=== PATIENT | female | born 1985 | race Caucasian/White ===

== ENCOUNTER 2020-06-13 08:34 | Outpatient (RCR) | payer OTHER, SELFPAY ==
--- NOTE | 2020-06-13 10:16 | OTOPEVAL ---
Thank you for referring Alycia Ho to [facility].? The patient is scheduled to be seen for therapy? ____x/week for ___ weeks. Please review, sign, date and return this plan of care TED. I agree with and certify that the following plan of care is medically necessary. Referring Physician Date Admitting Provider: Attending Provider: PHYSICIAN NOT ON STAFF Referring Provider: *OT Outpatient Evaluation Start: 06/13/20 08:52 Freq: Status: Active Protocol: Document 06/13/20 08:52 [facility] [place] (Rec: 06/13/20 10:15 [facility] [place] [facility] [id number]) Therapy Assessment Status Assessment Status Assessment Status Evaluation Outpatient Past Medical History Neurological History Hx Seizures Yes: febrile seizure as a child Gastrointestinal History Hx Hernia Yes: with mesh repair Hx Irritable Bowel Yes Musculoskeletal History Hx Degenerative Disk Disease Yes Reproductive History Hx Hysterectomy Yes Psychosocial History Hx Anxiety Yes Hx Depression Yes Other History Hx Cancer Yes: cervix Evaluation Information Problem Diagnosis R hand pain and weakness Onset 05/20/20 Cause R status post carpal tunnel release Subjective Information Patient had surgery on Text:As Reported By Patient/ to the R hand for carpal Family tunnel release. She reports that she has not been using her right hand much at all. Patient reports that she is not wearing a splint or anything at this time and had the stitches removed ~1 week ago. Patient does not work and reports that she is disabled. Quick DASH: 77.3% Prior Level of Function Activity Level (Last 3 Months) Hand Dominance Right Activity of Daily Living Ability Independent Indoor/Home Mobility Independent Community Mobility Independent Stairs Ability Independent Functional Cognition (Planning, Shopping Independent , Taking Medications) Cooking Yes Cleaning Yes Laundry Yes Shopping Yes Driving Yes Home Setting Home Type House Living Situation With Minor Child,With Spouse Mobility Assistive Devices (Used Last 3 None Months) Pain Assessmen
--- NOTE | 2020-07-01 11:23 | PTOPEVAL ---
Thank you for referring Alycia Ho to [facility].? The patient is scheduled to be seen for therapy? ___3_x/week for 12 visits. Please review, sign, date and return this plan of care TED. I agree with and certify that the following plan of care is medically necessary. Referring Physician Date Admitting Provider: Attending Provider: PHYSICIAN NOT ON STAFF Referring Provider: *PT Outpatient Evaluation Start: 07/01/20 10:00 Freq: Status: Active Protocol: Document 07/01/20 10:00 [facility] (Rec: 07/01/20 11:12 [facility] [id number]) Therapy Assessment Status Assessment Status Assessment Status Evaluation Outpatient Past Medical History Neurological History Hx Seizures Yes: febrile seizure as a child Gastrointestinal History Hx Hernia Yes: with mesh repair Hx Irritable Bowel Yes Musculoskeletal History Hx Degenerative Disk Disease Yes Reproductive History Hx Hysterectomy Yes Psychosocial History Hx Anxiety Yes Hx Depression Yes Other History Hx Cancer Yes: cervix Evaluation Information Problem Diagnosis low back pain Onset 06/14/20 Subjective Information Pt. reports that she bent to Query Text:As Reported By Patient/ get water out of her fridge Family and felt and disconnect in her back. She report she noted initial inability to use her legs and was taken to the ER by ambulance. Pt. reports that she was given pain medication and sent home. She reports that her condition has improved, but still has pain radiating along the low back and into both described greater trocahnter areas. She reports past laminectomy at L4-L5. She reports she cannot bend forward without pain. She states that she can stand for about 20 minutes prior to intense pain. Pt. reports that she does not work and is on disability. She reports that she was mostly inactive prior to her recent injury, but she can not participate in light housework at this time
--- NOTE | 2020-09-23 14:05 | PCOTNOTE ---
Patient is discharged from skilled OT services, see last treatment note for patient's skills. Patient cancelled last OT session and failed to schedule additional visits. MS
--- NOTE | 2020-09-30 06:57 | PCPTNOTE ---
Pt. attended a total of 4 PT sessions from 07/01/20 to 07/16/20. She contacted the clinic recently stating that she is doing well and would like to be discharged. Refer to last daily note for pt. discharge status. Judah Multani, MPT
== END 2020-07-16 23:59 | disposition home or self-care (01) ==
LOC: CHSOT 08:34
DX: M54.5 Low back pain (principal); G56.03 Carpal tunnel syndrome, bilateral upper limbs; Z98.890 Other specified postprocedural states
CPT/HCPCS: 97014; 97035; 97110; 97140; 97161; 97165; G0283

== ENCOUNTER 2020-07-21 15:22 | Outpatient (CLI) | payer OTHER, SELFPAY ==
--- NOTE | ~2020-07-21 | XR_ITS ---
EXAMINATION: XR chest 2V 07/21/2020 15:47 INDICATION: Left pleuritic chest pain PROCEDURE: 2 view chest COMPARISON: 04/10/2018 FINDINGS: The lungs are clear. The cardiomediastinal silhouette is within normal limits. There are no pleural effusions. There is no pneumothorax suspected. IMPRESSION: 1: NO ACUTE CARDIOPULMONARY DISEASE. Reviewed, dictated and finalized at location A. STANT HALL DIRECTOR
[2020-07-21 15:50] LABS: Basophils Absolute Auto 0.06 K/mm3 (0.00-0.10); Basophils Percent Auto 0.6 % (0.0-1.0); Eosinophils Absolute Auto 0.12 K/mm3 (0.02-0.50); Eosinophils Percent Auto 1.1 % (1.0-6.0); Hematocrit 46.9 % (35.0-49.0); Hemoglobin 13.9 g/dL (12.0-15.0); Immature Granulocyte Absolute 0.06 K/mm3 (0.00-0.00); Immature Granulocyte Percent A 0.6 % (0.0-0.0); Lymphocytes Absolute Auto 3.42 K/mm3 (1.10-4.50); Lymphocytes Percent Auto 32.1 % (18.0-42.0); Mean Corpuscular HGB Conc 29.6 g/dL (32.0-36.0); Mean Corpuscular Hemoglobin 29.4 pg (27.0-31.0); Mean Corpuscular Volume 99.2 fL (78.0-102.0); Mean Platelet Volume 10.2 fl (9.2-11.8); Monocytes Absolute Auto 0.81 K/mm3 (0.10-0.90); Monocytes Percent Auto 7.6 % (2.0-11.0); Neutrophils Absolute Auto 6.2 K/mm3 (1.7-7.2); Platelet Count Result 326 K/mm3 (150-420); Red Blood Count 4.73 M/mm3 (4.20-5.40); Red Cell Distribution Width 12.4 % (11.6-14.4); White Blood Count 10.6 K/mm3 (4.8-10.8)
[2020-07-21 17:20] LABS: D Dimer 0.54 mg/L (0.19-0.50)
== END 2020-07-21 15:23 | disposition home or self-care (01) ==
PROVIDERS: PCP Physician Assistant; Visit Provider Physician Assistant
DX: R07.81 Pleurodynia (principal)
CPT/HCPCS: 36415; 71046; 85025; 85380

== ENCOUNTER 2020-07-22 10:48 | Outpatient (CLI) | payer OTHER, SELFPAY ==
--- NOTE | ~2020-07-22 | CT_ITS ---
EXAMINATION: CTA chest PE protocol DATE: 07/22/2020 13:33 INDICATION: Soreness of breath. Left-sided chest pain. Positive d-dimer.. TECHNIQUE: Computed tomography (CT) pulmonary angiogram of the chest was performed with 100 mL Omnipa que-350 intravenous contrast. Additional 3D reconstructions utilizing coronal maximum intensity proje ction (MIP) were performed. Automated exposure control and iterative reconstruction technique were em ployed. The dose-length product was 393.41 mGy-cm. COMPARISON: None FINDINGS: Excellent contrast opacification of the pulmonary arteries. There is mild streak artifact from dense contrast in the superior vena cava and right atrium which does not significantly limit evaluation. No pulmonary embolism. Ground glass opacities in the dependent lungs likely mild atelectasis related to suboptimal inspiratory effort. Small region of bandlike discoid atelectasis at the anterobasilar lef t lower lobe with associated volume loss with focal mild posterior retraction of the medial adjacent left major fissure. No septal line thickening to suggest pulmonary edema. No other airspace opacities , pleural effusion or pneumothorax. Heart size is normal. No pericardial effusion. Thoracic aorta is normal in caliber with no dissection. No pathologically enlarged thoracic lymphadenopathy. Visualized upper abdomen is unremarkable. Bifid anterior right fifth rib. IMPRESSION: 1. No pulmonary embolism. 2. Mild dependent atelectasis/scarring at the anterobasilar left lower lobe. Reviewed, dictated and finalized at location B. ALS COLLECTION TECHNICIAN
[2020-07-22 11:26] LABS: D Dimer 0.65 mg/L (0.19-0.50)
== END 2020-07-22 10:49 | disposition home or self-care (01) ==
PROVIDERS: PCP Family Medicine; Visit Provider Physician Assistant
DX: R79.89 Other specified abnormal findings of blood chemistry (principal)
CPT/HCPCS: 36415; 71275; 85380; Q9965; Q9967

== ENCOUNTER 2020-08-24 10:48 | Outpatient (CLI) | payer OTHER, SELFPAY ==
[2020-08-26 18:38] LABS: SARS-CoV-2 RNA PCR Negative
== END 2020-08-24 10:49 | disposition home or self-care (01) ==
PROVIDERS: PCP Family Medicine; Visit Provider Family Medicine
DX: B34.9 Viral infection, unspecified (principal); Z20.822 Contact with and (suspected) exposure to COVID-19
CPT/HCPCS: C9803; U0003; U0005

== ENCOUNTER 2020-09-10 08:24 | Outpatient (CLI) | payer OTHER, SELFPAY ==
--- NOTE | ~2020-09-10 | US_ITS ---
EXAMINATION: US right upper quadrant DATE: 09/10/2020 09:02 INDICATION: Nausea with vomiting. TECHNIQUE: Multiple grayscale and Doppler ultrasound images of the abdomen were obtained. COMPARISON: Chest CT 07/22/2020 FINDINGS: The visualized portions of the head, body, and tail of the pancreas are normal. The liver i s normal without focal lesion. There is normal flow in main portal vein. The gallbladder is normal in size and contains sludge. No gallstones or gallbladder wall thickening. There was no sonographic Mur phy sign. The common duct is normal and measures 4 mm. IMPRESSION: 1. No etiology for the patient's symptoms. Reviewed, dictated and finalized at location A. OR PATROL POLICE
[2020-09-10 08:42] LABS: Basophils Absolute Auto 0.06 K/mm3 (0.00-0.10); Basophils Percent Auto 0.7 % (0.0-1.0); Eosinophils Absolute Auto 0.13 K/mm3 (0.02-0.50); Eosinophils Percent Auto 1.4 % (1.0-6.0); Hemoglobin 13.5 g/dL (12.0-15.0); Immature Granulocyte Absolute 0.03 K/mm3 (0.00-0.00); Immature Granulocyte Percent A 0.3 % (0.0-0.0); Lymphocytes Absolute Auto 2.37 K/mm3 (1.10-4.50); Mean Corpuscular HGB Conc 32.9 g/dL (32.0-36.0); Mean Corpuscular Hemoglobin 29.7 pg (27.0-31.0); Mean Corpuscular Volume 90.1 fL (78.0-102.0); Mean Platelet Volume 10.2 fl (9.2-11.8); Monocytes Absolute Auto 0.74 K/mm3 (0.10-0.90); Monocytes Percent Auto 8.1 % (2.0-11.0); Neutrophils Absolute Auto 5.8 K/mm3 (1.7-7.2); Neutrophils Percent Auto 63.5 % (50.0-70.0); Platelet Count Result 307 K/mm3 (150-420); Red Blood Count 4.55 M/mm3 (4.20-5.40); Red Cell Distribution Width 12.5 % (11.6-14.4); White Blood Count 9.1 K/mm3 (4.8-10.8)
[2020-09-10 09:15] LABS: Hemoglobin A1C 5.1 % (<5.7)
[2020-09-10 09:52] LABS: Alanine Aminotransferase 16 U/L (14-59); Albumin Level 4.2 g/dL (3.4-5.0); Alkaline Phosphatase 81 U/L (46-116); Anion Gap 11 mmol/L (8-16); Bilirubin,Total 0.5 mg/dL (0.00-1.00); Blood Urea Nitrogen 12 mg/dL (7-18); Calcium 9.3 mg/dL (8.5-10.1); Carbon Dioxide 27 mmol/L (21-32); Chloride 103 mmol/L (98-108); Cholesterol 176 mg/dL (0-200); Estimated Glomerular Filt Rate > 60; Glucose 102 mg/dL (70-99); HDL Direct 42 mg/dL (40-60); Iron 68 ug/dL (50-170); LDL Cholesterol Calculated 120 mg/dL (<130); Osmolality Calculated 291 mOsm/kg (285-295); Percent Iron Saturation 23 % (12-57); Potassium 4.3 mmol/L (3.5-5.1); Sodium 141 mmol/L (136-145); Thyroid Stimulating Hormone 1.16 uIU/mL (0.36-3.74); Total Protein 7.6 g/dL (6.4-8.2); Triglycerides 72 mg/dL (0-150); Vitamin B12 986 pg/mL (193-986)
[2020-09-10 10:01] LABS: Aspartate Amino Transferase 10 U/L (15-37)
== END 2020-09-10 08:25 | disposition home or self-care (01) ==
LOC: CHSLAB 08:25
PROVIDERS: PCP Physician Assistant; Visit Provider Physician Assistant
DX: E78.00 Pure hypercholesterolemia, unspecified (principal); E53.8 Deficiency of other specified B group vitamins; R73.01 Impaired fasting glucose; R53.83 Other fatigue; R11.2 Nausea with vomiting, unspecified
CPT/HCPCS: 36415; 76705; 80053; 80061; 82607; 83036; 83540; 83550; 84443; 85025

== ENCOUNTER 2021-03-13 13:47 | Emergency (ER) | payer OTHER, SELFPAY ==
--- NOTE | ~2021-03-13 | CT_ITS ---
EXAMINATION: CT cervical spine wo con DATE: 03/13/2021 16:27 INDICATION: Headache, radiating down the neck. Dizziness. TECHNIQUE: Computed tomography (CT) of the cervical spine was performed without intravenous contrast. Automated exposure control and iterative reconstruction technique were employed. Exam dose: 681.00 mGy-cm total exam DLP. COMPARISON: 05/01/2018 cervical spine FINDINGS: There is straightening of the cervical spine. C1 and C2 are normally aligned and the odonto id process is intact. No fracture or dislocation or locked facet. No prevertebral soft tissue swelling. The cervical inters paces are well preserved. No cervical mass lesion or lymphadenopathy. The parotid and submandibular glands and thyroid gland ar e unremarkable. No superior mediastinal mass lesion or adenopathy. The lung apices are clear.. IMPRESSION: Straightening; otherwise negative Reviewed, dictated and finalized at Location A. Reviewed, dictated and finalized at location B.
--- NOTE | ~2021-03-13 | CT_ITS ---
EXAMINATION: CT brain wo con DATE: 03/13/2021 16:27 INDICATION: Temporal headache. Dizziness, nausea. Pain radiating down neck. TECHNIQUE: Computed tomography (CT) of the head was performed without intravenous contrast. The mA wa s adjusted according to patient size. Iterative reconstruction technique was employed. Exam dose: 68 1.00 mGy-cm total exam DLP. COMPARISON: 06/27/2019 CT brain FINDINGS: No intracranial mass lesion or hemorrhage or cerebrovascular accident. No midline shift or mass effect. Normal mckeon-white matter differentiation. Normal ventricular size. No subdural or epidur al hematoma. No fracture or bone destruction of the cranial vault. The mastoid air cells and included paranasal sinuses are unremarkable. IMPRESSION: No significant abnormality Reviewed, dictated and finalized at Location A. Reviewed, dictated and finalized at location B. IMPRESSION: No significant abnormality
[2021-03-13 13:55] VITALS: BP 118/71; PULSE 98; RESP 16; TEMP 36.4; O2SAT 98
[2021-03-13] MEDS: ONDANSETRON HCL ODT 4 MG TABLET PO (15:50)
[2021-03-13] MEDS: KETOROLAC (*BKC) 60 MG/2 ML VIAL IM (15:50)
[2021-03-13 16:12] LABS: Basophils Absolute Auto 0.07 K/mm3 (0.00-0.10); Basophils Percent Auto 0.6 % (0.0-1.0); Eosinophils Absolute Auto 0.17 K/mm3 (0.02-0.50); Eosinophils Percent Auto 1.6 % (1.0-6.0); Hematocrit 44.2 % (35.0-49.0); Hemoglobin 14.3 g/dL (12.0-15.0); Immature Granulocyte Absolute 0.07 K/mm3 (0.00-0.00); Immature Granulocyte Percent A 0.6 % (0.0-0.0); Lymphocytes Absolute Auto 3.85 K/mm3 (1.10-4.50); Lymphocytes Percent Auto 35.6 % (18.0-42.0); Mean Corpuscular HGB Conc 32.4 g/dL (32.0-36.0); Mean Corpuscular Hemoglobin 29.6 pg (27.0-31.0); Mean Corpuscular Volume 91.5 fL (78.0-102.0); Mean Platelet Volume 9.9 fl (9.2-11.8); Monocytes Absolute Auto 0.94 K/mm3 (0.10-0.90); Monocytes Percent Auto 8.7 % (2.0-11.0); Neutrophils Absolute Auto 5.7 K/mm3 (1.7-7.2); Neutrophils Percent Auto 52.9 % (50.0-70.0); Platelet Count Result 341 K/mm3 (150-420); Red Blood Count 4.83 M/mm3 (4.20-5.40); Red Cell Distribution Width 12.7 % (11.6-14.4); White Blood Count 10.8 K/mm3 (4.8-10.8)
[2021-03-13 16:26] LABS: Alanine Aminotransferase 16 U/L (14-59); Alkaline Phosphatase 78 U/L (46-116); Anion Gap 10 mmol/L (8-16); Aspartate Amino Transferase < 10 U/L (15-37); Bilirubin,Total 0.2 mg/dL (0.00-1.00); Blood Urea Nitrogen 13 mg/dL (7-18); Carbon Dioxide 27 mmol/L (21-32); Chloride 105 mmol/L (98-108); Estimated CRCL calculation 82 ml/min; Estimated Glomerular Filt Rate > 60; Glucose 76 mg/dL (70-99); Osmolality Calculated 293 mOsm/kg (285-295); Potassium 4.2 mmol/L (3.5-5.1); Sodium 142 mmol/L (136-145); Total Protein 7.6 g/dL (6.4-8.2)
--- NOTE | 2021-03-13 16:44 | PC.NURSE ---
REPORT PROVIDED TO ONCOMING RN, DONNA Dixon
[2021-03-13 16:54] VITALS: BP 118/70; PULSE 70; RESP 18; O2SAT 98
--- NOTE | 2021-03-13 17:27 | ED.HA ---
HPI - Headache General Chief Complaint: Headache Stated Complaint: headaches/Dizzy/ Light headed Time Seen by Provider: 03/13/21 16:56 Source: patient and RN notes reviewed Mode of arrival: ambulatory Limitations: no limitations History of Present Illness MD elicited complaint: headache and migraine Pertinent past history: migraines Onset (ago): month(s) (2) Onset description: gradually and while at rest Location: occipital Severity: moderate Pain scale (0-10): 8 Quality & Timing: aching, throbbing, dull and similar to previous headaches Exacerbating factors: exertion and movement of head/neck Relieving factors: NSAIDs Context: occurred with exertion/activity Associated symptoms: nausea, vomiting and neck stiffness Related Data Home Medications Medication Instructions Recorded Confirmed alprazolam 0.5 mg PO BID PRN 03/13/21 03/13/21 paroxetine HCl 20 mg PO DAILY 03/13/21 03/13/21 trazodone 200 mg PO HS 03/13/21 03/13/21 venlafaxine 75 mg PO DAILY 03/13/21 03/13/21 Allergies Allergy/AdvReac Type Severity Reaction Status Date / Time amoxicillin Allergy Rash Verified 06/27/19 14:57 Cephalosporins Allergy Rash Verified 06/27/19 14:57 Review of Systems Review of Systems: All systems reviewed & are unremarkable except as noted in HPI and below Constitutional: Constitutional: Reports as per HPI and Reports no additional constitutional complaints Eyes: Eyes: Reports as per HPI and Reports no additional eye complaints ENT: Reports system reviewed and no additional complaints, except as documented and Reports as per HPI Cardiovascular: Cardiovascular: Reports as per HPI and Reports no additional cardiovascular complaints Respiratory: Respiratory: Reports as per HPI and Reports no additional respiratory complaints Gastrointestinal: Gastrointestinal: Reports as per HPI and Reports no additional gastrointestinal complaints Genitourinary: Genitourinary: Reports no additional female genitourinary complaints and Reports as per HPI Musculoskeletal: Musculoskeletal: Reports no additional musculoskeletal complaints and Reports as per HPI Integumentary/Breasts: Skin/Breast: Reports system reviewed and no additional complaints, except as docu and Reports as per HPI Neurologic: Reports system reviewed and no additional complaints, except as documented, Reports as per HPI and Reports headache(s) Psychiatric: Psychiatric: Reports no additional psychiatric complaints and Reports as per HPI Endocrine: Endocrine: Reports no additional endocrine complaints and Reports as per HPI Hematologic/Lymphatic: Hematologic/Lymphatic: Reports no additional hematologic/lymphatic complaints and Reports as per HPI Allergic/Immunologic: Allergic/Immunologic: Reports no additional allergic/immunologic complaints PMFSH Past Medical History Medical History (Updated 03/13/21 @ 17:40 by Emir Christensen MD) Headache disorder Social History Social History Gender identity (if verbalized by the patient): Female Exam Const: General: no acute distress and alert Nutritional Appearance: well nourished Orientation/consciousness: patient oriented x3 HENMT: Head: normal to inspection Ears: external ears normal and TM's normal bilaterally General nose exam: Normal external nose present and Normal nares present Mouth: Yes lip normal and Yes moist mucous membranes abnormal Teeth and gingiva: dentition normal Throat: posterior oropharynx normal Eyes: Conjunctivae: conjunctivae normal Pupils: Equal, round and reactive pupils present EOM: EOMs intact bilaterally Neck: Neck: normal visual inspection and no lymphadenopathy Chest: Chest palpation & inspection: normal inspection of the chest Resp: Effort & Inspection: normal respiratory effort Auscultation: clear to auscultation bilaterally Cardio: Rate: regular rate Rhythm: regular rhythm GI: GI Palp: Yes Soft to palpation Percus
[2021-03-13 17:42] VITALS: BP 120/88; PULSE 88; RESP 18; TEMP 36.6; O2SAT 98
== END 2021-03-13 17:43 | disposition home or self-care (01) ==
PROVIDERS: Emergency Provider Emergency Medicine; PCP Family Medicine
DX: G43.909 Migraine, unspecified, not intractable, without status migrainosus (principal)
CPT/HCPCS: 36415; 70450; 72125; 80053; 85025; 96372; 99283; 99284; A9270; J1885

== ENCOUNTER 2021-03-30 14:17 | Outpatient (CLI) | payer OTHER, SELFPAY ==
--- NOTE | ~2021-03-30 | XR_ITS ---
XR_CERV2-3V_CR DATE: 03/30/2021 14:34 INDICATION: Neck pain, bilateral upper extremity weakness TECHNIQUE: AP, open-mouth, lateral views COMPARISON: 05/01/2018 cervical spine FINDINGS: There is straightening of the cervical spine. C1 and C2 are normally aligned and the odonto id process is intact. No fracture or dislocation or locked facet or prevertebral soft tissue swelling . Cervical interspaces are well preserved. IMPRESSION: Straightening of the cervical spine Reviewed, dictated and finalized at Location A. Reviewed, dictated and finalized at location A.
== END 2021-03-30 14:18 | disposition home or self-care (01) ==
LOC: CHSIMG 14:19
PROVIDERS: PCP Physician Assistant; Visit Provider Physician Assistant
DX: M54.2 Cervicalgia (principal)
CPT/HCPCS: 72040

== ENCOUNTER 2021-04-11 07:34 | Outpatient (CLI) | payer OTHER, SELFPAY ==
--- NOTE | ~2021-04-11 | MR_ITS ---
EXAMINATION: MR cervical spine wo con DATE: 04/11/2021 08:24 INDICATION: Right-sided cervical radiculopathy. Numbness of the arms. TECHNIQUE: Magnetic resonance imaging (MRI) of the cervical spine was performed without intravenous c ontrast. Sequences included sagittal T2-weighted FSE, sagittal T2-weighted FS FSE, sagittal T1-weight ed FSE, axial MERGE, and axial T2-weighted FSE. COMPARISON: CT abdomen and pelvis 03/13/2021 FINDINGS: Bone alignment is normal. Vertebral body heights and intervertebral disc heights are normal . The spinal cord signal intensity is normal. The following disc levels are specifically discussed: C2-C3: The disc does not extend beyond the endplate margin. There is no uncovertebral joint osteoarth ritis. There is mild left facet joint osteoarthritis. There is no neural foraminal stenosis. There is no central canal stenosis. C3-C4: The disc does not extend beyond the endplate margin. There is no uncovertebral joint osteoarth ritis. There is mild bilateral facet joint osteoarthritis. There is no neural foraminal stenosis. The re is no central canal stenosis. C4-C5: The disc does not extend beyond the endplate margin. There is mild bilateral uncovertebral nena nt osteoarthritis. There is mild right facet joint osteoarthritis. There is no neural foraminal steno sis. There is no central canal stenosis. C5-C6: The disc does not extend beyond the endplate margin. There is mild bilateral uncovertebral nena nt osteoarthritis. There is no facet joint osteoarthritis. There is mild bilateral neural foraminal s tenosis. There is no central canal stenosis. C6-C7: The disc does not extend beyond the endplate margin. There is no uncovertebral joint osteoarth ritis. There is no facet joint osteoarthritis. There is no neural foraminal stenosis. There is no tristan tral canal stenosis. C7-T1: The disc does not extend beyond the endplate margin. There is no uncovertebral joint osteoarth ritis. There is mild bilateral facet joint osteoarthritis. There is no neural foraminal stenosis. The re is no central canal stenosis. IMPRESSION: 1. Mild cervical spondylosis. Reviewed, dictated and finalized at location A.
== END 2021-04-11 07:35 | disposition home or self-care (01) ==
LOC: CHSIMG 07:35
PROVIDERS: PCP Physician Assistant; Visit Provider Physician Assistant
DX: M54.12 Radiculopathy, cervical region (principal)
CPT/HCPCS: 72141

== ENCOUNTER 2021-04-18 20:01 | Emergency (ER) | payer OTHER, SELFPAY ==
[2021-04-18 20:15] VITALS: BP 128/73; PULSE 107; RESP 18; TEMP 37.2; O2SAT 97
--- NOTE | 2021-04-18 20:24 | ED.URI ---
HPI - URI/Sore Throat General Chief Complaint: Upper Respiratory Infection Stated Complaint: bronchitis Source: patient Mode of arrival: ambulatory Limitations: no limitations History of Present Illness HPI Narrative: this is a 35-year-old female that was seen by her family physician and I gave her medication for cough and was treating her for bronchitis about the patient could not track down the pharmacy that her antibiotics and steroids were sent to. The patient has cough with no shortness of breath low-grade temperature with no audible wheezing does have nasal congestion with no chest pain no nausea vomiting no abdominal pain. MD elicited complaint: fever, cough and nasal congestion Onset (ago): day(s) Consistency: constant Severity: mild Related Data Home Medications Medication Instructions Recorded Confirmed paroxetine HCl 40 mg PO DAILY 03/13/21 04/18/21 trazodone 200 mg PO HS 03/13/21 04/18/21 venlafaxine 75 mg PO DAILY 03/13/21 04/18/21 Allergies Allergy/AdvReac Type Severity Reaction Status Date / Time amoxicillin Allergy Rash Verified 04/18/21 20:20 Cephalosporins Allergy Rash Verified 06/27/19 14:57 Review of Systems Review of Systems: All systems reviewed & are unremarkable except as noted in HPI and below PMFSH Past Medical History Medical History Headache disorder Social History Social History Gender identity (if verbalized by the patient): Female Exam Const: General: no acute distress and alert Orientation/consciousness: patient oriented x3 HENMT: Head: normal to inspection Eyes: Conjunctivae: conjunctivae normal Pupils: Equal, round and reactive pupils present Neck: Neck: normal visual inspection and no lymphadenopathy Chest: Chest palpation & inspection: normal inspection of the chest Resp: Effort & Inspection: normal respiratory effort Cardio: Rate: regular rate Rhythm: regular rhythm GI: GI Palp: Yes Soft to palpation Urinary Catheter: Urinary Catheter: patent and draining Back/Spine/Pelvis: Back: no CVA tenderness Skin: General skin exam: normal color Neuro: General: patient oriented x3 Extrem: General: normal to inspection and no pedal edema Psych: Mental Status: mental status grossly normal Course Course Emergency Course: Patient received p.o. Levaquin and IM injection of Depo-Medrol Critical Care Time Critical Care Time Critical Care Time: No Discharge Plan Discharge Clinical Impression: Upper respiratory infection Qualifiers: URI type: unspecified URI Qualified Code(s): J06.9 - Acute upper respiratory infection, unspecified Patient Disposition: Home, Self-Care Condition: Stable Instructions: Antibiotic Form, Acute Bronchitis (ED) Additional Instructions: take medicine as prescribed and follow-up primary care physician if symptoms persist or worsen. Prescriptions: New levofloxacin 500 mg tablet 500 mg PO DAILY Qty: 7 RF: 0 prednisone 20 mg tablet 20 mg PO DAILY 5 Days Qty: 5 RF: 0 levofloxacin 500 mg tablet 500 mg PO DAILY 7 Days Qty: 7 RF: 0 No Action venlafaxine 75 mg capsule,extended release 24hr 75 mg PO DAILY RF: 0 trazodone 100 mg tablet 200 mg PO HS RF: 0 paroxetine HCl 20 mg tablet 40 mg PO DAILY RF: 0 Follow-up/Referrals: Judah,LAKHWINDER Madrigal [Primary Care Provider] - Time of Disposition: 20:32
[2021-04-18] MEDS: levoFLOXacin 500 MG TABLET PO (20:35)
[2021-04-18] MEDS: methylPREDNISolone ACETATE 40 MG/ML VIAL 80 MG IM (20:35)
== END 2021-04-18 20:37 | disposition home or self-care (01) ==
PROVIDERS: Emergency Provider Emergency Medicine; PCP Physician Assistant
DX: J06.9 Acute upper respiratory infection, unspecified (principal)
CPT/HCPCS: 96372; 99283; A9270; J1030

== ENCOUNTER 2021-08-22 08:57 | Outpatient (CLI) | payer OTHER, SELFPAY ==
[2021-08-22 10:04] LABS: SARS-CoV-2 Ag Negative (Negative)
[2021-08-24 10:49] LABS: SARS-CoV-2 RNA PCR Negative (Negative)
== END 2021-08-22 08:58 | disposition home or self-care (01) ==
LOC: CHSLAB 08:58
PROVIDERS: PCP Family Medicine; Visit Provider Family Medicine
DX: Z20.822 Contact with and (suspected) exposure to COVID-19 (principal)
CPT/HCPCS: 87426; C9803; U0003; U0005

== ENCOUNTER 2021-10-03 17:22 | Emergency (ER) | payer OTHER, SELFPAY ==
[2021-10-03 18:05] VITALS: BP 119/69; PULSE 94; RESP 18; TEMP 36.6; O2SAT 97
--- NOTE | 2021-10-03 18:22 | ED.URI ---
HPI - URI/Sore Throat General Chief Complaint: Upper Respiratory Infection Stated Complaint: sinus inf Time Seen by Provider: 10/03/21 17:25 Source: patient and RN notes reviewed Mode of arrival: ambulatory Limitations: no limitations History of Present Illness MD elicited complaint: sore throat, nasal congestion and sinus pain Pertinent past history: sinusitis Onset (ago): day(s) (2) Consistency: constant Severity: mild Pain scale (0-10): 5 Able to tolerate fluids by mouth: Yes Exacerbating factors: nothing Relieving factors: OTC cold medicine Associated symptoms: nasal congestion Treatments prior to arrival: acetaminophen and ibuprofen Related Data Home Medications Medication Instructions Recorded Confirmed trazodone 200 mg PO HS 03/13/21 10/03/21 venlafaxine 75 mg PO DAILY 03/13/21 10/03/21 alprazolam 0.5 mg PO DAILY 10/03/21 10/03/21 paroxetine HCl 30 mg PO DAILY 10/03/21 10/03/21 Allergies Allergy/AdvReac Type Severity Reaction Status Date / Time amoxicillin Allergy Rash Verified 10/03/21 18:18 Cephalosporins Allergy Rash Verified 06/27/19 14:57 Review of Systems Review of Systems: All systems reviewed & are unremarkable except as noted in HPI and below PMFSH Past Medical History Medical History (Updated 10/19/21 @ 04:44 by Emir Christensen MD) Headache disorder Sinusitis Upper respiratory infection Social History Social History Gender identity (if verbalized by the patient): Female Exam Const: General: no acute distress and alert Nutritional Appearance: well nourished Orientation/consciousness: patient oriented x3 Limitations: no limitations HENMT: Head: normal to inspection Ears: external ears normal, TM's normal bilaterally and EAC's normal General nose exam: Normal external nose present and Normal nares present Face and sinus: normal facial exam and sinus tenderness Mouth: Yes lip normal and Yes moist mucous membranes Throat: posterior oropharynx normal Eyes: Conjunctivae: conjunctivae normal Pupils: Equal, round and reactive pupils present EOM: EOMs intact bilaterally Neck: Neck: normal visual inspection and no lymphadenopathy Chest: Chest palpation & inspection: normal inspection of the chest Resp: Effort & Inspection: normal respiratory effort Auscultation: clear to auscultation bilaterally Cardio: Rate: regular rate Rhythm: regular rhythm GI: GI Palp: Yes Soft to palpation, No Tenderness to palpation present (GI) and Yes Rebound tenderness present Auscultation: normal bowel sounds : General: Yes no CVA tenderness Back/Spine/Pelvis: Back: no CVA tenderness Skin: General skin exam: normal color Rashes: no rashes Neuro: General: patient oriented x3, moves all extremities, no meningeal signs, no focal motor deficits and CN's II-XI intact bilaterally Extrem: General: normal to inspection and no pedal edema Psych: Appearance: grossly normal and well kempt Mental Status: mental status grossly normal Affect: normal affect Attitude: cooperative Thought content: Yes Normal thought content present Course Course Emergency Course: Stable pt with less pain. Reevaluation(s) Reevaluation #1: VSS Date: 10/03/21 Time: 17:56 Vital Signs Vital signs: Vital Signs Temperature 36.6 C 10/03/21 18:05 Pulse Rate 94 10/03/21 18:05 Respiratory Rate 18 10/03/21 18:05 Blood Pressure 119/69 10/03/21 18:05 Pulse Oximetry 97 10/03/21 18:05 Temperature 36.6 C 10/03/21 18:05 Pulse Rate 94 10/03/21 18:05 Respiratory Rate 18 10/03/21 18:05 Blood Pressure 119/69 10/03/21 18:05 Pulse Oximetry 97 10/03/21 18:05 MDM - URI/Sore Throat Differential Diagnosis Differential diagnosis: Likely upper respiratory infection, sinusitis, viral infection and pharyngitis Medical Records Attestation: I reviewed the patient's medical records. Critical Care Time Critical Care Time Critical Care Time:
[2021-10-03] MEDS: AZITHROMYCIN 250 MG TABLET 500 MG PO (18:27)
[2021-10-03] MEDS: ACETAMINOPHEN 325 MG TABLET 650 MG PO (18:27)
[2021-10-03] MEDS: guaiFENesin 12 HR 600 MG TABCR PO (18:29)
--- NOTE | 2021-10-03 18:45 | PC.NURSE ---
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 Pt stated she would wait until Tuesday to get prescription. 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
== END 2021-10-03 18:46 | disposition home or self-care (01) ==
PROVIDERS: Emergency Provider Emergency Medicine; PCP Physician Assistant
DX: J01.90 Acute sinusitis, unspecified (principal); J06.9 Acute upper respiratory infection, unspecified
CPT/HCPCS: 99283; A9270

== ENCOUNTER 2022-03-16 12:33 | Emergency (ER) | payer OTHER, SELFPAY ==
[2022-03-16 12:40] VITALS: BP 111/67; PULSE 86; RESP 16; TEMP 36.3; O2SAT 98
--- NOTE | 2022-03-16 13:25 | ED.URI ---
HPI - URI/Sore Throat General Chief Complaint: Upper Respiratory Infection Stated Complaint: HEADACHE, FEVER Time Seen by Provider: 03/16/22 12:35 Source: patient and RN notes reviewed Mode of arrival: ambulatory Limitations: no limitations History of Present Illness MD elicited complaint: fever and cough Onset (ago): hour(s) (6) Consistency: constant Severity: moderate Description of mucous: clear Able to tolerate fluids by mouth: Yes Exacerbating factors: nothing Relieving factors: nothing Context: sick contacts ( daughter was exposed to COVID) Associated symptoms: fever, myalgias and other ( dizziness) Treatments prior to arrival: none Related Data Home Medications Medication Instructions Recorded Confirmed trazodone 100 mg tablet 200 mg PO HS 03/13/21 03/16/22 venlafaxine 75 mg capsule,extended 75 mg PO DAILY 03/13/21 03/16/22 release 24 hr alprazolam 0.5 mg tablet 0.5 mg PO DAILY 10/03/21 03/16/22 paroxetine HCl 30 mg tablet 30 mg PO DAILY 10/03/21 03/16/22 Allergies Allergy/AdvReac Type Severity Reaction Status Date / Time amoxicillin Allergy Rash Verified 03/16/22 13:09 Cephalosporins Allergy Rash Verified 03/16/22 13:09 Review of Systems Review of Systems: All systems reviewed & are unremarkable except as noted in HPI and below PMFSH Past Medical History Medical History (Updated 03/16/22 @ 13:53 by Simón Corona MD) Asthma Headache disorder Sinusitis Upper respiratory infection Social History Social History Gender identity (if verbalized by the patient): Female Exam Const: General: healthy appearing, no acute distress and alert Nutritional Appearance: well nourished Orientation/consciousness: patient oriented x3 Limitations: no limitations HENMT: Head: normal to inspection Ears: external ears normal and TM's normal bilaterally General nose exam: Normal external nose present Eyes: Conjunctivae: conjunctivae normal Pupils: Equal, round and reactive pupils present EOM: EOMs intact bilaterally Neck: Neck: normal visual inspection Resp: Effort & Inspection: normal respiratory effort Auscultation: clear to auscultation bilaterally Cardio: Rate: regular rate Rhythm: regular rhythm GI: GI Palp: Yes Soft to palpation and No Tenderness to palpation present (GI) Auscultation: normal bowel sounds Back/Spine/Pelvis: Cervical Spine: cervical ROM normal Thoracic/Lumbar Spine: thoraco-lumbar ROM normal Skin: General skin exam: normal color Rashes: no rashes Neuro: General: patient oriented x3, moves all extremities and no focal motor deficits Speech: normal speech Gait exam (Neuro): Normal gait present Extrem: General: normal to inspection and no clubbing, cyanosis or edema Psych: Mental Status: mental status grossly normal Affect: normal affect Attitude: cooperative Course Vital Signs Vital signs: Vital Signs Temperature 36.3 C L 03/16/22 12:40 Pulse Rate 86 03/16/22 12:40 Respiratory Rate 16 03/16/22 12:40 Blood Pressure 111/67 03/16/22 12:40 Pulse Oximetry 98 03/16/22 12:40 Oxygen Delivery Room Air 03/16/22 12:40 Temperature 36.3 C L 03/16/22 12:40 Pulse Rate 72 03/16/22 13:50 Respiratory Rate 16 03/16/22 13:50 Blood Pressure 110/70 03/16/22 13:50 Pulse Oximetry 98 03/16/22 13:50 Oxygen Delivery Room Air 03/16/22 13:50 MDM - URI/Sore Throat Lab Data Labs: Lab Results 03/16/22 Range/Units 12:52 Influenza A (RT-PCR) Negative (Negative) Influenza B (RT-PCR) Negative (Negative) SARS-CoV-2 RNA (RT-PCR) Negative (Negative) Discharge Plan Discharge Clinical Impression: COVID-19 Patient Disposition: Home, Self-Care Condition: Stable Instructions: COVID-19 (Coronavirus Disease 2019) (ED) Additional Instructions: Drink plenty of fluids and get plenty of rest. Quarantine for 5 days and then wear a mask whenever you leave the [facility]
--- NOTE | 2022-03-16 13:25 | PC.NURSE ---
PT REPORTS DAUGHTER HAD A POSITIVE COVID EXPOSURE LAST WEEK PRIOR TO ONSET OF SX.
[2022-03-16 13:35] LABS: Influenza A QL RT-PCR Negative (Negative); Influenza B QL RT-PCR Negative (Negative); SARS-CoV-2 RNA PCR Negative (Negative)
[2022-03-16 13:50] VITALS: BP 110/70; PULSE 72; RESP 16; O2SAT 98
== END 2022-03-16 13:50 | disposition home or self-care (01) ==
PROVIDERS: Emergency Provider Emergency Medicine; PCP Physician Assistant
DX: U07.1 COVID-19 (principal)
CPT/HCPCS: 87502; 99283; C9803; U0003; U0005

== ENCOUNTER 2022-03-27 11:50 | Emergency (ER) | payer OTHER, SELFPAY ==
--- NOTE | ~2022-03-27 | XR_ITS ---
EXAMINATION: XR chest 1V portable DATE: 03/27/2022 12:34 INDICATION: Shortness of breath. TECHNIQUE: A single frontal view of the chest was obtained. COMPARISON: Chest 2 views 07/21/2020 FINDINGS: There is no pneumonia, pleural effusion, or pneumothorax. The heart size is normal. IMPRESSION: 1. No acute cardiopulmonary disease. Reviewed, dictated and finalized at location A.
--- NOTE | 2022-03-27 12:15 | ECG_ITS ---
Measurements Intervals [place] Rate: 75 P: 23 HI: 152 QRS: 48 QRSD: 88 T: 66 QT: 405 QTc: 453 Interpretive Statements SINUS RHYTHM COMPARED TO ECG 06/27/2019 14:39:21 THE PATIENT IS NO LONGER TACHYCARDIC Electronically Signed On 03-27-2022 13:45:53 CDT by Tejal Warren M.D.
[2022-03-27 12:25] VITALS: BP 110/76; PULSE 74; RESP 20; TEMP 37.1; O2SAT 99
[2022-03-27 12:34] LABS: Basophils Absolute Auto 0.02 K/mm3 (0.00-0.10); Basophils Percent Auto 0.3 % (0.0-1.0); Eosinophils Absolute Auto 0.08 K/mm3 (0.02-0.50); Eosinophils Percent Auto 1.1 % (1.0-6.0); Hematocrit 41.9 % (35.0-49.0); Hemoglobin 13.8 g/dL (12.0-15.0); Immature Granulocyte Absolute 0.07 K/mm3 (0.00-0.00); Immature Granulocyte Percent A 0.9 % (0.0-0.0); Lymphocytes Absolute Auto 2.81 K/mm3 (1.10-4.50); Lymphocytes Percent Auto 37.1 % (18.0-42.0); Mean Corpuscular HGB Conc 32.9 g/dL (32.0-36.0); Mean Corpuscular Hemoglobin 29.6 pg (27.0-31.0); Mean Corpuscular Volume 89.9 fL (78.0-102.0); Mean Platelet Volume 10.3 fl (9.2-11.8); Monocytes Absolute Auto 0.75 K/mm3 (0.10-0.90); Monocytes Percent Auto 9.9 % (2.0-11.0); Neutrophils Absolute Auto 3.9 K/mm3 (1.7-7.2); Neutrophils Percent Auto 50.7 % (50.0-70.0); Platelet Count Result 312 K/mm3 (150-420); Red Blood Count 4.66 M/mm3 (4.20-5.40); White Blood Count 7.6 K/mm3 (4.8-10.8)
[2022-03-27 12:44] VITALS: PULSE 78; RESP 19; O2SAT 98
[2022-03-27] MEDS: SODIUM CHLORIDE 0.9% IV 1,000 ML 999 ML IV CONT (12:44)
--- NOTE | 2022-03-27 12:45 | ED.URI ---
HPI - URI/Sore Throat General Chief Complaint: Upper Respiratory Infection Stated Complaint: cheast heavy labored breathing light headed Time Seen by Provider: 03/27/22 12:15 Source: patient Mode of arrival: ambulatory Limitations: no limitations History of Present Illness HPI Narrative: this is a 36-year-old female with history of depression, recently diagnosed with COVID and was receiving anti viral medication. This is her last day of the antiviral medication and the patient presents with some congestion body aches chest tightness with no fever chills no shortness of breath no abdominal pain no nausea vomiting. MD elicited complaint: cough and nasal congestion Onset (ago): day(s) Consistency: intermittent Severity: mild Description of mucous: clear Related Data Home Medications Medication Instructions Recorded Confirmed trazodone 100 mg tablet 200 mg PO HS 03/13/21 03/27/22 venlafaxine 75 mg capsule,extended 75 mg PO DAILY 03/13/21 03/27/22 release 24 hr paroxetine HCl 30 mg tablet 30 mg PO DAILY 10/03/21 03/27/22 Allergies Allergy/AdvReac Type Severity Reaction Status Date / Time amoxicillin Allergy Rash Verified 03/16/22 13:09 Cephalosporins Allergy Rash Verified 03/16/22 13:09 Review of Systems Review of Systems: All systems reviewed & are unremarkable except as noted in HPI and below PMFSH Past Medical History Medical History Asthma Headache disorder Sinusitis Upper respiratory infection Social History Social History Gender identity (if verbalized by the patient): Female Exam Const: General: healthy appearing and no acute distress HENMT: Head: normal to inspection Face and sinus: normal facial exam Eyes: Conjunctivae: conjunctivae normal Direct Ophthalmoscopy: no photophobia Neck: Neck: normal visual inspection, no lymphadenopathy and no meningeal signs Chest: Chest palpation & inspection: normal inspection of the chest Resp: Effort & Inspection: normal respiratory effort Auscultation: clear to auscultation bilaterally Cardio: Rate: regular rate Rhythm: regular rhythm GI: GI Palp: Yes Soft to palpation Auscultation: normal bowel sounds : General: Yes bladder normal to palpation Urinary Catheter: Urinary Catheter: patent and draining Back/Spine/Pelvis: Back: no CVA tenderness Skin: General skin exam: normal color Neuro: General: patient oriented x3 and moves all extremities Cranial nerves: Yes Nystagmus not present Extrem: General: normal to inspection and no clubbing, cyanosis or edema Psych: Mental Status: mental status grossly normal Course Course Emergency Course: Patient receiving IV fluids and received a nebulizer treatment chest x-ray labs and EKG reviewed. MDM - URI/Sore Throat Lab Data Result diagrams: 03/27/22 12:28 03/27/22 12: Labs: Lab Results 03/27/22 03/27/22 Range/Units 12:28 12:28 WBC 7.6 (4.8-10.8) K/mm3 RBC 4.66 (4.20-5.40) M/mm3 Hgb 13.8 (12.0-15.0) g/dL Hct 41.9 (35.0-49.0) % MCV 89.9 (78.0-102.0) fL MCH 29.6 (27.0-31.0) pg MCHC 32.9 (32.0-36.0) g/dL RDW 13.0 (11.6-14.4) % Plt Count 312 (150-420) K/mm3 MPV 10.3 (9.2-11.8) fl Immature Gran % (Auto) 0.9 H (0.0-0.0) % Neut % (Auto) 50.7 (50.0-70.0) % Lymph % (Auto) 37.1 (18.0-42.0) % [place] % (Auto) 9.9 (2.0-11.0) % Eos % (Auto) 1.1 (1.0-6.0) % Baso % (Auto) 0.3 (0.0-1.0) % Lymph # (Auto) 2.81 (1.10-4.50) K/mm3 [place] # (Auto) 0.75 (0.10-0.90) K/mm3 Eos # (Auto) 0.08 (0.02-0.50) K/mm3 Baso # (Auto) 0.02 (0.00-0.10) K/mm3 Abs Immat Gran (auto) 0.07 H (0.00-0.00) K/mm3 Absolute Neuts (auto) 3.9 (1.7-7.2) K/mm3 Absolute Nucleated RBC 0.00 (0.00-0.00) K/mm3 Nucleated RBC % 0.0 (0-0.0) % Sodium Pending Potassium Pending Chloride Pending
[2022-03-27] MEDS: IPRATROPIUM 0.5 MG/ALBUTEROL SULFATE 2.5 MG AMPUL.NEB 3 ML INHALATION (12:49)
[2022-03-27 12:51] LABS: Alanine Aminotransferase 32 U/L (14-59); Albumin Level 3.9 g/dL (3.4-5.0); Alkaline Phosphatase 75 U/L (46-116); Anion Gap 7 mmol/L (8-16); Aspartate Amino Transferase 12 U/L (15-37); Bilirubin,Total 0.5 mg/dL (0.00-1.00); Blood Urea Nitrogen 8 mg/dL (7-18); Carbon Dioxide 25 mmol/L (21-32); Chloride 104 mmol/L (98-108); Estimated CRCL calculation 80 ml/min; Estimated Glomerular Filt Rate > 60; Glucose 103 mg/dL (70-99); Osmolality Calculated 280 mOsm/kg (285-295); Potassium 3.8 mmol/L (3.5-5.1); Sodium 136 mmol/L (136-145); Total Protein 7.5 g/dL (6.4-8.2)
[2022-03-27 12:52] VITALS: BP 97/76; PULSE 74; PULSE 79; RESP 18; RESP 20; TEMP 37.1; O2SAT 100; O2SAT 97
== END 2022-03-27 13:19 | disposition home or self-care (01) ==
PROVIDERS: Emergency Provider Emergency Medicine; PCP Physician Assistant
DX: U07.1 COVID-19 (principal)
CPT/HCPCS: 36415; 71045; 80053; 85025; 93005; 94640; 96360; 99283; J7030

== ENCOUNTER 2022-07-12 02:52 | Emergency (ER) | payer OTHER, SELFPAY ==
--- NOTE | ~2022-07-12 | CT_ITS ---
EXAMINATION: CT lumbar spine wo con DATE: 07/12/2022 03:52 INDICATION: Chronic low back pain TECHNIQUE: Computed tomography (CT) of the lumbar spine was performed without intravenous contrast. T he dose-length product was 639.54 mGy-cm. Automated exposure control and iterative reconstruction ministerio hnique were employed. COMPARISON: None FINDINGS: There is an L5 limbus vertebra. Vertebral body heights are maintained. No acute fracture or traumatic malalignment. There is mild facet degenerative change at L4-5 and L5-S1. There is mild dis c narrowing at L5-S1. No significant paraspinal soft tissue abnormality. At L5-S1 there is right paracentral disc protrusion with diffuse disc bulging causing central canal a nd bilateral neuroforaminal narrowing, right greater than left. There is mild disc bulging at L4-5 as well. No significant paraspinal soft tissue abnormality. IMPRESSION: 1. Moderate lumbar spondylosis with associated central canal and bilateral neural foraminal narrowing at L5-S1. 2: No acute abnormality of the lumbar spine. Reviewed, dictated and finalized at location A. MILL SUPERVISOR IMPRESSION: 1. Moderate lumbar spondylosis with associated central canal and bilateral neur al foraminal narrowing at L5-S1. 2: No acute abnormality of the lumbar spine.
[2022-07-12 03:01] VITALS: BP 125/65; PULSE 86; RESP 20; TEMP 36.8; O2SAT 98
[2022-07-12] MEDS: KETOROLAC (*BKC) 60 MG/2 ML VIAL (03:22)
--- NOTE | 2022-07-12 04:28 | ED.BACK ---
HPI - Back Pain/Injury General Chief Complaint: Back Pain/Injury Stated Complaint: Hurt Back Time Seen by Provider: 07/12/22 02:55 Source: patient and RN notes reviewed Mode of arrival: ambulatory Limitations: no limitations History of Present Illness MD elicited complaint: back pain and other (sneezed and back pain got worse. no other acute injury. ) Pertinent past history: prior back pain and back surgery Onset (ago): day(s) (1) Timing: progressively worsening Severity: moderate Pain scale (0-10): 7 Similar Symptoms Previously: Yes Quality: dull and aching Location: lumbar spine Radiation: none Exacerbating factors: movement Relieving factors: immobilization Associated symptoms: difficulty walking Treatments prior to arrival: NSAIDS and other medications Related Data Home Medications Medication Instructions Recorded Confirmed trazodone 100 mg tablet 200 mg PO HS 03/13/21 07/12/22 venlafaxine 75 mg capsule,extended 75 mg PO DAILY 03/13/21 07/12/22 release 24 hr naproxen 500 mg tablet 500 mg PO PRN PRN Pain 07/12/22 07/12/22 paroxetine HCl 40 mg tablet 40 mg PO DAILY 07/12/22 07/12/22 tramadol 50 mg tablet 50 mg PO Q4H PRN Pain 07/12/22 07/12/22 Allergies Allergy/AdvReac Type Severity Reaction Status Date / Time amoxicillin Allergy Rash Verified 03/16/22 13:09 Cephalosporins Allergy Rash Verified 03/16/22 13:09 Review of Systems Review of Systems: All systems reviewed & are unremarkable except as noted in HPI and below Constitutional: Constitutional: Reports no additional constitutional complaints Eyes: Eyes: Reports no additional eye complaints ENT: Reports system reviewed and no additional complaints, except as documented Cardiovascular: Cardiovascular: Reports no additional cardiovascular complaints Respiratory: Respiratory: Reports no additional respiratory complaints Gastrointestinal: Gastrointestinal: Reports no additional gastrointestinal complaints Genitourinary: Genitourinary: Reports no additional female genitourinary complaints Musculoskeletal: Musculoskeletal: Reports no additional musculoskeletal complaints and Reports back pain Integumentary/Breasts: Skin/Breast: Reports system reviewed and no additional complaints, except as docu Neurologic: Reports system reviewed and no additional complaints, except as documented Psychiatric: Psychiatric: Reports no additional psychiatric complaints Endocrine: Endocrine: Reports no additional endocrine complaints Hematologic/Lymphatic: Hematologic/Lymphatic: Reports no additional hematologic/lymphatic complaints Allergic/Immunologic: Allergic/Immunologic: Reports no additional allergic/immunologic complaints PMFSH Past Medical History Medical History Asthma Chronic low back pain Headache disorder Sinusitis Upper respiratory infection Social History Social History Gender identity (if verbalized by the patient): Female Exam Const: General: no acute distress and well nourished Nutritional Appearance: well nourished Orientation/consciousness: patient oriented x3 Limitations: no limitations HENMT: Head: normal to inspection Ears: external ears normal, TM's normal bilaterally and EAC's normal Face/Nose/Sinus: Normal external nose present, Normal nares present, normal facial exam and sinuses nontender Face and sinus: normal facial exam and sinuses nontender Mouth: Yes Normal oral and palatal mucosa present and Yes moist mucous membranes Teeth and gingiva: dentition normal Throat: posterior oropharynx normal Eyes: Conjunctivae: conjunctivae normal Pupils: Equal, round and reactive pupils present EOM: EOMs intact bilaterally Neck: Neck: normal visual inspection, no lymphadenopathy and no meningeal signs Chest: Chest palpation & inspection: normal inspection of the chest Resp: Effort & Inspection: normal respiratory ef
--- NOTE | 2022-07-12 04:29 | PC.NURSE ---
Pt resting position of comfort, awaiting CT report, call becerra at side. No further c/o, explained to pt about wait times for CT reports.
[2022-07-12] MEDS: traMADol HCL (*CRX) 50 MG TABLET PO (04:52)
[2022-07-12 05:53] VITALS: BP 120/74; PULSE 88; RESP 20; TEMP 36.6; O2SAT 98
== END 2022-07-12 05:55 | disposition home or self-care (01) ==
PROVIDERS: Emergency Provider Emergency Medicine; PCP Physician Assistant
DX: S39.012A Strain of muscle, fascia and tendon of lower back, initial encounter (principal)
CPT/HCPCS: 72131; 96372; 99284; A9270; J1885

== ENCOUNTER 2022-07-15 08:12 | Outpatient (CLI) | payer OTHER, SELFPAY ==
--- NOTE | ~2022-07-15 | MR_ITS ---
EXAMINATION: MR lumbar spine wo con DATE: 07/15/2022 08:59 INDICATION: Lumbar radiculopathy. TECHNIQUE: Magnetic resonance imaging (MRI) of the lumbar spine was performed without intravenous con trast. Sequences included sagittal T2-weighted FSE, sagittal T2-weighted FS FSE, sagittal T1-weighted FSE, and axial T2-weighted FSE. COMPARISON: Lumbar spine CT 07/12/2022 FINDINGS: Bone alignment is normal. L5 is a limbus vertebra. There is mildly decreased disc height at L4-L5 and L5-S1. The distal spinal cord signal intensity is normal. The conus medullaris is at L1. T he following disc levels are specifically discussed: L1-L2: The disc does not extend beyond the endplate margin. There is no facet joint osteoarthritis. T here is no neural foraminal stenosis. There is no central canal stenosis. L2-L3: There is a left foraminal protrusion. There is no facet joint osteoarthritis. There is mild le ft neural foraminal stenosis. There is no central canal stenosis. L3-L4: The disc does not extend beyond the endplate margin. There is mild bilateral facet joint osteo arthritis. There is no neural foraminal stenosis. There is no central canal stenosis. L4-L5: The disc is bulging and has an annular fissure. There is mild bilateral facet joint osteoarthr itis. There is mild bilateral neural foraminal stenosis. There is mild central canal stenosis with po sterior decompression. L5-S1: The disc is bulging with superimposed central extrusion that abuts right S1 nerve root in righ t lateral recess. There is mild bilateral facet joint osteoarthritis. There is mild left neural roxanne inal stenosis. There is mild central canal stenosis. There is moderate stenosis of right lateral rece ss. IMPRESSION: 1. Mild lumbar spondylosis. Reviewed, dictated and finalized at location E. ECTIONS ATTORNEY IMPRESSION: 1. Mild lumbar spondylosis.
== END 2022-07-15 08:13 | disposition home or self-care (01) ==
LOC: CHSIMG 08:14
PROVIDERS: PCP Physician Assistant; Visit Provider Physician Assistant
DX: M54.16 Radiculopathy, lumbar region (principal)
CPT/HCPCS: 72148

== ENCOUNTER 2022-08-24 11:05 | Outpatient (CLI) | payer OTHER, SELFPAY ==
[2022-08-24 11:54] LABS: Influenza A QL RT-PCR Negative (Negative); Influenza B QL RT-PCR Negative (Negative); SARS-CoV-2 RNA PCR Negative (Negative)
== END 2022-08-24 11:06 | disposition home or self-care (01) ==
LOC: CHSLAB 11:09
PROVIDERS: PCP Family Medicine; Visit Provider Registered Nurse
DX: R05.9 Cough, unspecified (principal); Z20.822 Contact with and (suspected) exposure to COVID-19
CPT/HCPCS: 87636

== ENCOUNTER 2022-09-17 07:25 | Outpatient (CLI) | payer OTHER, SELFPAY ==
[2022-09-17 07:39] LABS: Basophils Absolute Auto 0.06 K/mm3 (0.00-0.10); Basophils Percent Auto 0.7 % (0.0-1.0); Eosinophils Absolute Auto 0.17 K/mm3 (0.02-0.50); Eosinophils Percent Auto 1.9 % (1.0-6.0); Hemoglobin 13.4 g/dL (12.0-15.0); Immature Granulocyte Absolute 0.05 K/mm3 (0.00-0.00); Immature Granulocyte Percent A 0.6 % (0.0-0.0); Lymphocytes Absolute Auto 3.42 K/mm3 (1.10-4.50); Lymphocytes Percent Auto 38.8 % (18.0-42.0); Mean Corpuscular HGB Conc 32.7 g/dL (32.0-36.0); Mean Corpuscular Hemoglobin 29.5 pg (27.0-31.0); Mean Corpuscular Volume 90.3 fL (78.0-102.0); Mean Platelet Volume 10.1 fl (9.2-11.8); Monocytes Absolute Auto 0.89 K/mm3 (0.10-0.90); Monocytes Percent Auto 10.1 % (2.0-11.0); Neutrophils Absolute Auto 4.2 K/mm3 (1.7-7.2); Neutrophils Percent Auto 47.9 % (50.0-70.0); Platelet Count Result 378 K/mm3 (150-420); Red Blood Count 4.54 M/mm3 (4.20-5.40); Red Cell Distribution Width 13.3 % (11.6-14.4); White Blood Count 8.8 K/mm3 (4.8-10.8)
[2022-09-17 08:06] LABS: Alanine Aminotransferase 39 U/L (14-59); Albumin Level 3.9 g/dL (3.4-5.0); Alkaline Phosphatase 81 U/L (46-116); Aspartate Amino Transferase 18 U/L (15-37); Bilirubin Direct 0.1 mg/dL (0-0.2); Bilirubin,Total 0.3 mg/dL (0.00-1.00); Cholesterol 202 mg/dL (0-200); HDL Direct 38 mg/dL (40-60); LDL Cholesterol Calculated 122 mg/dL (<130); Total Protein 7.2 g/dL (6.4-8.2); Triglycerides 208 mg/dL (0-150)
== END 2022-09-17 07:26 | disposition home or self-care (01) ==
LOC: CHSLAB 07:28
PROVIDERS: PCP Physician Assistant
DX: L70.0 Acne vulgaris (principal)
CPT/HCPCS: 36415; 80061; 80076; 85025

== ENCOUNTER 2022-10-19 07:22 | Outpatient (CLI) | payer OTHER, SELFPAY ==
[2022-10-19 07:36] LABS: Basophils Absolute Auto 0.09 K/mm3 (0.00-0.10); Basophils Percent Auto 0.8 % (0.0-1.0); Eosinophils Absolute Auto 0.25 K/mm3 (0.02-0.50); Eosinophils Percent Auto 2.3 % (1.0-6.0); Hematocrit 41.3 % (35.0-49.0); Hemoglobin 13.7 g/dL (12.0-15.0); Immature Granulocyte Absolute 0.06 K/mm3 (0.00-0.00); Immature Granulocyte Percent A 0.5 % (0.0-0.0); Lymphocytes Absolute Auto 5.43 K/mm3 (1.10-4.50); Lymphocytes Percent Auto 49.8 % (18.0-42.0); Mean Corpuscular HGB Conc 33.2 g/dL (32.0-36.0); Mean Corpuscular Hemoglobin 30.3 pg (27.0-31.0); Mean Corpuscular Volume 91.4 fL (78.0-102.0); Monocytes Absolute Auto 0.99 K/mm3 (0.10-0.90); Monocytes Percent Auto 9.1 % (2.0-11.0); Neutrophils Absolute Auto 4.1 K/mm3 (1.7-7.2); Neutrophils Percent Auto 37.5 % (50.0-70.0); Platelet Count Result 365 K/mm3 (150-420); Red Blood Count 4.52 M/mm3 (4.20-5.40); Red Cell Distribution Width 13.1 % (11.6-14.4); White Blood Count 10.9 K/mm3 (4.8-10.8)
[2022-10-19 08:46] LABS: Alanine Aminotransferase 36 U/L (14-59); Albumin Level 3.7 g/dL (3.4-5.0); Alkaline Phosphatase 86 U/L (46-116); Aspartate Amino Transferase 18 U/L (15-37); Bilirubin Direct 0.1 mg/dL (0-0.2); Bilirubin,Total 0.2 mg/dL (0.00-1.00); Cholesterol 189 mg/dL (0-200); HDL Direct 35 mg/dL (40-60); LDL Cholesterol Calculated 120 mg/dL (<130); Triglycerides 172 mg/dL (0-150)
[2022-10-19 12:59] LABS: LDL Cholesterol Direct 145 mg/dL (0-130)
== END 2022-10-19 07:23 | disposition home or self-care (01) ==
LOC: CHSLAB 07:25
PROVIDERS: PCP Registered Nurse
DX: L70.0 Acne vulgaris (principal)
CPT/HCPCS: 36415; 80061; 80076; 83721; 85025

== ENCOUNTER 2022-11-25 09:06 | Outpatient (CLI) | payer OTHER, SELFPAY ==
--- NOTE | ~2022-11-25 | MM_ITS ---
EXAMINATION: MM screening tin BI w maurizio HISTORY: Baseline screening mammogram TECHNIQUE: Craniocaudal and mediolateral oblique 3-D tomosynthesis images were obtained and synthetic 2-D images were generated. CAD analysis was submitted and interpreted. COMPARISON: None, baseline BREAST PARENCHYMAL COMPOSITION: There are scattered areas of fibroglandular density. FINDINGS: Masses in the upper outer quadrants of the breasts have the appearance of intramammary lymp h nodes. No suspicious mass, calcification, or architectural distortion are identified in either [place] to suggest malignancy. IMPRESSION: 1. No mammographic evidence of malignancy. 2. Recommend routine screening mammography beginning at age 40. BI-RADS Category 2: Benign finding(s). Reviewed, dictated and finalized at location A.
== END 2022-11-25 09:07 | disposition home or self-care (01) ==
LOC: CHSIMG 09:09
PROVIDERS: PCP Family Medicine; Visit Provider Registered Nurse
DX: Z12.31 Encounter for screening mammogram for malignant neoplasm of breast (principal)
CPT/HCPCS: 77063; 77067

== ENCOUNTER 2022-11-29 10:39 | Outpatient (CLI) | payer OTHER, SELFPAY ==
--- NOTE | ~2022-11-29 | US_ITS ---
US breast LT limited DATE: 11/29/2022 11:12 INDICATION: Left breast lump at 6:00 position TECHNIQUE: Real-time imaging was performed, targeting the 6:00 area. COMPARISON: November 25, 2022 bilateral screening mammogram FINDINGS: No suspicious breast mass or shadowing, cyst or other significant sonographic finding is no phi within the breast tissue at the area of complaint at 6:00. There is a parallel circumscribed hypoechoic 1.7 x 11.5 x 5 x 1 mm solid lesion within the skin at 6: 00 12 cm from the nipple, without shadowing or internal vascularity, benign in appearance. IMPRESSION: BI-RADS Category 2: Benign Reviewed, dictated and finalized at Location A. Reviewed, dictated and finalized at location A. IMPRESSION: BI-RADS Category 2: Benign
== END 2022-11-29 10:40 | disposition home or self-care (01) ==
LOC: CHSIMG 10:41
PROVIDERS: PCP Family Medicine; Visit Provider Registered Nurse
DX: N63.25 Unspecified lump in the left breast, overlapping quadrants (principal)
CPT/HCPCS: 76642

== ENCOUNTER 2024-02-02 11:46 | Emergency (ER) | payer OTHER, SELFPAY ==
--- NOTE | ~2024-02-02 | XR_ITS ---
EXAMINATION: XR soft tissue neck DATE: 02/02/2024 12:24 INDICATION: Neck swelling. TECHNIQUE: 2 views of the neck soft tissues were obtained. COMPARISON: None. FINDINGS: The adenoids, palatine tonsils, prevertebral soft tissues, epiglottis, and glottis are norm al. No radiopaque foreign body. IMPRESSION: 1. Normal neck soft tissues. Reviewed, dictated and finalized at location A.
[2024-02-02 11:48] VITALS: BP 105/80; PULSE 97; RESP 16; TEMP 36.6; O2SAT 97
--- NOTE | 2024-02-02 12:09 | PC.NURSE ---
Patient taken down to Xray
[2024-02-02] MEDS: KETOROLAC (*BKC) 60 MG/2 ML VIAL IM (12:20)
[2024-02-02] MEDS: methylPREDNISolone ACETATE 40 MG/ML VIAL 80 MG IM (12:21)
--- NOTE | 2024-02-02 12:27 | ED.GENADULT ---
HPI - General Adult General Chief complaint: Unspecified Stated complaint: trouble swallowing Time Seen by Provider: 02/02/24 12:02 Source: patient Mode of arrival: ambulatory Limitations: no limitations History of Present Illness HPI narrative: this is a 38-year-old female who presents with some throat pain was seen by her primary yesterday had a negative strep is currently taking Bactrim, and has a thyroid ultrasound scheduled today. Otherwise there is no audible wheezing no shortness of breath no chest pain no fever chills no nausea vomiting. Onset (ago): day(s) Radiation: non-radiation Severity: moderate Quality: aching Pain Consistency: intermittent Related Data Home Medications Medication Instructions Recorded Confirmed trazodone 100 mg tablet 200 mg PO HS 03/13/21 02/02/24 venlafaxine 75 mg capsule,extended 75 mg PO DAILY 03/13/21 02/02/24 release 24 hr naproxen 500 mg tablet 500 mg PO PRN PRN Pain 07/12/22 02/02/24 paroxetine HCl 40 mg tablet 40 mg PO DAILY 07/12/22 02/02/24 tramadol 50 mg tablet 50 mg PO Q4H PRN Pain 07/12/22 02/02/24 Allergies Allergy/AdvReac Type Severity Reaction Status Date / Time amoxicillin Allergy Rash Verified 02/02/24 11:57 Cephalosporins Allergy Rash Verified 02/02/24 11:57 Review of Systems Review of Systems: All systems reviewed & are unremarkable except as noted in HPI and below PMFSH Past Medical History Medical History Asthma Chronic low back pain Headache disorder Sinusitis Upper respiratory infection Social History Social History Gender identity (if verbalized by the patient): Female Exam Const: General: cooperative, healthy appearing, comfortable, no acute distress and well developed HENMT: Head: normal to inspection Face and sinus: normal facial exam, sinuses nontender and face symmetric Mouth: Yes Normal oral and palatal mucosa present and Yes moist mucous membranes abnormal Throat: posterior oropharynx normal and tonsils normal Neck: Neck: normal visual inspection, full ROM, no lymphadenopathy and no meningeal signs Chest: Chest palpation & inspection: normal inspection of the chest and normal palpation of entire chest wall Resp: Effort & Inspection: normal respiratory effort and able to speak in complete sentences Auscultation: clear to auscultation bilaterally Cardio: Palpation: normal PMI Rate: regular rate Rhythm: regular rhythm Heart sounds: S1 normal heart sound present and S2 normal heart sound present GI: Inspection: normal to inspection Course Course Emergency Course: Patient received IM dose of Toradol 60mg, and a dose of Depo-Medrol 80mg IM, had soft tissue x-ray performed of the neck. Vital Signs Vital signs: Vital Signs Temperature 36.6 C 02/02/24 11:48 Pulse Rate 97 02/02/24 11:48 Respiratory Rate 16 02/02/24 11:48 Blood Pressure 105/80 02/02/24 11:48 Pulse Oximetry 97 02/02/24 11:48 Oxygen Delivery Room Air 02/02/24 11:48 Temperature 36.6 C 02/02/24 11:48 Pulse Rate 97 02/02/24 11:48 Respiratory Rate 16 02/02/24 11:48 Blood Pressure 105/80 02/02/24 11:48 Pulse Oximetry 97 02/02/24 11:48 Oxygen Delivery Room Air 02/02/24 11:48 Medical Decision Making Vital Signs Vital Signs: Vital Signs Temperature 36.6 C 02/02/24 11:48 Pulse Rate 97 02/02/24 11:48 Respiratory Rate 16 02/02/24 11:48 Blood Pressure 105/80 02/02/24 11:48 Pulse Oximetry 97 02/02/24 11:48 Oxygen Delivery Room Air 02/02/24 11:48 Temperature 36.6 C 02/02/24 11:48 Pulse Rate 97 02/02/24 11:48 Respiratory Rate 16 02/02/24 11:48 Blood Pressure 105/80 02/02/24 11:48 Pulse Oximetry 97 02/02/24 11:48 Oxygen Delivery Room Air 02/02/24 11:48 Critical Care Time Critical Care Time Critical Care Time: No Discharge Plan Discharge Clinical Im
[2024-02-02 12:30] VITALS: BP 116/64; PULSE 98; O2SAT 16
[2024-02-02 12:50] VITALS: BP 100/61; PULSE 87; RESP 16; TEMP 36.6; O2SAT 95
== END 2024-02-02 12:50 | disposition home or self-care (01) ==
PROVIDERS: Emergency Provider Emergency Medicine; PCP Family Medicine
DX: J02.9 Acute pharyngitis, unspecified (principal); Z79.1 Long term (current) use of non-steroidal anti-inflammatories (NSAID); Z79.891 Long term (current) use of opiate analgesic; Z79.899 Other long term (current) drug therapy
CPT/HCPCS: 70360; 96372; 99284; J1010; J1885

== ENCOUNTER 2024-02-02 13:53 | Outpatient (CLI) | payer OTHER, SELFPAY ==
--- NOTE | ~2024-02-02 | US_ITS ---
EXAMINATION: US thyroid DATE: 02/02/2024 14:17 INDICATION: Neck fullness with globus sensation at the throat TECHNIQUE: Multiple ultrasound images of the thyroid were obtained. COMPARISON: None. FINDINGS: The right thyroid lobe measures 4.7 x 2.2 x 2.0 cm. The left thyroid lobe measures 5.7 x 1.8 x 1.5 c m. 1.4 cm wider than tall solid isoechoic hypoechoic nodule with lobular margins and without echogen ic foci in the left thyroid lobe (TI-RADS 4, moderately suspicious , FNA if >=1.5 cm, annual followup is >=1 cm). There is normal echotexture, echogenicity and vascular flow throughout the remainder of the thyroid gland. IMPRESSION: 1. 1.4 cm TI RADS 4 left thyroid nodule for which annual ultrasound follow-up would be recommended. Reviewed, dictated and finalized at location B. IMPRESSION: 1. 1.4 cm TI RADS 4 left thyroid nodule for which annual ultrasound follow-up w ould be recommended.
== END 2024-02-02 13:54 | disposition home or self-care (01) ==
LOC: CHSIMG 13:55
PROVIDERS: PCP Registered Nurse; Visit Provider Registered Nurse
DX: R22.1 Localized swelling, mass and lump, neck (principal); E04.1 Nontoxic single thyroid nodule
CPT/HCPCS: 76536

== ENCOUNTER 2024-04-09 17:30 | Emergency (ER) | payer OTHER, SELFPAY ==
--- NOTE | ~2024-04-09 | XR_ITS ---
EXAMINATION: XR chest 1V portable DATE: 04/09/2024 19:09 INDICATION: Fever, cough, fatigue and generalized weakness TECHNIQUE: frontal view of the chest was obtained. COMPARISON: Chest radiograph dated 03/27/2022 FINDINGS: The lungs remain clear with no focal airspace opacities, pulmonary edema, pleural effusion or pneumot horax. The cardiomediastinal silhouette is normal. Visualized bones and soft tissues are unremarkable . IMPRESSION: 1. No acute cardiopulmonary disease. Reviewed, dictated and finalized at location A.
[2024-04-09 18:11] VITALS: BP 107/68; PULSE 86; RESP 18; TEMP 36.1; O2SAT 97
--- NOTE | 2024-04-09 18:19 | ED.URI ---
HPI - URI/Sore Throat General Chief Complaint: Upper Respiratory Infection Stated Complaint: sore throat; cough Time Seen by Provider: 04/09/24 18:15 Source: patient Mode of arrival: ambulatory Limitations: no limitations History of Present Illness HPI Narrative: 38-year-old female, smoker with a history of chronic low back pain, chronic headaches, asthma, sinusitis presents to the ED with a 3 day history of -- severe headache which is predominantly over bilateral temples. -- Sore throat with odynophagia -- nasal congestion -- cough with mucopurulent sputum no shortness of breath. No chest pain no nausea/ vomiting /abdominal pain /diarrhea MD elicited complaint: fever, cough, sore throat and nasal congestion Onset (ago): day(s) ( 3 days) Consistency: constant Severity: moderate Description of mucous: green Able to tolerate fluids by mouth: Yes Exacerbating factors: nothing Relieving factors: nothing Associated symptoms: denies other symptoms, headache, nasal congestion, sore throat and cough Treatments prior to arrival: none Related Data Home Medications Medication Instructions Recorded Confirmed trazodone 100 mg tablet 200 mg PO HS 03/13/21 02/02/24 venlafaxine 75 mg capsule,extended 75 mg PO DAILY 03/13/21 02/02/24 release 24 hr naproxen 500 mg tablet 500 mg PO PRN PRN Pain 07/12/22 02/02/24 paroxetine HCl 40 mg tablet 40 mg PO DAILY 07/12/22 02/02/24 tramadol 50 mg tablet 50 mg PO Q4H PRN Pain 07/12/22 02/02/24 Allergies Allergy/AdvReac Type Severity Reaction Status Date / Time amoxicillin Allergy Rash Verified 02/02/24 11:57 Cephalosporins Allergy Rash Verified 02/02/24 11:57 Review of Systems Review of Systems: All systems reviewed & are unremarkable except as noted in HPI and below Constitutional: Constitutional: Reports as per HPI, Reports no additional constitutional complaints, Reports fever(s) and Reports weakness Eyes: Eyes: Reports as per HPI and Reports no additional eye complaints ENT: Reports system reviewed and no additional complaints, except as documented and Reports as per HPI Cardiovascular: Cardiovascular: Reports as per HPI and Reports no additional cardiovascular complaints Respiratory: Respiratory: Reports as per HPI, Reports no additional respiratory complaints, Reports cough and Reports dyspnea Comments: cough with mucopurulent sputum Gastrointestinal: Gastrointestinal: Reports as per HPI and Reports no additional gastrointestinal complaints Genitourinary: Genitourinary: Reports no additional female genitourinary complaints and Reports as per HPI Musculoskeletal: Musculoskeletal: Reports no additional musculoskeletal complaints and Reports as per HPI Integumentary/Breasts: Skin/Breast: Reports system reviewed and no additional complaints, except as docu and Reports as per HPI Neurologic: Reports system reviewed and no additional complaints, except as documented and Reports as per HPI Psychiatric: Psychiatric: Reports no additional psychiatric complaints and Reports as per HPI Endocrine: Endocrine: Reports no additional endocrine complaints and Reports as per HPI Hematologic/Lymphatic: Hematologic/Lymphatic: Reports no additional hematologic/lymphatic complaints and Reports as per HPI Allergic/Immunologic: Allergic/Immunologic: Reports no additional allergic/immunologic complaints and Reports as per HPI [facility] Past Medical History Medical History Asthma Chronic low back pain Headache disorder Sinusitis Upper respiratory infection Social History Social History Gender identity (if verbalized by the patient): Female Exam Narrative: vitals are stable Const: General: ill appearing Orientation/consciousness: patient oriented x3 Limitations: no limitations HENMT: Head: normal to inspection Ears: external ears normal Face/Nose/Sinus: Anusha
[2024-04-09 18:41] LABS: Strep Group A RT-PCR NOT DETECTED (Negative)
[2024-04-09 18:42] LABS: SARS-CoV-2 RNA PCR Negative (Negative)
[2024-04-09 18:44] LABS: Influenza A QL RT-PCR Negative (Negative); Influenza B QL RT-PCR Negative (Negative); RSV RNA, RT-PCR Negative (Negative)
[2024-04-09] MEDS: KETOROLAC 30 MG/ML VIAL (*BKC) IM (18:49)
--- NOTE | 2024-04-09 19:10 | PC.NURSE ---
REPORT TO DAVIS MOREAU
[2024-04-09] MEDS: IPRATROPIUM 0.5 MG/ALBUTEROL SULFATE 2.5 MG AMPUL.NEB 3 ML INHALATION (19:16)
[2024-04-09 19:17] VITALS: BP 118/73; PULSE 78; RESP 18; O2SAT 95
[2024-04-09 19:26] VITALS: PULSE 85; RESP 18; O2SAT 97
[2024-04-09] MEDS: AZITHROMYCIN 250 MG TABLET 500 MG PO (19:33)
[2024-04-09 19:41] VITALS: BP 122/74; PULSE 74; RESP 18; TEMP 36.6; O2SAT 97
== END 2024-04-09 19:41 | disposition home or self-care (01) ==
PROVIDERS: Emergency Provider Internal Medicine Critical Care Medicine; PCP Family Medicine
DX: J06.9 Acute upper respiratory infection, unspecified (principal); J40 Bronchitis, not specified as acute or chronic; Z20.822 Contact with and (suspected) exposure to COVID-19
CPT/HCPCS: 71045; 87637; 87651; 94640; 96372; 99283; A9270; J1885

== ENCOUNTER 2024-04-16 14:01 | Outpatient (CLI) | payer OTHER, SELFPAY ==
--- NOTE | ~2024-04-16 | XR_ITS ---
EXAMINATION: XR chest 2V DATE: 04/16/2024 14:17 INDICATION: Cough. TECHNIQUE: Frontal and lateral views of the chest were obtained. COMPARISON: Chest single view 04/09/2024 FINDINGS: There is no pneumonia, pleural effusion, or pneumothorax. The heart size is normal. IMPRESSION: 1. No acute cardiopulmonary disease. Reviewed, dictated and finalized at location A.
== END 2024-04-16 14:02 | disposition home or self-care (01) ==
LOC: CHSIMG 14:03
PROVIDERS: PCP Registered Nurse; Visit Provider Registered Nurse
DX: R05.9 Cough, unspecified (principal)
CPT/HCPCS: 71046

== ENCOUNTER 2024-08-28 10:11 | Outpatient (CLI) | payer OTHER, SELFPAY ==
[2024-08-28 10:27] LABS: Basophils Absolute Auto 0.08 K/mm3 (0.00-0.10); Basophils Percent Auto 0.7 % (0.0-1.0); Eosinophils Absolute Auto 0.17 K/mm3 (0.02-0.50); Eosinophils Percent Auto 1.6 % (1.0-6.0); Hemoglobin 15.2 g/dL (12.0-15.0); Immature Granulocyte Absolute 0.09 K/mm3 (0.00-0.00); Immature Granulocyte Percent A 0.8 % (0.0-0.0); Lymphocytes Absolute Auto 3.67 K/mm3 (1.10-4.50); Mean Corpuscular HGB Conc 31.7 g/dL (32-36); Mean Corpuscular Hemoglobin 28.8 pg (27.0-31.0); Mean Corpuscular Volume 91.1 fL (78.0-102.0); Mean Platelet Volume 9.8 fl (9.2-11.8); Monocytes Absolute Auto 1.14 K/mm3 (0.10-0.90); Monocytes Percent Auto 10.6 % (2.0-11.0); Neutrophils Absolute Auto 5.64 K/mm3 (1.70-7.20); Neutrophils Percent Auto 52.3 % (50.0-70.0); Platelet Count Result 369 K/mm3 (150-420); Red Blood Count 5.27 M/mm3 (4.20-5.40); Red Cell Distribution Width 13.2 % (11.6-14.4); White Blood Count 10.8 K/mm3 (4.8-10.8)
[2024-08-28 11:03] LABS: SARS-CoV-2 RNA PCR Negative (Negative)
[2024-08-28 11:05] LABS: Influenza A QL RT-PCR Negative (Negative); Influenza B QL RT-PCR Negative (Negative); RSV RNA, RT-PCR Negative (Negative)
[2024-08-28 11:22] LABS: Alanine Aminotransferase 24 U/L (14-59); Albumin Level 4.3 g/dL (3.4-5.0); Alkaline Phosphatase 93 U/L (46-116); Anion Gap 9 mmol/L (4-12); Aspartate Amino Transferase 11 U/L (15-37); Bilirubin,Total 0.2 mg/dL (0.00-1.00); Blood Urea Nitrogen 12 mg/dL (7-18); Calcium 9.8 mg/dL (8.5-10.1); Carbon Dioxide 28 mmol/L (21-32); Chloride 103 mmol/L (98-108); Estimated Glomerular Filt Rate > 60; Glucose 104 mg/dL (70-99); Osmolality Calculated 289 mOsm/kg (285-295); Potassium 4.8 mmol/L (3.5-5.1); Sodium 140 mmol/L (136-145); Thyroid Stimulating Hormone 0.93 uIU/mL (0.36-3.74); Total Protein 7.6 g/dL (6.4-8.2)
--- OUTSIDE RECORDS SUMMARY | 2024-08-30 17:14 | XMS_ITS ---
Author Organization Unknown Address [address] [place] [address] [phone] Phone Care Team Providers Care Salesforce Business Analyst Name Role Phone VICKYRAMYA CHESTER MAGDALENO Attending Unavailable JOON Balderrama Primary Unavailable Immunization Immunization Date Status Additional Notes Code Code System Influenza, split virus, quadrivalent, preservative 08/04/2022 Completed 158 C VX Results QUANTIFERON GOLD SINGLE TUBE - Collect Date/Time: 03/14/2024 12:54 [facility] ID: [id number] [place] [address], [phone] LOINC: 96700-4 Test Value Unit Reference Range Code Code System Flag SOURCE: BLOOD SEND TO [facility]? NO QuantiFERON Incubation Incubation performed. QuantiFERON-TB Gold Plus Negative Negative 16530-8 LOINC QuantiFERON Criteria COMMENT 8251-1 LOINC QuantiFERON TB1 Ag Value 0.00 19774-7 LOINC QuantiFERON TB2 Ag Value 0.00 94580-5 LOINC QuantiFERON Nil Value 0.00 96999-1 LOINC QuantiFERON Mitogen Value >10.00 28309-7 LOINC LIVER PROFILE - Collect Date /Time: 03/14/2024 12:54 [facility] ID: [id number] [place] [address], [phone] LOINC: 48489-3 Test Value Unit Reference Range Code Code System Flag ALT 28 U/L L=9 H=72 1742-6 LOINC AST 29 U/L L=15 H=46 1920-8 LOINC ALKALINE PHOS 92 U/L L=38 H=126 6768-6 LOINC TOTAL PROTEIN 7.9 g/L L=6.3 H=8.2 2885-2 LOINC TOTAL BILI 0.5 mg/dL L=0.2 H=1.3 1974-2 LOINC DIRECT BILI 0.0 mg/dL L=0.0 H=0.3 1967-7 LOINC INDIRECT BILI 0.20 mg/dL L=0.00 H=1.10 1970-1 LOINC ALBUMIN 4.6 G/dL L=3.5 H=5.0 1751-7 LOINC BASIC METABOLIC PANEL - Uziel ect Date/Time: 03/14/2024 12:54 [facility] ID: [id number] [place] [address], [phone] LOINC: 70577-4 Test Value Unit Reference Range Code Code System Flag FASTING NO BUN 11 mg/dL L=7 H=20 3094-0 LOINC CREATININE 0.90 mg/dL L=0.52 H=1.04 2160-0 LOINC GLUCOSE 157 mg/dL L=74 H=106 2345-7 LOINC H CALCIUM 9.6 mg/dL L=8.3 H=10.5 05950-6 LOINC SODIUM 139 mmol/L L=132 H=144 2951-2 LOINC POTASSIUM 3.8 mmol/L L=3.5 H=5.1 2823-3 LOINC CHLORIDE 104 mmol/L L=98 H=107 2075-0 LOINC CO2 23.0 mmol/L L=22.0 H=30.0 8-9 LOINC ANION GAP 16 L=10 H=20 87334-7 LOINC BUN/CREAT 12.2 3097-3 LOINC AGE 38 41628-8 LOINC eGFR NON-AFR 74 ml/min eGFR AFR AMER 90 ml/min CBC W/ DIFF - Collect Date/T amos: 03/14/2024 12:54 [facility] ID: [id number] [place] [address], [phone] LOINC: 25998-9 Test Value Unit Reference Range Code Code System Flag WBC 11.3 10^3uL L=4.8 H=10.8 H RBC 4.58 10^6uL L=4.20 H=5.40 HEMOGLOBIN 13.6 g/dL L=12.0 H=16.0 718-7 LOINC HEMATOCRIT 41.6 VOL% L=37.0 H=47.0 4544-3 LOINC MCV 90.8 fL L=81.0 H=99.0 MCH 29.7 pg L=27.0 H=32.0 MCHC 32.7 g/dL L=32.0 H=36.0 PLATELETS 329 10^3uL L=100 H=400 78506-4 LOINC RDW 13.6 % L=11.7 H=15.5 %GRAN 64.1 % L=40.0 H=70.0 49028-5 LOINC %LYMPH 27.4 % L=20.0 H=45.0 736-9 LOINC %MONO 6.1 % L=2.0 H=10.0 56494-4 LOINC %EOS 1.0 % L=0.0 H=6.0 713-8 LOINC %BASO 0.5 % L=0.0 H=3.0 706-2 LOINC #NEUT 7.3 10^3uL L=1.9 H=7.6 61472-8 LOINC #LYMPH 3.1 10^3uL L=0.9 H=4.9 44397-2 LOINC #MONO 0.7 10^3uL L=0.1 H=0.9 95565-5 LOINC #EOS 0.1 10^3uL L=0.0 H=0.6 712-0 LOINC #BASO 0.06 10^3uL L=0.00 H=0.10 95217-2 LOINC #IM GRANS 0.1 10^3uL L=0.0 H=7.0 69314-5 LOINC %IM GRANS 0.9 % L=0.0 H=5.0 16689-1 LOINC %NRB 0.0 L=0.0 H=0.2 02489-5 LOINC #NRB 0.000 L=0.000 H=0.012 86471-1 LOINC MANUAL DIFF NOT INDICATED RBC MORPH NOT INDICATED Social History Type Status Start Date End Date Code Code Syst em Smoking History Current every day smoker 442513404 SNOMED CT Sex Female Medications Medication Start Date End Date Route Frequency Dose Code Code System Medication Instructions Home Meds DULoxetine HCl AvPak 30MG Oral Capsule, Delayed Release 01/05/2024 Unknown ORAL ONCE A DAY 30 MILLIGRAMS 279446 RxNorm TAKE 30 MILLIGRAMS ORAL ONCE A DAY DULoxetine HCl AvPak 60MG Oral Capsule, Delayed Release 01/05/2024 Unknown ORAL ONCE A DAY 60 MILLIGRAMS 261552 RxNorm TAKE 60 MILLIGRAMS ORAL ONCE A DAY Meloxicam 15MG Oral Tablet 01/05/2024 08/09/19 25 ORAL ONCE A DAY 15 MILLIGRAMS 549734 RxNorm TAKE 15 MILLIGRAMS ORAL ONCE A DAY MiraLAX 17GM/1Dose Oral Powder for Solution 01/05/2024 Unknown ORAL NEEDED DAILY 1 unit(s) 111519 RxNorm TAKE 1 EACH ORAL NEEDED DAILY Omeprazole 20 MG Oral Tablet, Delayed Release 01/05/2024 Unknown ORAL NEEDED 20 MG RxNorm TAKE 20 MG ORAL NEEDED PARoxetine HCl 20MG Oral Tablet 01/05/2024 Unknown ORAL ONCE A DAY 20 MILLIGRAMS 0492909 RxNorm TAKE 20 MILLIGRAMS ORAL ONCE A DAY risperiDONE 0.5MG Oral Tablet 01/05/2024 Unknown ORAL ONCE A DAY 0.5 MILLIGRAMS 656353 RxNorm TAKE 0.5 MILLIGRAMS ORAL ONCE A DAY traZODone hydrochloride 100MG Oral Tablet 01/05/2024 Unknown ORAL ONCE A DAY 100 MILLIGRAMS 493950 RxNorm TAKE 100 MILLIGRAMS ORAL ONCE A DAY Meloxicam 7.5MG Oral Tablet 08/09/2024 Unknown BY MOUTH ONCE A DAY 1 TABLET 913287 RxNorm TAKE 1 TABLET BY MOUTH ONCE A DAY Xanax 0.5MG Oral Tablet 08/10/2024 Unknown ORAL NEEDED DAILY 0.5 MILLIGRAMS 731948 RxNorm TAKE 0.5 MILLIGRAMS ORAL NEEDED DAILY metFORMIN HCl 500MG Oral Tablet 08/10/2024 Unknown ORAL AT BEDTIME 500 MILLIGRAMS 724432 RxNorm TAKE 500 MILLIGRAMS ORAL AT BEDTIME Assessment You had the following problems:HIDRADENITIS SUPPURATIVAPAIN IN RIGHT SHOULDERCARPAL TUNNEL SYNDROME, RIGHT UPPER LIMBFATTY (CHANGE OF) LIVER, NOT ELSEWHERE CLASSIFIEDDORSALGIA, UNSPECIFIEDHEADACHE, UNSPECIFIEDPAIN IN UNSPECIFIED JOINTRADICULOPATHY, CERVICAL REGIONSPINAL STENOSIS, SITE UNSPECIFIEDOTHER CHRONIC PAINRADICULOPATHY, LUMBAR REGIONCERVICALGIAPAIN IN LEFT KNEE Hospital Discharge Instructions Should you have any questions prior to discharge, please contact a member of your healthcare team. If you have left the hospital and have any questions, please contact your primary care physician. Reason For Referral No Data Found Problems Problem Start Date Resolved Date Status Code Code System HIDRADENITIS SUPPURATIVA active 54688699 SNOMED-CT PAIN IN RIGHT SHOULDER active 0117695 4748985551 SNOMED-CT CARPAL TUNNEL SYNDROME, RIGHT UPPER LIMB active 220658462205942 SNOMED-C T FATTY (CHANGE OF) LIVER, NOT ELSEWHERE CLASSIFIED active 541517563 SNOMED-CT DORSALGIA, UNSPECIFIED active 2947887 05 SNOMED-CT HEADACHE, UNSPECIFIED active 39520220 SNOMED-CT PAIN IN UNSPECIFIED JOINT active 05376361 SNOMED-CT RADICULOPATHY, CERVICAL REGION active 16345634 SNOMED-CT SPINAL STENOSIS, SITE UNSPECIFIED active 62868578 SNOMED-CT OTHER CHRONIC PAIN active 07127571 S NOMED-CT RADICULOPATHY, LUMBAR REGION active 167992900 SNOMED-CT CERVICALGIA active 92468365 SNOMED-C T PAIN IN LEFT KNEE active 557279321169 107 SNOMED-CT Allergies and Adverse Reactions Allergy Substance Reaction Severity Start Date Concern Status Code Code System SULFA (sulfonamide) Rash (SNOMED-CT: 743548335) Active 78715461 SNOMED-CT CEPHALOSPORIN Rash (SNOMED-CT: 486109955) Active 965650942 SNOMED-CT CEPHALEXIN Active 2231 RxNorm AMOXICILLIN Rash (SNOMED-CT: 396673384) Active 723 RxNorm KEFLEX Active 692281 RxNorm ACETAMINOPHEN/CODEI NE #3 Confusion (SNOMED-CT: 724585979) Active 350822 RxNorm Plan of Treatment Follow Up 09/20/2024 Encounters Encounter Diagnosis Start Date Code Code Sys tem Hidradenitis suppurativa 03/14/2024 [facility] MED-CT Personal Care Team Section Performer Name Performer Role Active Date Inactive Da DOREEN Aldridge PCP - Primary care physician 2024-03-14
--- OUTSIDE RECORDS SUMMARY | 2024-08-30 17:14 | XMS_ITS ---
Author Organization Unknown Address [address] [place] [address] [phone] Phone Care Team Providers Care Truck Terminal Manager Name Role Phone CODY Ramirez Attending Unavailable KIKO BEAN LOAN TELLER Unavailable JOON Balderrama Primary Unavailable Immunization Immunization Date Status Additional Notes Code Code System Influenza, split virus, quadrivalent, preservative 08/04/2022 Completed 158 C VX Social History Type Status Start Date End Date Code Code Syst em Smoking History Current every day smoker 172874512 SNOMED CT Sex Female Vital Signs Vital Sign Value Unit Model Value Model Unit Date/Time Recent/Initial? Code Code System Body Mass Index 29.50 kg/m2 12/20/2023 10:32 Initial 36811 -5 [facility] Systolic Blood Pressure 115 mm[Hg] 01/05/2024 08:57 Initial 8480- 6 LOINC Diastolic Blood Pressure 61 mm[Hg] 01/05/2024 08:57 Initial 8462- 4 INC Body Surface Area 1.94 m2 12/20/2023 10:32 Initial 3140- 1 LOINC Height 166.370 0 cm 65.50 in 12/20/2023 10:32 Initial 8302- 2 LOINC O2 Saturation 97 % 2023 08:57 Initial 39933 -5 LOINC Pulse 92.0 /min 01/05/2024 08:57 Initial 8867- 4 LOINC Respiration 16 /min 01/05/20 08:57 Initial 9279- 1 LOINC Temperature 36.2 May 97.1 F 01/05/20 08:57 Initial 8310- 5 LOINC Weight 81.65 kg 180.00 lbs 12/20/2023 10:32 Initial 95484 -7 [facility] Medications Medication Start Date End Date Route Frequency Dose Code Code System Medication Instructions Home Meds Dicyclomine HCl 10MG Oral Capsule 12/15/2018 01/05/2024 ORAL NEEDED EVERY 12 HOURS 10 MILLIGRAMS 487046 RxNorm TAKE 10 MILLIGRAMS ORAL NEEDED EVERY 12 HOURS DULoxetine HCl AvPak 30MG Oral Capsule, Delayed Release 01/05/2024 Unknown ORAL ONCE A DAY 30 MILLIGRAMS 543763 RxNorm TAKE 30 MILLIGRAMS ORAL ONCE A DAY DULoxetine HCl AvPak 60MG Oral Capsule, Delayed Release 01/05/2024 Unknown ORAL ONCE A DAY 60 MILLIGRAMS 923554 RxNorm TAKE 60 MILLIGRAMS ORAL ONCE A DAY Meloxicam 15MG Oral Tablet 01/05/2024 08/09/2024 ORAL ONCE A DAY 15 MILLIGRAMS 337858 RxNorm TAKE 15 MILLIGRAMS ORAL ONCE A DAY MiraLAX 17GM/1Dose Oral Powder for Solution 01/05/2024 Unknown ORAL NEEDED DAILY 1 unit(s) 571634 RxNorm TAKE 1 EACH ORAL NEEDED DAILY Omeprazole 20 MG Oral Tablet, Delayed Release 01/05/2024 Unknown ORAL NEEDED 20 MG RxNorm TAKE 20 MG ORAL NEEDED PARoxetine HCl 20MG Oral Tablet 01/05/2024 Unknown ORAL ONCE A DAY 20 MILLIGRAMS 2162810 RxNorm TAKE 20 MILLIGRAMS ORAL ONCE A DAY risperiDONE 0.5MG Oral Tablet 01/05/2024 Unknown ORAL ONCE A DAY 0.5 MILLIGRAMS 730430 RxNorm TAKE 0.5 MILLIGRAMS ORAL ONCE A DAY traZODone hydrochloride 100MG Oral Tablet 01/05/2024 Unknown ORAL ONCE A DAY 100 MILLIGRAMS 014760 RxNorm TAKE 100 MILLIGRAMS ORAL ONCE A DAY Meloxicam 7.5MG Oral Tablet 08/09/2024 Unknown BY MOUTH ONCE A DAY 1 TABLET 861198 RxNorm TAKE 1 TABLET BY MOUTH ONCE A DAY Xanax 0.5MG Oral Tablet 08/10/2024 Unknown ORAL NEEDED DAILY 0.5 MILLIGRAMS 172522 RxNorm TAKE 0.5 MILLIGRAMS ORAL NEEDED DAILY metFORMIN HCl 500MG Oral Tablet 08/10/2024 Unknown ORAL AT BEDTIME 500 MILLIGRAMS 581958 RxNorm TAKE 500 MILLIGRAMS ORAL AT BEDTIME [...] physician. Reason For Referral No Data Found Procedures Procedure Name Date Status Code Code Syste m Colonoscopy, flexible; with biopsy, single or multiple 01/05/2024 completed 41924 CPT Anesthesia for combined uppe r and lower gastrointestinal endoscopic proced 01/05/2024 completed 88818 CPT Esophagogastroduodenoscopy, flexible, transoral; diagnostic, including col 01/05/2024 completed 91504 CPT Problems Problem Start Date Resolved Date Status Code Code System HIDRADENITIS SUPPURATIVA active 76162003 SNOMED-CT PAIN IN RIGHT SHOULDER active 9541169 0199964522 SNOMED-CT CARPAL TUNNEL SYNDROME, RIGHT UPPER LIMB active 277244788460814 SNOMED-C T FATTY (CHANGE OF) LIVER, NOT ELSEWHERE CLASSIFIED active 093590788 SNOMED-CT DORSALGIA, UNSPECIFIED active 6259398 05 SNOMED-CT HEADACHE, UNSPECIFIED active 33496675 SNOMED-CT PAIN IN UNSPECIFIED JOINT active 56891754 SNOMED-CT RADICULOPATHY, CERVICAL REGION active 75057686 SNOMED-CT SPINAL STENOSIS, SITE UNSPECIFIED active 50728396 SNOMED-CT OTHER CHRONIC PAIN active 41928275 S NOMED-CT RADICULOPATHY, LUMBAR REGION active 475233464 SNOMED-CT CERVICALGIA active 14493483 SNOMED-C T PAIN IN LEFT KNEE active 591914782712 107 SNOMED-CT Allergies and Adverse Reactions Allergy Substance Reaction Severity Start Date Concern Status Code Code System SULFA (sulfonamide) Rash (SNOMED-CT: 394468443) Active 27781597 SNOMED-CT CEPHALOSPORIN Rash (SNOMED-CT: 801021989) Active 396933213 SNOMED-CT CEPHALEXIN Active 2231 RxNorm AMOXICILLIN Rash (SNOMED-CT: 613382707) Active 723 RxNorm KEFLEX Active 384239 RxNorm ACETAMINOPHEN/CODEI NE #3 Confusion (SNOMED-CT: 611581717) Active 775813 RxNorm Plan of Treatment Follow Up 09/20/2024 Encounters Encounter Diagnosis Start Date Code Code Sys tem Gastro-esophageal reflux disease without esophagitis 0 01/05/2024 SNOMED-CT Personal Care Team Section Performer Name Performer Role Active Date Inactive DOREEN Villagomez PCP - Primary care physician 2024-03-14
--- OUTSIDE RECORDS SUMMARY | 2024-08-30 17:14 | XMS_ITS ---
Author Organization Unknown Address [address] [place] [address] [phone] Phone Care Team Providers Care Meat Service Team Member Name Role Phone NIHARIKA MAGDALENO Attending Unavailable JOON Balderrama Primary Unavailable Immunization Immunization Date Status Additional Notes Code Code System Influenza, split virus, quadrivalent, preservative 08/04/2022 Completed 158 C VX Social History Type Status Start Date End Date Code Code Syst em Smoking History Current every day smoker 252401913 SNOMED CT Sex Female Medications Medication Start Date End Date Route Frequency Dose Code Code System Medication Instructions Home Meds DULoxetine HCl AvPak 30MG Oral Capsule, Delayed Release 01/05/2024 Unknown ORAL ONCE A DAY 30 MILLIGRAMS 601372 RxNorm TAKE 30 MILLIGRAMS ORAL ONCE A DAY DULoxetine HCl AvPak 60MG Oral Capsule, Delayed Release 01/05/2024 Unknown ORAL ONCE A DAY 60 MILLIGRAMS 239233 RxNorm TAKE 60 MILLIGRAMS ORAL ONCE A DAY Meloxicam 15MG Oral Tablet 01/05/2024 08/09/19 25 ORAL ONCE A DAY 15 MILLIGRAMS 205795 RxNorm TAKE 15 MILLIGRAMS ORAL ONCE A DAY MiraLAX 17GM/1Dose Oral Powder for Solution 01/05/2024 Unknown ORAL NEEDED DAILY 1 unit(s) 370947 RxNorm TAKE 1 EACH ORAL NEEDED DAILY Omeprazole 20 MG Oral Tablet, Delayed Release 01/05/2024 Unknown ORAL NEEDED 20 MG RxNorm TAKE 20 MG ORAL NEEDED PARoxetine HCl 20MG Oral Tablet 01/05/2024 Unknown ORAL ONCE A DAY 20 MILLIGRAMS 2402255 RxNorm TAKE 20 MILLIGRAMS ORAL ONCE A DAY risperiDONE 0.5MG Oral Tablet 01/05/2024 Unknown ORAL ONCE A DAY 0.5 MILLIGRAMS 119700 RxNorm TAKE 0.5 MILLIGRAMS ORAL ONCE A DAY traZODone hydrochloride 100MG Oral Tablet 01/05/2024 Unknown ORAL ONCE A DAY 100 MILLIGRAMS 056460 RxNorm TAKE 100 MILLIGRAMS ORAL ONCE A DAY Meloxicam 7.5MG Oral Tablet 08/09/2024 Unknown BY MOUTH ONCE A DAY 1 TABLET 553258 RxNorm TAKE 1 TABLET BY MOUTH ONCE A DAY Xanax 0.5MG Oral Tablet 08/10/2024 Unknown ORAL NEEDED DAILY 0.5 MILLIGRAMS 854791 RxNorm TAKE 0.5 MILLIGRAMS ORAL NEEDED DAILY metFORMIN HCl 500MG Oral Tablet 08/10/2024 Unknown ORAL AT BEDTIME 500 MILLIGRAMS 648585 RxNorm TAKE 500 MILLIGRAMS ORAL AT BEDTIME [...] Status Code Code System HIDRADENITIS SUPPURATIVA active 68558123 SNOMED-CT PAIN IN RIGHT SHOULDER active 9404105 9141445190 SNOMED-CT CARPAL TUNNEL SYNDROME, RIGHT UPPER LIMB active 827878448424070 SNOMED-C T FATTY (CHANGE OF) LIVER, NOT ELSEWHERE CLASSIFIED active 763953735 SNOMED-CT DORSALGIA, UNSPECIFIED active 2492540 05 SNOMED-CT HEADACHE, UNSPECIFIED active 73060348 SNOMED-CT PAIN IN UNSPECIFIED JOINT active 53412055 SNOMED-CT RADICULOPATHY, CERVICAL REGION active 38299477 SNOMED-CT SPINAL STENOSIS, SITE UNSPECIFIED active 22358170 SNOMED-CT OTHER CHRONIC PAIN active 74612865 S NOMED-CT RADICULOPATHY, LUMBAR REGION active 212875149 SNOMED-CT CERVICALGIA active 82268354 SNOMED-C T PAIN IN LEFT KNEE active 518866998073 107 SNOMED-CT Allergies and Adverse Reactions Allergy Substance Reaction Severity Start Date Concern Status Code Code System SULFA (sulfonamide) Rash (SNOMED-CT: 045620728) Active 26669207 SNOMED-CT CEPHALOSPORIN Rash (SNOMED-CT: 148626590) Active 230065223 SNOMED-CT CEPHALEXIN Active 2231 RxNorm AMOXICILLIN Rash (SNOMED-CT: 335605262) Active 723 RxNorm KEFLEX Active 771901 RxNorm ACETAMINOPHEN/CODEI NE #3 Confusion (SNOMED-CT: 717296882) Active 397598 RxNorm Plan of Treatment Follow Up 09/20/2024 Encounters Encounter Diagnosis Start Date Code Code Sys tem Snoring 01/25/2024 05059404 [facility] Personal Care Team Section Performer Name Performer Role Active Date Inactive DOREEN Villagomez PCP - Primary care physician 2024-03-14 Procedures Notes [facility] 01/29/2024 09:52 STUDY TYPE: HOME SLEEP TEST (UNATTENDED SLEEP STUDY) ADMITTING PROVIDER: CHESTER BUNDY DICTATING PROVIDER: [facility] PROCEDURE DATE: 01/25/2024 READING DATE 01/29/2024 INDICATION FOR THE STUDY: Snoring. PATIENT DEMOGRAPHIC: 38-year-old female, weight 179 Lbs, height 65 in and BMI of 29.8 lb/in2. METHODS: Unattended Sleep Study was performed using a type III, 7 channel portable monitoring device ([employer]) with simultaneous recording of nasal flow, respiratory effort, snoring, body position, plethysmography, ECG/heart rate and oxygen saturation. FINDINGS: Sleep Summary: Total recording time 464 min. Total time in bed 464 min. Monitoring time 428 min. Cardiac Summary: Average heart rate was 78 BPM; highest heart rate was 94 BPM and lowest HR was 65 BPM. Oximetry saturation: average oxygen saturation was 91%, total number of desaturation was 35, desaturation index was 5 events/hr, lowest oxygen saturation was 84% and highest oxygen saturation was 97%. Respiratory summary: Patient had 19 obstructive apneas, 17 obstructive hypopneas, 1 central apnea and the total number of events was 37 events. AHI was 5, becoming 12 in supine sleep. IMPRESSION: AHI of 5 consistent with mild sleep disordered breathing. RECOMMENDATIONS: It is recommended to discuss treatment options of mild obstructive sleep apnea with the patient. Patient may benefit from autopap with pressure of 6-12CW. General recommendation: Upper airway assessment for any anatomic narrowing or abnormal nasal passages or enlarged tonsils. Assessment of Thyroid function. Education about sleep apnea. Exercise regularly and work to lose weight if you are overweight. Avoid alcohol and other sedatives, particularly prior to sleep. Patient to avoid driving or operating heavy machinery until symptoms of excessive daytime sleepiness are controlled. If you smoke, quit smoking. Cigarette smoking can increase swelling in your airway making snoring and JARED worse. Have a sleep routine. Close follow up with your physician. Vaughn Blanco MD [facility], [facility]
--- OUTSIDE RECORDS SUMMARY | 2024-08-30 17:15 | XMS_ITS ---
Author Organization Unknown Address [address] [place] [address] [phone] Phone Care Team Providers Care Typewriter Tester Name Role Phone JEFFRY WEBER Attending Unavailable JOON Balderrama Primary Unavailable Immunization Immunization Date Status Additional Notes Code Code System Influenza, split virus, quadrivalent, preservative 08/04/2022 Completed 158 C VX Results HIPS LISSETTE 3-4 VIEWS - Complet ed: 08/24/2024 10:17 LOINC: \TM00\12PI\DRAo\BM09\ \MRLo\ [address] [address] ---------NAME--------- NUMBER SEX AGE ADMIT DISC. XRAY# F/C TYPE EMETERIO GUZMÁN [id number] F 38 08/24/24 08/24/24 06682 XB7 O/P DATE OF : 1985 M/R# [id number] PH#: [phone] RM \MRHx\ LOCATION: TRANSCRIBED: 08/24/24 11:06 HIPS LISSETTE 3-4 VIEWS [id number] COMPLETED:08/24/24 10:17 J [id number] {REASON-HIPS: SI JOINT INFLAMATION PHYSICIAN: JEFFRY LOG R A D I O L O G Y R E P O R T EXAM: HIPS LISSETTE 3-4 VIEWS CLINICAL INDICATION: SI JOINT INFLAMATION TECHNIQUE: HIPS LISSETTE 3-4 VIEWS Comparison: None FINDINGS/IMPRESSION: There is no evidence of acute fracture or dislocation. Moderate bilateral hip osteoarthtirits. The alignment is anatomical. There is no radiopaque foreign body. HROOM ATTENDANT \ITLo\ \UNDo\ \UNDx\ \ITLx\ Reviewed and Electronically Signed by: Rigo Beatty MD Signed Date: 08/24/24 11:06 08/24/[email or web address] JOON GOODEN via fax Social History Type Status Start Date End Date Code Code Syst em Smoking History Current every day smoker 128502487 SNOMED CT Sex Female Medications Medication Start Date End Date Route Frequency Dose Code Code System Medication Instructions Home Meds DULoxetine HCl AvPak 30MG Oral Capsule, Delayed Release 01/05/2024 Unknown ORAL ONCE A DAY 30 MILLIGRAMS 595786 RxNorm TAKE 30 MILLIGRAMS ORAL ONCE A DAY DULoxetine HCl AvPak 60MG Oral Capsule, Delayed Release 01/05/2024 Unknown ORAL ONCE A DAY 60 MILLIGRAMS 839674 RxNorm TAKE 60 MILLIGRAMS ORAL ONCE A DAY MiraLAX 17GM/1Dose Oral Powder for Solution 01/05/2024 Unknown ORAL NEEDED DAILY 1 unit(s) 417223 RxNorm TAKE 1 EACH ORAL NEEDED DAILY Omeprazole 20 MG Oral Tablet, Delayed Release 01/05/2024 Unknown ORAL NEEDED 20 MG RxNorm TAKE 20 MG ORAL NEEDED PARoxetine HCl 20MG Oral Tablet 01/05/2024 Unknown ORAL ONCE A DAY 20 MILLIGRAMS 8793697 RxNorm TAKE 20 MILLIGRAMS ORAL ONCE A DAY risperiDONE 0.5MG Oral Tablet 01/05/2024 Unknown ORAL ONCE A DAY 0.5 MILLIGRAMS 596154 RxNorm TAKE 0.5 MILLIGRAMS ORAL ONCE A DAY traZODone hydrochloride 100MG Oral Tablet 01/05/2024 Unknown ORAL ONCE A DAY 100 MILLIGRAMS 319962 RxNorm TAKE 100 MILLIGRAMS ORAL ONCE A DAY Meloxicam 7.5MG Oral Tablet 08/09/2024 Unknown BY MOUTH ONCE A DAY 1 TABLET 891804 RxNorm TAKE 1 TABLET BY MOUTH ONCE A DAY Xanax 0.5MG Oral Tablet 08/10/2024 Unknown ORAL NEEDED DAILY 0.5 MILLIGRAMS 069145 RxNorm TAKE 0.5 MILLIGRAMS ORAL NEEDED DAILY metFORMIN HCl 500MG Oral Tablet 08/10/2024 Unknown ORAL AT BEDTIME 500 MILLIGRAMS 484978 RxNorm TAKE 500 MILLIGRAMS ORAL AT BEDTIME [...] Status Code Code System HIDRADENITIS SUPPURATIVA active 41166647 SNOMED-CT PAIN IN RIGHT SHOULDER active 4134579 8196378314 SNOMED-CT CARPAL TUNNEL SYNDROME, RIGHT UPPER LIMB active 715032695851328 SNOMED-C T FATTY (CHANGE OF) LIVER, NOT ELSEWHERE CLASSIFIED active 788829202 SNOMED-CT DORSALGIA, UNSPECIFIED active 9381294 05 SNOMED-CT HEADACHE, UNSPECIFIED active 32882142 SNOMED-CT PAIN IN UNSPECIFIED JOINT active 38175598 SNOMED-CT RADICULOPATHY, CERVICAL REGION active 19867908 SNOMED-CT SPINAL STENOSIS, SITE UNSPECIFIED active 07674303 SNOMED-CT OTHER CHRONIC PAIN active 02169084 S NOMED-CT RADICULOPATHY, LUMBAR REGION active 772464882 SNOMED-CT CERVICALGIA active 07768253 SNOMED-C T PAIN IN LEFT KNEE active 610723118867 107 SNOMED-CT Allergies and Adverse Reactions Allergy Substance Reaction Severity Start Date Concern Status Code Code System SULFA (sulfonamide) Rash (SNOMED-CT: 741014997) Active 32430082 SNOMED-CT CEPHALOSPORIN Rash (SNOMED-CT: 682360313) Active 535663377 SNOMED-CT CEPHALEXIN Active 2231 RxNorm AMOXICILLIN Rash (SNOMED-CT: 732484089) Active 723 RxNorm KEFLEX Active 824479 RxNorm ACETAMINOPHEN/CODEI NE #3 Confusion (SNOMED-CT: 243627477) Active 930679 RxNorm Plan of Treatment Follow Up 09/20/2024 Encounters Encounter Diagnosis Start Date Code Code Sys tem Bilateral primary osteoarthritis of hip 08/24/2024 SNOMED-CT Personal Care Team Section Performer Name Performer Role Active Date Inactive DOREEN Villagomez PCP - Primary care physician 2024-03-14 Imaging Narrative Notes [facility] 08/24/2024 11:[address] [address] ---------NAME--------- NUMBER SEX AGE ADMIT DISC. XRAY# F/C TYPE EMETERIO GUZMÁN [id number] F 38 08/24/24 08/24/24 43275 XB7 O/P DATE OF : 1985 M/R# [id number] #: [id number] LOCATION: TRANSCRIBED: 08/24/24 11:06 HIPS LISSETTE 3-4 VIEWS 74136 COMPLETED:08/24/24 10:17 JDF [id number] {REASON-HIPS: SI JOINT INFLAMATION PHYSICIAN: JEFFRY LOG RADIOLOGY REPORT EXAM: HIPS LISSETTE 3-4 VIEWS CLINICAL INDICATION: SI JOINT INFLAMATION TECHNIQUE: HIPS LISSETTE 3-4 VIEWS Comparison: None FINDINGS/IMPRESSION: There is no evidence of acute fracture or dislocation. Moderate bilateral hip osteoarthtirits. The alignment is anatomical. There is no radiopaque foreign body. HROOM ATTENDANT Reviewed and Electronically Signed by: Rigo Beatty MD Signed Date: 08/24/24 11:06 08/24/[email or web address] [facility] via fax
--- OUTSIDE RECORDS SUMMARY | 2024-08-30 17:15 | XMS_ITS ---
Author Organization Unknown Address [address] [place] [address] [phone] Phone Care Team Providers Care Aitchbone Breaker Name Role Phone JEFFRY WEBER Attending Unavailable JOON Balderrama Primary Unavailable Immunization Immunization Date Status Additional Notes Code Code System Influenza, split virus, quadrivalent, preservative 08/04/2022 Completed 158 C VX Social History Type Status Start Date End Date Code Code Syst em Smoking History Current every day smoker 735047476 SNOMED CT Sex Female Vital Signs Vital Sign Value Unit [place] Unit Date/Time Recent/Initial? Code Code System Body Mass Index 30.12 kg/m2 08/09/2024 10:05 Initial 59188 -5 [facility] Systolic Blood Pressure 97 mm[Hg] 08/09/2024 10:05 Initial 8480- 6 [facility] Diastolic Blood Pressure 68 mm[Hg] 08/09/2024 10:05 Initial 8462- 4 [facility] Body Surface Area 1.94 m2 08/09/2024 10:05 Initial 3140- 1 LOINC Height 165.100 0 cm 65.00 in 08/09/2024 10:05 Initial 8302- 2 INC O2 Saturation 98 % 2024 10:05 Initial 28078 -5 [facility] Pulse 105.0 /min 08/09/2024 10:05 Initial 8867- 4 [facility] Temperature 36.3 May 97.3 F 08/09/19 10:05 Initial 8310- 5 [facility] Weight 82.10 kg 181.00 lbs 08/09/2024 10:05 Initial 44266 -7 [facility] Medications Medication Start Date End Date Route Frequency Dose Code Code System Medication Instructions Home Meds DULoxetine HCl AvPak 30MG Oral Capsule, Delayed Release 01/05/2024 Unknown ORAL ONCE A DAY 30 MILLIGRAMS 772015 RxNorm TAKE 30 MILLIGRAMS ORAL ONCE A DAY DULoxetine HCl AvPak 60MG Oral Capsule, Delayed Release 01/05/2024 Unknown ORAL ONCE A DAY 60 MILLIGRAMS 087380 RxNorm TAKE 60 MILLIGRAMS ORAL ONCE A DAY Meloxicam 15MG Oral Tablet 01/05/2024 08/09/19 25 ORAL ONCE A DAY 15 MILLIGRAMS 499272 RxNorm TAKE 15 MILLIGRAMS ORAL ONCE A DAY MiraLAX 17GM/1Dose Oral Powder for Solution 01/05/2024 Unknown ORAL NEEDED DAILY 1 unit(s) 963127 RxNorm TAKE 1 EACH ORAL NEEDED DAILY Omeprazole 20 MG Oral Tablet, Delayed Release 01/05/2024 Unknown ORAL NEEDED 20 MG RxNorm TAKE 20 MG ORAL NEEDED PARoxetine HCl 20MG Oral Tablet 01/05/2024 Unknown ORAL ONCE A DAY 20 MILLIGRAMS 5486286 RxNorm TAKE 20 MILLIGRAMS ORAL ONCE A DAY risperiDONE 0.5MG Oral Tablet 01/05/2024 Unknown ORAL ONCE A DAY 0.5 MILLIGRAMS 388976 RxNorm TAKE 0.5 MILLIGRAMS ORAL ONCE A DAY traZODone hydrochloride 100MG Oral Tablet 01/05/2024 Unknown ORAL ONCE A DAY 100 MILLIGRAMS 546687 RxNorm TAKE 100 MILLIGRAMS ORAL ONCE A DAY Meloxicam 7.5MG Oral Tablet 08/09/2024 Unknown BY MOUTH ONCE A DAY 1 TABLET 133948 RxNorm TAKE 1 TABLET BY MOUTH ONCE A DAY Xanax 0.5MG Oral Tablet 08/10/2024 Unknown ORAL NEEDED DAILY 0.5 MILLIGRAMS 766348 RxNorm TAKE 0.5 MILLIGRAMS ORAL NEEDED DAILY metFORMIN HCl 500MG Oral Tablet 08/10/2024 Unknown ORAL AT BEDTIME 500 MILLIGRAMS 797859 RxNorm TAKE 500 MILLIGRAMS ORAL AT BEDTIME [...] Status Code Code System HIDRADENITIS SUPPURATIVA active 44364224 SNOMED-CT PAIN IN RIGHT SHOULDER active 9868935 6034766483 SNOMED-CT CARPAL TUNNEL SYNDROME, RIGHT UPPER LIMB active 637406766790753 SNOMED-C T FATTY (CHANGE OF) LIVER, NOT ELSEWHERE CLASSIFIED active 543932701 SNOMED-CT DORSALGIA, UNSPECIFIED active 0773713 05 SNOMED-CT HEADACHE, UNSPECIFIED active 80423481 SNOMED-CT PAIN IN UNSPECIFIED JOINT active 61520570 SNOMED-CT RADICULOPATHY, CERVICAL REGION active 42683806 SNOMED-CT SPINAL STENOSIS, SITE UNSPECIFIED active 66400732 SNOMED-CT OTHER CHRONIC PAIN active 76731699 S NOMED-CT RADICULOPATHY, LUMBAR REGION active 469022081 SNOMED-CT CERVICALGIA active 83955736 SNOMED-C T PAIN IN LEFT KNEE active 594994763348 107 SNOMED-CT Allergies and Adverse Reactions Allergy Substance Reaction Severity Start Date Concern Status Code Code System SULFA (sulfonamide) Rash (SNOMED-CT: 988905636) Active 60305521 SNOMED-CT CEPHALOSPORIN Rash (SNOMED-CT: 187702669) Active 090674298 SNOMED-CT CEPHALEXIN Active 2231 RxNorm AMOXICILLIN Rash (SNOMED-CT: 649713984) Active 723 RxNorm KEFLEX Active 403747 RxNorm ACETAMINOPHEN/CODEI NE #3 Confusion (SNOMED-CT: 336318978) Active 932546 RxNorm Plan of Treatment Follow Up 09/20/2024 Plan Meloxicam 7.5mg Q Day for 30 days PT 6 weeks 2 X a week SI Joint X Rays Obtain interventional records and imaging F/U in 6 weeks - review records and consider injections Encounters Encounter Diagnosis Start Date Code Code Sys tem Low back pain, unspecified 08/09/2024 S NOMED-CT Personal Care Team Section Performer Name Performer Role Active Date Inactive DOREEN Villagomez PCP - Primary care physician 2024-03-14 Progress Notes [facility] 08/09/2024 10:45 All Demographics Patient Name Age Sex Visit Number Admission Date/Time Attending Physician Date of Service Room and Bed Emergency Contact RA STORM 1985 38 years Female [id number] 08/09/2024 09:57 Davidson Varela 08/09/2024 01-OP LAYOKAREN CALLES - [id number] PAIN MANAGEMENT HISTORY & PHYSICAL Vital Signs: Most Recent Today Date/Time BP (mm/Hg) BP Position/Site Heart Rate Resp Temp (F) SPO2% O2 Device Pain Score Height (in) Weight (lbs/ozs) BMI Systolic Diastolic Pulse Site O2 L/min 08/09/2024 10:05 97/68 Sitting/Left Arm 105 97.3 Tympanic 98 % Room Air 21% 6 65 in 181.0 30.12 97 68 Pulse Ox Chief Complaint: Low back pain, unspecified History of Present Illness: Patient here today, for pain management evaluation/follow up for Location: The pain is located in the lower back and joints. The pain does not radiate from back. Quality: Patient rates the pain today, as a 6 /10 at this time, and at times the pain may be as severe as a 10/10. The pain may be described as achy and sharp. Duration: 10+ years Timing: Patient reports this pain has been present for 10+ years. Alleviating Factors: Pain is relieved by heating pad. Associated Symptoms: Pain is worsened by moving and trying to do everyday duties. Pain History: Patient reports that they have had no recent falls. PHQ-9 Depression Screening Patient condition has declined since last screening Patient condition has improved since last screening No previous Screening X Patient Declined Screening Score has not changed significantly since last visit PHQ-9 Score Assessment: N/A: PHQ-9 not performed/Patient declined 0-4: Not an indicator of depression x 5-9: Indicates mild depression 10-14: Indicates moderate depression 15-19: Indicates moderately severe depression 20-27: Indicates severe depression AMY-7 Score Assessment: N/A: AMY-7 not performed/Patient declined x 0-4: Minimal Anxiety 5-9: Mild Anxiety 10-14: Moderate Anxiety 15-21: Severe Anxiety Review of Systems Constitutional: denies changes in speech, night sweats or chills HEENT: denies facial swelling or nasal deformity Cardiovascular: denies chest pain or chest pressure Respiratory: denies cough, sputum or chest congestion Gastrointestinal: denies excessive belching or abdominal mass Endocrine: denies excessive thirst or fruity breath Musculoskeletal: denies muscle atrophy or muscle spasms, pain of lumbar spine with flexion and extension, and provocative manuevers of SI joint Neurologic: denies altered mental status or speech Integumentary: denies blistering or hives Hematologic/Lymphatic: denies abnormal bleeding or lymph node tenderness Psychiatric: denies agitation or delusions Physical Exam Appearance: well groomed, healthy appearance, well nourished, NAD HEENT: PERRLA, neurological systems grossly intact Neck: supple, nontender Chest/Lungs: clear to auscultation, no dyspnea, breath sounds normal, no rales/crackles/rhonchi or wheezing Cardiovascular: regular rate and rhythm S1-S2 present, no carotid bruit, femoral/pedal pulses normal throughout Abdomen: round, soft, nontender, active bowel sounds, no tenderness with palpation Rectal: normal per patient Pelvic: normal per patient Extremities: no signs of significant edema, good pulses Problem Focused Physical Exam: Patient has had two previous lumbar spine surgeries. 2013 and 2017. Both procedures patient reported as a L4-5 Lumbar discectomy. Patient has had multiple imaging studies as well as injections at an outside facility. Patient has also done several rounds of PT. The last round of PT ended in summer. Patient reports every day pain of low back with occasionally throwing her back out . This is a separate type of pain when this happens. Sacroiliac Joint Assessment Patient is positive for SI joint pain. Patient has pain with femoral sheer test and also gapping tests. FABERS is positive. Positive Sarah Finger test. Patient has pain with prolonged standing and sitting. Pain is worse in the AM when they wake. Pain is significant enough that is causing difficulty with activities of daily living. Patient has not had X rays of SI joints in the past. We will order these today as well as another round of PT. Lumbar Facet Assessment Patient has pain with extension of the spine and rotation. Patient has referred pain to the anterior and lateral aspects of the thighs as well. The patient has pain in their low back while riding in a car and washing dishes. The patient feels they must bend forward and stretch their back to relieve pain. We will work to obtain previous records of injections as well as imaging studies. We will start on a low dose anti inflammatory as well as start another round of physical therapy. Axial Low Back Pain Assessment Patient ambulates into office with difficulty. Patient has decreased range of motion. Patient's physical exam exhibits axial low back pain with anterior column pain with forward flexion. Pain with prolonged standing as well. Patient states this pain is only occasionally when she throws her back out. She states last time she threw her back out by sneezing. We will work to obtain previous imaging studies as well as interventional records. 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 Radiology: Imaging reviewed with patient Pain Treatment History: Conservative Measures Tried and Failed: Heat, Cold, PT Medications Trialed: NSAIDS, opioids, gabapentin Previous Interventional Pain Procedures: multiple - not helpful Plan Meloxicam 7.5mg Q Day for 30 days PT 6 weeks 2 X a week SI Joint X Rays Obtain interventional records and imaging F/U in 6 weeks - review records and consider injections Problem List Hidradenitis suppurativa Pain in right shoulder Carpal tunnel syndrome, right upper limb Fatty (change of) liver, not elsewhere classified Dorsalgia, unspecified Headache, unspecified Pain in unspecified joint Radiculopathy, cervical region Spinal stenosis, site unspecified Other chronic pain Radiculopathy, lumbar region Cervicalgia Pain in left knee Surgery List Colonoscopy, LOW BACK DISK SURGERY, PARTIAL HYSTERECTOMY, Tubal ligation, Cervical cancer, CYSTOSCOPY, Laparoscopy, Repair of umbilical hernia with mesh, EGD TRANSORAL BIOPSY SINGLE/MULTIPLE, 12/15/2018 COLSC FLX W/RMVL OF TUMOR POLYP LESION SNARE TQ, 12/15/2018 Smoking Status: Current every day smoker, Cessation Education: Allergy List CEPHALOSPORIN, Medication AMOXICILLIN, Medication Home Meds: Dose and Freq Medication Dosage Frequency DULoxetine HCl AvPak 30MG Oral Capsule, Delayed Release 30 MILLIGRAMS ONCE A DAY DULoxetine HCl AvPak 60MG Oral Capsule, Delayed Release 60 MILLIGRAMS ONCE A DAY MiraLAX 17GM/1Dose Oral Powder for Solution 1 EACH NEEDED DAILY Omeprazole 20 MG Oral Tablet, Delayed Release 20 MG NEEDED PARoxetine HCl 20MG Oral Tablet 20 MILLIGRAMS ONCE A DAY risperiDONE 0.5MG Oral Tablet 0.5 MILLIGRAMS ONCE A DAY traZODone hydrochloride 100MG Oral Tablet 100 MILLIGRAMS ONCE A DAY Xanax 0.5MG Oral Tablet 0.5 MILLIGRAMS NEEDED DAILY metFORMIN HCl 500MG Oral Tablet 500 MILLIGRAMS AT BEDTIME
--- OUTSIDE RECORDS SUMMARY | 2024-08-30 17:15 | XMS_ITS ---
Author Organization Unknown Address [address] [place] [phone] Phone Care Team Providers Care Steel Wool Machine Operator Name Role Phone JEFFRY WEBER Attending Unavailable JOON Balderrama Primary Unavailable Immunization Immunization Date Status Additional Notes Code Code System Influenza, split virus, quadrivalent, preservative 08/04/2022 Completed 158 C VX Social History Type Status Start Date End Date Code Code Syst em Smoking History Current every day smoker 697209598 SNOMED CT Sex Female Medications Medication Start Date End Date Route Frequency Dose Code Code System Medication Instructions Home Meds DULoxetine HCl AvPak 30MG Oral Capsule, Delayed Release 01/05/2024 Unknown ORAL ONCE A DAY 30 MILLIGRAMS 168130 RxNorm TAKE 30 MILLIGRAMS ORAL ONCE A DAY DULoxetine HCl AvPak 60MG Oral Capsule, Delayed Release 01/05/2024 Unknown ORAL ONCE A DAY 60 MILLIGRAMS 712406 RxNorm TAKE 60 MILLIGRAMS ORAL ONCE A DAY MiraLAX 17GM/1Dose Oral Powder for Solution 01/05/2024 Unknown ORAL NEEDED DAILY 1 unit(s) 522597 RxNorm TAKE 1 EACH ORAL NEEDED DAILY Omeprazole 20 MG Oral Tablet, Delayed Release 01/05/2024 Unknown ORAL NEEDED 20 MG RxNorm TAKE 20 MG ORAL NEEDED PARoxetine HCl 20MG Oral Tablet 01/05/2024 Unknown ORAL ONCE A DAY 20 MILLIGRAMS 6177250 RxNorm TAKE 20 MILLIGRAMS ORAL ONCE A DAY risperiDONE 0.5MG Oral Tablet 01/05/2024 Unknown ORAL ONCE A DAY 0.5 MILLIGRAMS 995861 RxNorm TAKE 0.5 MILLIGRAMS ORAL ONCE A DAY traZODone hydrochloride 100MG Oral Tablet 01/05/2024 Unknown ORAL ONCE A DAY 100 MILLIGRAMS 720570 RxNorm TAKE 100 MILLIGRAMS ORAL ONCE A DAY Meloxicam 7.5MG Oral Tablet 08/09/2024 Unknown BY MOUTH ONCE A DAY 1 TABLET 974622 RxNorm TAKE 1 TABLET BY MOUTH ONCE A DAY Xanax 0.5MG Oral Tablet 08/10/2024 Unknown ORAL NEEDED DAILY 0.5 MILLIGRAMS 177594 RxNorm TAKE 0.5 MILLIGRAMS ORAL NEEDED DAILY metFORMIN HCl 500MG Oral Tablet 08/10/2024 Unknown ORAL AT BEDTIME 500 MILLIGRAMS 026822 RxNorm TAKE 500 MILLIGRAMS ORAL AT BEDTIME [...] Status Code Code System HIDRADENITIS SUPPURATIVA active 19732177 SNOMED-CT PAIN IN RIGHT SHOULDER active 0401661 4093528560 SNOMED-CT CARPAL TUNNEL SYNDROME, RIGHT UPPER LIMB active 476994549836446 SNOMED-C T FATTY (CHANGE OF) LIVER, NOT ELSEWHERE CLASSIFIED active 158300598 SNOMED-CT DORSALGIA, UNSPECIFIED active 7961830 05 SNOMED-CT HEADACHE, UNSPECIFIED active 79657327 SNOMED-CT PAIN IN UNSPECIFIED JOINT active 96244882 SNOMED-CT RADICULOPATHY, CERVICAL REGION active 27184460 SNOMED-CT SPINAL STENOSIS, SITE UNSPECIFIED active 79802917 SNOMED-CT OTHER CHRONIC PAIN active 80645171 S NOMED-CT RADICULOPATHY, LUMBAR REGION active 829071360 SNOMED-CT CERVICALGIA active 53411843 SNOMED-C T PAIN IN LEFT KNEE active 615287397605 107 SNOMED-CT Allergies and Adverse Reactions Allergy Substance Reaction Severity Start Date Concern Status Code Code System SULFA (sulfonamide) Rash (SNOMED-CT: 133591654) Active 23517752 SNOMED-CT CEPHALOSPORIN Rash (SNOMED-CT: 697429574) Active 863204876 SNOMED-CT CEPHALEXIN Active 2231 RxNorm AMOXICILLIN Rash (SNOMED-CT: 984459482) Active 723 RxNorm KEFLEX Active 968432 RxNorm ACETAMINOPHEN/CODEI NE #3 Confusion (SNOMED-CT: 700263580) Active 113112 RxNorm Plan of Treatment Follow Up 09/20/2024 Encounters Encounter Diagnosis Start Date Code Code Sys tem Radiculopathy, cervical region 08/24/2024 SNOMED-CT Personal Care Team Section Performer Name Performer Role Active Date Inactive DOREEN Villagomez PCP - Primary care physician 2024-03-14
== END 2024-08-28 10:12 | disposition home or self-care (01) ==
PROVIDERS: PCP Registered Nurse; Visit Provider Registered Nurse
DX: R68.83 Chills (without fever) (principal); R42 Dizziness and giddiness
CPT/HCPCS: 36415; 80053; 84443; 85025; 87637

== ENCOUNTER 2024-09-06 21:45 | Emergency (ER) | payer OTHER, SELFPAY ==
[2024-09-06 21:45] VITALS: BP 147/89; PULSE 102; RESP 20; TEMP 36.4; O2SAT 99
--- OUTSIDE RECORDS SUMMARY | 2024-09-06 21:48 | XMS_ITS | Referral Summary ---
Author Organization [facility] Address [address] [place] [address] Care Team Providers Care Peripatologist Name Role Phone Maxi Valentin MD Primary Care Provider [phone] [facility],non-owned Affiliates and Associated Physician Practices is amultiple site organization consisting of ambulatory clinics and hospital sitesin [place], [place], [place] and [place]. This disclosure is being madepursuant to the Care Everywhere program and may not contain all information available regarding this patient. Last updated 18.[facility] Social History Tobacco Use Types Packs/Day Years Used Date Smoking Tobacco: Never Assessed Sex and Gender Information Value Date Recorded Sex Assigned at Not on file Gender Identity Not on file Sexual Orientation Not on file Plan of Treatment Not on file Care Teams Peripatologist Relationship Specialty Start Date End Date Maxi Valentin MD [address] [place] [phone] PCP - General 07/06/18
--- OUTSIDE RECORDS SUMMARY | 2024-09-06 21:48 | XMS_ITS | Encounter Summary ---
Author Organization [facility] Address [address] [place] [address]. [place], [place] [phone] [place] [phone] Care Team Providers Care Rental Clerk Name Role Phone None, Provider Primary Care Provider Rohan Hart Primary Care Provider [phone] Oleg Lemus MD Primary Care Provider Encounter Details Date Type Department Care Team (Late st Contact Info) Description 01/13/2019 Abstract [facility] CONVERSION [address] [place] [address] , Generic Conversion, Social History Tobacco Use Types Packs/Day Years Used Date Smoking Tobacco: Never Assessed Comments Unknown Sex and Gender Information Value Date Recorded Sex Assigned at Not on file Legal Sex Female 11:02 PM LABOR TRAINER Gender Identity Not on file Sexual Orientation Not on file documented as of this encounter Plan of Treatment Not on file documented as of this encounter Visit Diagnoses Not on filedocumented in this encounter Additional Health Concerns Infection Onset Date Last Indicated Resolved Time COVID-19 Rule Out 05/18/2020 05/18/2020 05/20/2020 3:11 AM CDT COVID-19 Rule Out 07/30/2023 07/30/2023 07/30/2023 6:22 PM LABOR TRAINER Influenza - Seasonal 07/30/2023 07/30/2023 024 12:32 AM LABOR TRAINER documented as of this encounter Care Teams Rental Clerk Relationship Specialty Start Date End Date None, Provider, PCP - General 03/26/20 05/17/20 Rohan So PA [address] [place] [phone] PCP - General PHYSICIAN BASKET FILLER 05/18/20 07/29/23 Oleg Lemus MD [address] [place] [phone] PCP - General FAMILY PRACTICE 07/30/23 documented as of this encounter
--- OUTSIDE RECORDS SUMMARY | 2024-09-06 21:48 | XMS_ITS | Clinical Summary ---
Author Organization [facility] Address [address] [place] [address]. [place], [place] [address] [place] [address] Care Team Providers Care Welder Tack Name Role Phone Oleg Lemus MD Primary Care Provider [phone] Allergies Active Allergy Reactions Criticality Noted Date Comments Amoxicillin Rash Low 03/28/2023 Cephalosporins Rash Low 03/28/2023 Medications DULoxetine (CYMBALTA) 60 MG capsule 03/05/2023 Active PARoxetine (PAXIL) 20 MG tablet 03/05/2023 Active traZODone (DESYREL) 100 MG tablet 03/14/2023 Active risperiDONE (RISPERDAL) 0.5 MG tablet 03/14/2023 Active ALPRAZolam (XANAX) 0.5 MG tablet 07/04/2023 Active dicyclomine (BENTYL) 10 MG capsule Take 1 capsule (10 mg total) by mouth 4 (four) times daily before meals and nightly. 60 capsule 12/01/2023 Active pantoprazole EC (PROTONIX) 40 MG tablet Take 1 tablet (40 mg total) by mouth daily. 14 tablet 12/01/2023 Active Family History Medical History Relation Comments Breast Cancer Maternal Grandmother Relation Status Comments Maternal Grandmother Social History Tobacco Use Types Packs/Day Years Used Date Smoking Tobacco: Every Day Cigarettes Smokeless Tobacco: Never Tobacco Cessation:Ready to Q uit: Not Asked; Counseling Given: Not Answered Alcohol Use Standard Drinks/Week Comments Not Currently 0 (1 standard drink = 0.6 oz pur e alcohol) Comments No Sex and Gender Information Value Date Recorded Sex Assigned at Not on file Legal Sex Female 11:02 PM WEIGH BOSS Gender Identity Not on file Sexual Orientation Not on file Last Filed Vital Signs Vital Sign Reading Time Taken Comments Blood Pressure 128/79 12/01/2023 4:50 PM CDT Pulse 103 12/01/2023 1:06 PM CDT Temperature 36.6 ??C (97.8 ??F) 12/01/2023 1:06 PM CD T Respiratory Rate 15 12/01/2023 1:06 PM CDT Oxygen Saturation 99% 12/01/2023 4:50 PM CDT Inhaled Oxygen Concentration - - Weight 82.3 kg (181 lb 6 oz) 12/01/2023 1:06 PM CDT Height 166.4 cm (5' 5.5 ) 12/01/2023 1:06 PM CDT Body Mass Index 29.72 12/01/2023 1:06 PM CDT Plan of Treatment Health Maintenance Due Date Last Done Comments Annual Physical 10/25/1987 Pneumococcal Vaccine: Pediat rics (0 to 5 Years) and At-Risk Patients (6 to 64 Years) (1 of 2 - PCV) 1990 Hepatitis C 2002 DTaP, Tdap and Td Vaccines ( 1 - Tdap) 10/25/2003 Hepatitis B Vaccines (1 of 3 - 19+ 3-dose series) 10/25/2003 COVID-19 Vaccine ( - 2023-2 5 season) 2024 Influenza Adult (#1) 2024 08/04/2022 HPV Vaccines Aged Out No longer eligi ble based on patient's age to complete this topic Meningococcal B Vaccine Aged Out No l onger eligible based on patient's age to complete this topic Meningococcal Vaccine Aged Out No radha nadia eligible based on patient's age to complete this topic RSV Immunizations Under 20 Months Aged Out No longer eligible based on patient's age to complete this topic Insurance [facility] C/O PROVID[employer] [place] [id number] Care Teams Welder Tack Relationship Specialty Start Date End Date Oleg Lemus MD [address] [place] [phone] PCP - General FAMILY PRACTICE 07/30/23
--- OUTSIDE RECORDS SUMMARY | 2024-09-06 21:48 | XMS_ITS ---
Author Organization Unknown Address [address] [place] [phone] Phone Care Team Providers Care Manager Transmission Name Role Phone JEFFRY WEBER Attending Unavailable JOON Balderrama Primary Unavailable Immunization Immunization Date Status Additional Notes Code Code System Influenza, split virus, quadrivalent, preservative 08/04/2022 Completed 158 C VX Results HIPS LISSETTE 3-4 VIEWS - Complet ed: 08/24/2024 10:17 LOINC: \TM00\12PI\DRAo\BM09\ \MRLo\ [address] [address] ---------NAME--------- NUMBER SEX AGE ADMIT DISC. XRAY# F/C TYPE EMETERIO GUZMÁN [id number] F 38 08/24/24 08/24/24 [address] XB7 O/P DATE OF : 1985 M/R# [id number] PH#: [phone] RM \MRHx\ LOCATION: TRANSCRIBED: 08/24/24 11:06 HIPS LISSETTE 3-4 VIEWS [id number] COMPLETED:08/24/24 10:17 J [id number] {REASON-HIPS: SI JOINT INFLAMATION PHYSICIAN: JEFFRY LOG R A D I O L O G Y R E P O R T EXAM: HIPS LISSETTE 3-4 VIEWS CLINICAL INDICATION: SI JOINT INFLAMATION TECHNIQUE: HIPS LISSETTE 3-4 VIEWS Comparison: None FINDINGS/IMPRESSION: There is no evidence of acute fracture or dislocation. Moderate bilateral hip osteoarthtirits. The alignment is anatomical. There is no radiopaque foreign body. 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 SYSTEMS ENGINEER \ITLo\ \UNDo\ \UNDx\ \ITLx\ Reviewed and Electronically Signed by: Rigo Beatty MD Signed Date: 08/24/24 11:06 08/24/24.1109.JDF.to JOON GOODEN via fax Social History Type Status Start Date End Date Code Code Syst em Smoking History Current every day smoker 196028376 SNOMED CT Sex Female Medications Medication Start Date End Date Route Frequency Dose Code Code System Medication Instructions Home Meds DULoxetine HCl AvPak 30MG Oral Capsule, Delayed Release 01/05/2024 Unknown ORAL ONCE A DAY 30 MILLIGRAMS 657692 RxNorm TAKE 30 MILLIGRAMS ORAL ONCE A DAY DULoxetine HCl AvPak 60MG Oral Capsule, Delayed Release 01/05/2024 Unknown ORAL ONCE A DAY 60 MILLIGRAMS 449282 RxNorm TAKE 60 MILLIGRAMS ORAL ONCE A DAY MiraLAX 17GM/1Dose Oral Powder for Solution 01/05/2024 Unknown ORAL NEEDED DAILY 1 unit(s) 697577 RxNorm TAKE 1 EACH ORAL NEEDED DAILY Omeprazole 20 MG Oral Tablet, Delayed Release 01/05/2024 Unknown ORAL NEEDED 20 MG RxNorm TAKE 20 MG ORAL NEEDED PARoxetine HCl 20MG Oral Tablet 01/05/2024 Unknown ORAL ONCE A DAY 20 MILLIGRAMS 2267594 RxNorm TAKE 20 MILLIGRAMS ORAL ONCE A DAY risperiDONE 0.5MG Oral Tablet 01/05/2024 Unknown ORAL ONCE A DAY 0.5 MILLIGRAMS 264708 RxNorm TAKE 0.5 MILLIGRAMS ORAL ONCE A DAY traZODone hydrochloride 100MG Oral Tablet 01/05/2024 Unknown ORAL ONCE A DAY 100 MILLIGRAMS 371036 RxNorm TAKE 100 MILLIGRAMS ORAL ONCE A DAY Meloxicam 7.5MG Oral Tablet 08/09/2024 Unknown BY MOUTH ONCE A DAY 1 TABLET 601953 RxNorm TAKE 1 TABLET BY MOUTH ONCE A DAY Xanax 0.5MG Oral Tablet 08/10/2024 Unknown ORAL NEEDED DAILY 0.5 MILLIGRAMS 017765 RxNorm TAKE 0.5 MILLIGRAMS ORAL NEEDED DAILY metFORMIN HCl 500MG Oral Tablet 08/10/2024 Unknown ORAL AT BEDTIME 500 MILLIGRAMS 857027 RxNorm TAKE 500 MILLIGRAMS ORAL AT BEDTIME [...] Status Code Code System HIDRADENITIS SUPPURATIVA active 75303989 SNOMED-CT PAIN IN RIGHT SHOULDER active 9301607 6208027603 SNOMED-CT CARPAL TUNNEL SYNDROME, RIGHT UPPER LIMB active 167903040364356 SNOMED-C T FATTY (CHANGE OF) LIVER, NOT ELSEWHERE CLASSIFIED active 357664756 SNOMED-CT DORSALGIA, UNSPECIFIED active 0719788 05 SNOMED-CT HEADACHE, UNSPECIFIED active 86356861 SNOMED-CT PAIN IN UNSPECIFIED JOINT active 31094087 SNOMED-CT RADICULOPATHY, CERVICAL REGION active 10478100 SNOMED-CT SPINAL STENOSIS, SITE UNSPECIFIED active 63060535 SNOMED-CT OTHER CHRONIC PAIN active 72263565 S NOMED-CT RADICULOPATHY, LUMBAR REGION active 253703872 SNOMED-CT CERVICALGIA active 71461752 SNOMED-C T PAIN IN LEFT KNEE active 587397492646 107 SNOMED-CT Allergies and Adverse Reactions Allergy Substance Reaction Severity Start Date Concern Status Code Code System SULFA (sulfonamide) Rash (SNOMED-CT: 298378741) Active 83927505 SNOMED-CT CEPHALOSPORIN Rash (SNOMED-CT: 758364769) Active 385308956 SNOMED-CT CEPHALEXIN Active 2231 RxNorm AMOXICILLIN Rash (SNOMED-CT: 807743615) Active 723 RxNorm KEFLEX Active 968878 RxNorm ACETAMINOPHEN/CODEI NE #3 Confusion (SNOMED-CT: 983330194) Active 292043 RxNorm Plan of Treatment Follow Up 09/20/2024 Encounters Encounter Diagnosis Start Date Code Code Sys tem Bilateral primary osteoarthritis of hip 08/24/2024 SNOMED-CT Personal Care Team Section Performer Name Performer Role Active Date Inactive DOREEN Villagomez PCP - Primary care physician 2024-03-14 Imaging Narrative Notes [facility] 08/24/2024 11:[address] [address] ---------NAME--------- NUMBER SEX AGE ADMIT DISC. XRAY# F/C TYPE EMETERIO GUZMÁN [id number] F 38 08/24/24 08/24/24 02337 XB7 O/P DATE OF : 1985 M/R# [id number] #: [phone] LOCATION: TRANSCRIBED: 08/24/24 11:06 HIPS LISSETTE 3-4 VIEWS 72792 COMPLETED:08/24/24 10:17 JDF [id number] {REASON-HIPS: SI JOINT INFLAMATION PHYSICIAN: JEFFRY LOG RADIOLOGY REPORT EXAM: HIPS LISSETTE 3-4 VIEWS CLINICAL INDICATION: SI JOINT INFLAMATION TECHNIQUE: HIPS LISSETTE 3-4 VIEWS Comparison: None FINDINGS/IMPRESSION: There is no evidence of acute fracture or dislocation. Moderate bilateral hip osteoarthtirits. The alignment is anatomical. There is no radiopaque foreign body. 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 via fax
--- OUTSIDE RECORDS SUMMARY | 2024-09-06 21:48 | XMS_ITS | Patient Health Summary ---
Author Organization [facility] Address [address] [place] [address] Care Team Providers Care Supervisor Real Estate Office Name Role Phone Maxi Valentin MD Primary Care Provider [phone] [facility],non-owned Affiliates and Associated Physician Practices is amultiple site organization consisting of ambulatory clinics and hospital sitesin [place], [place] and [place]. This disclosure is being madepursuant to the Care Everywhere program and may not contain all information available regarding this patient. Last updated 18.[facility] Social History Tobacco Use Types Packs/Day Years Used Date Smoking Tobacco: Never Assessed Sex and Gender Information Value Date Recorded Sex Assigned at Not on file Gender Identity Not on file Sexual Orientation Not on file Care Teams Supervisor Real Estate Office Relationship Specialty Start Date End Date Maxi Valentin MD [address] [place] [address] PCP - General 07/06/18
--- OUTSIDE RECORDS SUMMARY | 2024-09-06 21:48 | XMS_ITS | Clinical Summary ---
Author Organization [facility] Address [address] [place] [address] Care Team Providers Care Ink Blender Name Role Phone Maxi Valentin MD Primary Care Provider [phone] Source Comments [facility],non-owned Affiliates and Associated Physician Practices is amultiple site organization consisting of ambulatory clinics and hospital sitesin [place], [place], [place] and [place]. This disclosure is being madepursuant to the Care Everywhere program and may not contain all information available regarding this patient. Last updated 18.[facility] Social History Tobacco Use Types Packs/Day Years Used Date Smoking Tobacco: Never Assessed Sex and Gender Information Value Date Recorded Sex Assigned at Not on file Gender Identity Not on file Sexual Orientation Not on file Plan of Treatment Health Maintenance Due Date Last Done Comments PAP SMEAR 1985 HIV SCREENING 10/25/1999 HEPATITIS C SCREENING 10/20/2002 DTAP/TDAP/TD VACCINES (1 - Tdap) 10/25/2003 HEPATITIS B VACCINE (1 of 3 - 19+ 3-dose series) 10/25/2003 COVID-19 VACCINE ( - 2023-2 5 season) 2024 INFLUENZA VACCINE (#1) 2024 DEPRESSION SCREENING 08/08/2024 ZOSTER VACCINE (1 of 2) 2034 HIB VACCINE Aged Out No longer eligi ble based on patient's age to complete this topic HPV VACCINE Aged Out No longer eligi ble based on patient's age to complete this topic MENINGOCOCCAL (Group B) VACCINE Aged Out No longer eligible based on patient's age to complete this topic MENINGOCOCCAL VACCINE Aged Out No radha nadia eligible based on patient's age to complete this topic PNEUMOCOCCAL VACCINE Aged Out No long er eligible based on patient's age to complete this topic Care Teams Ink Blender Relationship Specialty Start Date End Date Maxi Valentin MD [address] [place] [phone] PCP - General 07/06/18
--- OUTSIDE RECORDS SUMMARY | 2024-09-06 21:49 | XMS_ITS ---
Author Organization Unknown Address [address] [place] [phone] Phone Care Team Providers Care Asl Interpreter Name Role Phone VICKYRAMYA CHESTER MAGDALENO Attending Unavailable JOON Balderrama Primary Unavailable Immunization Immunization Date Status Additional Notes Code Code System Influenza, split virus, quadrivalent, preservative 08/04/2022 Completed 158 C VX Results QUANTIFERON GOLD SINGLE TUBE - Collect Date/Time: 03/14/2024 12:54 [facility] ID: [id number] [address] [place] [address], [id number] LOINC: 72472-6 Test Value Unit Reference Range Code Code System Flag SOURCE: BLOOD SEND TO [facility]? NO QuantiFERON Incubation Incubation performed. QuantiFERON-TB Gold Plus Negative Negative 62284-5 LOINC QuantiFERON Criteria COMMENT 8251-1 LOINC QuantiFERON TB1 Ag Value 0.00 57916-0 LOINC QuantiFERON TB2 Ag Value 0.00 07144-2 LOINC QuantiFERON Nil Value 0.00 57370-4 LOINC QuantiFERON Mitogen Value >10.00 97218-5 LOINC LIVER PROFILE - Collect Date /Time: 03/14/2024 12:54 [facility] ID: [id number] [address] [place] [address], [id number] LOINC: 16430-3 Test Value Unit Reference Range Code Code [...] 1970-1 LOINC ALBUMIN 4.6 G/dL L=3.5 H=5.0 175-7 LOINC BASIC METABOLIC PANEL - Uziel ect Date/Time: 03/14/2024 12:54 [facility] ID: [id number] [address] [place], [place], [phone] LOINC: 11048-5 Test Value Unit Reference Range Code Code System Flag FASTING NO BUN 11 mg/dL L=7 H=20 3094-0 LOINC CREATININE 0.90 mg/dL L=0.52 H=1.04 2160-0 LOINC GLUCOSE 157 mg/dL L=74 H=106 2345-7 LOINC H CALCIUM 9.6 mg/dL L=8.3 H=10.5 97398-6 LOINC SODIUM 139 mmol/L L=132 H=144 2951-2 LOINC POTASSIUM 3.8 mmol/L L=3.5 H=5.1 2823-3 LOINC CHLORIDE 104 mmol/L L=98 H=107 2075-0 LOINC CO2 23.0 mmol/L L=22.0 H=30.0 8-9 LOINC ANION GAP 16 L=10 H=20 68098-4 LOINC BUN/CREAT 12.2 3097-3 LOINC AGE 38 89578-2 LOINC eGFR NON-AFR 74 ml/min eGFR AFR AMER 90 ml/min CBC W/ DIFF - Collect Date/T amos: 03/14/2024 12:54 [facility] ID: [id number] [address] [place], [place], [phone] LOINC: 85895-3 Test Value Unit Reference Range Code Code System Flag WBC 11.3 10^3uL L=4.8 H=10.8 H RBC 4.58 10^6uL L=4.20 H=5.40 HEMOGLOBIN 13.6 g/dL L=12.0 H=16.0 718-7 LOINC HEMATOCRIT 41.6 VOL% L=37.0 H=47.0 4544-3 LOINC MCV 90.8 fL L=81.0 H=99.0 MCH 29.7 pg L=27.0 H=32.0 MCHC 32.7 g/dL L=32.0 H=36.0 PLATELETS 329 10^3uL L=100 H=400 20087-5 LOINC RDW 13.6 % L=11.7 H=15.5 %GRAN 64.1 % L=40.0 H=70.0 67770-6 LOINC %LYMPH 27.4 % L=20.0 H=45.0 736-9 LOINC %MONO 6.1 % L=2.0 H=10.0 94240-0 LOINC %EOS 1.0 % L=0.0 H=6.0 713-8 LOINC %BASO 0.5 % L=0.0 H=3.0 706-2 LOINC #NEUT 7.3 10^3uL L=1.9 H=7.6 32411-6 LOINC #LYMPH 3.1 10^3uL L=0.9 H=4.9 57857-1 LOINC #MONO 0.7 10^3uL L=0.1 H=0.9 12834-0 LOINC #EOS 0.1 10^3uL L=0.0 H=0.6 712-0 LOINC #BASO 0.06 10^3uL L=0.00 H=0.10 34981-5 LOINC #IM GRANS 0.1 10^3uL L=0.0 H=7.0 64707-8 LOINC %IM GRANS 0.9 % L=0.0 H=5.0 30229-2 LOINC %NRB 0.0 L=0.0 H=0.2 40636-3 LOINC #NRB 0.000 L=0.000 H=0.012 40165-9 LOINC MANUAL DIFF NOT INDICATED RBC MORPH NOT INDICATED Social History Type Status Start Date End Date Code Code Syst em Smoking History Current every day smoker 024979934 SNOMED CT Sex Female Medications Medication Start Date End Date Route Frequency Dose Code Code System Medication Instructions Home Meds DULoxetine HCl AvPak 30MG Oral Capsule, Delayed Release 01/05/2024 Unknown ORAL ONCE A DAY 30 MILLIGRAMS 913847 RxNorm TAKE 30 MILLIGRAMS ORAL ONCE A DAY DULoxetine HCl AvPak 60MG Oral Capsule, Delayed Release 01/05/2024 Unknown ORAL ONCE A DAY 60 MILLIGRAMS 361266 RxNorm TAKE 60 MILLIGRAMS ORAL ONCE A DAY Meloxicam 15MG Oral Tablet 01/05/2024 08/09/19 25 ORAL ONCE A DAY 15 MILLIGRAMS 141251 RxNorm TAKE 15 MILLIGRAMS ORAL ONCE A DAY MiraLAX 17GM/1Dose Oral Powder for Solution 01/05/2024 Unknown ORAL NEEDED DAILY 1 unit(s) 481711 RxNorm TAKE 1 EACH ORAL NEEDED DAILY Omeprazole 20 MG Oral Tablet, Delayed Release 01/05/2024 Unknown ORAL NEEDED 20 MG RxNorm TAKE 20 MG ORAL NEEDED PARoxetine HCl 20MG Oral Tablet 01/05/2024 Unknown ORAL ONCE A DAY 20 MILLIGRAMS 0450799 RxNorm TAKE 20 MILLIGRAMS ORAL ONCE A DAY risperiDONE 0.5MG Oral Tablet 01/05/2024 Unknown ORAL ONCE A DAY 0.5 MILLIGRAMS 338466 RxNorm TAKE 0.5 MILLIGRAMS ORAL ONCE A DAY traZODone hydrochloride 100MG Oral Tablet 01/05/2024 Unknown ORAL ONCE A DAY 100 MILLIGRAMS 815716 RxNorm TAKE 100 MILLIGRAMS ORAL ONCE A DAY Meloxicam 7.5MG Oral Tablet 08/09/2024 Unknown BY MOUTH ONCE A DAY 1 TABLET 694210 RxNorm TAKE 1 TABLET BY MOUTH ONCE A DAY Xanax 0.5MG Oral Tablet 08/10/2024 Unknown ORAL NEEDED DAILY 0.5 MILLIGRAMS 686515 RxNorm TAKE 0.5 MILLIGRAMS ORAL NEEDED DAILY metFORMIN HCl 500MG Oral Tablet 08/10/2024 Unknown ORAL AT BEDTIME 500 MILLIGRAMS 946648 RxNorm TAKE 500 MILLIGRAMS ORAL AT BEDTIME [...] Status Code Code System HIDRADENITIS SUPPURATIVA active 69028170 SNOMED-CT PAIN IN RIGHT SHOULDER active 2226935 1325931848 SNOMED-CT CARPAL TUNNEL SYNDROME, RIGHT UPPER LIMB active 506265385131475 SNOMED-C T FATTY (CHANGE OF) LIVER, NOT ELSEWHERE CLASSIFIED active 395659955 SNOMED-CT DORSALGIA, UNSPECIFIED active 1236697 05 SNOMED-CT HEADACHE, UNSPECIFIED active 56827437 SNOMED-CT PAIN IN UNSPECIFIED JOINT active 90637236 SNOMED-CT RADICULOPATHY, CERVICAL REGION active 51001258 SNOMED-CT SPINAL STENOSIS, SITE UNSPECIFIED active 38563554 SNOMED-CT OTHER CHRONIC PAIN active 37336716 S NOMED-CT RADICULOPATHY, LUMBAR REGION active 960523809 SNOMED-CT CERVICALGIA active 54884672 SNOMED-C T PAIN IN LEFT KNEE active 253072824003 107 SNOMED-CT Allergies and Adverse Reactions Allergy Substance Reaction Severity Start Date Concern Status Code Code System SULFA (sulfonamide) Rash (SNOMED-CT: 644443263) Active 82842736 SNOMED-CT CEPHALOSPORIN Rash (SNOMED-CT: 043646178) Active 098369630 SNOMED-CT CEPHALEXIN Active 2231 RxNorm AMOXICILLIN Rash (SNOMED-CT: 325235497) Active 723 RxNorm KEFLEX Active 973625 RxNorm ACETAMINOPHEN/CODEI NE #3 Confusion (SNOMED-CT: 244410691) Active 842853 RxNorm Plan of Treatment Follow Up 09/20/2024 Encounters Encounter Diagnosis Start Date Code Code Sys tem Hidradenitis suppurativa 03/14/2024 SNO MED-CT Personal Care Team Section Performer Name Performer Role Active Date Inactive DOREEN Villagomez PCP - Primary care physician 2024-03-14
--- OUTSIDE RECORDS SUMMARY | 2024-09-06 21:49 | XMS_ITS ---
Author Organization Unknown Address [address] [place] [phone] Phone Care Team Providers Care Shaker Screen Operator Name Role Phone NIHARIKA MAGDALENO Attending Unavailable JOON Balderrama Primary Unavailable Immunization Immunization Date Status Additional Notes Code Code System Influenza, split virus, quadrivalent, preservative 08/04/2022 Completed 158 C VX Social History Type Status Start Date End Date Code Code Syst em Smoking History Current every day smoker 287265499 SNOMED CT Sex Female Medications Medication Start Date End Date Route Frequency Dose Code Code System Medication Instructions Home Meds DULoxetine HCl AvPak 30MG Oral Capsule, Delayed Release 01/05/2024 Unknown ORAL ONCE A DAY 30 MILLIGRAMS 958609 RxNorm TAKE 30 MILLIGRAMS ORAL ONCE A DAY DULoxetine HCl AvPak 60MG Oral Capsule, Delayed Release 01/05/2024 Unknown ORAL ONCE A DAY 60 MILLIGRAMS 630481 RxNorm TAKE 60 MILLIGRAMS ORAL ONCE A DAY Meloxicam 15MG Oral Tablet 01/05/2024 08/09/19 25 ORAL ONCE A DAY 15 MILLIGRAMS 086331 RxNorm TAKE 15 MILLIGRAMS ORAL ONCE A DAY MiraLAX 17GM/1Dose Oral Powder for Solution 01/05/2024 Unknown ORAL NEEDED DAILY 1 unit(s) 776082 RxNorm TAKE 1 EACH ORAL NEEDED DAILY Omeprazole 20 MG Oral Tablet, Delayed Release 01/05/2024 Unknown ORAL NEEDED 20 MG RxNorm TAKE 20 MG ORAL NEEDED PARoxetine HCl 20MG Oral Tablet 01/05/2024 Unknown ORAL ONCE A DAY 20 MILLIGRAMS 9163236 RxNorm TAKE 20 MILLIGRAMS ORAL ONCE A DAY risperiDONE 0.5MG Oral Tablet 01/05/2024 Unknown ORAL ONCE A DAY 0.5 MILLIGRAMS 350525 RxNorm TAKE 0.5 MILLIGRAMS ORAL ONCE A DAY traZODone hydrochloride 100MG Oral Tablet 01/05/2024 Unknown ORAL ONCE A DAY 100 MILLIGRAMS 047082 RxNorm TAKE 100 MILLIGRAMS ORAL ONCE A DAY Meloxicam 7.5MG Oral Tablet 08/09/2024 Unknown BY MOUTH ONCE A DAY 1 TABLET 183334 RxNorm TAKE 1 TABLET BY MOUTH ONCE A DAY Xanax 0.5MG Oral Tablet 08/10/2024 Unknown ORAL NEEDED DAILY 0.5 MILLIGRAMS 800142 RxNorm TAKE 0.5 MILLIGRAMS ORAL NEEDED DAILY metFORMIN HCl 500MG Oral Tablet 08/10/2024 Unknown ORAL AT BEDTIME 500 MILLIGRAMS 716950 RxNorm TAKE 500 MILLIGRAMS ORAL AT BEDTIME [...] Status Code Code System HIDRADENITIS SUPPURATIVA active 23845810 SNOMED-CT PAIN IN RIGHT SHOULDER active 1876385 6613135090 SNOMED-CT CARPAL TUNNEL SYNDROME, RIGHT UPPER LIMB active 073954721669784 SNOMED-C T FATTY (CHANGE OF) LIVER, NOT ELSEWHERE CLASSIFIED active 225516946 SNOMED-CT DORSALGIA, UNSPECIFIED active 3805255 05 SNOMED-CT HEADACHE, UNSPECIFIED active 93906189 SNOMED-CT PAIN IN UNSPECIFIED JOINT active 63465735 SNOMED-CT RADICULOPATHY, CERVICAL REGION active 93010244 SNOMED-CT SPINAL STENOSIS, SITE UNSPECIFIED active 30391319 SNOMED-CT OTHER CHRONIC PAIN active 69367771 S NOMED-CT RADICULOPATHY, LUMBAR REGION active 747304104 SNOMED-CT CERVICALGIA active 63864990 SNOMED-C T PAIN IN LEFT KNEE active 188383092997 107 SNOMED-CT Allergies and Adverse Reactions Allergy Substance Reaction Severity Start Date Concern Status Code Code System SULFA (sulfonamide) Rash (SNOMED-CT: 355394952) Active 16932780 SNOMED-CT CEPHALOSPORIN Rash (SNOMED-CT: 138370056) Active 111679284 SNOMED-CT CEPHALEXIN Active 2231 RxNorm AMOXICILLIN Rash (SNOMED-CT: 129458438) Active 723 RxNorm KEFLEX Active 860051 RxNorm ACETAMINOPHEN/CODEI NE #3 Confusion (SNOMED-CT: 720850962) Active 183535 RxNorm Plan of Treatment Follow Up 09/20/2024 Encounters Encounter Diagnosis Start Date Code Code Sys tem Snoring 01/25/2024 62944889 SNSpaceCurve-CT Personal Care Team Section Performer Name Performer Role Active Date Inactive DOREEN Villagomez PCP - Primary care physician 2024-03-14 Procedures Notes [facility] 01/29/2024 09:52 STUDY TYPE: HOME SLEEP TEST [...] type III, 7 channel portable monitoring device ([employer]) with simultaneous recording of nasal flow, respiratory [...] with your physician. Vaughn Blanco MD DIPLOMATE, [employer] SLEEP MEDICINE
--- OUTSIDE RECORDS SUMMARY | 2024-09-06 21:49 | XMS_ITS ---
Author Organization Unknown Address [address] [place] [address] [phone] Phone Care Team Providers Care Metal Fabricator Apprentice Name Role Phone JEFFRY WEBER Attending Unavailable JOON Balderrama Primary Unavailable Immunization Immunization Date Status Additional Notes Code Code System Influenza, split virus, quadrivalent, preservative 08/04/2022 Completed 158 C VX Social History Type Status Start Date End Date Code Code Syst em Smoking History Current every day smoker 428649807 SNOMED CT Sex Female Vital Signs Vital Sign Value Unit [place] Value [place] Unit Date/Time Recent/Initial? Code Code System Body Mass Index 30.12 kg/m2 08/09/2024 10:05 Initial 81922 -5 [facility] Systolic Blood Pressure 97 mm[Hg] 08/09/2024 10:05 Initial 8480- 6 LOINC Diastolic Blood Pressure 68 mm[Hg] 08/09/2024 10:05 Initial 8462- 4 [facility] Body Surface Area 1.94 m2 08/09/2024 10:05 Initial 3140- 1 LOINC Height 165.100 0 cm 65.00 in 08/09/2024 10:05 Initial 8302- 2 INC O2 Saturation 98 % 2024 10:05 Initial 22856 -5 [facility] Pulse 105.0 /min 08/09/2024 10:05 Initial 8867- 4 [facility] Temperature 36.3 May 97.3 F 08/09/19 10:05 Initial 8310- 5 [facility] Weight 82.10 kg 181.00 lbs 08/09/2024 10:05 Initial 97187 -7 [facility] Medications Medication Start Date End Date Route Frequency Dose Code Code System Medication Instructions Home Meds DULoxetine HCl AvPak 30MG Oral Capsule, Delayed Release 01/05/2024 Unknown ORAL ONCE A DAY 30 MILLIGRAMS 787692 RxNorm TAKE 30 MILLIGRAMS ORAL ONCE A DAY DULoxetine HCl AvPak 60MG Oral Capsule, Delayed Release 01/05/2024 Unknown ORAL ONCE A DAY 60 MILLIGRAMS 606308 RxNorm TAKE 60 MILLIGRAMS ORAL ONCE A DAY Meloxicam 15MG Oral Tablet 01/05/2024 08/09/19 25 ORAL ONCE A DAY 15 MILLIGRAMS 103071 RxNorm TAKE 15 MILLIGRAMS ORAL ONCE A DAY MiraLAX 17GM/1Dose Oral Powder for Solution 01/05/2024 Unknown ORAL NEEDED DAILY 1 unit(s) 928551 RxNorm TAKE 1 EACH ORAL NEEDED DAILY Omeprazole 20 MG Oral Tablet, Delayed Release 01/05/2024 Unknown ORAL NEEDED 20 MG RxNorm TAKE 20 MG ORAL NEEDED PARoxetine HCl 20MG Oral Tablet 01/05/2024 Unknown ORAL ONCE A DAY 20 MILLIGRAMS 9870377 RxNorm TAKE 20 MILLIGRAMS ORAL ONCE A DAY risperiDONE 0.5MG Oral Tablet 01/05/2024 Unknown ORAL ONCE A DAY 0.5 MILLIGRAMS 782695 RxNorm TAKE 0.5 MILLIGRAMS ORAL ONCE A DAY traZODone hydrochloride 100MG Oral Tablet 01/05/2024 Unknown ORAL ONCE A DAY 100 MILLIGRAMS 282556 RxNorm TAKE 100 MILLIGRAMS ORAL ONCE A DAY Meloxicam 7.5MG Oral Tablet 08/09/2024 Unknown BY MOUTH ONCE A DAY 1 TABLET 490689 RxNorm TAKE 1 TABLET BY MOUTH ONCE A DAY Xanax 0.5MG Oral Tablet 08/10/2024 Unknown ORAL NEEDED DAILY 0.5 MILLIGRAMS 943381 RxNorm TAKE 0.5 MILLIGRAMS ORAL NEEDED DAILY metFORMIN HCl 500MG Oral Tablet 08/10/2024 Unknown ORAL AT BEDTIME 500 MILLIGRAMS 736960 RxNorm TAKE 500 MILLIGRAMS ORAL AT BEDTIME [...] Status Code Code System HIDRADENITIS SUPPURATIVA active 11424314 SNOMED-CT PAIN IN RIGHT SHOULDER active 0816680 8398825811 SNOMED-CT CARPAL TUNNEL SYNDROME, RIGHT UPPER LIMB active 224037316456991 SNOMED-C T FATTY (CHANGE OF) LIVER, NOT ELSEWHERE CLASSIFIED active 903474327 SNOMED-CT DORSALGIA, UNSPECIFIED active 1067759 05 SNOMED-CT HEADACHE, UNSPECIFIED active 47062788 SNOMED-CT PAIN IN UNSPECIFIED JOINT active 85694863 SNOMED-CT RADICULOPATHY, CERVICAL REGION active 79446633 SNOMED-CT SPINAL STENOSIS, SITE UNSPECIFIED active 34646526 SNOMED-CT OTHER CHRONIC PAIN active 93836862 S NOMED-CT RADICULOPATHY, LUMBAR REGION active 330998224 SNOMED-CT CERVICALGIA active 68675670 SNOMED-C T PAIN IN LEFT KNEE active 507763781318 107 SNOMED-CT Allergies and Adverse Reactions Allergy Substance Reaction Severity Start Date Concern Status Code Code System SULFA (sulfonamide) Rash (SNOMED-CT: 596063982) Active 50508876 SNOMED-CT CEPHALOSPORIN Rash (SNOMED-CT: 281637336) Active 600692140 SNOMED-CT CEPHALEXIN Active 2231 RxNorm AMOXICILLIN Rash (SNOMED-CT: 282132752) Active 723 RxNorm KEFLEX Active 901082 RxNorm ACETAMINOPHEN/CODEI NE #3 Confusion (SNOMED-CT: 907046573) Active 197418 RxNorm Plan of Treatment Follow Up 09/20/2024 [...] - Primary care physician 2024-03-14 Progress Notes [facility] 08/09/2024 10:45 All Demographics Patient Name Age Sex Visit Number Admission Date/Time Attending Physician Date of Service Room and Bed Emergency Contact RA STORM 1985 38 years Female [id number] 08/09/2024 09:57 Davidson Varela 08/09/2024 01-OP LAYOKAREN CALLES - [id number] PAIN MANAGEMENT HISTORY & PHYSICAL Vital Signs: [...]
--- OUTSIDE RECORDS SUMMARY | 2024-09-06 21:49 | XMS_ITS ---
Author Organization Unknown Address [address] [place] [address] [phone] Phone Care Team Providers Care Communications Coordinator Name Role Phone CODY Ramirez Attending Unavailable KIKO BEAN WEBMETHODS CONSULTANT Unavailable JOON Balderrama Primary Unavailable Immunization Immunization Date Status Additional Notes Code Code System Influenza, split virus, quadrivalent, preservative 08/04/2022 Completed 158 C VX Social History Type Status Start Date End Date Code Code Syst em Smoking History Current every day smoker 625147000 SNOMED CT Sex Female Vital Signs Vital Sign Value Unit [place] Value [place] Unit Date/Time Recent/Initial? Code Code System Body Mass Index 29.50 kg/m2 12/20/2023 10:32 Initial 68277 -5 [facility] Systolic Blood Pressure 115 mm[Hg] 01/05/2024 08:57 Initial 8480- 6 LOINC Diastolic Blood Pressure 61 mm[Hg] 01/05/2024 08:57 Initial 8462- 4 [facility] Body Surface Area 1.94 m2 12/20/2023 10:32 Initial 3140- 1 LOINC Height 166.370 0 cm 65.50 in 12/20/2023 10:32 Initial 8302- 2 LOINC O2 Saturation 97 % 2023 08:57 Initial 79851 -5 [facility] Pulse 92.0 /min 01/05/2024 08:57 Initial 8867- 4 [facility] Respiration 16 /min 01/05/20 08:57 Initial 9279- 1 [facility]INC Temperature 36.2 May 97.1 F 01/05/20 08:57 Initial 8310- 5 LOINC Weight 81.65 kg 180.00 lbs 12/20/2023 10:32 Initial 04514 -7 [facility] Medications Medication Start Date End Date Route Frequency Dose Code Code System Medication Instructions Home Meds Dicyclomine HCl 10MG Oral Capsule 12/15/2018 01/05/2024 ORAL NEEDED EVERY 12 HOURS 10 MILLIGRAMS 322990 RxNorm TAKE 10 MILLIGRAMS ORAL NEEDED EVERY 12 HOURS DULoxetine HCl AvPak 30MG Oral Capsule, Delayed Release 01/05/2024 Unknown ORAL ONCE A DAY 30 MILLIGRAMS 114613 RxNorm TAKE 30 MILLIGRAMS ORAL ONCE A DAY DULoxetine HCl AvPak 60MG Oral Capsule, Delayed Release 01/05/2024 Unknown ORAL ONCE A DAY 60 MILLIGRAMS 897223 RxNorm TAKE 60 MILLIGRAMS ORAL ONCE A DAY Meloxicam 15MG Oral Tablet 01/05/2024 08/09/2024 ORAL ONCE A DAY 15 MILLIGRAMS 966016 RxNorm TAKE 15 MILLIGRAMS ORAL ONCE A DAY MiraLAX 17GM/1Dose Oral Powder for Solution 01/05/2024 Unknown ORAL NEEDED DAILY 1 unit(s) 658469 RxNorm TAKE 1 EACH ORAL NEEDED DAILY Omeprazole 20 MG Oral Tablet, Delayed Release 01/05/2024 Unknown ORAL NEEDED 20 MG RxNorm TAKE 20 MG ORAL NEEDED PARoxetine HCl 20MG Oral Tablet 01/05/2024 Unknown ORAL ONCE A DAY 20 MILLIGRAMS 1857938 RxNorm TAKE 20 MILLIGRAMS ORAL ONCE A DAY risperiDONE 0.5MG Oral Tablet 01/05/2024 Unknown ORAL ONCE A DAY 0.5 MILLIGRAMS 103536 RxNorm TAKE 0.5 MILLIGRAMS ORAL ONCE A DAY traZODone hydrochloride 100MG Oral Tablet 01/05/2024 Unknown ORAL ONCE A DAY 100 MILLIGRAMS 847834 RxNorm TAKE 100 MILLIGRAMS ORAL ONCE A DAY Meloxicam 7.5MG Oral Tablet 08/09/2024 Unknown BY MOUTH ONCE A DAY 1 TABLET 140742 RxNorm TAKE 1 TABLET BY MOUTH ONCE A DAY Xanax 0.5MG Oral Tablet 08/10/2024 Unknown ORAL NEEDED DAILY 0.5 MILLIGRAMS 052371 RxNorm TAKE 0.5 MILLIGRAMS ORAL NEEDED DAILY metFORMIN HCl 500MG Oral Tablet 08/10/2024 Unknown ORAL AT BEDTIME 500 MILLIGRAMS 336479 RxNorm TAKE 500 MILLIGRAMS ORAL AT BEDTIME [...] with biopsy, single or multiple 01/05/2024 completed 08265 CPT Anesthesia for combined uppe r and lower gastrointestinal endoscopic proced 01/05/2024 completed 94641 CPT Esophagogastroduodenoscopy, flexible, transoral; diagnostic, including col 01/05/2024 completed 47644 CPT Problems Problem Start Date Resolved Date Status Code Code System HIDRADENITIS SUPPURATIVA active 85189207 SNOMED-CT PAIN IN RIGHT SHOULDER active 4822910 3084630270 SNOMED-CT CARPAL TUNNEL SYNDROME, RIGHT UPPER LIMB active 743937836051172 SNOMED-C T FATTY (CHANGE OF) LIVER, NOT ELSEWHERE CLASSIFIED active 109893572 SNOMED-CT DORSALGIA, UNSPECIFIED active 3592021 05 SNOMED-CT HEADACHE, UNSPECIFIED active 08035123 SNOMED-CT PAIN IN UNSPECIFIED JOINT active 63525539 SNOMED-CT RADICULOPATHY, CERVICAL REGION active 72405099 SNOMED-CT SPINAL STENOSIS, SITE UNSPECIFIED active 82411645 SNOMED-CT OTHER CHRONIC PAIN active 31053566 S NOMED-CT RADICULOPATHY, LUMBAR REGION active 076280420 SNOMED-CT CERVICALGIA active 57260665 SNOMED-C T PAIN IN LEFT KNEE active 376854968866 107 SNOMED-CT Allergies and Adverse Reactions Allergy Substance Reaction Severity Start Date Concern Status Code Code System SULFA (sulfonamide) Rash (SNOMED-CT: 198063956) Active 50872776 SNOMED-CT CEPHALOSPORIN Rash (SNOMED-CT: 674401910) Active 034723370 SNOMED-CT CEPHALEXIN Active 2231 RxNorm AMOXICILLIN Rash (SNOMED-CT: 340832638) Active 723 RxNorm KEFLEX Active 397666 RxNorm ACETAMINOPHEN/CODEI NE #3 Confusion (SNOMED-CT: 987255419) Active 060295 RxNorm Plan of Treatment Follow Up 09/20/2024 Encounters Encounter Diagnosis Start Date Code Code Sys tem Gastro-esophageal reflux disease without esophagitis 0 01/05/2024 SNOMED-CT Personal Care Team Section Performer Name Performer Role Active Date Inactive DOREEN Villagomez PCP - Primary care physician 2024-03-14
--- OUTSIDE RECORDS SUMMARY | 2024-09-06 21:49 | XMS_ITS ---
Author Organization Unknown Address [address] [place] [address] [phone] Phone Care Team Providers Care Inter Com Servicer Name Role Phone JEFFRY WEBER Attending Unavailable JOON Balderrama Primary Unavailable Immunization Immunization Date Status Additional Notes Code Code System Influenza, split virus, quadrivalent, preservative 08/04/2022 Completed 158 C VX Social History Type Status Start Date End Date Code Code Syst em Smoking History Current every day smoker 370896347 SNOMED CT Sex Female Medications Medication Start Date End Date Route Frequency Dose Code Code System Medication Instructions Home Meds DULoxetine HCl AvPak 30MG Oral Capsule, Delayed Release 01/05/2024 Unknown ORAL ONCE A DAY 30 MILLIGRAMS 183556 RxNorm TAKE 30 MILLIGRAMS ORAL ONCE A DAY DULoxetine HCl AvPak 60MG Oral Capsule, Delayed Release 01/05/2024 Unknown ORAL ONCE A DAY 60 MILLIGRAMS 713619 RxNorm TAKE 60 MILLIGRAMS ORAL ONCE A DAY MiraLAX 17GM/1Dose Oral Powder for Solution 01/05/2024 Unknown ORAL NEEDED DAILY 1 unit(s) 366602 RxNorm TAKE 1 EACH ORAL NEEDED DAILY Omeprazole 20 MG Oral Tablet, Delayed Release 01/05/2024 Unknown ORAL NEEDED 20 MG RxNorm TAKE 20 MG ORAL NEEDED PARoxetine HCl 20MG Oral Tablet 01/05/2024 Unknown ORAL ONCE A DAY 20 MILLIGRAMS 5859727 RxNorm TAKE 20 MILLIGRAMS ORAL ONCE A DAY risperiDONE 0.5MG Oral Tablet 01/05/2024 Unknown ORAL ONCE A DAY 0.5 MILLIGRAMS 154509 RxNorm TAKE 0.5 MILLIGRAMS ORAL ONCE A DAY traZODone hydrochloride 100MG Oral Tablet 01/05/2024 Unknown ORAL ONCE A DAY 100 MILLIGRAMS 778154 RxNorm TAKE 100 MILLIGRAMS ORAL ONCE A DAY Meloxicam 7.5MG Oral Tablet 08/09/2024 Unknown BY MOUTH ONCE A DAY 1 TABLET 768146 RxNorm TAKE 1 TABLET BY MOUTH ONCE A DAY Xanax 0.5MG Oral Tablet 08/10/2024 Unknown ORAL NEEDED DAILY 0.5 MILLIGRAMS 700687 RxNorm TAKE 0.5 MILLIGRAMS ORAL NEEDED DAILY metFORMIN HCl 500MG Oral Tablet 08/10/2024 Unknown ORAL AT BEDTIME 500 MILLIGRAMS 989525 RxNorm TAKE 500 MILLIGRAMS ORAL AT BEDTIME [...] Status Code Code System HIDRADENITIS SUPPURATIVA active 93033736 SNOMED-CT PAIN IN RIGHT SHOULDER active 2931520 4440719799 SNOMED-CT CARPAL TUNNEL SYNDROME, RIGHT UPPER LIMB active 049414116284751 SNOMED-C T FATTY (CHANGE OF) LIVER, NOT ELSEWHERE CLASSIFIED active 209345705 SNOMED-CT DORSALGIA, UNSPECIFIED active 6945223 05 SNOMED-CT HEADACHE, UNSPECIFIED active 07584273 SNOMED-CT PAIN IN UNSPECIFIED JOINT active 38494114 SNOMED-CT RADICULOPATHY, CERVICAL REGION active 14524970 SNOMED-CT SPINAL STENOSIS, SITE UNSPECIFIED active 23188532 SNOMED-CT OTHER CHRONIC PAIN active 37586037 S NOMED-CT RADICULOPATHY, LUMBAR REGION active 079436566 SNOMED-CT CERVICALGIA active 26724206 SNOMED-C T PAIN IN LEFT KNEE active 664388867495 107 SNOMED-CT Allergies and Adverse Reactions Allergy Substance Reaction Severity Start Date Concern Status Code Code System SULFA (sulfonamide) Rash (SNOMED-CT: 790388953) Active 78739858 SNOMED-CT CEPHALOSPORIN Rash (SNOMED-CT: 910544931) Active 442070848 SNOMED-CT CEPHALEXIN Active 2231 RxNorm AMOXICILLIN Rash (SNOMED-CT: 693115200) Active 723 RxNorm KEFLEX Active 250402 RxNorm ACETAMINOPHEN/CODEI NE #3 Confusion (SNOMED-CT: 321704357) Active 854202 RxNorm Plan of Treatment Follow Up 09/20/2024 Encounters Encounter Diagnosis Start Date Code Code Sys tem Radiculopathy, cervical region 08/24/2024 SNOMED-CT Personal Care Team Section Performer Name Performer Role Active Date Inactive DOREEN Villagomez PCP - Primary care physician 2024-03-14
--- NOTE | 2024-09-06 21:57 | PC.NURSE ---
THIS RN AIRPLANE PILOT SUPERVISOR WHILE DR GORMAN EVALUATES ABSCESS TO RIGHT GROIN AREA.
--- NOTE | 2024-09-06 21:59 | ED.SKABFB ---
HPI - Skin/Abscess/Foreign Bdy General Chief complaint: Skin/Abscess/Foreign Body Stated complaint: Abscess on inner thigh Time Seen by Provider: 09/06/24 21:58 Source: patient Mode of arrival: ambulatory Limitations: no limitations History of Present Illness HPI narrative: this is 38-year-old female with no significant past medical history presents with a lesion /abscess on the right groin area that is red nonfluctuant nondraining tender with palpation warm to touch with generalized achiness with no fever chills. complaint: abscess/boil Onset (ago): day(s) Severity: mild Quality: aching Pain Consistency: constant Related Data Home Medications ?Medication ?Instructions ?Recorded ?Confirmed ?Last Taken ?Type trazodone 100 mg tablet 200 mg PO HS 03/13/21 02/02/24 Unknown History venlafaxine 75 mg capsule,extended 75 mg PO DAILY 03/13/21 02/02/24 Unknown History release 24 hr naproxen 500 mg tablet 500 mg PO PRN PRN Pain 07/12/22 02/02/24 Unknown History paroxetine HCl 40 mg tablet 40 mg PO DAILY 07/12/22 02/02/24 Unknown History tramadol 50 mg tablet 50 mg PO Q4H PRN Pain 07/12/22 02/02/24 Unknown History Allergies Allergy/AdvReac Type Severity Reaction Status Date / Time amoxicillin Allergy Rash Verified 02/02/24 11:57 Cephalosporins Allergy Rash Verified 02/02/24 11:57 Review of Systems Review of Systems: All systems reviewed & are unremarkable except as noted in HPI and below PMFSH Past Medical History Medical History Chronic low back pain Asthma Upper respiratory infection Sinusitis Headache disorder Social History Social History Gender identity (if verbalized by the patient): Female Exam Const: General: healthy appearing and no acute distress Nutritional Appearance: well nourished Orientation/consciousness: patient oriented x3 Limitations: no limitations Resp: Effort & Inspection: normal respiratory effort Auscultation: clear to auscultation bilaterally Cardio: Rate: regular rate Rhythm: regular rhythm GI: GI Palp: Yes Soft to palpation Auscultation: normal bowel sounds Skin: Wounds: wounds noted Course Course Emergency Course: Abscess right groin area nonfluctuant, started clindamycin 600mg p.o., and p.o. Zofran. Vital Signs Vital signs: Vital Signs Temperature 36.4 C 09/06/24 21:45 Pulse Rate 102 H 09/06/24 21:45 Respiratory Rate 20 09/06/24 21:45 Blood Pressure 147/89 H 09/06/24 21:45 Pulse Oximetry 99 09/06/24 21:45 Oxygen Delivery Room Air 09/06/24 21:45 Temperature 36.4 C 09/06/24 21:45 Pulse Rate 102 H 09/06/24 21:45 Respiratory Rate 20 09/06/24 21:45 Blood Pressure 147/89 H 09/06/24 21:45 Pulse Oximetry 99 09/06/24 21:45 Oxygen Delivery Room Air 09/06/24 21:45 Critical Care Time Critical Care Time Critical Care Time: No Discharge Plan Discharge Clinical Impression: Abscess of skin or subcutaneous tissue Qualifiers: Site of cutaneous abscess: unspecified site Qualified Code(s): L02.91 - Cutaneous abscess, unspecified Cellulitis Qualifiers: Site of cellulitis: other site Qualified Code(s): L03.818 - Cellulitis of other sites Patient Disposition: Home, Self-Care Condition: Stable Instructions: Antibiotic Form, Cellulitis (ED), Abscess (ED) Additional Instructions: Advised patient to take medication as prescribed and to follow with primary within a week further evaluation treatment. Patient Language: Citizen Of [place] Prescriptions: New clindamycin HCl 300 mg capsule 300 mg PO Q6H 10 Days Qty: 40 0RF ondansetron 4 mg tablet,disintegrating 4 mg PO Q6H PRN (Reason: nausea and vomiting) Qty: 14 0RF naproxen 500 mg tablet 500 mg PO BID PRN (Reason: pain) Qty: 14 0RF No Action venlafaxine 75 mg capsule,extended release 24hr 75 mg PO DAILY trazodone 100 mg tablet 200 mg PO HS tramadol 50 mg Tablet 50 mg PO Q4H PRN (Reason: Pain) paroxetine HCl 40 mg tablet 40 mg PO DAILY naproxen 500 mg tablet 500 mg PO PRN PRN (Reason: Pain) azithromycin [Zithromax] 250 mg tablet 250 mg PO DAILY 4 Days Qty: 4 0RF Rx Instructions: start on day 2 of therapy albuterol sulfate 90 mcg/actuation HFA aerosol inhaler 2 puff inhalation QID PRN (Reason: shortness of breath or wheezing) Qty: 6.7 0RF Follow-up/Referrals: Allie,LEE Mackey [Primary Care Provider] - Time of Disposition: 22:03
--- OUTSIDE RECORDS SUMMARY | 2024-09-06 22:02 | XMS_ITS ---
Author Organization Unknown Address [address] [place] [address] [phone] Phone Care Team Providers Care Gummed Tape Press Operator Name Role Phone VICKYRAMYA CHESTER MAGDALENO Attending Unavailable JOON Balderrama Primary Unavailable Immunization Immunization Date Status Additional Notes Code Code System Influenza, split virus, quadrivalent, preservative 08/04/2022 Completed 158 C VX Results QUANTIFERON GOLD SINGLE TUBE - Collect Date/Time: 03/14/2024 12:54 [facility] ID: [id number] [address] [place] [address], [phone] LOINC: 00357-9 Test Value Unit Reference Range Code Code System Flag SOURCE: BLOOD SEND TO [facility]? NO QuantiFERON Incubation Incubation performed. QuantiFERON-TB Gold Plus Negative Negative 72886-0 LOINC QuantiFERON Criteria COMMENT 8251-1 LOINC QuantiFERON TB1 Ag Value 0.00 10537-3 LOINC QuantiFERON TB2 Ag Value 0.00 34438-4 LOINC QuantiFERON Nil Value 0.00 23242-3 LOINC QuantiFERON Mitogen Value >10.00 06776-5 LOINC LIVER PROFILE - Collect Date /Time: 03/14/2024 12:54 [facility] ID: [id number] [address] [place] [address], [phone] LOINC: 32833-0 Test Value Unit Reference Range Code Code [...] PANEL - Uziel ect Date/Time: 03/14/2024 12:54 [facility] ID: [id number] [place], [place], [phone] LOINC: 03171-1 Test Value Unit Reference Range Code Code System Flag FASTING NO BUN 11 mg/dL L=7 H=20 3094-0 LOINC CREATININE 0.90 mg/dL L=0.52 H=1.04 2160-0 LOINC GLUCOSE 157 mg/dL L=74 H=106 2345-7 LOINC H CALCIUM 9.6 mg/dL L=8.3 H=10.5 84566-6 LOINC SODIUM 139 mmol/L L=132 H=144 2951-2 LOINC POTASSIUM 3.8 mmol/L L=3.5 H=5.1 2823-3 LOINC CHLORIDE 104 mmol/L L=98 H=107 2075-0 LOINC CO2 23.0 mmol/L L=22.0 H=30.0 2028-9 LOINC ANION GAP 16 L=10 H=20 78718-5 LOINC BUN/CREAT 12.2 3097-3 LOINC AGE 38 51191-8 LOINC eGFR NON-AFR 74 ml/min eGFR AFR AMER 90 ml/min CBC W/ DIFF - Collect Date/T amos: 03/14/2024 12:54 [facility] ID: [id number] [place], [place], [phone] LOINC: 58627-6 Test Value Unit Reference Range Code Code System Flag WBC 11.3 10^3uL L=4.8 H=10.8 H RBC 4.58 10^6uL L=4.20 H=5.40 HEMOGLOBIN 13.6 g/dL L=12.0 H=16.0 718-7 LOINC HEMATOCRIT 41.6 VOL% L=37.0 H=47.0 4544-3 LOINC MCV 90.8 fL L=81.0 H=99.0 MCH 29.7 pg L=27.0 H=32.0 MCHC 32.7 g/dL L=32.0 H=36.0 PLATELETS 329 10^3uL L=100 H=400 04089-4 LOINC RDW 13.6 % L=11.7 H=15.5 %GRAN 64.1 % L=40.0 H=70.0 21006-0 LOINC %LYMPH 27.4 % L=20.0 H=45.0 736-9 LOINC %MONO 6.1 % L=2.0 H=10.0 87434-1 LOINC %EOS 1.0 % L=0.0 H=6.0 713-8 LOINC %BASO 0.5 % L=0.0 H=3.0 706-2 LOINC #NEUT 7.3 10^3uL L=1.9 H=7.6 46403-6 LOINC #LYMPH 3.1 10^3uL L=0.9 H=4.9 40959-8 LOINC #MONO 0.7 10^3uL L=0.1 H=0.9 43621-5 LOINC #EOS 0.1 10^3uL L=0.0 H=0.6 712-0 LOINC #BASO 0.06 10^3uL L=0.00 H=0.10 14958-9 LOINC #IM GRANS 0.1 10^3uL L=0.0 H=7.0 48751-8 LOINC %IM GRANS 0.9 % L=0.0 H=5.0 27368-7 LOINC %NRB 0.0 L=0.0 H=0.2 15020-3 LOINC #NRB 0.000 L=0.000 H=0.012 LOINC MANUAL DIFF NOT INDICATED RBC MORPH NOT INDICATED Social History Type Status Start Date End Date Code Code Syst em Smoking History Current every day smoker 177130135 SNOMED CT Sex Female Medications Medication Start Date End Date Route Frequency Dose Code Code System Medication Instructions Home Meds DULoxetine HCl AvPak 30MG Oral Capsule, Delayed Release 01/05/2024 Unknown ORAL ONCE A DAY 30 MILLIGRAMS 948077 RxNorm TAKE 30 MILLIGRAMS ORAL ONCE A DAY DULoxetine HCl AvPak 60MG Oral Capsule, Delayed Release 01/05/2024 Unknown ORAL ONCE A DAY 60 MILLIGRAMS 594534 RxNorm TAKE 60 MILLIGRAMS ORAL ONCE A DAY Meloxicam 15MG Oral Tablet 01/05/2024 08/09/19 25 ORAL ONCE A DAY 15 MILLIGRAMS 264301 RxNorm TAKE 15 MILLIGRAMS ORAL ONCE A DAY MiraLAX 17GM/1Dose Oral Powder for Solution 01/05/2024 Unknown ORAL NEEDED DAILY 1 unit(s) 124098 RxNorm TAKE 1 EACH ORAL NEEDED DAILY Omeprazole 20 MG Oral Tablet, Delayed Release 01/05/2024 Unknown ORAL NEEDED 20 MG RxNorm TAKE 20 MG ORAL NEEDED PARoxetine HCl 20MG Oral Tablet 01/05/2024 Unknown ORAL ONCE A DAY 20 MILLIGRAMS 8942619 RxNorm TAKE 20 MILLIGRAMS ORAL ONCE A DAY risperiDONE 0.5MG Oral Tablet 01/05/2024 Unknown ORAL ONCE A DAY 0.5 MILLIGRAMS 977643 RxNorm TAKE 0.5 MILLIGRAMS ORAL ONCE A DAY traZODone hydrochloride 100MG Oral Tablet 01/05/2024 Unknown ORAL ONCE A DAY 100 MILLIGRAMS 862093 RxNorm TAKE 100 MILLIGRAMS ORAL ONCE A DAY Meloxicam 7.5MG Oral Tablet 08/09/2024 Unknown BY MOUTH ONCE A DAY 1 TABLET 455402 RxNorm TAKE 1 TABLET BY MOUTH ONCE A DAY Xanax 0.5MG Oral Tablet 08/10/2024 Unknown ORAL NEEDED DAILY 0.5 MILLIGRAMS 946727 RxNorm TAKE 0.5 MILLIGRAMS ORAL NEEDED DAILY metFORMIN HCl 500MG Oral Tablet 08/10/2024 Unknown ORAL AT BEDTIME 500 MILLIGRAMS 304860 RxNorm TAKE 500 MILLIGRAMS ORAL AT BEDTIME [...] Status Code Code System HIDRADENITIS SUPPURATIVA active 20067697 SNOMED-CT PAIN IN RIGHT SHOULDER active 0953826 7561287619 SNOMED-CT CARPAL TUNNEL SYNDROME, RIGHT UPPER LIMB active 896229779662609 SNOMED-C T FATTY (CHANGE OF) LIVER, NOT ELSEWHERE CLASSIFIED active 861565822 SNOMED-CT DORSALGIA, UNSPECIFIED active 0358739 05 SNOMED-CT HEADACHE, UNSPECIFIED active 19597010 SNOMED-CT PAIN IN UNSPECIFIED JOINT active 94093293 SNOMED-CT RADICULOPATHY, CERVICAL REGION active 65811999 SNOMED-CT SPINAL STENOSIS, SITE UNSPECIFIED active 46945551 SNOMED-CT OTHER CHRONIC PAIN active 65226284 S NOMED-CT RADICULOPATHY, LUMBAR REGION active 128564435 SNOMED-CT CERVICALGIA active 96265336 SNOMED-C T PAIN IN LEFT KNEE active 655451770994 107 SNOMED-CT Allergies and Adverse Reactions Allergy Substance Reaction Severity Start Date Concern Status Code Code System SULFA (sulfonamide) Rash (SNOMED-CT: 922157790) Active 37724714 SNOMED-CT CEPHALOSPORIN Rash (SNOMED-CT: 020752247) Active 580508524 SNOMED-CT CEPHALEXIN Active 2231 RxNorm AMOXICILLIN Rash (SNOMED-CT: 195358163) Active 723 RxNorm KEFLEX Active 511608 RxNorm ACETAMINOPHEN/CODEI NE #3 Confusion (SNOMED-CT: 920320374) Active 669095 RxNorm Plan of Treatment Follow Up 09/20/2024 Encounters Encounter Diagnosis Start Date Code Code Sys tem Hidradenitis suppurativa 03/14/2024 [facility] MED-CT Personal Care Team Section Performer Name Performer Role Active Date Inactive Da DOREEN Aldridge PCP - Primary care physician 2024-03-14
--- OUTSIDE RECORDS SUMMARY | 2024-09-06 22:02 | XMS_ITS ---
Author Organization Unknown Address [address] [place] [address] [phone] Phone Care Team Providers Care Certified Driver Examiner Name Role Phone JEFFRY WEBER Attending Unavailable JOON Balderrama Primary Unavailable Immunization Immunization Date Status Additional Notes Code Code System Influenza, split virus, quadrivalent, preservative 08/04/2022 Completed 158 C VX Results HIPS LISSETTE 3-4 VIEWS - Complet ed: 08/24/2024 10:17 LOINC: \TM00\12PI\DRAo\BM09\ \MRLo\ [address] [address] ---------NAME--------- NUMBER SEX AGE ADMIT DISC. XRAY# F/C TYPE EMETERIO GUZMÁN [id number] F 38 08/24/24 08/24/24 32382 XB7 O/P DATE OF : 1985 M/R# [id number] PH#: [phone] RM \MRHx\ LOCATION: TRANSCRIBED: 08/24/24 11:06 HIPS LISSETTE 3-4 VIEWS [id number] COMPLETED:08/24/24 10:17 J [id number] {REASON-HIPS: SI JOINT INFLAMATION PHYSICIAN: JEFFRY LOG R A D I O L O G Y R E P O R T EXAM: HIPS LISSETTE 3-4 VIEWS CLINICAL INDICATION: SI JOINT INFLAMATION TECHNIQUE: HIPS LISSETTE 3-4 VIEWS Comparison: None FINDINGS/IMPRESSION: There is no evidence of acute fracture or dislocation. Moderate bilateral hip osteoarthtirits. The alignment is anatomical. There is no radiopaque foreign body. ER CONTORT OPERATOR \ITLo\ \UNDo\ \UNDx\ \ITLx\ Reviewed and Electronically Signed by: Rigo Beatty MD Signed Date: 08/24/24 11:06 08/24/[email or web address] JOON GOODEN via fax Social History Type Status Start Date End Date Code Code Syst em Smoking History Current every day smoker 204867608 SNOMED CT Sex Female Medications Medication Start Date End Date Route Frequency Dose Code Code System Medication Instructions Home Meds DULoxetine HCl AvPak 30MG Oral Capsule, Delayed Release 01/05/2024 Unknown ORAL ONCE A DAY 30 MILLIGRAMS 197280 RxNorm TAKE 30 MILLIGRAMS ORAL ONCE A DAY DULoxetine HCl AvPak 60MG Oral Capsule, Delayed Release 01/05/2024 Unknown ORAL ONCE A DAY 60 MILLIGRAMS 163197 RxNorm TAKE 60 MILLIGRAMS ORAL ONCE A DAY MiraLAX 17GM/1Dose Oral Powder for Solution 01/05/2024 Unknown ORAL NEEDED DAILY 1 unit(s) 827439 RxNorm TAKE 1 EACH ORAL NEEDED DAILY Omeprazole 20 MG Oral Tablet, Delayed Release 01/05/2024 Unknown ORAL NEEDED 20 MG RxNorm TAKE 20 MG ORAL NEEDED PARoxetine HCl 20MG Oral Tablet 01/05/2024 Unknown ORAL ONCE A DAY 20 MILLIGRAMS 8839761 RxNorm TAKE 20 MILLIGRAMS ORAL ONCE A DAY risperiDONE 0.5MG Oral Tablet 01/05/2024 Unknown ORAL ONCE A DAY 0.5 MILLIGRAMS 467309 RxNorm TAKE 0.5 MILLIGRAMS ORAL ONCE A DAY traZODone hydrochloride 100MG Oral Tablet 01/05/2024 Unknown ORAL ONCE A DAY 100 MILLIGRAMS 733038 RxNorm TAKE 100 MILLIGRAMS ORAL ONCE A DAY Meloxicam 7.5MG Oral Tablet 08/09/2024 Unknown BY MOUTH ONCE A DAY 1 TABLET 314869 RxNorm TAKE 1 TABLET BY MOUTH ONCE A DAY Xanax 0.5MG Oral Tablet 08/10/2024 Unknown ORAL NEEDED DAILY 0.5 MILLIGRAMS 794918 RxNorm TAKE 0.5 MILLIGRAMS ORAL NEEDED DAILY metFORMIN HCl 500MG Oral Tablet 08/10/2024 Unknown ORAL AT BEDTIME 500 MILLIGRAMS 826561 RxNorm TAKE 500 MILLIGRAMS ORAL AT BEDTIME [...] Status Code Code System HIDRADENITIS SUPPURATIVA active 43275382 SNOMED-CT PAIN IN RIGHT SHOULDER active 8445285 8376918699 SNOMED-CT CARPAL TUNNEL SYNDROME, RIGHT UPPER LIMB active 250497628871537 SNOMED-C T FATTY (CHANGE OF) LIVER, NOT ELSEWHERE CLASSIFIED active 037895128 SNOMED-CT DORSALGIA, UNSPECIFIED active 6862902 05 SNOMED-CT HEADACHE, UNSPECIFIED active 99844472 SNOMED-CT PAIN IN UNSPECIFIED JOINT active 35475057 SNOMED-CT RADICULOPATHY, CERVICAL REGION active 52893922 SNOMED-CT SPINAL STENOSIS, SITE UNSPECIFIED active 22029004 SNOMED-CT OTHER CHRONIC PAIN active 69404455 S NOMED-CT RADICULOPATHY, LUMBAR REGION active 094644173 SNOMED-CT CERVICALGIA active 12182194 SNOMED-C T PAIN IN LEFT KNEE active 216513694952 107 SNOMED-CT Allergies and Adverse Reactions Allergy Substance Reaction Severity Start Date Concern Status Code Code System SULFA (sulfonamide) Rash (SNOMED-CT: 554611945) Active 90186330 SNOMED-CT CEPHALOSPORIN Rash (SNOMED-CT: 579455864) Active 952926710 SNOMED-CT CEPHALEXIN Active 2231 RxNorm AMOXICILLIN Rash (SNOMED-CT: 294724233) Active 723 RxNorm KEFLEX Active 243767 RxNorm ACETAMINOPHEN/CODEI NE #3 Confusion (SNOMED-CT: 140068316) Active 362009 RxNorm Plan of Treatment Follow Up 09/20/2024 Encounters Encounter Diagnosis Start Date Code Code Sys tem Bilateral primary osteoarthritis of hip 08/24/2024 SNOMED-CT Personal Care Team Section Performer Name Performer Role Active Date Inactive DOREEN Villagomez PCP - Primary care physician 2024-03-14 Imaging Narrative Notes [facility] 08/24/2024 11:[address] [address] ---------NAME--------- NUMBER SEX AGE ADMIT DISC. XRAY# F/C TYPE EMETERIO GUZMÁN [id number] F 38 08/24/24 08/24/24 90457 XB7 O/P DATE OF : 1985 M/R# [id number] #: [phone] LOCATION: TRANSCRIBED: 08/24/24 11:06 HIPS LISSETTE 3-4 VIEWS 82167 COMPLETED:08/24/24 10:17 JDF [id number] {REASON-HIPS: SI JOINT INFLAMATION PHYSICIAN: JEFFRY LOG RADIOLOGY REPORT EXAM: HIPS LISSETTE 3-4 VIEWS CLINICAL INDICATION: SI JOINT INFLAMATION TECHNIQUE: HIPS LISSETTE 3-4 VIEWS Comparison: None FINDINGS/IMPRESSION: There is no evidence of acute fracture or dislocation. Moderate bilateral hip osteoarthtirits. The alignment is anatomical. There is no radiopaque foreign body. ER CONTORT OPERATOR Reviewed and Electronically Signed by: Rigo Beatty MD Signed Date: 08/24/24 11:06 08/24/24.1109.JDF.to [facility] via fax
--- OUTSIDE RECORDS SUMMARY | 2024-09-06 22:02 | XMS_ITS ---
Author Organization Unknown Address [address] [place] [address] [phone] Phone Care Team Providers Care Data Entry Operator Name Role Phone NIHARIKA MAGDALENO Attending Unavailable JOON Balderrama Primary Unavailable Immunization Immunization Date Status Additional Notes Code Code System Influenza, split virus, quadrivalent, preservative 08/04/2022 Completed 158 C VX Social History Type Status Start Date End Date Code Code Syst em Smoking History Current every day smoker 403563944 SNOMED CT Sex Female Medications Medication Start Date End Date Route Frequency Dose Code Code System Medication Instructions Home Meds DULoxetine HCl AvPak 30MG Oral Capsule, Delayed Release 01/05/2024 Unknown ORAL ONCE A DAY 30 MILLIGRAMS 100098 RxNorm TAKE 30 MILLIGRAMS ORAL ONCE A DAY DULoxetine HCl AvPak 60MG Oral Capsule, Delayed Release 01/05/2024 Unknown ORAL ONCE A DAY 60 MILLIGRAMS 897349 RxNorm TAKE 60 MILLIGRAMS ORAL ONCE A DAY Meloxicam 15MG Oral Tablet 01/05/2024 08/09/19 25 ORAL ONCE A DAY 15 MILLIGRAMS 434022 RxNorm TAKE 15 MILLIGRAMS ORAL ONCE A DAY MiraLAX 17GM/1Dose Oral Powder for Solution 01/05/2024 Unknown ORAL NEEDED DAILY 1 unit(s) 289301 RxNorm TAKE 1 EACH ORAL NEEDED DAILY Omeprazole 20 MG Oral Tablet, Delayed Release 01/05/2024 Unknown ORAL NEEDED 20 MG RxNorm TAKE 20 MG ORAL NEEDED PARoxetine HCl 20MG Oral Tablet 01/05/2024 Unknown ORAL ONCE A DAY 20 MILLIGRAMS 6039066 RxNorm TAKE 20 MILLIGRAMS ORAL ONCE A DAY risperiDONE 0.5MG Oral Tablet 01/05/2024 Unknown ORAL ONCE A DAY 0.5 MILLIGRAMS 409998 RxNorm TAKE 0.5 MILLIGRAMS ORAL ONCE A DAY traZODone hydrochloride 100MG Oral Tablet 01/05/2024 Unknown ORAL ONCE A DAY 100 MILLIGRAMS 051871 RxNorm TAKE 100 MILLIGRAMS ORAL ONCE A DAY Meloxicam 7.5MG Oral Tablet 08/09/2024 Unknown BY MOUTH ONCE A DAY 1 TABLET 981187 RxNorm TAKE 1 TABLET BY MOUTH ONCE A DAY Xanax 0.5MG Oral Tablet 08/10/2024 Unknown ORAL NEEDED DAILY 0.5 MILLIGRAMS 779481 RxNorm TAKE 0.5 MILLIGRAMS ORAL NEEDED DAILY metFORMIN HCl 500MG Oral Tablet 08/10/2024 Unknown ORAL AT BEDTIME 500 MILLIGRAMS 116976 RxNorm TAKE 500 MILLIGRAMS ORAL AT BEDTIME [...] Status Code Code System HIDRADENITIS SUPPURATIVA active 74194615 SNOMED-CT PAIN IN RIGHT SHOULDER active 8629201 7732459071 SNOMED-CT CARPAL TUNNEL SYNDROME, RIGHT UPPER LIMB active 164075015938909 SNOMED-C T FATTY (CHANGE OF) LIVER, NOT ELSEWHERE CLASSIFIED active 774535050 SNOMED-CT DORSALGIA, UNSPECIFIED active 7584329 05 SNOMED-CT HEADACHE, UNSPECIFIED active 51439544 SNOMED-CT PAIN IN UNSPECIFIED JOINT active 68810817 SNOMED-CT RADICULOPATHY, CERVICAL REGION active 85075737 SNOMED-CT SPINAL STENOSIS, SITE UNSPECIFIED active 14219100 SNOMED-CT OTHER CHRONIC PAIN active 82039924 S NOMED-CT RADICULOPATHY, LUMBAR REGION active 671342571 SNOMED-CT CERVICALGIA active 52717033 SNOMED-C T PAIN IN LEFT KNEE active 404526239506 107 SNOMED-CT Allergies and Adverse Reactions Allergy Substance Reaction Severity Start Date Concern Status Code Code System SULFA (sulfonamide) Rash (SNOMED-CT: 715631916) Active 70014945 SNOMED-CT CEPHALOSPORIN Rash (SNOMED-CT: 167954578) Active 467438412 SNOMED-CT CEPHALEXIN Active 2231 RxNorm AMOXICILLIN Rash (SNOMED-CT: 117081595) Active 723 RxNorm KEFLEX Active 680009 RxNorm ACETAMINOPHEN/CODEI NE #3 Confusion (SNOMED-CT: 348139520) Active 706651 RxNorm Plan of Treatment Follow Up 09/20/2024 Encounters Encounter Diagnosis Start Date Code Code Sys tem Snoring 01/25/2024 99762848 SNDish.fm-CT Personal Care Team Section Performer Name Performer Role Active Date Inactive DOREEN Villagomez PCP - Primary care physician 2024-03-14 Procedures Notes [facility] 01/29/2024 09:52 STUDY TYPE: HOME SLEEP [...] type III, 7 channel portable monitoring device (IncreaseCard) with simultaneous recording of nasal flow, respiratory [...] with your physician. Vaughn Blanco MD DIPLOMATE, EQUATORIAL GUINEAN BOARD OF SLEEP MEDICINE
--- OUTSIDE RECORDS SUMMARY | 2024-09-06 22:02 | XMS_ITS ---
Author Organization Unknown Address [address] [place] [address] [phone] Phone Care Team Providers Care Pin Sticker Name Role Phone JEFFRY WEBER Attending Unavailable JOON Balderrama Primary Unavailable Immunization Immunization Date Status Additional Notes Code Code System Influenza, split virus, quadrivalent, preservative 08/04/2022 Completed 158 C VX Social History Type Status Start Date End Date Code Code Syst em Smoking History Current every day smoker 691004321 SNOMED CT Sex Female Medications Medication Start Date End Date Route Frequency Dose Code Code System Medication Instructions Home Meds DULoxetine HCl AvPak 30MG Oral Capsule, Delayed Release 01/05/2024 Unknown ORAL ONCE A DAY 30 MILLIGRAMS 932532 RxNorm TAKE 30 MILLIGRAMS ORAL ONCE A DAY DULoxetine HCl AvPak 60MG Oral Capsule, Delayed Release 01/05/2024 Unknown ORAL ONCE A DAY 60 MILLIGRAMS 302983 RxNorm TAKE 60 MILLIGRAMS ORAL ONCE A DAY MiraLAX 17GM/1Dose Oral Powder for Solution 01/05/2024 Unknown ORAL NEEDED DAILY 1 unit(s) 669516 RxNorm TAKE 1 EACH ORAL NEEDED DAILY Omeprazole 20 MG Oral Tablet, Delayed Release 01/05/2024 Unknown ORAL NEEDED 20 MG RxNorm TAKE 20 MG ORAL NEEDED PARoxetine HCl 20MG Oral Tablet 01/05/2024 Unknown ORAL ONCE A DAY 20 MILLIGRAMS 9950696 RxNorm TAKE 20 MILLIGRAMS ORAL ONCE A DAY risperiDONE 0.5MG Oral Tablet 01/05/2024 Unknown ORAL ONCE A DAY 0.5 MILLIGRAMS 266929 RxNorm TAKE 0.5 MILLIGRAMS ORAL ONCE A DAY traZODone hydrochloride 100MG Oral Tablet 01/05/2024 Unknown ORAL ONCE A DAY 100 MILLIGRAMS 222414 RxNorm TAKE 100 MILLIGRAMS ORAL ONCE A DAY Meloxicam 7.5MG Oral Tablet 08/09/2024 Unknown BY MOUTH ONCE A DAY 1 TABLET 483838 RxNorm TAKE 1 TABLET BY MOUTH ONCE A DAY Xanax 0.5MG Oral Tablet 08/10/2024 Unknown ORAL NEEDED DAILY 0.5 MILLIGRAMS 901650 RxNorm TAKE 0.5 MILLIGRAMS ORAL NEEDED DAILY metFORMIN HCl 500MG Oral Tablet 08/10/2024 Unknown ORAL AT BEDTIME 500 MILLIGRAMS 512665 RxNorm TAKE 500 MILLIGRAMS ORAL AT BEDTIME [...] Status Code Code System HIDRADENITIS SUPPURATIVA active 24988494 SNOMED-CT PAIN IN RIGHT SHOULDER active 4344241 9560211537 SNOMED-CT CARPAL TUNNEL SYNDROME, RIGHT UPPER LIMB active 590483831937969 SNOMED-C T FATTY (CHANGE OF) LIVER, NOT ELSEWHERE CLASSIFIED active 298814506 SNOMED-CT DORSALGIA, UNSPECIFIED active 7448482 05 SNOMED-CT HEADACHE, UNSPECIFIED active 33885307 SNOMED-CT PAIN IN UNSPECIFIED JOINT active 95438044 SNOMED-CT RADICULOPATHY, CERVICAL REGION active 98357601 SNOMED-CT SPINAL STENOSIS, SITE UNSPECIFIED active 56536462 SNOMED-CT OTHER CHRONIC PAIN active 87286381 S NOMED-CT RADICULOPATHY, LUMBAR REGION active 747813938 SNOMED-CT CERVICALGIA active 42687315 SNOMED-C T PAIN IN LEFT KNEE active 434540847573 107 SNOMED-CT Allergies and Adverse Reactions Allergy Substance Reaction Severity Start Date Concern Status Code Code System SULFA (sulfonamide) Rash (SNOMED-CT: 434887154) Active 32976219 SNOMED-CT CEPHALOSPORIN Rash (SNOMED-CT: 844170836) Active 819327738 SNOMED-CT CEPHALEXIN Active 2231 RxNorm AMOXICILLIN Rash (SNOMED-CT: 004024893) Active 723 RxNorm KEFLEX Active 542265 RxNorm ACETAMINOPHEN/CODEI NE #3 Confusion (SNOMED-CT: 133625118) Active 781028 RxNorm Plan of Treatment Follow Up 09/20/2024 Encounters Encounter Diagnosis Start Date Code Code Sys tem Radiculopathy, cervical region 08/24/2024 SNOMED-CT Personal Care Team Section Performer Name Performer Role Active Date Inactive DOREEN Villagomez PCP - Primary care physician 2024-03-14
--- OUTSIDE RECORDS SUMMARY | 2024-09-06 22:02 | XMS_ITS ---
Author Organization Unknown Address [address] [place] [address] [phone] Phone Care Team Providers Care Retail Greeter Name Role Phone CODY Ramirez Attending Unavailable KIKO BEAN APPLICATION RELEASE MANAGER Unavailable JOON Balderrama Primary Unavailable Immunization Immunization Date Status Additional Notes Code Code System Influenza, split virus, quadrivalent, preservative 08/04/2022 Completed 158 C VX Social History Type Status Start Date End Date Code Code Syst em Smoking History Current every day smoker 299539323 SNOMED CT Sex Female Vital Signs Vital Sign Value Unit Dell Value Dell Unit Date/Time Recent/Initial? Code Code System Body Mass Index 29.50 kg/m2 12/20/2023 10:32 Initial 00911 -5 [facility] Systolic Blood Pressure 115 mm[Hg] 01/05/2024 08:57 Initial 8480- 6 LOINC Diastolic Blood Pressure 61 mm[Hg] 01/05/2024 08:57 Initial 8462- 4 LOINC Body Surface Area 1.94 m2 12/20/2023 10:32 Initial 3140- 1 LOINC Height 166.370 0 cm 65.50 in 12/20/2023 10:32 Initial 8302- 2 LOINC O2 Saturation 97 % 2023 08:57 Initial 65324 -5 LOINC Pulse 92.0 /min 01/05/2024 08:57 Initial 8867- 4 LOINC Respiration 16 /min 01/05/20 08:57 Initial 9279- 1 LOINC Temperature 36.2 May 97.1 F 01/05/20 08:57 Initial 8310- 5 LOINC Weight 81.65 kg 180.00 lbs 12/20/2023 10:32 Initial 33154 -7 [facility] Medications Medication Start Date End Date Route Frequency Dose Code Code System Medication Instructions Home Meds Dicyclomine HCl 10MG Oral Capsule 12/15/2018 01/05/2024 ORAL NEEDED EVERY 12 HOURS 10 MILLIGRAMS 226980 RxNorm TAKE 10 MILLIGRAMS ORAL NEEDED EVERY 12 HOURS DULoxetine HCl AvPak 30MG Oral Capsule, Delayed Release 01/05/2024 Unknown ORAL ONCE A DAY 30 MILLIGRAMS 257007 RxNorm TAKE 30 MILLIGRAMS ORAL ONCE A DAY DULoxetine HCl AvPak 60MG Oral Capsule, Delayed Release 01/05/2024 Unknown ORAL ONCE A DAY 60 MILLIGRAMS 600685 RxNorm TAKE 60 MILLIGRAMS ORAL ONCE A DAY Meloxicam 15MG Oral Tablet 01/05/2024 08/09/2024 ORAL ONCE A DAY 15 MILLIGRAMS 516681 RxNorm TAKE 15 MILLIGRAMS ORAL ONCE A DAY MiraLAX 17GM/1Dose Oral Powder for Solution 01/05/2024 Unknown ORAL NEEDED DAILY 1 unit(s) 005214 RxNorm TAKE 1 EACH ORAL NEEDED DAILY Omeprazole 20 MG Oral Tablet, Delayed Release 01/05/2024 Unknown ORAL NEEDED 20 MG RxNorm TAKE 20 MG ORAL NEEDED PARoxetine HCl 20MG Oral Tablet 01/05/2024 Unknown ORAL ONCE A DAY 20 MILLIGRAMS 0576570 RxNorm TAKE 20 MILLIGRAMS ORAL ONCE A DAY risperiDONE 0.5MG Oral Tablet 01/05/2024 Unknown ORAL ONCE A DAY 0.5 MILLIGRAMS 285058 RxNorm TAKE 0.5 MILLIGRAMS ORAL ONCE A DAY traZODone hydrochloride 100MG Oral Tablet 01/05/2024 Unknown ORAL ONCE A DAY 100 MILLIGRAMS 256948 RxNorm TAKE 100 MILLIGRAMS ORAL ONCE A DAY Meloxicam 7.5MG Oral Tablet 08/09/2024 Unknown BY MOUTH ONCE A DAY 1 TABLET 101309 RxNorm TAKE 1 TABLET BY MOUTH ONCE A DAY Xanax 0.5MG Oral Tablet 08/10/2024 Unknown ORAL NEEDED DAILY 0.5 MILLIGRAMS 054560 RxNorm TAKE 0.5 MILLIGRAMS ORAL NEEDED DAILY metFORMIN HCl 500MG Oral Tablet 08/10/2024 Unknown ORAL AT BEDTIME 500 MILLIGRAMS 049846 RxNorm TAKE 500 MILLIGRAMS ORAL AT BEDTIME [...] with biopsy, single or multiple 01/05/2024 completed 90496 CPT Anesthesia for combined uppe r and lower gastrointestinal endoscopic proced 01/05/2024 completed 16598 CPT Esophagogastroduodenoscopy, flexible, transoral; diagnostic, including col 01/05/2024 completed 09297 CPT Problems Problem Start Date Resolved Date Status Code Code System HIDRADENITIS SUPPURATIVA active 64586002 SNOMED-CT PAIN IN RIGHT SHOULDER active 9981121 3910397635 SNOMED-CT CARPAL TUNNEL SYNDROME, RIGHT UPPER LIMB active 654081722896717 SNOMED-C T FATTY (CHANGE OF) LIVER, NOT ELSEWHERE CLASSIFIED active 557326087 SNOMED-CT DORSALGIA, UNSPECIFIED active 4347179 05 SNOMED-CT HEADACHE, UNSPECIFIED active 67989001 SNOMED-CT PAIN IN UNSPECIFIED JOINT active 68205119 SNOMED-CT RADICULOPATHY, CERVICAL REGION active 78504352 SNOMED-CT SPINAL STENOSIS, SITE UNSPECIFIED active 66298532 SNOMED-CT OTHER CHRONIC PAIN active 19477387 S NOMED-CT RADICULOPATHY, LUMBAR REGION active 123910720 SNOMED-CT CERVICALGIA active 88619219 SNOMED-C T PAIN IN LEFT KNEE active 033802768239 107 SNOMED-CT Allergies and Adverse Reactions Allergy Substance Reaction Severity Start Date Concern Status Code Code System SULFA (sulfonamide) Rash (SNOMED-CT: 197017716) Active 14792526 SNOMED-CT CEPHALOSPORIN Rash (SNOMED-CT: 855582753) Active 871846224 SNOMED-CT CEPHALEXIN Active 2231 RxNorm AMOXICILLIN Rash (SNOMED-CT: 154002633) Active 723 RxNorm KEFLEX Active 337992 RxNorm ACETAMINOPHEN/CODEI NE #3 Confusion (SNOMED-CT: 799151643) Active 999822 RxNorm Plan of Treatment Follow Up 09/20/2024 Encounters Encounter Diagnosis Start Date Code Code Sys tem Gastro-esophageal reflux disease without esophagitis 0 01/05/2024 SNOMED-CT Personal Care Team Section Performer Name Performer Role Active Date Inactive DOREEN Villagomez PCP - Primary care physician 2024-03-14
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
--- NOTE | 2024-09-06 22:06 | PC.NURSE ---
PATIENT IN THE ROOM CRYING, STATES SHE DOESNT FEEL WELL. STATES SHE IS HOT. AIR IN THE ROOM TURNED DOWN.
[2024-09-06] MEDS: CLINDAMYCIN HCL 150 MG CAP 600 MG PO (22:13)
[2024-09-06] MEDS: ONDANSETRON HCL ODT 4 MG TABLET PO (22:13)
[2024-09-06 22:33] VITALS: BP 132/82; PULSE 76; RESP 18; O2SAT 97
== END 2024-09-06 22:33 | disposition home or self-care (01) ==
PROVIDERS: Emergency Provider Emergency Medicine; PCP Registered Nurse
DX: L02.214 Cutaneous abscess of groin (principal); L03.314 Cellulitis of groin
CPT/HCPCS: 99283; A9270

== ENCOUNTER 2024-09-08 18:10 | Emergency (ER) | payer OTHER, SELFPAY ==
--- OUTSIDE RECORDS SUMMARY | 2024-09-08 18:12 | XMS_ITS | Referral Summary ---
Author Organization [facility] Address [address] [place] [address] Care Team Providers Care Director Risk Name Role Phone Maxi Valentin MD Primary Care Provider [phone] Source Comments [facility],non-owned Affiliates and Associated Physician Practices is amultiple site organization consisting of ambulatory clinics and hospital sitesin [place], [place], [place] and [place]. This disclosure is being madepursuant to the Care Everywhere program and may not contain all information available regarding this patient. Last updated 18.[facility] Social History Tobacco Use Types Packs/Day Years Used Date Smoking Tobacco: Never Assessed Sex and Gender Information Value Date Recorded Sex Assigned at Not on file Gender Identity Not on file Sexual Orientation Not on file Plan of Treatment Not on file Care Teams Director Risk Relationship Specialty Start Date End Date Maxi Valentin MD [address] [place] [phone] PCP - General 07/06/18
--- OUTSIDE RECORDS SUMMARY | 2024-09-08 18:12 | XMS_ITS | Encounter Summary ---
Author Organization [facility] Address [address] [place] [address]. [place], [place] [address] [place] [address] Care Team Providers Care Iron Installer Name Role Phone None, Provider Primary Care Provider Rohan Hart Primary Care Provider [phone] Oleg Lemus MD Primary Care Provider Encounter Details Date Type Department Care Team (Late st Contact Info) Description 01/13/2019 Abstract SFL CONVERSION [address] [place] [address] , Generic Conversion, Social History Tobacco Use Types Packs/Day Years Used Date Smoking Tobacco: Never Assessed Comments Unknown Sex and Gender Information Value Date Recorded Sex Assigned at Not on file Legal Sex Female 11:02 PM GLASSWARE 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 Gender Identity Not on file Sexual Orientation Not on file documented as of this encounter Plan of Treatment Not on file documented as of this encounter Visit Diagnoses Not on filedocumented in this encounter Additional Health Concerns Infection Onset Date Last Indicated Resolved Time COVID-19 Rule Out 05/18/2020 05/18/2020 05/20/2020 3:11 AM CDT COVID-19 Rule Out 07/30/2023 07/30/2023 07/30/2023 6:22 PM GLASSWARE ENGRAVER Influenza - Seasonal 07/30/2023 07/30/2023 024 12:32 AM GLASSWARE ENGRAVER documented as of this encounter Care Teams Iron Installer Relationship Specialty Start Date End Date None, Provider, PCP - General 03/26/20 05/17/20 Rohan So PA [address] [place] [phone] PCP - General PHYSICIAN SOAPING DEPARTMENT SUPERVISOR 05/18/20 07/29/23 Oleg Lemus MD [address] [place] [phone] PCP - General FAMILY PRACTICE 07/30/23 documented as of this encounter
--- OUTSIDE RECORDS SUMMARY | 2024-09-08 18:12 | XMS_ITS | Clinical Summary ---
Author Organization [facility] Address [address] [place] [address]. 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
--- OUTSIDE RECORDS SUMMARY | 2024-09-08 18:12 | XMS_ITS ---
Author Organization Unknown Address [address] [place] [phone] Phone Care Team Providers Care Mixer Wet Pour Name Role Phone CODY Ramirez Attending Unavailable KIKO BEAN PACKAGE DYE STAND LOADER Unavailable JOON Balderrama Primary Unavailable Immunization Immunization Date Status Additional Notes Code Code System Influenza, split virus, quadrivalent, preservative 08/04/2022 Completed 158 C VX Social History Type Status Start Date End Date Code Code Syst em Smoking History Current every day smoker 639521760 SNOMED CT Sex Female Vital Signs Vital Sign Value Unit One[place] Value One[place] Unit Date/Time Recent/Initial? Code Code System Body Mass Index 29.50 kg/m2 12/20/2023 10:32 Initial 49655 -5 [facility] Systolic Blood Pressure 115 mm[Hg] 01/05/2024 08:57 Initial 8480- 6 LOINC Diastolic Blood Pressure 61 mm[Hg] 01/05/2024 08:57 Initial 8462- 4 LOINC Body Surface Area 1.94 m2 12/20/2023 10:32 Initial 3140- 1 LOINC Height 166.370 0 cm 65.50 in 12/20/2023 10:32 Initial 8302- 2 LOINC O2 Saturation 97 % 2023 08:57 Initial 49588 -5 LOINC Pulse 92.0 /min 01/05/2024 08:57 Initial 8867- 4 LOINC Respiration 16 /min 01/05/20 08:57 Initial 9279- 1 LOINC Temperature 36.2 May 97.1 F 01/05/20 08:57 Initial 8310- 5 LOINC Weight 81.65 kg 180.00 lbs 12/20/2023 10:32 Initial 88206 -7 [facility] Medications Medication Start Date End Date Route Frequency Dose Code Code System Medication Instructions Home Meds Dicyclomine HCl 10MG Oral Capsule 12/15/2018 01/05/2024 ORAL NEEDED EVERY 12 HOURS 10 MILLIGRAMS 062711 RxNorm TAKE 10 MILLIGRAMS ORAL NEEDED EVERY 12 HOURS DULoxetine HCl AvPak 30MG Oral Capsule, Delayed Release 01/05/2024 Unknown ORAL ONCE A DAY 30 MILLIGRAMS 520152 RxNorm TAKE 30 MILLIGRAMS ORAL ONCE A DAY DULoxetine HCl AvPak 60MG Oral Capsule, Delayed Release 01/05/2024 Unknown ORAL ONCE A DAY 60 MILLIGRAMS 572332 RxNorm TAKE 60 MILLIGRAMS ORAL ONCE A DAY Meloxicam 15MG Oral Tablet 01/05/2024 08/09/2024 ORAL ONCE A DAY 15 MILLIGRAMS 012014 RxNorm TAKE 15 MILLIGRAMS ORAL ONCE A DAY MiraLAX 17GM/1Dose Oral Powder for Solution 01/05/2024 Unknown ORAL NEEDED DAILY 1 unit(s) 206815 RxNorm TAKE 1 EACH ORAL NEEDED DAILY Omeprazole 20 MG Oral Tablet, Delayed Release 01/05/2024 Unknown ORAL NEEDED 20 MG RxNorm TAKE 20 MG ORAL NEEDED PARoxetine HCl 20MG Oral Tablet 01/05/2024 Unknown ORAL ONCE A DAY 20 MILLIGRAMS 3077752 RxNorm TAKE 20 MILLIGRAMS ORAL ONCE A DAY risperiDONE 0.5MG Oral Tablet 01/05/2024 Unknown ORAL ONCE A DAY 0.5 MILLIGRAMS 649419 RxNorm TAKE 0.5 MILLIGRAMS ORAL ONCE A DAY traZODone hydrochloride 100MG Oral Tablet 01/05/2024 Unknown ORAL ONCE A DAY 100 MILLIGRAMS 829549 RxNorm TAKE 100 MILLIGRAMS ORAL ONCE A DAY Meloxicam 7.5MG Oral Tablet 08/09/2024 Unknown BY MOUTH ONCE A DAY 1 TABLET 763780 RxNorm TAKE 1 TABLET BY MOUTH ONCE A DAY Xanax 0.5MG Oral Tablet 08/10/2024 Unknown ORAL NEEDED DAILY 0.5 MILLIGRAMS 034990 RxNorm TAKE 0.5 MILLIGRAMS ORAL NEEDED DAILY metFORMIN HCl 500MG Oral Tablet 08/10/2024 Unknown ORAL AT BEDTIME 500 MILLIGRAMS 941295 RxNorm TAKE 500 MILLIGRAMS ORAL AT BEDTIME [...] with biopsy, single or multiple 01/05/2024 completed 40435 CPT Anesthesia for combined uppe r and lower gastrointestinal endoscopic proced 01/05/2024 completed 57661 CPT Esophagogastroduodenoscopy, flexible, transoral; diagnostic, including col 01/05/2024 completed 83420 CPT Problems Problem Start Date Resolved Date Status Code Code System HIDRADENITIS SUPPURATIVA active 80956090 SNOMED-CT PAIN IN RIGHT SHOULDER active 6527664 5213553132 SNOMED-CT CARPAL TUNNEL SYNDROME, RIGHT UPPER LIMB active 310018402138060 SNOMED-C T FATTY (CHANGE OF) LIVER, NOT ELSEWHERE CLASSIFIED active 243917158 SNOMED-CT DORSALGIA, UNSPECIFIED active 5971119 05 SNOMED-CT HEADACHE, UNSPECIFIED active 53002442 SNOMED-CT PAIN IN UNSPECIFIED JOINT active 18044516 SNOMED-CT RADICULOPATHY, CERVICAL REGION active 68697875 SNOMED-CT SPINAL STENOSIS, SITE UNSPECIFIED active 92351947 SNOMED-CT OTHER CHRONIC PAIN active 03612173 S NOMED-CT RADICULOPATHY, LUMBAR REGION active 295366986 SNOMED-CT CERVICALGIA active 55935384 SNOMED-C T PAIN IN LEFT KNEE active 178886680772 107 SNOMED-CT Allergies and Adverse Reactions Allergy Substance Reaction Severity Start Date Concern Status Code Code System SULFA (sulfonamide) Rash (SNOMED-CT: 715965129) Active 04441888 SNOMED-CT CEPHALOSPORIN Rash (SNOMED-CT: 635331506) Active 522057079 SNOMED-CT CEPHALEXIN Active 2231 RxNorm AMOXICILLIN Rash (SNOMED-CT: 388382531) Active 723 RxNorm KEFLEX Active 541576 RxNorm ACETAMINOPHEN/CODEI NE #3 Confusion (SNOMED-CT: 365969178) Active 350441 RxNorm Plan of Treatment Follow Up 09/20/2024 Encounters Encounter Diagnosis Start Date Code Code Sys tem Gastro-esophageal reflux disease without esophagitis 0 01/05/2024 SNOMED-CT Personal Care Team Section Performer Name Performer Role Active Date Inactive DOREEN Villagomez PCP - Primary care physician 2024-03-14
--- OUTSIDE RECORDS SUMMARY | 2024-09-08 18:12 | XMS_ITS | Clinical Summary ---
Author Organization [facility] Address [address] [place] [address] Care Team Providers Care Surgical Instrument Mechanic Name Role Phone Maxi Valentin MD Primary Care Provider [phone] Source Comments [facility],non-owned Affiliates and Associated Physician Practices is amultiple site organization consisting of ambulatory clinics and hospital sitesin [place], [place], [place] and [place]. This disclosure is being madepursuant to the Care Everywhere program and may not contain all information available regarding this patient. Last updated 18.[facility] [employer] Social History Tobacco Use Types Packs/Day Years [...] age to complete this topic Care Teams Surgical Instrument Mechanic Relationship Specialty Start Date End Date Maxi Valentin MD [address] [place] [phone] PCP - General 07/06/18
--- OUTSIDE RECORDS SUMMARY | 2024-09-08 18:12 | XMS_ITS | Patient Health Summary ---
Author Organization [facility] Address [address] [place] [address] Care Team Providers Care Rn Acls Name Role Phone Maxi Valentin MD Primary Care Provider [phone] Note from [facility],non-owned Affiliates and Associated Physician Practices is amultiple site organization consisting of ambulatory clinics and hospital sitesin [place], [place], [place] and [place]. This disclosure is being madepursuant to the Care Everywhere program and may not contain all information available regarding this patient. Last updated 18.[facility] Social History Tobacco Use Types Packs/Day Years Used Date Smoking Tobacco: Never Assessed Sex and Gender Information Value Date Recorded Sex Assigned at Not on file Gender Identity Not on file Sexual Orientation Not on file Care Teams Rn Acls Relationship Specialty Start Date End Date Maxi Valentin MD [address] [place] [phone] PCP - General 07/06/18
--- OUTSIDE RECORDS SUMMARY | 2024-09-08 18:12 | XMS_ITS ---
Author Organization Unknown Address [address] [place] [phone] Phone Care Team Providers Care Old Testament Professor Name Role Phone JEFFRY WEBER Attending Unavailable JOON Balderrama Primary Unavailable Immunization Immunization Date Status Additional Notes Code Code System Influenza, split virus, quadrivalent, preservative 08/04/2022 Completed 158 C VX Results HIPS LISSETTE 3-4 VIEWS - Complet ed: 08/24/2024 10:17 LOINC: \TM00\12PI\DRAo\BM09\ \MRLo\ [address] [address] ---------NAME--------- NUMBER SEX AGE ADMIT DISC. XRAY# F/C TYPE EMETERIO GUZMÁN [id number] F 38 08/24/24 08/24/24 46045 XB7 O/P DATE OF : 1985 M/R# [id number] PH#: [phone] RM \MRHx\ LOCATION: TRANSCRIBED: 08/24/24 11:06 HIPS LISSETTE 3-4 VIEWS 31110 COMPLETED:08/24/24 10:17 J [id number] {REASON-HIPS: SI JOINT INFLAMATION PHYSICIAN: JEFFRY LOG R A D I O L O G Y R E P O R T EXAM: HIPS LISSETTE 3-4 VIEWS CLINICAL INDICATION: SI JOINT INFLAMATION TECHNIQUE: HIPS LISSETTE 3-4 VIEWS Comparison: None FINDINGS/IMPRESSION: There is no evidence of acute fracture or dislocation. Moderate bilateral hip osteoarthtirits. The alignment is anatomical. There is no radiopaque foreign body. OLOGY SPECIALIST \ITLo\ \UNDo\ \UNDx\ \ITLx\ Reviewed and Electronically Signed by: Rigo Beatty MD Signed Date: 08/24/24 11:06 08/24/[email or web address] JOON GOODEN via fax Social History Type Status Start Date End Date Code Code Syst em Smoking History Current every day smoker 441404596 SNOMED CT Sex Female Medications Medication Start Date End Date Route Frequency Dose Code Code System Medication Instructions Home Meds DULoxetine HCl AvPak 30MG Oral Capsule, Delayed Release 01/05/2024 Unknown ORAL ONCE A DAY 30 MILLIGRAMS 077503 RxNorm TAKE 30 MILLIGRAMS ORAL ONCE A DAY DULoxetine HCl AvPak 60MG Oral Capsule, Delayed Release 01/05/2024 Unknown ORAL ONCE A DAY 60 MILLIGRAMS 444469 RxNorm TAKE 60 MILLIGRAMS ORAL ONCE A DAY MiraLAX 17GM/1Dose Oral Powder for Solution 01/05/2024 Unknown ORAL NEEDED DAILY 1 unit(s) 330678 RxNorm TAKE 1 EACH ORAL NEEDED DAILY Omeprazole 20 MG Oral Tablet, Delayed Release 01/05/2024 Unknown ORAL NEEDED 20 MG RxNorm TAKE 20 MG ORAL NEEDED PARoxetine HCl 20MG Oral Tablet 01/05/2024 Unknown ORAL ONCE A DAY 20 MILLIGRAMS 8121424 RxNorm TAKE 20 MILLIGRAMS ORAL ONCE A DAY risperiDONE 0.5MG Oral Tablet 01/05/2024 Unknown ORAL ONCE A DAY 0.5 MILLIGRAMS 060091 RxNorm TAKE 0.5 MILLIGRAMS ORAL ONCE A DAY traZODone hydrochloride 100MG Oral Tablet 01/05/2024 Unknown ORAL ONCE A DAY 100 MILLIGRAMS 892021 RxNorm TAKE 100 MILLIGRAMS ORAL ONCE A DAY Meloxicam 7.5MG Oral Tablet 08/09/2024 Unknown BY MOUTH ONCE A DAY 1 TABLET 139772 RxNorm TAKE 1 TABLET BY MOUTH ONCE A DAY Xanax 0.5MG Oral Tablet 08/10/2024 Unknown ORAL NEEDED DAILY 0.5 MILLIGRAMS 950157 RxNorm TAKE 0.5 MILLIGRAMS ORAL NEEDED DAILY metFORMIN HCl 500MG Oral Tablet 08/10/2024 Unknown ORAL AT BEDTIME 500 MILLIGRAMS 826484 RxNorm TAKE 500 MILLIGRAMS ORAL AT BEDTIME [...] Status Code Code System HIDRADENITIS SUPPURATIVA active 20250024 SNOMED-CT PAIN IN RIGHT SHOULDER active 0285653 6457362377 SNOMED-CT CARPAL TUNNEL SYNDROME, RIGHT UPPER LIMB active 947688939398564 SNOMED-C T FATTY (CHANGE OF) LIVER, NOT ELSEWHERE CLASSIFIED active 178568566 SNOMED-CT DORSALGIA, UNSPECIFIED active 6864052 05 SNOMED-CT HEADACHE, UNSPECIFIED active 63089908 SNOMED-CT PAIN IN UNSPECIFIED JOINT active 94122637 SNOMED-CT RADICULOPATHY, CERVICAL REGION active 24385216 SNOMED-CT SPINAL STENOSIS, SITE UNSPECIFIED active 04800315 SNOMED-CT OTHER CHRONIC PAIN active 21157686 S NOMED-CT RADICULOPATHY, LUMBAR REGION active 767414802 SNOMED-CT CERVICALGIA active 16588468 SNOMED-C T PAIN IN LEFT KNEE active 207299552144 107 SNOMED-CT Allergies and Adverse Reactions Allergy Substance Reaction Severity Start Date Concern Status Code Code System SULFA (sulfonamide) Rash (SNOMED-CT: 715180470) Active 90623377 SNOMED-CT CEPHALOSPORIN Rash (SNOMED-CT: 521690465) Active 305424964 SNOMED-CT CEPHALEXIN Active 2231 RxNorm AMOXICILLIN Rash (SNOMED-CT: 341113617) Active 723 RxNorm KEFLEX Active 507933 RxNorm ACETAMINOPHEN/CODEI NE #3 Confusion (SNOMED-CT: 559632016) Active 384443 RxNorm Plan of Treatment Follow Up 09/20/2024 Encounters Encounter Diagnosis Start Date Code Code Sys tem Bilateral primary osteoarthritis of hip 08/24/2024 SNOMED-CT Personal Care Team Section Performer Name Performer Role Active Date Inactive DOREEN Villagomez PCP - Primary care physician 2024-03-14 Imaging Narrative Notes [facility] 08/24/2024 11:[address] [address] ---------NAME--------- NUMBER SEX AGE ADMIT DISC. XRAY# F/C TYPE EMETERIO GUZMÁN [id number] F 38 08/24/24 08/24/24 48111 XB7 O/P DATE OF : 1985 M/R# [id number] #: [phone] LOCATION: TRANSCRIBED: 08/24/24 11:06 HIPS LISSETTE 3-4 VIEWS 69722 COMPLETED:08/24/24 10:17 JDF [id number] {REASON-HIPS: SI JOINT INFLAMATION PHYSICIAN: JEFFRY LOG RADIOLOGY REPORT EXAM: HIPS LISSETTE 3-4 VIEWS CLINICAL INDICATION: SI JOINT INFLAMATION TECHNIQUE: HIPS LISSETTE 3-4 VIEWS Comparison: None FINDINGS/IMPRESSION: There is no evidence of acute fracture or dislocation. Moderate bilateral hip osteoarthtirits. The alignment is anatomical. There is no radiopaque foreign body. OLOGY SPECIALIST Reviewed and Electronically Signed by: Rigo Beatty MD Signed Date: 08/24/24 11:06 08/24/[email or web address] [facility] via fax
--- OUTSIDE RECORDS SUMMARY | 2024-09-08 18:13 | XMS_ITS ---
Author Organization Unknown Address [address] [place] [phone] Phone Care Team Providers Care Blasting Worker Name Role Phone NIHARIKA MAGDALENO Attending Unavailable JOON Balderrama Primary Unavailable Immunization Immunization Date Status Additional Notes Code Code System Influenza, split virus, quadrivalent, preservative 08/04/2022 Completed 158 C VX Social History Type Status Start Date End Date Code Code Syst em Smoking History Current every day smoker 108110239 SNOMED CT Sex Female Medications Medication Start Date End Date Route Frequency Dose Code Code System Medication Instructions Home Meds DULoxetine HCl AvPak 30MG Oral Capsule, Delayed Release 01/05/2024 Unknown ORAL ONCE A DAY 30 MILLIGRAMS 778348 RxNorm TAKE 30 MILLIGRAMS ORAL ONCE A DAY DULoxetine HCl AvPak 60MG Oral Capsule, Delayed Release 01/05/2024 Unknown ORAL ONCE A DAY 60 MILLIGRAMS 179327 RxNorm TAKE 60 MILLIGRAMS ORAL ONCE A DAY Meloxicam 15MG Oral Tablet 01/05/2024 08/09/19 25 ORAL ONCE A DAY 15 MILLIGRAMS 057477 RxNorm TAKE 15 MILLIGRAMS ORAL ONCE A DAY MiraLAX 17GM/1Dose Oral Powder for Solution 01/05/2024 Unknown ORAL NEEDED DAILY 1 unit(s) 549527 RxNorm TAKE 1 EACH ORAL NEEDED DAILY Omeprazole 20 MG Oral Tablet, Delayed Release 01/05/2024 Unknown ORAL NEEDED 20 MG RxNorm TAKE 20 MG ORAL NEEDED PARoxetine HCl 20MG Oral Tablet 01/05/2024 Unknown ORAL ONCE A DAY 20 MILLIGRAMS 4694610 RxNorm TAKE 20 MILLIGRAMS ORAL ONCE A DAY risperiDONE 0.5MG Oral Tablet 01/05/2024 Unknown ORAL ONCE A DAY 0.5 MILLIGRAMS 815674 RxNorm TAKE 0.5 MILLIGRAMS ORAL ONCE A DAY traZODone hydrochloride 100MG Oral Tablet 01/05/2024 Unknown ORAL ONCE A DAY 100 MILLIGRAMS 787798 RxNorm TAKE 100 MILLIGRAMS ORAL ONCE A DAY Meloxicam 7.5MG Oral Tablet 08/09/2024 Unknown BY MOUTH ONCE A DAY 1 TABLET 626676 RxNorm TAKE 1 TABLET BY MOUTH ONCE A DAY Xanax 0.5MG Oral Tablet 08/10/2024 Unknown ORAL NEEDED DAILY 0.5 MILLIGRAMS 913625 RxNorm TAKE 0.5 MILLIGRAMS ORAL NEEDED DAILY metFORMIN HCl 500MG Oral Tablet 08/10/2024 Unknown ORAL AT BEDTIME 500 MILLIGRAMS 656911 RxNorm TAKE 500 MILLIGRAMS ORAL AT BEDTIME [...] Status Code Code System HIDRADENITIS SUPPURATIVA active 80501778 SNOMED-CT PAIN IN RIGHT SHOULDER active 9892300 8270657724 SNOMED-CT CARPAL TUNNEL SYNDROME, RIGHT UPPER LIMB active 768693891452669 SNOMED-C T FATTY (CHANGE OF) LIVER, NOT ELSEWHERE CLASSIFIED active 120238167 SNOMED-CT DORSALGIA, UNSPECIFIED active 0645325 05 SNOMED-CT HEADACHE, UNSPECIFIED active 10154545 SNOMED-CT PAIN IN UNSPECIFIED JOINT active 69709746 SNOMED-CT RADICULOPATHY, CERVICAL REGION active 34637306 SNOMED-CT SPINAL STENOSIS, SITE UNSPECIFIED active 17680729 SNOMED-CT OTHER CHRONIC PAIN active 52423066 S NOMED-CT RADICULOPATHY, LUMBAR REGION active 132828857 SNOMED-CT CERVICALGIA active 93757337 SNOMED-C T PAIN IN LEFT KNEE active 173492601963 107 SNOMED-CT Allergies and Adverse Reactions Allergy Substance Reaction Severity Start Date Concern Status Code Code System SULFA (sulfonamide) Rash (SNOMED-CT: 803178265) Active 17472668 SNOMED-CT CEPHALOSPORIN Rash (SNOMED-CT: 887300054) Active 219637312 SNOMED-CT CEPHALEXIN Active 2231 RxNorm AMOXICILLIN Rash (SNOMED-CT: 560148500) Active 723 RxNorm KEFLEX Active 649029 RxNorm ACETAMINOPHEN/CODEI NE #3 Confusion (SNOMED-CT: 591472724) Active 385226 RxNorm Plan of Treatment Follow Up 09/20/2024 Encounters Encounter Diagnosis Start Date Code Code Sys tem Snoring 01/25/2024 80507861 [employer]Jet Set Games-CT Personal Care Team Section Performer Name Performer Role Active Date Inactive DOREEN Villagomez PCP - Primary care physician 2024-03-14 Procedures Notes [facility] 01/29/2024 09:52 STUDY TYPE: HOME [...] type III, 7 channel portable monitoring device ([employer]) with simultaneous recording of nasal flow, respiratory [...] with your physician. Vaughn Blanco MD DIPLOMATE, [employer] BOARD OF SLEEP MEDICINE
--- OUTSIDE RECORDS SUMMARY | 2024-09-08 18:13 | XMS_ITS ---
Author Organization Unknown Address [address] [place] [phone] Phone Care Team Providers Care Chainstitch Zipper Setter Name Role Phone VICKYRAMYA CHESTER MAGDALENO Attending Unavailable JOON Balderrama Primary Unavailable Immunization Immunization Date Status Additional Notes Code Code System Influenza, split virus, quadrivalent, preservative 08/04/2022 Completed 158 C VX Results QUANTIFERON GOLD SINGLE TUBE - Collect Date/Time: 03/14/2024 12:54 [facility] ID: [id number] [place], [place], [id number] LOINC: 99493-7 Test Value Unit Reference Range Code Code System Flag SOURCE: BLOOD SEND TO [facility]? NO QuantiFERON Incubation Incubation performed. QuantiFERON-TB Gold Plus Negative Negative 30695-3 LOINC QuantiFERON Criteria COMMENT 8251-1 LOINC QuantiFERON TB1 Ag Value 0.00 25836-3 LOINC QuantiFERON TB2 Ag Value 0.00 17575-4 LOINC QuantiFERON Nil Value 0.00 31493-3 LOINC QuantiFERON Mitogen Value >10.00 37114-0 LOINC LIVER PROFILE - Collect Date /Time: 03/14/2024 12:54 [facility] ID: [id number] [place], [place], [id number] LOINC: 04426-3 Test Value Unit Reference Range Code Code [...] PANEL - Uziel ect Date/Time: 03/14/2024 12:54 [facility] ID: [id number] [id number] [place], [place], [id number] LOINC: 33477-0 Test Value Unit Reference Range Code Code System Flag FASTING NO BUN 11 mg/dL L=7 H=20 3094-0 LOINC CREATININE 0.90 mg/dL L=0.52 H=1.04 2160-0 LOINC GLUCOSE 157 mg/dL L=74 H=106 2345-7 LOINC H CALCIUM 9.6 mg/dL L=8.3 H=10.5 27350-7 LOINC SODIUM 139 mmol/L L=132 H=144 2951-2 LOINC POTASSIUM 3.8 mmol/L L=3.5 H=5.1 2823-3 LOINC CHLORIDE 104 mmol/L L=98 H=107 2075-0 LOINC CO2 23.0 mmol/L L=22.0 H=30.0 8-9 LOINC ANION GAP 16 L=10 H=20 40426-9 LOINC BUN/CREAT 12.2 3097-3 LOINC AGE 38 46277-5 LOINC eGFR NON-AFR 74 ml/min eGFR AFR AMER 90 ml/min CBC W/ DIFF - Collect Date/T amos: 03/14/2024 12:54 [facility] ID: [id number] [id number] [place], [place], [id number] LOINC: 37699-3 Test Value Unit Reference Range Code Code System Flag WBC 11.3 10^3uL L=4.8 H=10.8 H RBC 4.58 10^6uL L=4.20 H=5.40 HEMOGLOBIN 13.6 g/dL L=12.0 H=16.0 718-7 LOINC HEMATOCRIT 41.6 VOL% L=37.0 H=47.0 4544-3 LOINC MCV 90.8 fL L=81.0 H=99.0 MCH 29.7 pg L=27.0 H=32.0 MCHC 32.7 g/dL L=32.0 H=36.0 PLATELETS 329 10^3uL L=100 H=400 53587-5 LOINC RDW 13.6 % L=11.7 H=15.5 %GRAN 64.1 % L=40.0 H=70.0 24949-9 LOINC %LYMPH 27.4 % L=20.0 H=45.0 736-9 LOINC %MONO 6.1 % L=2.0 H=10.0 51064-3 LOINC %EOS 1.0 % L=0.0 H=6.0 713-8 LOINC %BASO 0.5 % L=0.0 H=3.0 706-2 LOINC #NEUT 7.3 10^3uL L=1.9 H=7.6 65475-3 LOINC #LYMPH 3.1 10^3uL L=0.9 H=4.9 50945-3 LOINC #MONO 0.7 10^3uL L=0.1 H=0.9 98600-4 LOINC #EOS 0.1 10^3uL L=0.0 H=0.6 712-0 LOINC #BASO 0.06 10^3uL L=0.00 H=0.10 12648-6 LOINC #IM GRANS 0.1 10^3uL L=0.0 H=7.0 97222-8 LOINC %IM GRANS 0.9 % L=0.0 H=5.0 03832-4 LOINC %NRB 0.0 L=0.0 H=0.2 74768-1 LOINC #NRB 0.000 L=0.000 H=0.012 88461-1 LOINC MANUAL DIFF NOT INDICATED RBC MORPH NOT INDICATED Social History Type Status Start Date End Date Code Code Syst em Smoking History Current every day smoker 798983119 SNOMED CT Sex Female Medications Medication Start Date End Date Route Frequency Dose Code Code System Medication Instructions Home Meds DULoxetine HCl AvPak 30MG Oral Capsule, Delayed Release 01/05/2024 Unknown ORAL ONCE A DAY 30 MILLIGRAMS 997922 RxNorm TAKE 30 MILLIGRAMS ORAL ONCE A DAY DULoxetine HCl AvPak 60MG Oral Capsule, Delayed Release 01/05/2024 Unknown ORAL ONCE A DAY 60 MILLIGRAMS 360972 RxNorm TAKE 60 MILLIGRAMS ORAL ONCE A DAY Meloxicam 15MG Oral Tablet 01/05/2024 08/09/19 25 ORAL ONCE A DAY 15 MILLIGRAMS 720883 RxNorm TAKE 15 MILLIGRAMS ORAL ONCE A DAY MiraLAX 17GM/1Dose Oral Powder for Solution 01/05/2024 Unknown ORAL NEEDED DAILY 1 unit(s) 561879 RxNorm TAKE 1 EACH ORAL NEEDED DAILY Omeprazole 20 MG Oral Tablet, Delayed Release 01/05/2024 Unknown ORAL NEEDED 20 MG RxNorm TAKE 20 MG ORAL NEEDED PARoxetine HCl 20MG Oral Tablet 01/05/2024 Unknown ORAL ONCE A DAY 20 MILLIGRAMS 2585914 RxNorm TAKE 20 MILLIGRAMS ORAL ONCE A DAY risperiDONE 0.5MG Oral Tablet 01/05/2024 Unknown ORAL ONCE A DAY 0.5 MILLIGRAMS 287547 RxNorm TAKE 0.5 MILLIGRAMS ORAL ONCE A DAY traZODone hydrochloride 100MG Oral Tablet 01/05/2024 Unknown ORAL ONCE A DAY 100 MILLIGRAMS 061013 RxNorm TAKE 100 MILLIGRAMS ORAL ONCE A DAY Meloxicam 7.5MG Oral Tablet 08/09/2024 Unknown BY MOUTH ONCE A DAY 1 TABLET 768341 RxNorm TAKE 1 TABLET BY MOUTH ONCE A DAY Xanax 0.5MG Oral Tablet 08/10/2024 Unknown ORAL NEEDED DAILY 0.5 MILLIGRAMS 846945 RxNorm TAKE 0.5 MILLIGRAMS ORAL NEEDED DAILY metFORMIN HCl 500MG Oral Tablet 08/10/2024 Unknown ORAL AT BEDTIME 500 MILLIGRAMS 990574 RxNorm TAKE 500 MILLIGRAMS ORAL AT BEDTIME [...] Status Code Code System HIDRADENITIS SUPPURATIVA active 93696795 SNOMED-CT PAIN IN RIGHT SHOULDER active 8503087 7154773227 SNOMED-CT CARPAL TUNNEL SYNDROME, RIGHT UPPER LIMB active 411987690544229 SNOMED-C T FATTY (CHANGE OF) LIVER, NOT ELSEWHERE CLASSIFIED active 556447609 SNOMED-CT DORSALGIA, UNSPECIFIED active 9994474 05 SNOMED-CT HEADACHE, UNSPECIFIED active 49668548 SNOMED-CT PAIN IN UNSPECIFIED JOINT active 34163350 SNOMED-CT RADICULOPATHY, CERVICAL REGION active 02748209 SNOMED-CT SPINAL STENOSIS, SITE UNSPECIFIED active 91598553 SNOMED-CT OTHER CHRONIC PAIN active 50236410 S NOMED-CT RADICULOPATHY, LUMBAR REGION active 760772085 SNOMED-CT CERVICALGIA active 19363350 SNOMED-C T PAIN IN LEFT KNEE active 261590526017 107 SNOMED-CT Allergies and Adverse Reactions Allergy Substance Reaction Severity Start Date Concern Status Code Code System SULFA (sulfonamide) Rash (SNOMED-CT: 785700149) Active 06055457 SNOMED-CT CEPHALOSPORIN Rash (SNOMED-CT: 871908721) Active 892326790 SNOMED-CT CEPHALEXIN Active 2231 RxNorm AMOXICILLIN Rash (SNOMED-CT: 296183513) Active 723 RxNorm KEFLEX Active 475831 RxNorm ACETAMINOPHEN/CODEI NE #3 Confusion (SNOMED-CT: 628697985) Active 367585 RxNorm Plan of Treatment Follow Up 09/20/2024 Encounters Encounter Diagnosis Start Date Code Code Sys tem Hidradenitis suppurativa 03/14/2024 SNO MED-CT Personal Care Team Section Performer Name Performer Role Active Date Inactive DOREEN Villagomez PCP - Primary care physician 2024-03-14
--- OUTSIDE RECORDS SUMMARY | 2024-09-08 18:13 | XMS_ITS ---
Author Organization Unknown Address [address] [place] [address] [phone] Phone Care Team Providers Care Technical Applications Scientist Name Role Phone JEFFRY WEBER Attending Unavailable JOON Balderrama Primary Unavailable Immunization Immunization Date Status Additional Notes Code Code System Influenza, split virus, quadrivalent, preservative 08/04/2022 Completed 158 C VX Social History Type Status Start Date End Date Code Code Syst em Smoking History Current every day smoker 917815975 SNOMED CT Sex Female Medications Medication Start Date End Date Route Frequency Dose Code Code System Medication Instructions Home Meds DULoxetine HCl AvPak 30MG Oral Capsule, Delayed Release 01/05/2024 Unknown ORAL ONCE A DAY 30 MILLIGRAMS 940215 RxNorm TAKE 30 MILLIGRAMS ORAL ONCE A DAY DULoxetine HCl AvPak 60MG Oral Capsule, Delayed Release 01/05/2024 Unknown ORAL ONCE A DAY 60 MILLIGRAMS 326600 RxNorm TAKE 60 MILLIGRAMS ORAL ONCE A DAY MiraLAX 17GM/1Dose Oral Powder for Solution 01/05/2024 Unknown ORAL NEEDED DAILY 1 unit(s) 960612 RxNorm TAKE 1 EACH ORAL NEEDED DAILY Omeprazole 20 MG Oral Tablet, Delayed Release 01/05/2024 Unknown ORAL NEEDED 20 MG RxNorm TAKE 20 MG ORAL NEEDED PARoxetine HCl 20MG Oral Tablet 01/05/2024 Unknown ORAL ONCE A DAY 20 MILLIGRAMS 3757358 RxNorm TAKE 20 MILLIGRAMS ORAL ONCE A DAY risperiDONE 0.5MG Oral Tablet 01/05/2024 Unknown ORAL ONCE A DAY 0.5 MILLIGRAMS 837791 RxNorm TAKE 0.5 MILLIGRAMS ORAL ONCE A DAY traZODone hydrochloride 100MG Oral Tablet 01/05/2024 Unknown ORAL ONCE A DAY 100 MILLIGRAMS 954908 RxNorm TAKE 100 MILLIGRAMS ORAL ONCE A DAY Meloxicam 7.5MG Oral Tablet 08/09/2024 Unknown BY MOUTH ONCE A DAY 1 TABLET 334329 RxNorm TAKE 1 TABLET BY MOUTH ONCE A DAY Xanax 0.5MG Oral Tablet 08/10/2024 Unknown ORAL NEEDED DAILY 0.5 MILLIGRAMS 264656 RxNorm TAKE 0.5 MILLIGRAMS ORAL NEEDED DAILY metFORMIN HCl 500MG Oral Tablet 08/10/2024 Unknown ORAL AT BEDTIME 500 MILLIGRAMS 628289 RxNorm TAKE 500 MILLIGRAMS ORAL AT BEDTIME [...] Status Code Code System HIDRADENITIS SUPPURATIVA active 97477739 SNOMED-CT PAIN IN RIGHT SHOULDER active 0634254 4071406358 SNOMED-CT CARPAL TUNNEL SYNDROME, RIGHT UPPER LIMB active 032659685581366 SNOMED-C T FATTY (CHANGE OF) LIVER, NOT ELSEWHERE CLASSIFIED active 829035960 SNOMED-CT DORSALGIA, UNSPECIFIED active 5816382 05 SNOMED-CT HEADACHE, UNSPECIFIED active 28053969 SNOMED-CT PAIN IN UNSPECIFIED JOINT active 74875596 SNOMED-CT RADICULOPATHY, CERVICAL REGION active 91393421 SNOMED-CT SPINAL STENOSIS, SITE UNSPECIFIED active 57787752 SNOMED-CT OTHER CHRONIC PAIN active 30153171 S NOMED-CT RADICULOPATHY, LUMBAR REGION active 539144993 SNOMED-CT CERVICALGIA active 63094644 SNOMED-C T PAIN IN LEFT KNEE active 240106133665 107 SNOMED-CT Allergies and Adverse Reactions Allergy Substance Reaction Severity Start Date Concern Status Code Code System SULFA (sulfonamide) Rash (SNOMED-CT: 224251287) Active 55997519 SNOMED-CT CEPHALOSPORIN Rash (SNOMED-CT: 316563366) Active 776303663 SNOMED-CT CEPHALEXIN Active 2231 RxNorm AMOXICILLIN Rash (SNOMED-CT: 168436671) Active 723 RxNorm KEFLEX Active 285115 RxNorm ACETAMINOPHEN/CODEI NE #3 Confusion (SNOMED-CT: 848535193) Active 223898 RxNorm Plan of Treatment Follow Up 09/20/2024 Encounters Encounter Diagnosis Start Date Code Code Sys tem Radiculopathy, cervical region 08/24/2024 SNOMED-CT Personal Care Team Section Performer Name Performer Role Active Date Inactive DOREEN Villagomez PCP - Primary care physician 2024-03-14
[2024-09-08 18:14] VITALS: BP 127/78; PULSE 108; RESP 20; TEMP 36.3; O2SAT 100
--- OUTSIDE RECORDS SUMMARY | 2024-09-08 18:14 | XMS_ITS ---
Author Organization Unknown Address [address] [place] [phone] Phone Care Team Providers Care Poultry Packer Name Role Phone JEFFRY WEBER Attending Unavailable JOON Balderrama Primary Unavailable Immunization Immunization Date Status Additional Notes Code Code System Influenza, split virus, quadrivalent, preservative 08/04/2022 Completed 158 C VX Social History Type Status Start Date End Date Code Code Syst em Smoking History Current every day smoker 415733081 SNOMED CT Sex Female Vital Signs Vital Sign Value Unit Crook Value Crook Unit Date/Time Recent/Initial? Code Code System Body Mass Index 30.12 kg/m2 08/09/2024 10:05 Initial 28659 -5 [facility] Systolic Blood Pressure 97 mm[Hg] 08/09/2024 10:05 Initial 8480- 6 LOINC Diastolic Blood Pressure 68 mm[Hg] 08/09/2024 10:05 Initial 8462- 4 [facility] Body Surface Area 1.94 m2 08/09/2024 10:05 Initial 3140- 1 LOINC Height 165.100 0 cm 65.00 in 08/09/2024 10:05 Initial 8302- 2 INC O2 Saturation 98 % 2024 10:05 Initial 39008 -5 [facility] Pulse 105.0 /min 08/09/2024 10:05 Initial 8867- 4 [facility] Temperature 36.3 May 97.3 F 08/09/19 10:05 Initial 8310- 5 [facility] Weight 82.10 kg 181.00 lbs 08/09/2024 10:05 Initial 48602 -7 [facility] Medications Medication Start Date End Date Route Frequency Dose Code Code System Medication Instructions Home Meds DULoxetine HCl AvPak 30MG Oral Capsule, Delayed Release 01/05/2024 Unknown ORAL ONCE A DAY 30 MILLIGRAMS 270817 RxNorm TAKE 30 MILLIGRAMS ORAL ONCE A DAY DULoxetine HCl AvPak 60MG Oral Capsule, Delayed Release 01/05/2024 Unknown ORAL ONCE A DAY 60 MILLIGRAMS 553420 RxNorm TAKE 60 MILLIGRAMS ORAL ONCE A DAY Meloxicam 15MG Oral Tablet 01/05/2024 08/09/19 25 ORAL ONCE A DAY 15 MILLIGRAMS 318828 RxNorm TAKE 15 MILLIGRAMS ORAL ONCE A DAY MiraLAX 17GM/1Dose Oral Powder for Solution 01/05/2024 Unknown ORAL NEEDED DAILY 1 unit(s) 159279 RxNorm TAKE 1 EACH ORAL NEEDED DAILY Omeprazole 20 MG Oral Tablet, Delayed Release 01/05/2024 Unknown ORAL NEEDED 20 MG RxNorm TAKE 20 MG ORAL NEEDED PARoxetine HCl 20MG Oral Tablet 01/05/2024 Unknown ORAL ONCE A DAY 20 MILLIGRAMS 6435522 RxNorm TAKE 20 MILLIGRAMS ORAL ONCE A DAY risperiDONE 0.5MG Oral Tablet 01/05/2024 Unknown ORAL ONCE A DAY 0.5 MILLIGRAMS 344500 RxNorm TAKE 0.5 MILLIGRAMS ORAL ONCE A DAY traZODone hydrochloride 100MG Oral Tablet 01/05/2024 Unknown ORAL ONCE A DAY 100 MILLIGRAMS 290460 RxNorm TAKE 100 MILLIGRAMS ORAL ONCE A DAY Meloxicam 7.5MG Oral Tablet 08/09/2024 Unknown BY MOUTH ONCE A DAY 1 TABLET 505253 RxNorm TAKE 1 TABLET BY MOUTH ONCE A DAY Xanax 0.5MG Oral Tablet 08/10/2024 Unknown ORAL NEEDED DAILY 0.5 MILLIGRAMS 434441 RxNorm TAKE 0.5 MILLIGRAMS ORAL NEEDED DAILY metFORMIN HCl 500MG Oral Tablet 08/10/2024 Unknown ORAL AT BEDTIME 500 MILLIGRAMS 931074 RxNorm TAKE 500 MILLIGRAMS ORAL AT BEDTIME [...] Status Code Code System HIDRADENITIS SUPPURATIVA active 14335885 SNOMED-CT PAIN IN RIGHT SHOULDER active 3869278 9920405410 SNOMED-CT CARPAL TUNNEL SYNDROME, RIGHT UPPER LIMB active 575740657519859 SNOMED-C T FATTY (CHANGE OF) LIVER, NOT ELSEWHERE CLASSIFIED active 658300988 SNOMED-CT DORSALGIA, UNSPECIFIED active 2727927 05 SNOMED-CT HEADACHE, UNSPECIFIED active 20050213 SNOMED-CT PAIN IN UNSPECIFIED JOINT active 89286999 SNOMED-CT RADICULOPATHY, CERVICAL REGION active 06046907 SNOMED-CT SPINAL STENOSIS, SITE UNSPECIFIED active 10973891 SNOMED-CT OTHER CHRONIC PAIN active 87552106 S NOMED-CT RADICULOPATHY, LUMBAR REGION active 469360133 SNOMED-CT CERVICALGIA active 56783088 SNOMED-C T PAIN IN LEFT KNEE active 609851016367 107 SNOMED-CT Allergies and Adverse Reactions Allergy Substance Reaction Severity Start Date Concern Status Code Code System SULFA (sulfonamide) Rash (SNOMED-CT: 052911773) Active 72238686 SNOMED-CT CEPHALOSPORIN Rash (SNOMED-CT: 981516468) Active 812201425 SNOMED-CT CEPHALEXIN Active 2231 RxNorm AMOXICILLIN Rash (SNOMED-CT: 394193781) Active 723 RxNorm KEFLEX Active 970795 RxNorm ACETAMINOPHEN/CODEI NE #3 Confusion (SNOMED-CT: 147586459) Active 288433 RxNorm Plan of Treatment Follow Up 09/20/2024 [...] - Primary care physician 2024-03-14 Progress Notes [facility] 08/09/2024 10:45 All Demographics Patient Name Age Sex Visit Number Admission Date/Time Attending Physician Date of Service Room and Bed Emergency Contact RA STORM 1985 38 years Female [id number] 08/09/2024 09:57 Davidson Varela 08/09/2024 01-OP LAYOKAREN CALLES - [id number] PAIN MANAGEMENT HISTORY & PHYSICAL Vital Signs: [...]
--- NOTE | 2024-09-08 18:27 | ED.SKABFB ---
HPI - Skin/Abscess/Foreign Bdy General Chief complaint: Skin/Abscess/Foreign Body Stated complaint: abscess Time Seen by Provider: 09/08/24 18:14 Source: patient Mode of arrival: ambulatory Limitations: no limitations History of Present Illness HPI narrative: 38-year-old female with a history of chronic low back pain, chronic headaches, asthma, sinusitis, recurrent skin abscesses presents to the ED with a one-week history of -- right groin abscess. patient is currently on clindamycin which was started 3 days ago. -- fever patient saw primary care physician who started her on clindamycin. MD complaint: abscess/boil Onset (ago): week(s) ( One week) Tetanus up to date: unsure Location: RLE ( right medial thigh lateral to the labia) Severity: moderate Quality: aching Pain Consistency: constant Relieving factors: none Exacerbating factors: none Context: none Associated symptoms: fever Treatments prior to arrival: antibiotic ( clindamycin) Related Data Home Medications ?Medication ?Instructions ?Recorded ?Confirmed ?Last Taken ?Type trazodone 100 mg tablet 200 mg PO HS 03/13/21 02/02/24 Unknown History venlafaxine 75 mg capsule,extended 75 mg PO DAILY 03/13/21 02/02/24 Unknown History release 24 hr naproxen 500 mg tablet 500 mg PO PRN PRN Pain 07/12/22 02/02/24 Unknown History paroxetine HCl 40 mg tablet 40 mg PO DAILY 07/12/22 02/02/24 Unknown History tramadol 50 mg tablet 50 mg PO Q4H PRN Pain 07/12/22 02/02/24 Unknown History Allergies Allergy/AdvReac Type Severity Reaction Status Date / Time amoxicillin Allergy Rash Verified 09/08/24 18:40 Cephalosporins Allergy Rash Verified 09/08/24 18:40 Review of Systems Review of Systems: All systems reviewed & are unremarkable except as noted in HPI and below Constitutional: Constitutional: Reports as per HPI, Reports no additional constitutional complaints and Reports fever(s) Eyes: Eyes: Reports as per HPI and Reports no additional eye complaints ENT: Reports system reviewed and no additional complaints, except as documented and Reports as per HPI Cardiovascular: Cardiovascular: Reports as per HPI and Reports no additional cardiovascular complaints Respiratory: Respiratory: Reports as per HPI and Reports no additional respiratory complaints Gastrointestinal: Gastrointestinal: Reports as per HPI and Reports no additional gastrointestinal complaints Genitourinary: Genitourinary: Reports no additional female genitourinary complaints and Reports as per HPI Musculoskeletal: Musculoskeletal: Reports no additional musculoskeletal complaints and Reports as per HPI Integumentary/Breasts: Comments: right medial thigh abscess lateral to the labia majora Neurologic: Reports system reviewed and no additional complaints, except as documented and Reports as per HPI Psychiatric: Psychiatric: Reports no additional psychiatric complaints and Reports as per HPI Endocrine: Endocrine: Reports no additional endocrine complaints and Reports as per HPI Hematologic/Lymphatic: Hematologic/Lymphatic: Reports no additional hematologic/lymphatic complaints and Reports as per HPI [facility] Past Medical History Medical History Chronic low back pain Asthma Upper respiratory infection Sinusitis Headache disorder Social History Social History Gender identity (if verbalized by the patient): Female Exam Narrative: afebrile. Const: General: ill appearing Nutritional Appearance: well nourished Orientation/consciousness: patient oriented x3 Limitations: no limitations HENMT: Head: normal to inspection Ears: external ears normal Face/Nose/Sinus: Normal external nose present Face and sinus: normal facial exam Mouth: Yes Normal oral and palatal mucosa present Throat: posterior oropharynx normal Eyes: Conjunctivae: conjunctivae normal Pupils: Equal, round and reactive pupils present EOM: EOMs intact bilaterally Direct Ophthalmoscopy: no photophobia Neck: Neck: normal visual inspection and no lymphadenopathy Chest: Chest palpation & inspection: normal inspection of the chest Resp: Effort & Inspection: normal respiratory effort Auscultation: clear to auscultation bilaterally Cardio: Rate: regular rate Rhythm: regular rhythm GI: GI Palp: Yes Soft to palpation Auscultation: normal bowel sounds Other: No tenderness/ rigidity /rebound : General: Yes no CVA tenderness Back/Spine/Pelvis: Back: no CVA tenderness Skin: General skin exam: normal color Rashes: no rashes Wounds: no wounds Other: 3 cm abscess on the right medial thigh No regional lymphadenopathy noted Neuro: General: patient oriented x3, moves all extremities, no meningeal signs, no focal motor deficits and CN's II-XI intact bilaterally Cranial nerves: Yes Nystagmus not present Speech: normal speech Extrem: General: normal to inspection and no clubbing, cyanosis or edema Psych: Mental Status: mental status grossly normal Affect: normal affect Attitude: cooperative Course Course Emergency Course: right thigh abscess Vital Signs Vital signs: Vital Signs Temperature 36.3 C L 09/08/24 18:14 Pulse Rate 108 H 09/08/24 18:14 Respiratory Rate 20 09/08/24 18:14 Blood Pressure 127/78 09/08/24 18:14 Pulse Oximetry 100 09/08/24 18:14 Oxygen Delivery Room Air 09/08/24 18:14 Temperature 36.3 C L 09/08/24 18:14 Pulse Rate 108 H 09/08/24 18:14 Respiratory Rate 20 09/08/24 18:14 Blood Pressure 127/78 09/08/24 18:14 Pulse Oximetry 100 09/08/24 18:14 Oxygen Delivery Room Air 09/08/24 18:14 Procedures Abscess I/D lower extremity: Date of Incision: 09/08/24 Time of Incision: 19:20 Sedation/analgesia: other ( Dilaudid) Local Anesthetic: lidocaine 1% Amount of anesthesia used (mL): 7 Technique: incised with #11 blade Amount of fluid expressed (mL): 7 Irrigation: No Packing used?: iodoform I&D Results: Pus Abcess I&D Additional Comments: 3 cm abscess right medial adjoining labia majora / vaginal opening lead 1% lidocaine without epinephrine was infiltrated . A 2 cm incision was made over the most fluctuant part of the abscess and in addition a 1 cm transverse incision was made. 7 mL of pus was drained. Material which was drained was yellow. abscess was sent for gram stain and culture. Iodoform packing placed. MDM - Skin/Abscess/Foreign Bdy MDM Narrative Medical decision making narrative: Thigh abscess Discharge Plan Discharge Clinical Impression: Abscess of right thigh Patient Disposition: Home, Self-Care Condition: Stable Instructions: Antibiotic Form, Abscess (ED) Additional Instructions: continue clindamycin Patient Language: Syrian Prescriptions: No Action venlafaxine 75 mg capsule,extended release 24hr 75 mg PO DAILY trazodone 100 mg tablet 200 mg PO HS tramadol 50 mg Tablet 50 mg PO Q4H PRN (Reason: Pain) paroxetine HCl 40 mg tablet 40 mg PO DAILY naproxen 500 mg tablet 500 mg PO PRN PRN (Reason: Pain) azithromycin [Zithromax] 250 mg tablet 250 mg PO DAILY 4 Days Qty: 4 0RF Rx Instructions: start on day 2 of therapy albuterol sulfate 90 mcg/actuation HFA aerosol inhaler 2 puff inhalation QID PRN (Reason: shortness of breath or wheezing) Qty: 6.7 0RF clindamycin HCl 300 mg capsule 300 mg PO Q6H 10 Days Qty: 40 0RF ondansetron 4 mg tablet,disintegrating 4 mg PO Q6H PRN (Reason: nausea and vomiting) Qty: 14 0RF naproxen 500 mg tablet 500 mg PO BID PRN (Reason: pain) Qty: 14 0RF Follow-up/Referrals: UNKNOWN,DOCTOR [Non-Staff] - Time of Disposition: 19:23
[2024-09-08] MEDS: HYDROmorphone HCL INJ (*CRX) 2 MG/ML VIAL 0.5 MG IM (18:44)
[2024-09-08] MEDS: ONDANSETRON HCL ODT 4 MG TABLET PO (18:45)
[2024-09-08] MEDS: TETANUS,DIPHTHERIA,AC PERTUSSIS ADULT 0.5 ML (ADACEL) IM (18:47)
[2024-09-08] MEDS: LIDOCAINE 1% LOCAL INJ 10 ML VIAL 5 ML INFILTRATE (18:49)
--- OUTSIDE RECORDS SUMMARY | 2024-09-08 18:55 | XMS_ITS ---
Author Organization Unknown Address [address] [place] [address] [phone] Phone Care Team Providers Care Woodworking Machine Setter Name Role Phone VICKYRAMYA CHESTER MAGDALENO Attending Unavailable JOON Balderrama Primary Unavailable Immunization Immunization Date Status Additional Notes Code Code System Influenza, split virus, quadrivalent, preservative 08/04/2022 Completed 158 C VX Results QUANTIFERON GOLD SINGLE TUBE - Collect Date/Time: 03/14/2024 12:54 [facility] ID: [id number] [place] [address], [id number] LOINC: 17177-0 Test Value Unit Reference Range Code Code System Flag SOURCE: BLOOD SEND TO [facility]? NO QuantiFERON Incubation Incubation performed. QuantiFERON-TB Gold Plus Negative Negative 61906-5 LOINC QuantiFERON Criteria COMMENT 8251-1 LOINC QuantiFERON TB1 Ag Value 0.00 39972-6 LOINC QuantiFERON TB2 Ag Value 0.00 22511-8 LOINC QuantiFERON Nil Value 0.00 45725-4 LOINC QuantiFERON Mitogen Value >10.00 67787-2 LOINC LIVER PROFILE - Collect Date /Time: 03/14/2024 12:54 [facility] ID: [id number] [address] [place] [address], [id number] LOINC: 37688-8 Test Value Unit Reference Range Code Code [...] PANEL - Uziel ect Date/Time: 03/14/2024 12:54 [facility] ID: [id number] [address] [place] [address], [phone] LOINC: 35149-9 Test Value Unit Reference Range Code Code System Flag FASTING NO BUN 11 mg/dL L=7 H=20 3094-0 LOINC CREATININE 0.90 mg/dL L=0.52 H=1.04 2160-0 LOINC GLUCOSE 157 mg/dL L=74 H=106 2345-7 LOINC H CALCIUM 9.6 mg/dL L=8.3 H=10.5 80302-5 LOINC SODIUM 139 mmol/L L=132 H=144 2951-2 LOINC POTASSIUM 3.8 mmol/L L=3.5 H=5.1 2823-3 LOINC CHLORIDE 104 mmol/L L=98 H=107 2075-0 LOINC CO2 23.0 mmol/L L=22.0 H=30.0 8-9 LOINC ANION GAP 16 L=10 H=20 14310-8 LOINC BUN/CREAT 12.2 3097-3 LOINC AGE 38 00033-7 LOINC eGFR NON-AFR 74 ml/min eGFR AFR AMER 90 ml/min CBC W/ DIFF - Collect Date/T amos: 03/14/2024 12:54 [facility] ID: [id number] [address] [place] [address], [phone] LOINC: 16546-3 Test Value Unit Reference Range Code Code System Flag WBC 11.3 10^3uL L=4.8 H=10.8 H RBC 4.58 10^6uL L=4.20 H=5.40 HEMOGLOBIN 13.6 g/dL L=12.0 H=16.0 718-7 LOINC HEMATOCRIT 41.6 VOL% L=37.0 H=47.0 4544-3 LOINC MCV 90.8 fL L=81.0 H=99.0 MCH 29.7 pg L=27.0 H=32.0 MCHC 32.7 g/dL L=32.0 H=36.0 PLATELETS 329 10^3uL L=100 H=400 86177-8 LOINC RDW 13.6 % L=11.7 H=15.5 %GRAN 64.1 % L=40.0 H=70.0 33123-9 LOINC %LYMPH 27.4 % L=20.0 H=45.0 736-9 LOINC %MONO 6.1 % L=2.0 H=10.0 32163-4 LOINC %EOS 1.0 % L=0.0 H=6.0 713-8 LOINC %BASO 0.5 % L=0.0 H=3.0 706-2 LOINC #NEUT 7.3 10^3uL L=1.9 H=7.6 19134-0 LOINC #LYMPH 3.1 10^3uL L=0.9 H=4.9 43841-3 LOINC #MONO 0.7 10^3uL L=0.1 H=0.9 18970-9 LOINC #EOS 0.1 10^3uL L=0.0 H=0.6 712-0 LOINC #BASO 0.06 10^3uL L=0.00 H=0.10 30519-9 LOINC #IM GRANS 0.1 10^3uL L=0.0 H=7.0 65170-4 LOINC %IM GRANS 0.9 % L=0.0 H=5.0 54455-4 LOINC %NRB 0.0 L=0.0 H=0.2 74755-3 LOINC #NRB 0.000 L=0.000 H=0.012 97078-4 LOINC MANUAL DIFF NOT INDICATED RBC MORPH NOT INDICATED Social History Type Status Start Date End Date Code Code Syst em Smoking History Current every day smoker 714790961 SNOMED CT Sex Female Medications Medication Start Date End Date Route Frequency Dose Code Code System Medication Instructions Home Meds DULoxetine HCl AvPak 30MG Oral Capsule, Delayed Release 01/05/2024 Unknown ORAL ONCE A DAY 30 MILLIGRAMS 787959 RxNorm TAKE 30 MILLIGRAMS ORAL ONCE A DAY DULoxetine HCl AvPak 60MG Oral Capsule, Delayed Release 01/05/2024 Unknown ORAL ONCE A DAY 60 MILLIGRAMS 752682 RxNorm TAKE 60 MILLIGRAMS ORAL ONCE A DAY Meloxicam 15MG Oral Tablet 01/05/2024 08/09/19 25 ORAL ONCE A DAY 15 MILLIGRAMS 036728 RxNorm TAKE 15 MILLIGRAMS ORAL ONCE A DAY MiraLAX 17GM/1Dose Oral Powder for Solution 01/05/2024 Unknown ORAL NEEDED DAILY 1 unit(s) 174344 RxNorm TAKE 1 EACH ORAL NEEDED DAILY Omeprazole 20 MG Oral Tablet, Delayed Release 01/05/2024 Unknown ORAL NEEDED 20 MG RxNorm TAKE 20 MG ORAL NEEDED PARoxetine HCl 20MG Oral Tablet 01/05/2024 Unknown ORAL ONCE A DAY 20 MILLIGRAMS 6296173 RxNorm TAKE 20 MILLIGRAMS ORAL ONCE A DAY risperiDONE 0.5MG Oral Tablet 01/05/2024 Unknown ORAL ONCE A DAY 0.5 MILLIGRAMS 124766 RxNorm TAKE 0.5 MILLIGRAMS ORAL ONCE A DAY traZODone hydrochloride 100MG Oral Tablet 01/05/2024 Unknown ORAL ONCE A DAY 100 MILLIGRAMS 573377 RxNorm TAKE 100 MILLIGRAMS ORAL ONCE A DAY Meloxicam 7.5MG Oral Tablet 08/09/2024 Unknown BY MOUTH ONCE A DAY 1 TABLET 055600 RxNorm TAKE 1 TABLET BY MOUTH ONCE A DAY Xanax 0.5MG Oral Tablet 08/10/2024 Unknown ORAL NEEDED DAILY 0.5 MILLIGRAMS 866268 RxNorm TAKE 0.5 MILLIGRAMS ORAL NEEDED DAILY metFORMIN HCl 500MG Oral Tablet 08/10/2024 Unknown ORAL AT BEDTIME 500 MILLIGRAMS 847043 RxNorm TAKE 500 MILLIGRAMS ORAL AT BEDTIME [...] Status Code Code System HIDRADENITIS SUPPURATIVA active 28319281 SNOMED-CT PAIN IN RIGHT SHOULDER active 2282140 1441131921 SNOMED-CT CARPAL TUNNEL SYNDROME, RIGHT UPPER LIMB active 128758825869900 SNOMED-C T FATTY (CHANGE OF) LIVER, NOT ELSEWHERE CLASSIFIED active 999318198 SNOMED-CT DORSALGIA, UNSPECIFIED active 7357611 05 SNOMED-CT HEADACHE, UNSPECIFIED active 30790278 SNOMED-CT PAIN IN UNSPECIFIED JOINT active 50332708 SNOMED-CT RADICULOPATHY, CERVICAL REGION active 14150273 SNOMED-CT SPINAL STENOSIS, SITE UNSPECIFIED active 97162019 SNOMED-CT OTHER CHRONIC PAIN active 31154889 S NOMED-CT RADICULOPATHY, LUMBAR REGION active 440394024 SNOMED-CT CERVICALGIA active 51475521 SNOMED-C T PAIN IN LEFT KNEE active 907323587486 107 SNOMED-CT Allergies and Adverse Reactions Allergy Substance Reaction Severity Start Date Concern Status Code Code System SULFA (sulfonamide) Rash (SNOMED-CT: 958221773) Active 43405098 SNOMED-CT CEPHALOSPORIN Rash (SNOMED-CT: 498472807) Active 028892308 SNOMED-CT CEPHALEXIN Active 2231 RxNorm AMOXICILLIN Rash (SNOMED-CT: 219345725) Active 723 RxNorm KEFLEX Active 803260 RxNorm ACETAMINOPHEN/CODEI NE #3 Confusion (SNOMED-CT: 242593880) Active 821646 RxNorm Plan of Treatment Follow Up 09/20/2024 Encounters Encounter Diagnosis Start Date Code Code Sys tem Hidradenitis suppurativa 03/14/2024 SNO MED-CT Personal Care Team Section Performer Name Performer Role Active Date Inactive DOREEN Villagomez PCP - Primary care physician 2024-03-14
--- OUTSIDE RECORDS SUMMARY | 2024-09-08 18:55 | XMS_ITS ---
Author Organization Unknown Address [address] [place] [address] [phone] Phone Care Team Providers Care Roll Slicing Machine Tender Name Role Phone CODY Ramirez Attending Unavailable KIKO [employer]AY BLENDER Unavailable JOON Balderrama Primary Unavailable Immunization Immunization Date Status Additional Notes Code Code System Influenza, split virus, quadrivalent, preservative 08/04/2022 Completed 158 C VX Social History Type Status Start Date End Date Code Code Syst em Smoking History Current every day smoker 307139533 SNOMED CT Sex Female Vital Signs Vital Sign Value Unit [place] Value [place] Unit Date/Time Recent/Initial? Code Code System Body Mass Index 29.50 kg/m2 12/20/2023 10:32 Initial 01729 -5 [facility] Systolic Blood Pressure 115 mm[Hg] 01/05/2024 08:57 Initial 8480- 6 LOINC Diastolic Blood Pressure 61 mm[Hg] 01/05/2024 08:57 Initial 8462- 4 LOINC Body Surface Area 1.94 m2 12/20/2023 10:32 Initial 3140- 1 LOINC Height 166.370 0 cm 65.50 in 12/20/2023 10:32 Initial 8302- 2 LOINC O2 Saturation 97 % 2023 08:57 Initial 29914 -5 LOINC Pulse 92.0 /min 01/05/2024 08:57 Initial 8867- 4 LOINC Respiration 16 /min 01/05/20 08:57 Initial 9279- 1 LOINC Temperature 36.2 May 97.1 F 01/05/20 08:57 Initial 8310- 5 LOINC Weight 81.65 kg 180.00 lbs 12/20/2023 10:32 Initial 19512 -7 [facility] Medications Medication Start Date End Date Route Frequency Dose Code Code System Medication Instructions Home Meds Dicyclomine HCl 10MG Oral Capsule 12/15/2018 01/05/2024 ORAL NEEDED EVERY 12 HOURS 10 MILLIGRAMS 464648 RxNorm TAKE 10 MILLIGRAMS ORAL NEEDED EVERY 12 HOURS DULoxetine HCl AvPak 30MG Oral Capsule, Delayed Release 01/05/2024 Unknown ORAL ONCE A DAY 30 MILLIGRAMS 879462 RxNorm TAKE 30 MILLIGRAMS ORAL ONCE A DAY DULoxetine HCl AvPak 60MG Oral Capsule, Delayed Release 01/05/2024 Unknown ORAL ONCE A DAY 60 MILLIGRAMS 611396 RxNorm TAKE 60 MILLIGRAMS ORAL ONCE A DAY Meloxicam 15MG Oral Tablet 01/05/2024 08/09/2024 ORAL ONCE A DAY 15 MILLIGRAMS 841063 RxNorm TAKE 15 MILLIGRAMS ORAL ONCE A DAY MiraLAX 17GM/1Dose Oral Powder for Solution 01/05/2024 Unknown ORAL NEEDED DAILY 1 unit(s) 649206 RxNorm TAKE 1 EACH ORAL NEEDED DAILY Omeprazole 20 MG Oral Tablet, Delayed Release 01/05/2024 Unknown ORAL NEEDED 20 MG RxNorm TAKE 20 MG ORAL NEEDED PARoxetine HCl 20MG Oral Tablet 01/05/2024 Unknown ORAL ONCE A DAY 20 MILLIGRAMS 7823837 RxNorm TAKE 20 MILLIGRAMS ORAL ONCE A DAY risperiDONE 0.5MG Oral Tablet 01/05/2024 Unknown ORAL ONCE A DAY 0.5 MILLIGRAMS 616024 RxNorm TAKE 0.5 MILLIGRAMS ORAL ONCE A DAY traZODone hydrochloride 100MG Oral Tablet 01/05/2024 Unknown ORAL ONCE A DAY 100 MILLIGRAMS 102567 RxNorm TAKE 100 MILLIGRAMS ORAL ONCE A DAY Meloxicam 7.5MG Oral Tablet 08/09/2024 Unknown BY MOUTH ONCE A DAY 1 TABLET 548877 RxNorm TAKE 1 TABLET BY MOUTH ONCE A DAY Xanax 0.5MG Oral Tablet 08/10/2024 Unknown ORAL NEEDED DAILY 0.5 MILLIGRAMS 694319 RxNorm TAKE 0.5 MILLIGRAMS ORAL NEEDED DAILY metFORMIN HCl 500MG Oral Tablet 08/10/2024 Unknown ORAL AT BEDTIME 500 MILLIGRAMS 382256 RxNorm TAKE 500 MILLIGRAMS ORAL AT BEDTIME [...] with biopsy, single or multiple 01/05/2024 completed 71037 CPT Anesthesia for combined uppe r and lower gastrointestinal endoscopic proced 01/05/2024 completed 08433 CPT Esophagogastroduodenoscopy, flexible, transoral; diagnostic, including col 01/05/2024 completed 86229 CPT Problems Problem Start Date Resolved Date Status Code Code System HIDRADENITIS SUPPURATIVA active 78102661 SNOMED-CT PAIN IN RIGHT SHOULDER active 4976766 3814958516 SNOMED-CT CARPAL TUNNEL SYNDROME, RIGHT UPPER LIMB active 601912541637900 SNOMED-C T FATTY (CHANGE OF) LIVER, NOT ELSEWHERE CLASSIFIED active 169309599 SNOMED-CT DORSALGIA, UNSPECIFIED active 4423406 05 SNOMED-CT HEADACHE, UNSPECIFIED active 13352329 SNOMED-CT PAIN IN UNSPECIFIED JOINT active 61078341 SNOMED-CT RADICULOPATHY, CERVICAL REGION active 08863509 SNOMED-CT SPINAL STENOSIS, SITE UNSPECIFIED active 14255363 SNOMED-CT OTHER CHRONIC PAIN active 04811029 S NOMED-CT RADICULOPATHY, LUMBAR REGION active 619436630 SNOMED-CT CERVICALGIA active 81070323 SNOMED-C T PAIN IN LEFT KNEE active 479198596047 107 SNOMED-CT Allergies and Adverse Reactions Allergy Substance Reaction Severity Start Date Concern Status Code Code System SULFA (sulfonamide) Rash (SNOMED-CT: 024779261) Active 76255805 SNOMED-CT CEPHALOSPORIN Rash (SNOMED-CT: 290026024) Active 555860240 SNOMED-CT CEPHALEXIN Active 2231 RxNorm AMOXICILLIN Rash (SNOMED-CT: 577589096) Active 723 RxNorm KEFLEX Active 256090 RxNorm ACETAMINOPHEN/CODEI NE #3 Confusion (SNOMED-CT: 920589338) Active 922233 RxNorm Plan of Treatment Follow Up 09/20/2024 Encounters Encounter Diagnosis Start Date Code Code Sys tem Gastro-esophageal reflux disease without esophagitis 0 01/05/2024 SNOMED-CT Personal Care Team Section Performer Name Performer Role Active Date Inactive DOREEN Villagomez PCP - Primary care physician 2024-03-14
--- OUTSIDE RECORDS SUMMARY | 2024-09-08 18:55 | XMS_ITS | Clinical Summary ---
Author Organization [facility] Address [address] [place] [address] Care Team Providers Care Maintenance Tech Name Role Phone Maxi Valentin MD Primary Care Provider [phone] Source Comments [facility],non-owned Affiliates and Associated Physician Practices is amultiple site organization consisting of ambulatory clinics and hospital sitesin [place], [place], [place] and [place]. This disclosure is being madepursuant to the Care Everywhere program and may not contain all information available regarding this patient. Last updated 18.[facility] [employer] Social History Tobacco Use Types Packs/Day Years [...] age to complete this topic Care Teams Maintenance Tech Relationship Specialty Start Date End Date Maxi Valentin MD [address] [place] [phone] PCP - General 07/06/18
--- OUTSIDE RECORDS SUMMARY | 2024-09-08 18:55 | XMS_ITS ---
Author Organization Unknown Address [address] [place] [address] [phone] Phone Care Team Providers Care Rn School Name Role Phone JEFFRY WEBER Attending Unavailable JOON Balderrama Primary Unavailable Immunization Immunization Date Status Additional Notes Code Code System Influenza, split virus, quadrivalent, preservative 08/04/2022 Completed 158 C VX Results HIPS LISSETTE 3-4 VIEWS - Complet ed: 08/24/2024 10:17 LOINC: \TM00\12PI\DRAo\BM09\ \MRLo\ [address] [address] ---------NAME--------- NUMBER SEX AGE ADMIT DISC. XRAY# F/C TYPE EMETERIO GUZMÁN [id number] F 38 08/24/24 08/24/24 04125 XB7 O/P DATE OF : 1985 M/R# [id number] PH#: [phone] RM \MRHx\ LOCATION: TRANSCRIBED: 08/24/24 11:06 HIPS LISSETTE 3-4 VIEWS 49078 COMPLETED:08/24/24 10:17 J [id number] {REASON-HIPS: SI JOINT INFLAMATION PHYSICIAN: JEFFRY LOG R A D I O L O G Y R E P O R T EXAM: HIPS LISSETTE 3-4 VIEWS CLINICAL INDICATION: SI JOINT INFLAMATION TECHNIQUE: HIPS LISSETTE 3-4 VIEWS Comparison: None FINDINGS/IMPRESSION: There is no evidence of acute fracture or dislocation. Moderate bilateral hip osteoarthtirits. The alignment is anatomical. There is no radiopaque foreign body. LITION SPECIALIST \ITLo\ \UNDo\ \UNDx\ \ITLx\ Reviewed and Electronically Signed by: Rigo Beatty MD Signed Date: 08/24/24 11:06 08/24/[email or web address].to [facility] via fax Social History Type Status Start Date End Date Code Code Syst em Smoking History Current every day smoker 965744027 SNOMED CT Sex Female Medications Medication Start Date End Date Route Frequency Dose Code Code System Medication Instructions Home Meds DULoxetine HCl AvPak 30MG Oral Capsule, Delayed Release 01/05/2024 Unknown ORAL ONCE A DAY 30 MILLIGRAMS 352410 RxNorm TAKE 30 MILLIGRAMS ORAL ONCE A DAY DULoxetine HCl AvPak 60MG Oral Capsule, Delayed Release 01/05/2024 Unknown ORAL ONCE A DAY 60 MILLIGRAMS 380711 RxNorm TAKE 60 MILLIGRAMS ORAL ONCE A DAY MiraLAX 17GM/1Dose Oral Powder for Solution 01/05/2024 Unknown ORAL NEEDED DAILY 1 unit(s) 069303 RxNorm TAKE 1 EACH ORAL NEEDED DAILY Omeprazole 20 MG Oral Tablet, Delayed Release 01/05/2024 Unknown ORAL NEEDED 20 MG RxNorm TAKE 20 MG ORAL NEEDED PARoxetine HCl 20MG Oral Tablet 01/05/2024 Unknown ORAL ONCE A DAY 20 MILLIGRAMS 8316138 RxNorm TAKE 20 MILLIGRAMS ORAL ONCE A DAY risperiDONE 0.5MG Oral Tablet 01/05/2024 Unknown ORAL ONCE A DAY 0.5 MILLIGRAMS 834701 RxNorm TAKE 0.5 MILLIGRAMS ORAL ONCE A DAY traZODone hydrochloride 100MG Oral Tablet 01/05/2024 Unknown ORAL ONCE A DAY 100 MILLIGRAMS 969161 RxNorm TAKE 100 MILLIGRAMS ORAL ONCE A DAY Meloxicam 7.5MG Oral Tablet 08/09/2024 Unknown BY MOUTH ONCE A DAY 1 TABLET 734448 RxNorm TAKE 1 TABLET BY MOUTH ONCE A DAY Xanax 0.5MG Oral Tablet 08/10/2024 Unknown ORAL NEEDED DAILY 0.5 MILLIGRAMS 094276 RxNorm TAKE 0.5 MILLIGRAMS ORAL NEEDED DAILY metFORMIN HCl 500MG Oral Tablet 08/10/2024 Unknown ORAL AT BEDTIME 500 MILLIGRAMS 868669 RxNorm TAKE 500 MILLIGRAMS ORAL AT BEDTIME [...] Status Code Code System HIDRADENITIS SUPPURATIVA active 03809722 SNOMED-CT PAIN IN RIGHT SHOULDER active 8715004 2982394005 SNOMED-CT CARPAL TUNNEL SYNDROME, RIGHT UPPER LIMB active 297629325920791 SNOMED-C T FATTY (CHANGE OF) LIVER, NOT ELSEWHERE CLASSIFIED active 753012477 SNOMED-CT DORSALGIA, UNSPECIFIED active 5937846 05 SNOMED-CT HEADACHE, UNSPECIFIED active 90163237 SNOMED-CT PAIN IN UNSPECIFIED JOINT active 99687957 SNOMED-CT RADICULOPATHY, CERVICAL REGION active 81938444 SNOMED-CT SPINAL STENOSIS, SITE UNSPECIFIED active 36681091 SNOMED-CT OTHER CHRONIC PAIN active 16699630 S NOMED-CT RADICULOPATHY, LUMBAR REGION active 196047312 SNOMED-CT CERVICALGIA active 61304478 SNOMED-C T PAIN IN LEFT KNEE active 990971318097 107 SNOMED-CT Allergies and Adverse Reactions Allergy Substance Reaction Severity Start Date Concern Status Code Code System SULFA (sulfonamide) Rash (SNOMED-CT: 504872663) Active 84188384 SNOMED-CT CEPHALOSPORIN Rash (SNOMED-CT: 586217698) Active 108242752 SNOMED-CT CEPHALEXIN Active 2231 RxNorm AMOXICILLIN Rash (SNOMED-CT: 005083718) Active 723 RxNorm KEFLEX Active 674178 RxNorm ACETAMINOPHEN/CODEI NE #3 Confusion (SNOMED-CT: 358171892) Active 194776 RxNorm Plan of Treatment Follow Up 09/20/2024 Encounters Encounter Diagnosis Start Date Code Code Sys tem Bilateral primary osteoarthritis of hip 08/24/2024 SNOMED-CT Personal Care Team Section Performer Name Performer Role Active Date Inactive DOREEN Villagomez PCP - Primary care physician 2024-03-14 Imaging Narrative Notes [facility] 08/24/2024 11:[address] [address] ---------NAME--------- NUMBER SEX AGE ADMIT DISC. XRAY# F/C TYPE EMETERIO GUZMÁN [id number] F 38 08/24/24 08/24/24 21316 XB7 O/P DATE OF : 1985 M/R# [id number] #: [id number] LOCATION: TRANSCRIBED: 08/24/24 11:06 HIPS LISSETTE 3-4 VIEWS 57287 COMPLETED:08/24/24 10:17 JDF [id number] {REASON-HIPS: SI JOINT INFLAMATION PHYSICIAN: JEFFRY LOG RADIOLOGY REPORT EXAM: HIPS LISSETTE 3-4 VIEWS CLINICAL INDICATION: SI JOINT INFLAMATION TECHNIQUE: HIPS LISSETTE 3-4 VIEWS Comparison: None FINDINGS/IMPRESSION: There is no evidence of acute fracture or dislocation. Moderate bilateral hip osteoarthtirits. The alignment is anatomical. There is no radiopaque foreign body. LITION SPECIALIST Reviewed and Electronically Signed by: Rigo Beatty MD Signed Date: 08/24/24 11:06 08/24/24.1109.JDF.to [facility] via fax
--- OUTSIDE RECORDS SUMMARY | 2024-09-08 18:55 | XMS_ITS | Clinical Summary ---
Author Organization [facility] Address [address] [place] [address]. [place], [place] [phone] [place] [address] Care Team Providers Care Supervisor [employer] Name Role Phone Oleg Lemus MD Primary Care Provider [phone] Allergies Active Allergy Reactions Criticality Noted Date [...] on file Legal Sex Female 11:02 PM [employer] Gender Identity Not on file Sexual Orientation [...] patient's age to complete this topic Insurance [facility] C/O PROVIDER SERVICES ZOE HENDRIX [id number] Care Teams Supervisor [employer] Relationship Specialty Start Date End Date Oleg Lemus MD [address] [place] [phone] PCP - General FAMILY PRACTICE 07/30/23
--- OUTSIDE RECORDS SUMMARY | 2024-09-08 18:55 | XMS_ITS ---
Author Organization Unknown Address [address] [place] [address] [phone] Phone Care Team Providers Care Distribution Dispatcher Name Role Phone JEFFRY WEBER Attending Unavailable JOON Balderrama Primary Unavailable Immunization Immunization Date Status Additional Notes Code Code System Influenza, split virus, quadrivalent, preservative 08/04/2022 Completed 158 C VX Social History Type Status Start Date End Date Code Code Syst em Smoking History Current every day smoker 621021701 SNOMED CT Sex Female Medications Medication Start Date End Date Route Frequency Dose Code Code System Medication Instructions Home Meds DULoxetine HCl AvPak 30MG Oral Capsule, Delayed Release 01/05/2024 Unknown ORAL ONCE A DAY 30 MILLIGRAMS 927289 RxNorm TAKE 30 MILLIGRAMS ORAL ONCE A DAY DULoxetine HCl AvPak 60MG Oral Capsule, Delayed Release 01/05/2024 Unknown ORAL ONCE A DAY 60 MILLIGRAMS 166267 RxNorm TAKE 60 MILLIGRAMS ORAL ONCE A DAY MiraLAX 17GM/1Dose Oral Powder for Solution 01/05/2024 Unknown ORAL NEEDED DAILY 1 unit(s) 224520 RxNorm TAKE 1 EACH ORAL NEEDED DAILY Omeprazole 20 MG Oral Tablet, Delayed Release 01/05/2024 Unknown ORAL NEEDED 20 MG RxNorm TAKE 20 MG ORAL NEEDED PARoxetine HCl 20MG Oral Tablet 01/05/2024 Unknown ORAL ONCE A DAY 20 MILLIGRAMS 7520448 RxNorm TAKE 20 MILLIGRAMS ORAL ONCE A DAY risperiDONE 0.5MG Oral Tablet 01/05/2024 Unknown ORAL ONCE A DAY 0.5 MILLIGRAMS 695674 RxNorm TAKE 0.5 MILLIGRAMS ORAL ONCE A DAY traZODone hydrochloride 100MG Oral Tablet 01/05/2024 Unknown ORAL ONCE A DAY 100 MILLIGRAMS 253343 RxNorm TAKE 100 MILLIGRAMS ORAL ONCE A DAY Meloxicam 7.5MG Oral Tablet 08/09/2024 Unknown BY MOUTH ONCE A DAY 1 TABLET 552731 RxNorm TAKE 1 TABLET BY MOUTH ONCE A DAY Xanax 0.5MG Oral Tablet 08/10/2024 Unknown ORAL NEEDED DAILY 0.5 MILLIGRAMS 236322 RxNorm TAKE 0.5 MILLIGRAMS ORAL NEEDED DAILY metFORMIN HCl 500MG Oral Tablet 08/10/2024 Unknown ORAL AT BEDTIME 500 MILLIGRAMS 475339 RxNorm TAKE 500 MILLIGRAMS ORAL AT BEDTIME [...] Status Code Code System HIDRADENITIS SUPPURATIVA active 87518370 SNOMED-CT PAIN IN RIGHT SHOULDER active 6353116 9161764452 SNOMED-CT CARPAL TUNNEL SYNDROME, RIGHT UPPER LIMB active 658250839114289 SNOMED-C T FATTY (CHANGE OF) LIVER, NOT ELSEWHERE CLASSIFIED active 615518145 SNOMED-CT DORSALGIA, UNSPECIFIED active 1599767 05 SNOMED-CT HEADACHE, UNSPECIFIED active 83353246 SNOMED-CT PAIN IN UNSPECIFIED JOINT active 80681963 SNOMED-CT RADICULOPATHY, CERVICAL REGION active 81159099 SNOMED-CT SPINAL STENOSIS, SITE UNSPECIFIED active 64319721 SNOMED-CT OTHER CHRONIC PAIN active 33337195 S NOMED-CT RADICULOPATHY, LUMBAR REGION active 259782564 SNOMED-CT CERVICALGIA active 83995545 SNOMED-C T PAIN IN LEFT KNEE active 637669469265 107 SNOMED-CT Allergies and Adverse Reactions Allergy Substance Reaction Severity Start Date Concern Status Code Code System SULFA (sulfonamide) Rash (SNOMED-CT: 725872423) Active 35987801 SNOMED-CT CEPHALOSPORIN Rash (SNOMED-CT: 390843151) Active 517559670 SNOMED-CT CEPHALEXIN Active 2231 RxNorm AMOXICILLIN Rash (SNOMED-CT: 694233773) Active 723 RxNorm KEFLEX Active 232771 RxNorm ACETAMINOPHEN/CODEI NE #3 Confusion (SNOMED-CT: 474386814) Active 854258 RxNorm Plan of Treatment Follow Up 09/20/2024 Encounters Encounter Diagnosis Start Date Code Code Sys tem Radiculopathy, cervical region 08/24/2024 SNOMED-CT Personal Care Team Section Performer Name Performer Role Active Date Inactive DOREEN Villagomez PCP - Primary care physician 2024-03-14
--- OUTSIDE RECORDS SUMMARY | 2024-09-08 18:55 | XMS_ITS ---
Author Organization Unknown Address [address] [place] [address] [phone] Phone Care Team Providers Care Tile Picker Name Role Phone NIHARIKA MAGDALENO Attending Unavailable JOON Balderrama Primary Unavailable Immunization Immunization Date Status Additional Notes Code Code System Influenza, split virus, quadrivalent, preservative 08/04/2022 Completed 158 C VX Social History Type Status Start Date End Date Code Code Syst em Smoking History Current every day smoker 885511340 SNOMED CT Sex Female Medications Medication Start Date End Date Route Frequency Dose Code Code System Medication Instructions Home Meds DULoxetine HCl AvPak 30MG Oral Capsule, Delayed Release 01/05/2024 Unknown ORAL ONCE A DAY 30 MILLIGRAMS 795985 RxNorm TAKE 30 MILLIGRAMS ORAL ONCE A DAY DULoxetine HCl AvPak 60MG Oral Capsule, Delayed Release 01/05/2024 Unknown ORAL ONCE A DAY 60 MILLIGRAMS 089361 RxNorm TAKE 60 MILLIGRAMS ORAL ONCE A DAY Meloxicam 15MG Oral Tablet 01/05/2024 08/09/19 25 ORAL ONCE A DAY 15 MILLIGRAMS 245285 RxNorm TAKE 15 MILLIGRAMS ORAL ONCE A DAY MiraLAX 17GM/1Dose Oral Powder for Solution 01/05/2024 Unknown ORAL NEEDED DAILY 1 unit(s) 325791 RxNorm TAKE 1 EACH ORAL NEEDED DAILY Omeprazole 20 MG Oral Tablet, Delayed Release 01/05/2024 Unknown ORAL NEEDED 20 MG RxNorm TAKE 20 MG ORAL NEEDED PARoxetine HCl 20MG Oral Tablet 01/05/2024 Unknown ORAL ONCE A DAY 20 MILLIGRAMS 2629517 RxNorm TAKE 20 MILLIGRAMS ORAL ONCE A DAY risperiDONE 0.5MG Oral Tablet 01/05/2024 Unknown ORAL ONCE A DAY 0.5 MILLIGRAMS 823724 RxNorm TAKE 0.5 MILLIGRAMS ORAL ONCE A DAY traZODone hydrochloride 100MG Oral Tablet 01/05/2024 Unknown ORAL ONCE A DAY 100 MILLIGRAMS 179974 RxNorm TAKE 100 MILLIGRAMS ORAL ONCE A DAY Meloxicam 7.5MG Oral Tablet 08/09/2024 Unknown BY MOUTH ONCE A DAY 1 TABLET 001168 RxNorm TAKE 1 TABLET BY MOUTH ONCE A DAY Xanax 0.5MG Oral Tablet 08/10/2024 Unknown ORAL NEEDED DAILY 0.5 MILLIGRAMS 279933 RxNorm TAKE 0.5 MILLIGRAMS ORAL NEEDED DAILY metFORMIN HCl 500MG Oral Tablet 08/10/2024 Unknown ORAL AT BEDTIME 500 MILLIGRAMS 497600 RxNorm TAKE 500 MILLIGRAMS ORAL AT BEDTIME [...] Status Code Code System HIDRADENITIS SUPPURATIVA active 63123946 SNOMED-CT PAIN IN RIGHT SHOULDER active 2493519 7801418110 SNOMED-CT CARPAL TUNNEL SYNDROME, RIGHT UPPER LIMB active 110985551014673 SNOMED-C T FATTY (CHANGE OF) LIVER, NOT ELSEWHERE CLASSIFIED active 202519589 SNOMED-CT DORSALGIA, UNSPECIFIED active 4336459 05 SNOMED-CT HEADACHE, UNSPECIFIED active 96499863 SNOMED-CT PAIN IN UNSPECIFIED JOINT active 35600658 SNOMED-CT RADICULOPATHY, CERVICAL REGION active 83188734 SNOMED-CT SPINAL STENOSIS, SITE UNSPECIFIED active 45267128 SNOMED-CT OTHER CHRONIC PAIN active 29021043 S NOMED-CT RADICULOPATHY, LUMBAR REGION active 312280995 SNOMED-CT CERVICALGIA active 14414187 SNOMED-C T PAIN IN LEFT KNEE active 995822989300 107 SNOMED-CT Allergies and Adverse Reactions Allergy Substance Reaction Severity Start Date Concern Status Code Code System SULFA (sulfonamide) Rash (SNOMED-CT: 243256524) Active 56016402 SNOMED-CT CEPHALOSPORIN Rash (SNOMED-CT: 404697229) Active 201834153 SNOMED-CT CEPHALEXIN Active 2231 RxNorm AMOXICILLIN Rash (SNOMED-CT: 461711601) Active 723 RxNorm KEFLEX Active 291803 RxNorm ACETAMINOPHEN/CODEI NE #3 Confusion (SNOMED-CT: 457643792) Active 953187 RxNorm Plan of Treatment Follow Up 09/20/2024 Encounters Encounter Diagnosis Start Date Code Code Sys tem Snoring 01/25/2024 85938117 SNFidel[facility]on Systems-CT Personal Care Team Section Performer Name Performer Role Active Date Inactive DOREEN Villagomez PCP - Primary care physician 2024-03-14 Procedures Notes [facility] 01/29/2024 09:52 STUDY TYPE: HOME SLEEP [...] type III, 7 channel portable monitoring device (Compario) with simultaneous recording of nasal flow, respiratory [...] with your physician. Vaughn Blanco MD DIPLOMATE, [employer] BOARD OF SLEEP MEDICINE
--- OUTSIDE RECORDS SUMMARY | 2024-09-08 18:55 | XMS_ITS | Patient Health Summary ---
Author Organization [facility] Address [address] [place] [address] Care Team Providers Care Welt Stitch Cleaner Name Role Phone Maxi Valentin MD Primary Care Provider [phone] Note from [facility],non-owned Affiliates and Associated Physician Practices is amultiple site organization consisting of ambulatory clinics and hospital sitesin [place] and [place]. This disclosure is being madepursuant to the Care Everywhere program and may not contain all information available regarding this patient. Last updated 18.[facility] Social History Tobacco Use Types Packs/Day Years Used Date Smoking Tobacco: Never Assessed Sex and Gender Information Value Date Recorded Sex Assigned at Not on file Gender Identity Not on file Sexual Orientation Not on file Care Teams Welt Stitch Cleaner Relationship Specialty Start Date End Date Maxi Valentin MD [address] [place] [phone] PCP - General 07/06/18
--- OUTSIDE RECORDS SUMMARY | 2024-09-08 18:55 | XMS_ITS | Encounter Summary ---
Author Organization [facility] Address [address] [place] [address]. [place], [place] [address] [place] [address] Care Team Providers Care Business Center Attendant Name Role Phone None, Provider Primary Care Provider Rohan Hart Primary Care Provider [phone] Oleg Lemus MD Primary Care Provider [phone] Encounter Details Date Type Department Care Team (Late st Contact Info) Description 01/13/2019 Abstract SFL CONVERSION [address] [place] [address] , Generic Conversion, Social History Tobacco Use Types Packs/Day Years Used Date Smoking Tobacco: Never Assessed Comments Unknown Sex and Gender Information Value Date Recorded Sex Assigned at Not on file Legal Sex Female 11:02 PM GYM INSTRUCTOR Gender Identity Not on file Sexual Orientation Not on file documented as of this encounter Plan of Treatment Not on file documented as of this encounter Visit Diagnoses Not on filedocumented in this encounter Additional Health Concerns Infection Onset Date Last Indicated Resolved Time COVID-19 Rule Out 05/18/2020 05/18/2020 05/20/2020 3:11 AM CDT COVID-19 Rule Out 07/30/2023 07/30/2023 07/30/2023 6:22 PM GYM INSTRUCTOR Influenza - Seasonal 07/30/2023 07/30/2023 024 12:32 AM GYM INSTRUCTOR documented as of this encounter Care Teams Business Center Attendant Relationship Specialty Start Date End Date None, Provider, PCP - General 03/26/20 05/17/20 Rohan So PA [address] [place] [phone] PCP - General PHYSICIAN BLAST FURNACE KEEPER HELPER 05/18/20 07/29/23 Oleg Lemus MD [address] [place] [phone] PCP - General FAMILY PRACTICE 07/30/23 documented as of this encounter
--- OUTSIDE RECORDS SUMMARY | 2024-09-08 18:55 | XMS_ITS | Referral Summary ---
Author Organization [facility] Address [address] [place] [address] Care Team Providers Care Aircraft Engine Technician Name Role Phone Maxi Valentin MD Primary Care Provider [phone] Source Comments [facility],non-owned Affiliates and Associated Physician Practices is amultiple site organization consisting of ambulatory clinics and hospital sitesin [place], [place], [place] and [place]. This disclosure is being madepursuant to the Care Everywhere program and may not contain all information available regarding this patient. Last updated 18.[facility] Social History Tobacco Use Types Packs/Day Years Used Date Smoking Tobacco: Never Assessed Sex and Gender Information Value Date Recorded Sex Assigned at Not on file Gender Identity Not on file Sexual Orientation Not on file Plan of Treatment Not on file Care Teams Aircraft Engine Technician Relationship Specialty Start Date End Date Maxi Valentin MD [address] [place] [phone] PCP - General 07/06/18
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
[2024-09-08 19:55] VITALS: BP 124/75; PULSE 95; RESP 17; TEMP 36.6; O2SAT 97
--- NOTE | 2024-09-10 13:26 | PC.NURSE ---
PRELIMINARY ANAEROBIC CULTURE RESULTS: MODERATE WHITE BLOOD CELLS SEEN, FEW GRAM POSITIVE COCCI. TO AWAIT C&S PER DR ONEILL.
--- NOTE | 2024-09-11 12:35 | PC.NURSE ---
PRELIMINARY ANAEROBIC CULTURE RESULTS: GRAM POSITIVE COCCI PRELIMINARY AEROBIC CULTURE W/GRAM STAIN: NO GROWTH TO AWAIT C&S PER DR RENDON
--- NOTE | 2024-09-12 15:28 | PC.NURSE ---
right thigh abscess final culture, no growth
== END 2024-09-08 19:55 | disposition home or self-care (01) ==
PROVIDERS: Emergency Provider Internal Medicine Critical Care Medicine; PCP Registered Nurse
DX: L02.415 Cutaneous abscess of right lower limb (principal); Z23 Encounter for immunization
CPT/HCPCS: 10061; 87070; 87075; 87205; 90471; 90715; 96372; 99283; A9270; J1171; J2003

== ENCOUNTER 2024-11-16 08:15 | Outpatient (CLI) | payer OTHER, SELFPAY ==
--- NOTE | ~2024-11-16 | MM_ITS ---
EXAMINATION: MM screening tin BI w maurizio HISTORY: Screening TECHNIQUE: Craniocaudal and mediolateral oblique 3-D tomosynthesis images were obtained and synthetic 2-D images were generated. CAD analysis was submitted and interpreted. COMPARISON: 11/25/2022 BREAST PARENCHYMAL COMPOSITION: Not dense: There are scattered areas of fibroglandular density. FINDINGS: There is no evidence of suspicious mass, calcification, or architectural distortion to sugg est malignancy in either breast. There has been no suspicious interval change. IMPRESSION: 1. No mammographic evidence of malignancy. 2. Recommend routine screening mammography in one year. BI-RADS Category 1: Negative Reviewed, dictated and finalized at location A.
--- OUTSIDE RECORDS SUMMARY | 2024-11-16 08:24 | XMS_ITS | Clinical Summary ---
Author Organization [facility] Address [address] [place] [address] Care Team Providers Care Indexer Name Role Phone Maxi Valentin MD Primary Care Provider [phone] Source Comments [facility],non-owned Affiliates and Associated Physician Practices is amultiple site organization consisting of ambulatory clinics and hospital sitesin [place], [place], [place] and [place]. This disclosure is being madepursuant to the Care Everywhere program and may not contain all information available regarding this patient. Last updated 18.[facility] Social History Tobacco Use Types Packs/Day Years Used Date Smoking Tobacco: Never Assessed Sex and Gender Information Value Date Recorded Sex Assigned at Not on file Gender Identity Not on file Sexual Orientation Not on file Plan of Treatment Health Maintenance Due Date Last Done Comments LIPID TESTING 1985 MAMMOGRAM 1985 PAP SMEAR 1984 HIV SCREENING 10/25/1999 HEPATITIS C SCREENING 10/20/2002 DTAP/TDAP/TD VACCINES (1 - Tdap) 10/25/2003 HEPATITIS B VACCINE (1 of 3 - 19+ 3-dose series) 10/25/2003 COVID-19 VACCINE ( - 2023-2 5 season) 2024 DEPRESSION SCREENING 08/08/2024 INFLUENZA VACCINE (Season Ended) 2025 ZOSTER VACCINE (1 of 2) 2034 HIB VACCINE Aged Out No longer eligi ble based on patient's age to complete this topic HPV VACCINE Aged Out No longer eligi ble based on patient's age to complete this topic MENINGOCOCCAL (Group B) VACC INE SHARED DECISION-MAKING Aged Out No longer eligibl e based on patient's age to complete this topic MENINGOCOCCAL GROUPS A/C/Y/W VACCINE Aged Out No longer eligible b ased on patient's age to complete this topic PNEUMOCOCCAL VACCINE Aged Out No long er eligible based on patient's age to complete this topic Care Teams Indexer Relationship Specialty Start Date End Date Maxi Valentin MD [address] [place] [phone] PCP - General 07/06/18
--- OUTSIDE RECORDS SUMMARY | 2024-11-16 08:24 | XMS_ITS | Encounter Summary ---
Author Organization [facility] Address [facility] [place] [address] Care Team Providers Care Appetizer Packer Name Role Phone None, Provider Primary Care Provider Rohan Hart Primary Care Provider [phone] Oleg Lemus MD Primary Care Provider [phone] Encounter Details Date Type Department Care Team (Late st Contact Info) Description 01/13/2019 Abstract SFL CONVERSION [address] [place] [address] , Generic Conversion, Social History Tobacco Use Types Packs/Day Years Used Date Smoking Tobacco: Never Assessed Comments Unknown Sex and Gender Information Value Date Recorded Sex Assigned at Not on file Legal Sex Female 11:02 PM GEOLOGICAL SCIENCE TEACHER Gender Identity Not on file Sexual Orientation Not on file documented as of this encounter Plan of Treatment Not on file documented as of this encounter Visit Diagnoses Not on filedocumented in this encounter Additional Health Concerns Infection Onset Date Last Indicated Resolved Time COVID-19 Rule Out 05/18/2020 05/18/2020 05/20/2020 3:11 AM CDT COVID-19 Rule Out 07/30/2023 07/30/2023 07/30/2023 6:22 PM GEOLOGICAL SCIENCE TEACHER Influenza - Seasonal 07/30/2023 07/30/2023 024 12:32 AM GEOLOGICAL SCIENCE TEACHER documented as of this encounter Care Teams Appetizer Packer Relationship Specialty Start Date End Date None, Provider, PCP - General 03/26/20 05/17/20 Rohan So PA [address] [place] [phone] PCP - General PHYSICIAN CEMENT WORKER 05/18/20 07/29/23 Oleg Lemus MD [address] [place] [phone] PCP - General FAMILY PRACTICE 07/30/23 documented as of this encounter
--- OUTSIDE RECORDS SUMMARY | 2024-11-16 08:24 | XMS_ITS ---
Author Organization Unknown Address [address] [place] [address] [phone] Phone Care Team Providers Care Prescription Benefit Specialist Name Role Phone JEFFRY WEBER Attending Unavailable JOON Balderrama Primary Unavailable Immunization Immunization Date Status Additional Notes Code Code System Tdap 09/08/2024 Completed 115 CVX Influenza, split virus, quadrivalent, preservative 08/04/2022 Completed 158 C VX Results HIPS LISSETTE 3-4 VIEWS - Complet ed: 08/24/2024 10:17 LOINC: \TM00\12PI\DRAo\BM09\ \MRLo\ [address] [address] ---------NAME--------- NUMBER SEX AGE ADMIT DISC. XRAY# F/C TYPE EMETERIO GUZMÁN [id number] F 38 08/24/24 08/24/24 37083 XB7 O/P DATE OF : 1985 M/R# [id number] PH#: [phone] RM \MRHx\ LOCATION: TRANSCRIBED: 08/24/24 11:06 HIPS LISSETTE 3-4 VIEWS 06733 COMPLETED:08/24/24 10:17 [facility] [id number] {REASON-HIPS: SI JOINT INFLAMATION PHYSICIAN: JEFFRY NUNEZ R A D I O L O G Y R E P O R T EXAM: HIPS LISSETTE 3-4 VIEWS CLINICAL INDICATION: SI JOINT INFLAMATION TECHNIQUE: HIPS LISSETTE 3-4 VIEWS Comparison: None FINDINGS/IMPRESSION: There is no evidence of acute fracture or dislocation. Moderate bilateral hip osteoarthtirits. The alignment is anatomical. There is no radiopaque foreign body. ING CHECKER \ITLo\ \UNDo\ \UNDx\ \ITLx\ Reviewed and Electronically Signed by: Rigo Beatty MD Signed Date: 08/24/24 11:06 08/24/[email or web address].to JOON GOODEN via fax Social History Type Status Start Date End Date Code Code Syst em Smoking History Current every day smoker 452837352 SNOMED CT Sex Female Medications Medication Start Date End Date Route Frequency Dose Code Code System Medication Instructions Home Meds DULoxetine HCl AvPak 30MG Oral Capsule, Delayed Release 01/05/2024 10/22/2024 ORAL ONCE A DAY 30 MILLIGRAMS 887598 RxNorm TAKE 30 MILLIGRAMS ORAL ONCE A DAY DULoxetine HCl AvPak 60MG Oral Capsule, Delayed Release 01/05/2024 Unknown ORAL ONCE A DAY 60 MILLIGRAMS 097066 RxNorm TAKE 60 MILLIGRAMS ORAL ONCE A DAY MiraLAX 17GM/1Dose Oral Powder for Solution 01/05/2024 Unknown ORAL NEEDED DAILY 1 unit(s) 408329 RxNorm TAKE 1 EACH ORAL NEEDED DAILY Omeprazole 20 MG Oral Tablet, Delayed Release 01/05/2024 Unknown ORAL NEEDED 20 MG RxNorm TAKE 20 MG ORAL NEEDED PARoxetine HCl 20MG Oral Tablet 01/05/2024 10/22/2024 ORAL ONCE A DAY 20 MILLIGRAMS 7367407 RxNorm TAKE 20 MILLIGRAMS ORAL ONCE A DAY risperiDONE 0.5MG Oral Tablet 01/05/2024 Unknown ORAL ONCE A DAY 0.5 MILLIGRAMS 037428 RxNorm TAKE 0.5 MILLIGRAMS ORAL ONCE A DAY traZODone hydrochloride 100MG Oral Tablet 01/05/2024 10/22/2024 ORAL ONCE A DAY 100 MILLIGRAMS 745055 RxNorm TAKE 100 MILLIGRAMS ORAL ONCE A DAY Meloxicam 7.5MG Oral Tablet 08/09/2024 10/04/2024 BY MOUTH ONCE A DAY 1 TABLET 907261 RxNorm TAKE 1 TABLET BY MOUTH ONCE A DAY Xanax 0.5MG Oral Tablet 08/10/2024 Unknown ORAL NEEDED DAILY 0.5 MILLIGRAMS 855504 RxNorm TAKE 0.5 MILLIGRAMS ORAL NEEDED DAILY metFORMIN HCl 500MG Oral Tablet 08/10/2024 Unknown ORAL AT BEDTIME 500 MILLIGRAMS 478002 RxNorm TAKE 500 MILLIGRAMS ORAL AT BEDTIME DULoxetine HCl 30MG Oral Capsule, Delayed Release 10/29/2024 Unknown ORAL ONCE A DAY 30 MILLIGRAMS 031558 RxNorm TAKE 30 MILLIGRAMS ORAL ONCE A DAY PARoxetine HCl 40MG Oral Tablet 10/29/2024 Unknown ORAL ONCE A DAY 40 MILLIGRAMS 7464988 RxNorm TAKE 40 MILLIGRAMS ORAL ONCE A DAY traZODone hydrochloride 100MG Oral Tablet 10/29/2024 Unknown ORAL AT BEDTIME 200 MILLIGRAMS 196234 RxNorm TAKE 200 MILLIGRAMS ORAL AT BEDTIME Assessment You had [...] Status Code Code System HIDRADENITIS SUPPURATIVA active 91424617 SNOMED-CT PAIN IN RIGHT SHOULDER active 6927046 7635272847 SNOMED-CT CARPAL TUNNEL SYNDROME, RIGHT UPPER LIMB active 063732372361532 SNOMED-C T FATTY (CHANGE OF) LIVER, NOT ELSEWHERE CLASSIFIED active 809925588 SNOMED-CT DORSALGIA, UNSPECIFIED active 4582890 05 SNOMED-CT HEADACHE, UNSPECIFIED active 86592808 SNOMED-CT PAIN IN UNSPECIFIED JOINT active 76277583 SNOMED-CT RADICULOPATHY, CERVICAL REGION active 51260153 SNOMED-CT SPINAL STENOSIS, SITE UNSPECIFIED active 76008062 SNOMED-CT OTHER CHRONIC PAIN active 99925006 S NOMED-CT RADICULOPATHY, LUMBAR REGION active 336621368 SNOMED-CT CERVICALGIA active 41193426 SNOMED-C T PAIN IN LEFT KNEE active 294371524359 107 SNOMED-CT Allergies and Adverse Reactions Allergy Substance Reaction Severity Start Date Concern Status Code Code System SULFA (sulfonamide) Rash (SNOMED-CT: 936707933) Active 70118630 SNOMED-CT CEPHALOSPORIN Rash (SNOMED-CT: 534309570) Active 578228108 SNOMED-CT CEPHALEXIN Active 2231 RxNorm AMOXICILLIN Rash (SNOMED-CT: 210272395) Active 723 RxNorm KEFLEX Active 882113 RxNorm ACETAMINOPHEN/CODEI NE #3 Confusion (SNOMED-CT: 539175107) Active 282179 RxNorm Plan of Treatment Follow Up 11/12/2024 SI Joint Injection Bilateral 10/29/2024 OR SI Joint Injection 10/29/2024 SI Joint Injection Bilateral 10/29/2024 OR SI Joint Injection 10/29/2024 Encounters Encounter Diagnosis Start Date Code Code Sys tem Bilateral primary osteoarthritis of hip 08/24/2024 SNOMED-CT Personal Care Team Section Performer Name Performer Role Active Date Inactive DOREEN Villagomez PCP - Primary care physician 2024-03-14 Imaging Narrative Notes [facility] 08/24/2024 11:[address] [address] ---------NAME--------- NUMBER SEX AGE ADMIT DISC. XRAY# F/C TYPE EMETERIO GUZMÁN [id number] F 38 08/24/24 08/24/24 70107 XB7 O/P DATE OF : 1985 M/R# [id number] #: [phone] RM LOCATION: TRANSCRIBED: 08/24/24 11:06 HIPS LISSETTE 3-4 VIEWS 21661 COMPLETED:08/24/24 10:17 JDF [id number] {REASON-HIPS: SI JOINT INFLAMATION PHYSICIAN: JEFFRY LOG RADIOLOGY REPORT EXAM: HIPS LISSETTE 3-4 VIEWS CLINICAL INDICATION: SI JOINT INFLAMATION TECHNIQUE: HIPS LISSETTE 3-4 VIEWS Comparison: None FINDINGS/IMPRESSION: There is no evidence of acute fracture or dislocation. Moderate bilateral hip osteoarthtirits. The alignment is anatomical. There is no radiopaque foreign body. ING CHECKER Reviewed and Electronically Signed by: Rigo Beatty MD Signed Date: 08/24/24 11:06 08/24/[email or web address].to [facility] via fax
--- OUTSIDE RECORDS SUMMARY | 2024-11-16 08:24 | XMS_ITS ---
Author Organization Unknown Address [address] [place] [address] [phone] Phone Care Team Providers Care Heel Builder Name Role Phone JEFFRY WEBER Attending Unavailable JOON Balderrama Primary Unavailable Immunization Immunization Date Status Additional Notes Code Code System Tdap 09/08/2024 Completed 115 CVX Influenza, split virus, quadrivalent, preservative 08/04/2022 Completed 158 C VX Social History Type Status Start Date End Date Code Code Syst em Smoking History Current every day smoker 554105343 SNOMED CT Sex Female Vital Signs Vital Sign Value Unit [place] Value [place] Unit Date/Time Recent/Initial? Code Code System Body Mass Index 30.12 kg/m2 10/04/2024 11:06 Initial 18362 -5 [facility] Systolic Blood Pressure 110 mm[Hg] 10/04/2024 11:06 Initial 8480- 6 LOINC Diastolic Blood Pressure 67 mm[Hg] 10/04/2024 11:06 Initial 8462- 4 INC Body Surface Area 1.94 m2 10/04/2024 11:06 Initial 3140- 1 LOINC Height 165.100 0 cm 65.00 in 10/04/2024 11:06 Initial 8302- 2 LOINC O2 Saturation 99 % 2024 11:06 Initial 77701 -5 [facility] Pulse 100.0 /min 10/04/2024 11:06 Initial 8867- 4 LOINC Temperature 36.8 May 98.2 F 10/04/19 11:06 Initial 8310- 5 LOINC Weight 82.10 kg 181.00 lbs 10/04/2024 11:06 Initial 52047 -7 [facility] Medications Medication Start Date End Date Route Frequency Dose Code Code System Medication Instructions Home Meds DULoxetine HCl AvPak 30MG Oral Capsule, Delayed Release 01/05/2024 10/22/2024 ORAL ONCE A DAY 30 MILLIGRAMS 005952 RxNorm TAKE 30 MILLIGRAMS ORAL ONCE A DAY DULoxetine HCl AvPak 60MG Oral Capsule, Delayed Release 01/05/2024 Unknown ORAL ONCE A DAY 60 MILLIGRAMS 485780 RxNorm TAKE 60 MILLIGRAMS ORAL ONCE A DAY MiraLAX 17GM/1Dose Oral Powder for Solution 01/05/2024 Unknown ORAL NEEDED DAILY 1 unit(s) 818606 RxNorm TAKE 1 EACH ORAL NEEDED DAILY Omeprazole 20 MG Oral Tablet, Delayed Release 01/05/2024 Unknown ORAL NEEDED 20 MG RxNorm TAKE 20 MG ORAL NEEDED PARoxetine HCl 20MG Oral Tablet 01/05/2024 10/22/2024 ORAL ONCE A DAY 20 MILLIGRAMS 9375096 RxNorm TAKE 20 MILLIGRAMS ORAL ONCE A DAY risperiDONE 0.5MG Oral Tablet 01/05/2024 Unknown ORAL ONCE A DAY 0.5 MILLIGRAMS 931704 RxNorm TAKE 0.5 MILLIGRAMS ORAL ONCE A DAY traZODone hydrochloride 100MG Oral Tablet 01/05/2024 10/22/2024 ORAL ONCE A DAY 100 MILLIGRAMS 645346 RxNorm TAKE 100 MILLIGRAMS ORAL ONCE A DAY Meloxicam 7.5MG Oral Tablet 08/09/2024 10/04/2024 BY MOUTH ONCE A DAY 1 TABLET 974770 RxNorm TAKE 1 TABLET BY MOUTH ONCE A DAY Xanax 0.5MG Oral Tablet 08/10/2024 Unknown ORAL NEEDED DAILY 0.5 MILLIGRAMS 363217 RxNorm TAKE 0.5 MILLIGRAMS ORAL NEEDED DAILY metFORMIN HCl 500MG Oral Tablet 08/10/2024 Unknown ORAL AT BEDTIME 500 MILLIGRAMS 965309 RxNorm TAKE 500 MILLIGRAMS ORAL AT BEDTIME DULoxetine HCl 30MG Oral Capsule, Delayed Release 10/29/2024 Unknown ORAL ONCE A DAY 30 MILLIGRAMS 487458 RxNorm TAKE 30 MILLIGRAMS ORAL ONCE A DAY PARoxetine HCl 40MG Oral Tablet 10/29/2024 Unknown ORAL ONCE A DAY 40 MILLIGRAMS 6565815 RxNorm TAKE 40 MILLIGRAMS ORAL ONCE A DAY traZODone hydrochloride 100MG Oral Tablet 10/29/2024 Unknown ORAL AT BEDTIME 200 MILLIGRAMS 481389 RxNorm TAKE 200 MILLIGRAMS ORAL AT BEDTIME [...] Status Code Code System HIDRADENITIS SUPPURATIVA active 74031649 SNOMED-CT PAIN IN RIGHT SHOULDER active 8230657 7814788786 SNOMED-CT CARPAL TUNNEL SYNDROME, RIGHT UPPER LIMB active 671750025928193 SNOMED-C T FATTY (CHANGE OF) LIVER, NOT ELSEWHERE CLASSIFIED active 775297960 SNOMED-CT DORSALGIA, UNSPECIFIED active 1508465 05 SNOMED-CT HEADACHE, UNSPECIFIED active 30398268 SNOMED-CT PAIN IN UNSPECIFIED JOINT active 46182021 SNOMED-CT RADICULOPATHY, CERVICAL REGION active 49808902 SNOMED-CT SPINAL STENOSIS, SITE UNSPECIFIED active 07778352 SNOMED-CT OTHER CHRONIC PAIN active 77150466 S NOMED-CT RADICULOPATHY, LUMBAR REGION active 822888013 SNOMED-CT CERVICALGIA active 35406382 SNOMED-C T PAIN IN LEFT KNEE active 890748793099 107 SNOMED-CT Allergies and Adverse Reactions Allergy Substance Reaction Severity Start Date Concern Status Code Code System SULFA (sulfonamide) Rash (SNOMED-CT: 843002400) Active 83231964 SNOMED-CT CEPHALOSPORIN Rash (SNOMED-CT: 979052770) Active 549398285 SNOMED-CT CEPHALEXIN Active 2231 RxNorm AMOXICILLIN Rash (SNOMED-CT: 580072297) Active 723 RxNorm KEFLEX Active 885932 RxNorm ACETAMINOPHEN/CODEI NE #3 Confusion (SNOMED-CT: 090416562) Active 873991 RxNorm Plan of Treatment Follow Up 11/12/2024 SI Joint Injection Bilateral 10/29/2024 OR SI Joint Injection 10/29/2024 SI Joint Injection Bilateral 10/29/2024 OR SI Joint Injection 10/29/2024 Encounters Encounter Diagnosis Start Date Code Code Sys tem Sacrococcygeal disorders, not elsewhere classified SNOMED-CT Personal Care Team Section Performer Name Performer Role Active Date Inactive Da DOREEN Aldridge PCP - Primary care physician 2024-03-14 Progress Notes [facility] 10/04/2024 12:12 All Demographics Patient Name Age Sex Visit Number Admission Date/Time Attending Physician Date of Service Room and Bed Emergency Contact RA STORM 1985 38 years Female [id number] 10/04/2024 11:00 Davidson Varela 10/04/2024 08-OP KAREN STORM - [id number] Pain Management Follow Up Vital Signs: Today Date/Time BP (mm/Hg) BP Position/Site MAP (mm/Hg) Heart Rate Pulse Site Resp Temp (C) Temp (F) SPO2% O2 L/min FiO2 EtCO2 (mm/Hg) O2 Device Blood Sugar Pain Score Height (cm) Height (in) Weight (kg) Weight (lbs/ozs) Scale BMI BSA Head Cir (cm) 10/04/2024 11:06 110/67 Sitting/Left Arm 81 100 Pulse Ox 36.8 Tympanic 98.2 Tympanic 99 % Room Air 21% 7 165.1 cm 65 in 82.1 kg 181.0 Stated 30.12 1.94 Chief Complaint: Low back pain, unspecified History of Present Illness: Patient here today, for pain management follow up related to Physical Therapy, medication management, and SI joint Xray. Location: The pain is located in the back and hips. The pain does not radiate. Quality: Patient rates the pain today, as 7/10 at this time, and at times the pain may be as severe as a 10/10. The pain may be described as aching, and sharp. Duration: constant Timing: Patient reports this pain has been present for 10 years, or more. Alleviating Factors: Pain is relieved by heating pad. Associated Symptoms: Pain is worsened by movement. Pain History: Patient with a history of chronic pain. Patient reports that they have had no recent falls. PHQ-9 Depression Screening Patient condition has declined since last screening Patient condition has improved since last screening No previous Screening Patient Declined Screening X Score has not changed significantly since last visit PHQ-9 Score Assessment: N/A: PHQ-9 not performed/Patient declined 4 0-4: Not an indicator of depression 5-9: Indicates mild depression 10-14: Indicates moderate depression 15-19: Indicates moderately severe depression 20-27: Indicates severe depression Depression Remission Indicated: Yes, previous PHQ-9 score >9 in the past 12 months with current score <5 Previous PHQ-9 score or date is unknown Previous PHQ-9 score is 5 or higher AMY-7 Score Assessment: N/A: AMY-7 not performed/Patient declined 4 0-4: Minimal Anxiety 5-9: Mild Anxiety 10-14: [...] as well as another round of PT. Recommend trial of SI joint injections. Discussed risks and benefits. Patient wishes to proceed. Lumbar Facet Assessment Patient has pain with [...] ended [facility] the [facility] from. Date of appointment: 10/04/24 Discussion: PT has been put on hold due to patient doing aqua therapy and having an open abscess on her leg. Patient is currently on antibiotics for this and it is improving. Patient reports she has a few days of antibiotics left. We discussed electrical stimulation and had a trial of nexwave unit by [facility] today in office. Patient stated this helped with her pain. We will order one of these for her. Patient is very tender over SI joints. We discussed risks and benefits of SI joint injections. Patient wishes to proceed with moderated sedation as she is anxious about needles. We discussed obtaining a copy of her MRI done at [facility] and reviewing this at her follow up from her SI joint injections. Patient would benefit from IFC/NMES to reduce pain, muscle atrophy and spasms, and edema in addition to a multimodal approach for treatment of their condition. This device would decrease their use and exposure to pain medications including opioid based medications. This device is medically necessary and is being prescribed in compliance with multiple medical guidelines, including Official Disability Guidelines (ODG) and [employer] guidelines (ACOEM). Radiology imaging reviewed at appointment: no Radiology: Imaging reviewed with patient Pain Treatment History: Conservative Measures Tried and Failed: Heat, Cold, PT Medications Trialed: NSAIDS, opioids, gabapentin Previous Interventional Pain Procedures: multiple - not helpful Plan Bilateral SI joint injections with sedation Zynex Machine Obtain MRI from [place] Review MRI at follow up Problem List Hidradenitis suppurativa Pain in right shoulder Carpal tunnel syndrome, right upper limb Fatty (change of) liver, not elsewhere classified Dorsalgia, unspecified Headache, unspecified Pain in unspecified joint Radiculopathy, cervical region Spinal stenosis, site unspecified Other chronic pain Radiculopathy, lumbar region Cervicalgia Pain in left knee Surgery List Colonoscopy, Repair of umbilical hernia with mesh, COLSC FLX W/RMVL OF TUMOR POLYP LESION SNARE TQ, 12/15/2018 CYSTOSCOPY, Cervical cancer, Laparoscopy, LOW BACK DISK SURGERY, Tubal ligation, EGD TRANSORAL BIOPSY SINGLE/MULTIPLE, 12/15/2018 PARTIAL HYSTERECTOMY, Smoking Status: Current every day smoker, Cessation Education: Allergy List CEPHALOSPORIN, Medication AMOXICILLIN, Medication Home Meds: Dose and Freq Medication Dosage Frequency PARoxetine HCl 20MG Oral Tablet 20 MILLIGRAMS ONCE A DAY Xanax 0.5MG Oral Tablet 0.5 MILLIGRAMS NEEDED DAILY metFORMIN HCl 500MG Oral Tablet 500 MILLIGRAMS AT BEDTIME Omeprazole 20 MG Oral Tablet, Delayed Release 20 MG NEEDED traZODone hydrochloride 100MG Oral Tablet 100 MILLIGRAMS ONCE A DAY risperiDONE 0.5MG Oral Tablet 0.5 MILLIGRAMS ONCE A DAY DULoxetine HCl AvPak 30MG Oral Capsule, Delayed Release 30 MILLIGRAMS ONCE A DAY MiraLAX 17GM/1Dose Oral Powder for Solution 1 EACH NEEDED DAILY DULoxetine HCl AvPak 60MG Oral Capsule, Delayed Release 60 MILLIGRAMS ONCE A DAY
--- OUTSIDE RECORDS SUMMARY | 2024-11-16 08:24 | XMS_ITS ---
Author Organization Unknown Address [address] [place] [address] [phone] Phone Care Team Providers Care Design Specialist Name Role Phone CODY Ramirez Attending Unavailable KIKO BEAN [employer] METALIZING SUPERVISOR Unavailable JOON Balderrama Primary Unavailable Immunization Immunization Date Status Additional Notes Code Code System Tdap 09/08/2024 Completed 115 CVX Influenza, split virus, quadrivalent, preservative 08/04/2022 Completed 158 C VX Social History Type Status Start Date End Date Code Code Syst em Smoking History Current every day smoker 665824051 SNOMED CT Sex Female Vital Signs Vital Sign Value Unit [place] Value [place] Unit Date/Time Recent/Initial? Code Code System Body Mass Index 29.50 kg/m2 12/20/2023 10:32 Initial 62527 -5 LOINC Systolic Blood Pressure 115 mm[Hg] 01/05/2024 08:57 Initial 8480- 6 LOINC Diastolic Blood Pressure 61 mm[Hg] 01/05/2024 08:57 Initial 8462- 4 LOINC Body Surface Area 1.94 m2 12/20/2023 10:32 Initial 3140- 1 LOINC Height 166.370 0 cm 65.50 in 12/20/2023 10:32 Initial 8302- 2 LOINC O2 Saturation 97 % 2023 08:57 Initial 46290 -5 LOINC Pulse 92.0 /min 01/05/2024 08:57 Initial 8867- 4 LOINC Respiration 16 /min 01/05/20 08:57 Initial 9279- 1 LOINC Temperature 36.2 May 97.1 F 01/05/20 24 08:57 Initial 8310- 5 LOINC Weight 81.65 kg 180.00 lbs 12/20/2023 10:32 Initial 20785 -7 LO[facility] Medications Medication Start Date End Date Route Frequency Dose Code Code System Medication Instructions Home Meds Dicyclomine HCl 10MG Oral Capsule 12/15/2018 01/05/2024 ORAL NEEDED EVERY 12 HOURS 10 MILLIGRAMS 083735 RxNorm TAKE 10 MILLIGRAMS ORAL NEEDED EVERY 12 HOURS DULoxetine HCl AvPak 30MG Oral Capsule, Delayed Release 01/05/2024 10/22/2024 ORAL ONCE A DAY 30 MILLIGRAMS 382678 RxNorm TAKE 30 MILLIGRAMS ORAL ONCE A DAY DULoxetine HCl AvPak 60MG Oral Capsule, Delayed Release 01/05/2024 Unknown ORAL ONCE A DAY 60 MILLIGRAMS 138756 RxNorm TAKE 60 MILLIGRAMS ORAL ONCE A DAY Meloxicam 15MG Oral Tablet 01/05/2024 08/09/2024 ORAL ONCE A DAY 15 MILLIGRAMS 783009 RxNorm TAKE 15 MILLIGRAMS ORAL ONCE A DAY MiraLAX 17GM/1Dose Oral Powder for Solution 01/05/2024 Unknown ORAL NEEDED DAILY 1 unit(s) 376185 RxNorm TAKE 1 EACH ORAL NEEDED DAILY Omeprazole 20 MG Oral Tablet, Delayed Release 01/05/2024 Unknown ORAL NEEDED 20 MG RxNorm TAKE 20 MG ORAL NEEDED PARoxetine HCl 20MG Oral Tablet 01/05/2024 10/22/2024 ORAL ONCE A DAY 20 MILLIGRAMS 7938656 RxNorm TAKE 20 MILLIGRAMS ORAL ONCE A DAY risperiDONE 0.5MG Oral Tablet 01/05/2024 Unknown ORAL ONCE A DAY 0.5 MILLIGRAMS 008404 RxNorm TAKE 0.5 MILLIGRAMS ORAL ONCE A DAY traZODone hydrochloride 100MG Oral Tablet 01/05/2024 10/22/2024 ORAL ONCE A DAY 100 MILLIGRAMS 670203 RxNorm TAKE 100 MILLIGRAMS ORAL ONCE A DAY Meloxicam 7.5MG Oral Tablet 08/09/2024 10/04/2024 BY MOUTH ONCE A DAY 1 TABLET 846390 RxNorm TAKE 1 TABLET BY MOUTH ONCE A DAY Xanax 0.5MG Oral Tablet 08/10/2024 Unknown ORAL NEEDED DAILY 0.5 MILLIGRAMS 572014 RxNorm TAKE 0.5 MILLIGRAMS ORAL NEEDED DAILY metFORMIN HCl 500MG Oral Tablet 08/10/2024 Unknown ORAL AT BEDTIME 500 MILLIGRAMS 894944 RxNorm TAKE 500 MILLIGRAMS ORAL AT BEDTIME DULoxetine HCl 30MG Oral Capsule, Delayed Release 10/29/2024 Unknown ORAL ONCE A DAY 30 MILLIGRAMS 546884 RxNorm TAKE 30 MILLIGRAMS ORAL ONCE A DAY PARoxetine HCl 40MG Oral Tablet 10/29/2024 Unknown ORAL ONCE A DAY 40 MILLIGRAMS 4663090 RxNorm TAKE 40 MILLIGRAMS ORAL ONCE A DAY traZODone hydrochloride 100MG Oral Tablet 10/29/2024 Unknown ORAL AT BEDTIME 200 MILLIGRAMS 839085 RxNorm TAKE 200 MILLIGRAMS ORAL AT BEDTIME [...] with biopsy, single or multiple 01/05/2024 completed 28877 CPT Anesthesia for combined uppe r and lower gastrointestinal endoscopic proced 01/05/2024 completed 60534 CPT Esophagogastroduodenoscopy, flexible, transoral; diagnostic, including col 01/05/2024 completed 46844 CPT Problems Problem Start Date Resolved Date Status Code Code System HIDRADENITIS SUPPURATIVA active 45594753 SNOMED-CT PAIN IN RIGHT SHOULDER active 0471606 3044951351 SNOMED-CT CARPAL TUNNEL SYNDROME, RIGHT UPPER LIMB active 812775179815843 SNOMED-C T FATTY (CHANGE OF) LIVER, NOT ELSEWHERE CLASSIFIED active 135573734 SNOMED-CT DORSALGIA, UNSPECIFIED active 9643748 05 SNOMED-CT HEADACHE, UNSPECIFIED active 98607589 SNOMED-CT PAIN IN UNSPECIFIED JOINT active 72804194 SNOMED-CT RADICULOPATHY, CERVICAL REGION active 26027315 SNOMED-CT SPINAL STENOSIS, SITE UNSPECIFIED active 91118095 SNOMED-CT OTHER CHRONIC PAIN active 61031170 S NOMED-CT RADICULOPATHY, LUMBAR REGION active 899619326 SNOMED-CT CERVICALGIA active 97574018 SNOMED-C T PAIN IN LEFT KNEE active 064882687603 107 SNOMED-CT Allergies and Adverse Reactions Allergy Substance Reaction Severity Start Date Concern Status Code Code System SULFA (sulfonamide) Rash (SNOMED-CT: 971694172) Active 78480131 SNOMED-CT CEPHALOSPORIN Rash (SNOMED-CT: 025841204) Active 993092140 SNOMED-CT CEPHALEXIN Active 2231 RxNorm AMOXICILLIN Rash (SNOMED-CT: 287412497) Active 723 RxNorm KEFLEX Active 379641 RxNorm ACETAMINOPHEN/CODEI NE #3 Confusion (SNOMED-CT: 924563517) Active 204481 RxNorm Plan of Treatment Follow Up 11/12/2024 [...]
--- OUTSIDE RECORDS SUMMARY | 2024-11-16 08:24 | XMS_ITS ---
Author Organization Unknown Address [address] [place] [address] [phone] Phone Care Team Providers Care Farm Boss Name Role Phone JEFFRY WEBER Attending Unavailable JOON Balderrama Primary Unavailable Immunization Immunization Date Status Additional Notes Code Code System Tdap 09/08/2024 Completed 115 CVX Influenza, split virus, quadrivalent, preservative 08/04/2022 Completed 158 C VX Social History Type Status Start Date End Date Code Code Syst em Smoking History Current every day smoker 702324860 SNOMED CT Sex Female Vital Signs Vital Sign Value Unit [place] Value [place] Unit Date/Time Recent/Initial? Code Code System Body Mass Index 30.45 kg/m2 10/29/2024 13:36 Most Recent 98947 -5 LOINC Body Mass Index 30.45 kg/m2 10/22/2024 10:59 Initial 84360 -5 LOINC Systolic Blood Pressure 110 mm[Hg] 10/29/2024 13:36 Initial 8480- 6 LOINC Diastolic Blood Pressure 73 mm[Hg] 10/29/2024 13:36 Initial 8462- 4 LOINC Body Surface Area 1.95 m2 10/29/2024 13:36 Most Recent 3140- 1 LOINC Body Surface Area 1.95 m2 10/22/2024 10:59 Initial 3140- 1 LOINC Height 165.100 0 cm 65.00 in 10/29/2024 13:36 Most Recent 8302- 2 LOINC Height 165.100 0 cm 65.00 in 10/22/2024 10:59 Initial 8302- 2 LOINC O2 Saturation 97 % 2024 13:36 Initial 74004 -5 LOINC Pulse 92.0 /min 10/29/2024 13:36 Initial 8867- 4 LOINC Respiration 16 /min 10/30/19 13:36 Initial 9279- 1 LOINC Temperature 36.2 May 97.1 F 10/30/19 13:36 Initial 8310- 5 LOINC Weight 83.01 kg 183.00 lbs 10/29/2024 13:36 Most Recent 22108 -7 LOINC Weight 83.01 kg 183.00 lbs 10/22/2024 10:59 Initial 13938 -7 [facility] Medications Medication Start Date End Date Route Frequency Dose Code Code System Medication Instructions Home Meds DULoxetine HCl AvPak 60MG Oral Capsule, Delayed Release 01/05/2024 Unknown ORAL ONCE A DAY 60 MILLIGRAMS 837803 RxNorm TAKE 60 MILLIGRAMS ORAL ONCE A DAY MiraLAX 17GM/1Dose Oral Powder for Solution 01/05/2024 Unknown ORAL NEEDED DAILY 1 unit(s) 557848 RxNorm TAKE 1 EACH ORAL NEEDED DAILY Omeprazole 20 MG Oral Tablet, Delayed Release 01/05/2024 Unknown ORAL NEEDED 20 MG RxNorm DORIE E 20 MG ORAL NEEDED risperiDONE 0.5MG Oral Tablet 01/05/2024 Unknown ORAL ONCE A DAY 0.5 MILLIGRAMS 147935 RxNorm TAKE 0.5 MILLIGRAMS ORAL ONCE A DAY Xanax 0.5MG Oral Tablet 08/10/2024 Unknown ORAL NEEDED DAILY 0.5 MILLIGRAMS 885759 RxNorm TAKE 0.5 MILLIGRAMS ORAL NEEDED DAILY metFORMIN HCl 500MG Oral Tablet 08/10/2024 Unknown ORAL AT BEDTIME 500 MILLIGRAMS 402028 RxNorm TAKE 500 MILLIGRAMS ORAL AT BEDTIME DULoxetine HCl 30MG Oral Capsule, Delayed Release 10/29/2024 Unknown ORAL ONCE A DAY 30 MILLIGRAMS 170814 RxNorm TAKE 30 MILLIGRAMS ORAL ONCE A DAY PARoxetine HCl 40MG Oral Tablet 10/29/2024 Unknown ORAL ONCE A DAY 40 MILLIGRAMS 5452536 RxNorm TAKE 40 MILLIGRAMS ORAL ONCE A DAY traZODone hydrochloride 100MG Oral Tablet 10/29/2024 Unknown ORAL AT BEDTIME 200 MILLIGRAMS 094091 RxNorm TAKE 200 MILLIGRAMS ORAL AT BEDTIME [...] Name Date Status Code Code Syste m INJECT SI JOINT ARTHRGRPHY&/ ANES/STEROID W/ANKITA; (-LT Left side of body) 10/29/2024 completed 09900 C PT INJECT SI JOINT ARTHRGRPHY&/ ANES/STEROID W/ANKITA; (-RT Right side of body) 10/29/2024 completed 41565 CPT Problems Problem Start Date Resolved Date Status Code Code System HIDRADENITIS SUPPURATIVA active 25276973 SNOMED-CT PAIN IN RIGHT SHOULDER active 8713724 2609874662 SNOMED-CT CARPAL TUNNEL SYNDROME, RIGHT UPPER LIMB active 585955818189358 SNOMED-C T FATTY (CHANGE OF) LIVER, NOT ELSEWHERE CLASSIFIED active 075688254 SNOMED-CT DORSALGIA, UNSPECIFIED active 6442757 05 SNOMED-CT HEADACHE, UNSPECIFIED active 38370332 SNOMED-CT PAIN IN UNSPECIFIED JOINT active 32148620 SNOMED-CT RADICULOPATHY, CERVICAL REGION active 10790224 SNOMED-CT SPINAL STENOSIS, SITE UNSPECIFIED active 23927073 SNOMED-CT OTHER CHRONIC PAIN active 32539813 S NOMED-CT RADICULOPATHY, LUMBAR REGION active 693462629 SNOMED-CT CERVICALGIA active 96472096 SNOMED-C T PAIN IN LEFT KNEE active 799568673713 107 SNOMED-CT Allergies and Adverse Reactions Allergy Substance Reaction Severity Start Date Concern Status Code Code System SULFA (sulfonamide) Rash (SNOMED-CT: 732148918) Active 24823355 SNOMED-CT CEPHALOSPORIN Rash (SNOMED-CT: 726557984) Active 949700510 SNOMED-CT CEPHALEXIN Active 2231 RxNorm AMOXICILLIN Rash (SNOMED-CT: 680837398) Active 723 RxNorm KEFLEX Active 009926 RxNorm ACETAMINOPHEN/CODEI NE #3 Confusion (SNOMED-CT: 284629319) Active 408020 RxNorm Plan of Treatment Follow Up 11/12/2024 SI Joint Injection Bilateral 10/29/2024 OR SI Joint Injection 10/29/2024 SI Joint Injection Bilateral 10/29/2024 OR SI Joint Injection 10/29/2024 Encounters Encounter Diagnosis Start Date Code Code Sys tem Sacroiliitis, not elsewhere classified 10/29/2024 SNOMED-CT Personal Care Team Section Performer Name Performer Role Active Date Inactive DOREEN Villagomez PCP - Primary care physician 2024-03-14 Procedures Notes [facility] 10/29/2024 14:25 All Demographics Patient Name Age Sex Visit Number Admission Date/Time Attending Physician Date of Service Room and Bed Emergency Contact RA STORM 1985 39 years Female [id number] 10/29/2024 13:21 Davidson Varela 10/29/2024 SDS-7 EMETERIOKAREN ARACELIS - [id number] Pain Management Procedural Note I had an extensive discussion with the patient. We once again discussed the risks, benefits and alternatives to this procedure. I discussed the operative and postoperative course in detail. I discussed potential complications that we may encounter. The patient is electing to undergo this procedure. No guarantees were given or implied. I reviewed the history and physical, examined the patient this morning, no changes. Home Meds: Dose and Freq Medication Dosage Frequency metFORMIN HCl 500MG Oral Tablet 500 MILLIGRAMS AT BEDTIME Omeprazole 20 MG Oral Tablet, Delayed Release 20 MG NEEDED risperiDONE 0.5MG Oral Tablet 0.5 MILLIGRAMS ONCE A DAY Xanax 0.5MG Oral Tablet 0.5 MILLIGRAMS NEEDED DAILY MiraLAX 17GM/1Dose Oral Powder for Solution 1 EACH NEEDED DAILY DULoxetine HCl 30MG Oral Capsule, Delayed Release 30 MILLIGRAMS ONCE A DAY DULoxetine HCl AvPak 60MG Oral Capsule, Delayed Release 60 MILLIGRAMS ONCE A DAY PARoxetine HCl 40MG Oral Tablet 40 MILLIGRAMS ONCE A DAY traZODone hydrochloride 100MG Oral Tablet 200 MILLIGRAMS AT BEDTIME Bilateral Sacroiliac Joint Steroid Injection Provider: Davidson Varela CRNA NSPM-C Pre-Operative Diagnosis: M46.1-Inflammation of Sacroiliac Joint Sacroiliac Joint Injection-15993 Post-Operative Diagnosis: Same Location of Procedure: [ ] Clinic [ X ] OR Complications: None Description of procedure in detail: The patient was placed in the prone position. The skin was prepped in the usual sterile fashion with chlorhexidine and maximum barrier technique. A 27-gauge needle was used to anesthetize the skin with 2ml 2% Lidocaine. A 22-gauge 3.5-inch spinal needle was advanced into the posteroinferior aspect of the [right] SI joint under direct fluoroscopic visualization. After confirmation of the intra-articular position of the needle tip with injection pf 0.5ml of Omnipaque 240 contrast medium, a mixture of 0.5ml of Kenalog (40mg/ml) and 2.5ml of Ropivicaine (0.5%) was injected. The same steps were repeated on the [left] side. The patient tolerated the procedure well. Follow-up will be within 2 weeks. The patient was sedated with 2mg IV versed. EBL: Minimal Provider Signature: KOREY Villa-C
--- OUTSIDE RECORDS SUMMARY | 2024-11-16 08:24 | XMS_ITS | Clinical Summary ---
Author Organization [facility] Address [facility] [place] [address] Care Team Providers Care Rehab Manager Name Role Phone Oleg Lemus MD Primary Care Provider Allergies Active Allergy Reactions Criticality Noted Date [...] on file Legal Sex Female 11:02 PM ACCIDENT INVESTIGATOR Gender Identity Not on file Sexual Orientation Not on file Last Filed Vital Signs Vital Sign Reading Time Taken Comments Blood Pressure 128/79 12/01/2023 4:50 PM CDT Pulse 103 12/01/2023 1:06 PM CDT Temperature 36.6 C (97.8 F) 12/01/2023 1:06 PM CDT Respiratory Rate 15 12/01/2023 1:06 PM CDT [...] - 19+ 3-dose series) 10/25/2003 COVID-19 Vaccine (2023-2 5 season) 2024 Mammogram Screening 07/13/2025 07/13/2023 HPV Vaccines Aged Out No longer eligi [...] on patient's age to complete this topic Procedures Procedure Name Priority Date/Time Associated Diagnosis Comments MG DIAG W BOLA BILAT DIGI Routine 07/13/2023 10:54 AM ACCIDENT INVESTIGATOR Nipple discharge in female from Last 3 Months or Most Recently Relevant to Health Maintenance Results * MG DIAG W BOLA BILAT DIGI (07/13/2023 10:54 AM ACCIDENT INVESTIGATOR) Anatomical Region Laterality Modality Breast Bilateral Mammography, Rad iographic Imaging 07/13/2023 11:3 4 AM ACCIDENT INVESTIGATOR Narrative 07/13/2023 12:02 PM ACCIDENT INVESTIGATOR Examination: Bilateral diagnostic mammogram with 3-D tomosynthesis and ultrasound. [id number] Exam Date/Time: 07/13/2023 10:29 AM Reason For Exam: Chronic intermittent nipple discharge. Discharge with clear to slightly milky character. Comparison: Mammograms 11/25/2022, breast ultrasound 11/29/2022 Technique: Bilateral digital diagnostic mammography with 3-D tomosynthesis and ultrasound was performed. This study was read with the assistance of a computer-aided detection system. Bilateral breast ultrasound. TISSUE DENSITY: There are scattered areas of fibroglandular density. FINDINGS: Bilateral diagnostic mammogram: Small benign-appearing probable intramammary lymph nodes noted in the posterior lateral aspect of both breasts unchanged. No suspicious masses, malignant appearing calcifications, skin thickening or other abnormalities are present. No significant change from the prior exam. Bilateral breast ultrasound: Images demonstrate normal fat and glandular tissue in the retroareolar region bilaterally with no significant ductal dilatation. There is no evidence of retroareolar cyst or mass. No sharp acoustic shadowing. =====IMPRESSION:===== No mammographic findings suggestive of malignancy. Assessment: ACR BI-RADS 2 - BENIGN FINDING(S) Recommendation: 1Routine Screening Bilateral Ordered By: ROHAN BREWER Interpreted By: Tyrone Fontana MD, 07/13/2023 11:34 AM Rohan Brewer MA MAMMO Final Result from Last 3 Months or Most Recently Relevant to Health Maintenance Insurance [facility] C/O [employer]ER [employer] [id number] Care Teams Rehab Manager Relationship Specialty Start Date End Date Oleg Lemus MD [address] [place] [phone] PCP - General FAMILY PRACTICE 07/30/23
--- OUTSIDE RECORDS SUMMARY | 2024-11-16 08:25 | XMS_ITS ---
Author Organization Unknown Address [address] [place] [address] [phone] Phone Care Team Providers Care Case Briefer Name Role Phone JEFFRY WEBER Attending Unavailable JOON Balderrama Primary Unavailable Immunization Immunization Date Status Additional Notes Code Code System Tdap 09/08/2024 Completed 115 CVX Influenza, split virus, quadrivalent, preservative 08/04/2022 Completed 158 C VX Social History Type Status Start Date End Date Code Code Syst em Smoking History Current every day smoker 897617980 SNOMED CT Sex Female Vital Signs Vital Sign Value Unit Cheshire Value [place]hire Unit Date/Time Recent/Initial? Code Code System Body Mass Index 39.99 kg/m2 11/12/2024 10:22 Initial 05431 -5 [facility] Systolic Blood Pressure 122 mm[Hg] 11/12/2024 10:22 Initial 8480- 6 LOINC Diastolic Blood Pressure 79 mm[Hg] 11/12/2024 10:22 Initial 8462- 4 [facility] Body Surface Area 2.18 m2 11/12/2024 10:22 Initial 3140- 1 LOINC Height 162.560 0 cm 64.00 in 11/12/2024 10:22 Initial 8302- 2 LOINC O2 Saturation 98 % 2024 10:22 Initial 09481 -5 [facility] Pulse 96.0 /min 11/12/2024 10:22 Initial 8867- 4 LOINC Temperature 36.8 May 98.2 F 11/13/19 10:22 Initial 8310- 5 LOINC Weight 105.69 kg 233.00 lbs 11/12/2024 10:22 Initial 78275 -7 [facility] Medications Medication Start Date End Date Route Frequency Dose Code Code System Medication Instructions Home Meds DULoxetine HCl AvPak 60MG Oral Capsule, Delayed Release 01/05/2024 Unknown ORAL ONCE A DAY 60 MILLIGRAMS 834598 RxNorm TAKE 60 MILLIGRAMS ORAL ONCE A DAY MiraLAX 17GM/1Dose Oral Powder for Solution 01/05/2024 Unknown ORAL NEEDED DAILY 1 unit(s) 937054 RxNorm TAKE 1 EACH ORAL NEEDED DAILY Omeprazole 20 MG Oral Tablet, Delayed Release 01/05/2024 Unknown ORAL NEEDED 20 MG RxNorm DORIE E 20 MG ORAL NEEDED risperiDONE 0.5MG Oral Tablet 01/05/2024 Unknown ORAL ONCE A DAY 0.5 MILLIGRAMS 925605 RxNorm TAKE 0.5 MILLIGRAMS ORAL ONCE A DAY Xanax 0.5MG Oral Tablet 08/10/2024 Unknown ORAL NEEDED DAILY 0.5 MILLIGRAMS 801614 RxNorm TAKE 0.5 MILLIGRAMS ORAL NEEDED DAILY metFORMIN HCl 500MG Oral Tablet 08/10/2024 Unknown ORAL AT BEDTIME 500 MILLIGRAMS 679431 RxNorm TAKE 500 MILLIGRAMS ORAL AT BEDTIME DULoxetine HCl 30MG Oral Capsule, Delayed Release 10/29/2024 Unknown ORAL ONCE A DAY 30 MILLIGRAMS 409567 RxNorm TAKE 30 MILLIGRAMS ORAL ONCE A DAY PARoxetine HCl 40MG Oral Tablet 10/29/2024 Unknown ORAL ONCE A DAY 40 MILLIGRAMS 5005423 RxNorm TAKE 40 MILLIGRAMS ORAL ONCE A DAY traZODone hydrochloride 100MG Oral Tablet 10/29/2024 Unknown ORAL AT BEDTIME 200 MILLIGRAMS 288344 RxNorm TAKE 200 MILLIGRAMS ORAL AT BEDTIME [...] Status Code Code System HIDRADENITIS SUPPURATIVA active 45662989 SNOMED-CT PAIN IN RIGHT SHOULDER active 7898536 8345136325 SNOMED-CT CARPAL TUNNEL SYNDROME, RIGHT UPPER LIMB active 859160118906741 SNOMED-C T FATTY (CHANGE OF) LIVER, NOT ELSEWHERE CLASSIFIED active 731866293 SNOMED-CT DORSALGIA, UNSPECIFIED active 6172100 05 SNOMED-CT HEADACHE, UNSPECIFIED active 99754863 SNOMED-CT PAIN IN UNSPECIFIED JOINT active 68142363 SNOMED-CT RADICULOPATHY, CERVICAL REGION active 31254814 SNOMED-CT SPINAL STENOSIS, SITE UNSPECIFIED active 91415456 SNOMED-CT OTHER CHRONIC PAIN active 23415850 S NOMED-CT RADICULOPATHY, LUMBAR REGION active 974320287 SNOMED-CT CERVICALGIA active 46148410 SNOMED-C T PAIN IN LEFT KNEE active 087919174517 107 SNOMED-CT Allergies and Adverse Reactions Allergy Substance Reaction Severity Start Date Concern Status Code Code System SULFA (sulfonamide) Rash (SNOMED-CT: 730011630) Active 71333842 SNOMED-CT CEPHALOSPORIN Rash (SNOMED-CT: 077368497) Active 326694276 SNOMED-CT CEPHALEXIN Active 2231 RxNorm AMOXICILLIN Rash (SNOMED-CT: 334894138) Active 723 RxNorm KEFLEX Active 323672 RxNorm ACETAMINOPHEN/CODEI NE #3 Confusion (SNOMED-CT: 703851292) Active 177875 RxNorm Plan of Treatment Follow Up 11/12/2024 SI Joint Injection Bilateral 10/29/2024 OR SI Joint Injection 10/29/2024 SI Joint Injection Bilateral 10/29/2024 OR SI Joint Injection 10/29/2024 Personal Care Team Section Performer Name Performer Role Active Date Inactive DOREEN Villagomez PCP - Primary care physician 2024-03-14 Progress Notes [facility] 11/12/2024 10:46 All Demographics Patient Name Age Sex Visit Number Admission Date/Time Attending Physician Date of Service Room and Bed Emergency Contact RA STORM 1985 39 years Female [id number] 11/12/2024 10:14 Davidson Varela 11/12/2024 05-OP KAREN STORM - [id number] Pain Management Follow Up Vital Signs: Today Date/Time BP (mm/Hg) BP Position/Site MAP (mm/Hg) Heart Rate Pulse Site Resp Temp (C) Temp (F) SPO2% O2 L/min FiO2 EtCO2 (mm/Hg) O2 Device Blood Sugar Pain Score Height (cm) Height (in) Weight (kg) Weight (lbs/ozs) Scale BMI BSA Head Cir (cm) 11/12/2024 10:22 122/79 Sitting/Left Arm 93 96 Pulse Ox 36.8 Tympanic 98.2 Tympanic 98 % Room Air 21% 5 162.6 cm 64 in 105.69 kg 233.0 Stated 39.99 2.18 Chief Complaint: SI joint inflammation History of Present Illness: Bilateral hips Patient here today, for pain management follow up for medication checkup and SI Joint Injection. Location: The pain is located in the back and bilateral hips. Pulling at the pelvic. The pain does not radiate. Quality: Patient rates the pain today, as 7/10 at this time, and at times the pain may be as severe as a 10/10. The pain may be described as aching, sharp, pulling, burning, and shearing. Duration: constant Timing: Patient reports this pain has been present for 10 years, or more. Alleviating Factors: Pain is relieved by heating pad. Associated Symptoms: Pain is worsened by movement and stairs. Pain History: Patient with a history of [...] declined 0-4: Not an indicator of depression 8 5-9: Indicates mild depression 10-14: Indicates moderate depression 15-19: Indicates moderately severe depression 20-27: Indicates severe depression Depression Remission Indicated: Yes, previous PHQ-9 score >9 in the past 12 months with current score <5 Previous PHQ-9 score or date is unknown X Previous PHQ-9 score is 5 or higher AMY-7 Score Assessment: N/A: AMY-7 not performed/Patient declined 0-4: Minimal Anxiety 9 5-9: Mild Anxiety 10-14: Moderate Anxiety 15-21: [...] rays of SI joints in the past. Patient reports 80% relief initially in now at approximately 60% relief 2 weeks after injections. Patient reports improved activities of daily living. Patient reports continued pain that is worse on the lower right back than on the left. Lumbar Facet Assessment Patient has pain with [...] [facility] Date of appointment: 11/12/24 Discussion: Patient reports 80% relief of bilateral SI joint injections initially. Since then the pain has slowly returned. She states she has had about 60% now 2 weeks after injections. She states that is hard to provide percentages for this. She does state that she has increased activity and functionality. Patient has remaining pain that is worse on the right side in her lower back. This is consistent with facet agenic pain. We discussed diagnostic medial branch blocks as an option for her should she need them in the future. Patient wishes to see how long her SI joint injections provide her relief before pursuing other options. Will follow-up in 6 to 8 weeks to reassess. Radiology imaging reviewed at appointment: Reviewed MRI from July 2022. MRI shows facet arthritis at L3-S1. Patient has symptoms that match this on assessment. Radiology: Imaging reviewed with patient Pain Treatment History: Conservative Measures Tried and Failed: Heat, Cold, PT Medications Trialed: NSAIDS, opioids, gabapentin Previous Interventional Pain Procedures: multiple - not helpful Plan Follow-up in 6 to 8 weeks - Consider diagnostic medial branch blocks/RFA - Consider repeating SI joint injections Problem List Hidradenitis suppurativa Pain in [...] Freq Medication Dosage Frequency DULoxetine HCl AvPak 60MG Oral Capsule, Delayed Release 60 MILLIGRAMS ONCE A DAY MiraLAX 17GM/1Dose Oral Powder for Solution 1 EACH NEEDED DAILY Omeprazole 20 MG Oral Tablet, Delayed Release 20 MG NEEDED risperiDONE 0.5MG Oral Tablet 0.5 MILLIGRAMS ONCE A DAY Xanax 0.5MG Oral Tablet 0.5 MILLIGRAMS NEEDED DAILY metFORMIN HCl 500MG Oral Tablet 500 MILLIGRAMS AT BEDTIME DULoxetine HCl 30MG Oral Capsule, Delayed Release 30 MILLIGRAMS ONCE A DAY PARoxetine HCl 40MG Oral Tablet 40 MILLIGRAMS ONCE A DAY traZODone hydrochloride 100MG Oral Tablet 200 MILLIGRAMS AT BEDTIME
--- OUTSIDE RECORDS SUMMARY | 2024-11-16 08:25 | XMS_ITS ---
Author Organization Unknown Address [address] [place] [phone] Phone Care Team Providers Care Pesticide Control Inspector Name Role Phone NIHARIKA MAGDALENO Attending Unavailable JOON Balderrama Primary Unavailable Immunization Immunization Date Status Additional Notes Code Code System Tdap 09/08/2024 Completed 115 CVX Influenza, split virus, quadrivalent, preservative 08/04/2022 Completed 158 C VX Social History Type Status Start Date End Date Code Code Syst em Smoking History Current every day smoker 195219971 SNOMED CT Sex Female Medications Medication Start Date End Date Route Frequency Dose Code Code System Medication Instructions Home Meds DULoxetine HCl AvPak 30MG Oral Capsule, Delayed Release 01/05/2024 10/22/2024 ORAL ONCE A DAY 30 MILLIGRAMS 338529 RxNorm TAKE 30 MILLIGRAMS ORAL ONCE A DAY DULoxetine HCl AvPak 60MG Oral Capsule, Delayed Release 01/05/2024 Unknown ORAL ONCE A DAY 60 MILLIGRAMS 023880 RxNorm TAKE 60 MILLIGRAMS ORAL ONCE A DAY Meloxicam 15MG Oral Tablet 01/05/2024 08/09/2024 ORAL ONCE A DAY 15 MILLIGRAMS 086868 RxNorm TAKE 15 MILLIGRAMS ORAL ONCE A DAY MiraLAX 17GM/1Dose Oral Powder for Solution 01/05/2024 Unknown ORAL NEEDED DAILY 1 unit(s) 218624 RxNorm TAKE 1 EACH ORAL NEEDED DAILY Omeprazole 20 MG Oral Tablet, Delayed Release 01/05/2024 Unknown ORAL NEEDED 20 MG RxNorm TAKE 20 MG ORAL NEEDED PARoxetine HCl 20MG Oral Tablet 01/05/2024 10/22/2024 ORAL ONCE A DAY 20 MILLIGRAMS 7331521 RxNorm TAKE 20 MILLIGRAMS ORAL ONCE A DAY risperiDONE 0.5MG Oral Tablet 01/05/2024 Unknown ORAL ONCE A DAY 0.5 MILLIGRAMS 361184 RxNorm TAKE 0.5 MILLIGRAMS ORAL ONCE A DAY traZODone hydrochloride 100MG Oral Tablet 01/05/2024 10/22/2024 ORAL ONCE A DAY 100 MILLIGRAMS 981405 RxNorm TAKE 100 MILLIGRAMS ORAL ONCE A DAY Meloxicam 7.5MG Oral Tablet 08/09/2024 10/04/2024 BY MOUTH ONCE A DAY 1 TABLET 274993 RxNorm TAKE 1 TABLET BY MOUTH ONCE A DAY Xanax 0.5MG Oral Tablet 08/10/2024 Unknown ORAL NEEDED DAILY 0.5 MILLIGRAMS 428976 RxNorm TAKE 0.5 MILLIGRAMS ORAL NEEDED DAILY metFORMIN HCl 500MG Oral Tablet 08/10/2024 Unknown ORAL AT BEDTIME 500 MILLIGRAMS 072461 RxNorm TAKE 500 MILLIGRAMS ORAL AT BEDTIME DULoxetine HCl 30MG Oral Capsule, Delayed Release 10/29/2024 Unknown ORAL ONCE A DAY 30 MILLIGRAMS 973861 RxNorm TAKE 30 MILLIGRAMS ORAL ONCE A DAY PARoxetine HCl 40MG Oral Tablet 10/29/2024 Unknown ORAL ONCE A DAY 40 MILLIGRAMS 9595515 RxNorm TAKE 40 MILLIGRAMS ORAL ONCE A DAY traZODone hydrochloride 100MG Oral Tablet 10/29/2024 Unknown ORAL AT BEDTIME 200 MILLIGRAMS 092355 RxNorm TAKE 200 MILLIGRAMS ORAL AT BEDTIME [...] Status Code Code System HIDRADENITIS SUPPURATIVA active 88524606 SNOMED-CT PAIN IN RIGHT SHOULDER active 3606280 3376863253 SNOMED-CT CARPAL TUNNEL SYNDROME, RIGHT UPPER LIMB active 266160735049633 SNOMED-C T FATTY (CHANGE OF) LIVER, NOT ELSEWHERE CLASSIFIED active 889728411 SNOMED-CT DORSALGIA, UNSPECIFIED active 0446516 05 SNOMED-CT HEADACHE, UNSPECIFIED active 50777998 SNOMED-CT PAIN IN UNSPECIFIED JOINT active 27070843 SNOMED-CT RADICULOPATHY, CERVICAL REGION active 74505667 SNOMED-CT SPINAL STENOSIS, SITE UNSPECIFIED active 62586757 SNOMED-CT OTHER CHRONIC PAIN active 29118979 S NOMED-CT RADICULOPATHY, LUMBAR REGION active 734756440 SNOMED-CT CERVICALGIA active 22864596 SNOMED-C T PAIN IN LEFT KNEE active 858499797262 107 SNOMED-CT Allergies and Adverse Reactions Allergy Substance Reaction Severity Start Date Concern Status Code Code System SULFA (sulfonamide) Rash (SNOMED-CT: 564966316) Active 73733377 SNOMED-CT CEPHALOSPORIN Rash (SNOMED-CT: 878839839) Active 131438420 SNOMED-CT CEPHALEXIN Active 2231 RxNorm AMOXICILLIN Rash (SNOMED-CT: 976915160) Active 723 RxNorm KEFLEX Active 519254 RxNorm ACETAMINOPHEN/CODEI NE #3 Confusion (SNOMED-CT: 911965443) Active 870380 RxNorm Plan of Treatment Follow Up 11/12/2024 SI Joint Injection Bilateral 10/29/2024 OR SI Joint Injection 10/29/2024 SI Joint Injection Bilateral 10/29/2024 OR SI Joint Injection 10/29/2024 Encounters Encounter Diagnosis Start Date Code Code Sys tem Snoring 01/25/2024 39779440 SNOMED-CT Personal Care Team Section Performer Name Performer Role Active Date Inactive DOREEN Villagomez PCP - Primary care physician 2024-03-14 Procedures Notes [facility] 01/29/2024 09:52 STUDY TYPE: HOME SLEEP [...] type III, 7 channel portable monitoring device ([employer]) with simultaneous recording of nasal flow, respiratory [...] with your physician. Vaughn Blanco MD DIPLOMATE, BOLIVIAN BOARD OF SLEEP MEDICINE
--- OUTSIDE RECORDS SUMMARY | 2024-11-16 08:25 | XMS_ITS ---
Author Organization Unknown Address [address] [place] [phone] Phone Care Team Providers Care Hammerer Name Role Phone VICKYRAMYA CHESTER MAGDALENO Attending Unavailable JOON Balderrama Primary Unavailable Immunization Immunization Date Status Additional Notes Code Code System Tdap 09/08/2024 Completed 115 CVX Influenza, split virus, quadrivalent, preservative 08/04/2022 Completed 158 C VX Results QUANTIFERON GOLD SINGLE TUBE - Collect Date/Time: 03/14/2024 12:54 [facility] ID: [id number] [address] [place] [address], [phone] LOINC: 07514-8 Test Value Unit Reference Range Code Code System Flag SOURCE: BLOOD SEND TO [facility]? NO QuantiFERON Incubation Incubation performed. QuantiFERON-TB Gold Plus Negative Negative 15438-3 LOINC QuantiFERON Criteria COMMENT 8251-1 LOINC QuantiFERON TB1 Ag Value 0.00 02217-8 LOINC QuantiFERON TB2 Ag Value 0.00 49839-8 LOINC QuantiFERON Nil Value 0.00 37310-0 LOINC QuantiFERON Mitogen Value >10.00 80976-5 LOINC LIVER PROFILE - Collect Date /Time: 03/14/2024 12:54 [facility] ID: [id number] [address] [place] [address], [phone] LOINC: 10478-8 Test Value Unit Reference Range Code Code [...] - Uziel ect Date/Time: 03/14/2024 12:54 [facility] ID: [id number] [address] [place] [address], [phone] LOINC: 92691-0 Test Value Unit Reference Range Code Code System Flag FASTING NO BUN 11 mg/dL L=7 H=20 3094-0 LOINC CREATININE 0.90 mg/dL L=0.52 H=1.04 2160-0 LOINC GLUCOSE 157 mg/dL L=74 H=106 2345-7 LOINC H CALCIUM 9.6 mg/dL L=8.3 H=10.5 11136-5 LOINC SODIUM 139 mmol/L L=132 H=144 2951-2 LOINC POTASSIUM 3.8 mmol/L L=3.5 H=5.1 2823-3 LOINC CHLORIDE 104 mmol/L L=98 H=107 2075-0 LOINC CO2 23.0 mmol/L L=22.0 H=30.0 2028-9 LOINC ANION GAP 16 L=10 H=20 44364-3 LOINC BUN/CREAT 12.2 3097-3 LOINC AGE 38 39490-2 LOINC eGFR NON-AFR 74 ml/min eGFR AFR AMER 90 ml/min CBC W/ DIFF - Collect Date/T amos: 03/14/2024 12:54 [facility] ID: [id number] [address] [place], [place], [phone] LOINC: 09978-1 Test Value Unit Reference Range Code Code System Flag WBC 11.3 10^3uL L=4.8 H=10.8 H RBC 4.58 10^6uL L=4.20 H=5.40 HEMOGLOBIN 13.6 g/dL L=12.0 H=16.0 718-7 LOINC HEMATOCRIT 41.6 VOL% L=37.0 H=47.0 4544-3 LOINC MCV 90.8 fL L=81.0 H=99.0 MCH 29.7 pg L=27.0 H=32.0 MCHC 32.7 g/dL L=32.0 H=36.0 PLATELETS 329 10^3uL L=100 H=400 24748-9 LOINC RDW 13.6 % L=11.7 H=15.5 %GRAN 64.1 % L=40.0 H=70.0 23065-1 LOINC %LYMPH 27.4 % L=20.0 H=45.0 736-9 LOINC %MONO 6.1 % L=2.0 H=10.0 96427-8 LOINC %EOS 1.0 % L=0.0 H=6.0 713-8 LOINC %BASO 0.5 % L=0.0 H=3.0 706-2 LOINC #NEUT 7.3 10^3uL L=1.9 H=7.6 08882-4 LOINC #LYMPH 3.1 10^3uL L=0.9 H=4.9 09921-0 LOINC #MONO 0.7 10^3uL L=0.1 H=0.9 36958-6 LOINC #EOS 0.1 10^3uL L=0.0 H=0.6 712-0 LOINC #BASO 0.06 10^3uL L=0.00 H=0.10 24643-7 LOINC #IM GRANS 0.1 10^3uL L=0.0 H=7.0 40382-4 LOINC %IM GRANS 0.9 % L=0.0 H=5.0 01995-5 LOINC %NRB 0.0 L=0.0 H=0.2 15649-1 LOINC #NRB 0.000 L=0.000 H=0.012 34892-6 LOINC MANUAL DIFF NOT INDICATED RBC MORPH NOT INDICATED Social History Type Status Start Date End Date Code Code Syst em Smoking History Current every day smoker 959095535 SNOMED CT Sex Female Medications Medication Start Date End Date Route Frequency Dose Code Code System Medication Instructions Home Meds DULoxetine HCl AvPak 30MG Oral Capsule, Delayed Release 01/05/2024 10/22/2024 ORAL ONCE A DAY 30 MILLIGRAMS 910574 RxNorm TAKE 30 MILLIGRAMS ORAL ONCE A DAY DULoxetine HCl AvPak 60MG Oral Capsule, Delayed Release 01/05/2024 Unknown ORAL ONCE A DAY 60 MILLIGRAMS 269739 RxNorm TAKE 60 MILLIGRAMS ORAL ONCE A DAY Meloxicam 15MG Oral Tablet 01/05/2024 08/09/2024 ORAL ONCE A DAY 15 MILLIGRAMS 263271 RxNorm TAKE 15 MILLIGRAMS ORAL ONCE A DAY MiraLAX 17GM/1Dose Oral Powder for Solution 01/05/2024 Unknown ORAL NEEDED DAILY 1 unit(s) 402486 RxNorm TAKE 1 EACH ORAL NEEDED DAILY Omeprazole 20 MG Oral Tablet, Delayed Release 01/05/2024 Unknown ORAL NEEDED 20 MG RxNorm TAKE 20 MG ORAL NEEDED PARoxetine HCl 20MG Oral Tablet 01/05/2024 10/22/2024 ORAL ONCE A DAY 20 MILLIGRAMS 7688770 RxNorm TAKE 20 MILLIGRAMS ORAL ONCE A DAY risperiDONE 0.5MG Oral Tablet 01/05/2024 Unknown ORAL ONCE A DAY 0.5 MILLIGRAMS 404134 RxNorm TAKE 0.5 MILLIGRAMS ORAL ONCE A DAY traZODone hydrochloride 100MG Oral Tablet 01/05/2024 10/22/2024 ORAL ONCE A DAY 100 MILLIGRAMS 827889 RxNorm TAKE 100 MILLIGRAMS ORAL ONCE A DAY Meloxicam 7.5MG Oral Tablet 08/09/2024 10/04/2024 BY MOUTH ONCE A DAY 1 TABLET 288679 RxNorm TAKE 1 TABLET BY MOUTH ONCE A DAY Xanax 0.5MG Oral Tablet 08/10/2024 Unknown ORAL NEEDED DAILY 0.5 MILLIGRAMS 363791 RxNorm TAKE 0.5 MILLIGRAMS ORAL NEEDED DAILY metFORMIN HCl 500MG Oral Tablet 08/10/2024 Unknown ORAL AT BEDTIME 500 MILLIGRAMS 364536 RxNorm TAKE 500 MILLIGRAMS ORAL AT BEDTIME DULoxetine HCl 30MG Oral Capsule, Delayed Release 10/29/2024 Unknown ORAL ONCE A DAY 30 MILLIGRAMS 110478 RxNorm TAKE 30 MILLIGRAMS ORAL ONCE A DAY PARoxetine HCl 40MG Oral Tablet 10/29/2024 Unknown ORAL ONCE A DAY 40 MILLIGRAMS 2383964 RxNorm TAKE 40 MILLIGRAMS ORAL ONCE A DAY traZODone hydrochloride 100MG Oral Tablet 10/29/2024 Unknown ORAL AT BEDTIME 200 MILLIGRAMS 978126 RxNorm TAKE 200 MILLIGRAMS ORAL AT BEDTIME [...] Status Code Code System HIDRADENITIS SUPPURATIVA active 40200101 SNOMED-CT PAIN IN RIGHT SHOULDER active 8244319 5509952454 SNOMED-CT CARPAL TUNNEL SYNDROME, RIGHT UPPER LIMB active 158469930788039 SNOMED-C T FATTY (CHANGE OF) LIVER, NOT ELSEWHERE CLASSIFIED active 001076839 SNOMED-CT DORSALGIA, UNSPECIFIED active 1734132 05 SNOMED-CT HEADACHE, UNSPECIFIED active 89152460 SNOMED-CT PAIN IN UNSPECIFIED JOINT active 04501277 SNOMED-CT RADICULOPATHY, CERVICAL REGION active 86033458 SNOMED-CT SPINAL STENOSIS, SITE UNSPECIFIED active 44913569 SNOMED-CT OTHER CHRONIC PAIN active 47492943 S NOMED-CT RADICULOPATHY, LUMBAR REGION active 508228307 SNOMED-CT CERVICALGIA active 06620804 SNOMED-C T PAIN IN LEFT KNEE active 563519868083 107 SNOMED-CT Allergies and Adverse Reactions Allergy Substance Reaction Severity Start Date Concern Status Code Code System SULFA (sulfonamide) Rash (SNOMED-CT: 323610605) Active 59202174 SNOMED-CT CEPHALOSPORIN Rash (SNOMED-CT: 096590367) Active 688458420 SNOMED-CT CEPHALEXIN Active 2231 RxNorm AMOXICILLIN Rash (SNOMED-CT: 032899275) Active 723 RxNorm KEFLEX Active 596441 RxNorm ACETAMINOPHEN/CODEI NE #3 Confusion (SNOMED-CT: 574241126) Active 601849 RxNorm Plan of Treatment Follow Up 11/12/2024 SI Joint Injection Bilateral 10/29/2024 OR SI Joint Injection 10/29/2024 SI Joint Injection Bilateral 10/29/2024 OR SI Joint Injection 10/29/2024 Encounters Encounter Diagnosis Start Date Code Code Sys tem Hidradenitis suppurativa 03/14/2024 SN MED-CT Personal Care Team Section Performer Name Performer Role Active Date Inactive DOREEN Villagomez PCP - Primary care physician 2024-03-14
--- OUTSIDE RECORDS SUMMARY | 2024-11-16 08:26 | XMS_ITS ---
Author Organization Unknown Address [address] [place] [address] [phone] Phone Care Team Providers Care Spectral Scientist Name Role Phone JEFFRY WEBER Attending Unavailable JOON Balderrama Primary Unavailable Immunization Immunization Date Status Additional Notes Code Code System Tdap 09/08/2024 Completed 115 CVX Influenza, split virus, quadrivalent, preservative 08/04/2022 Completed 158 C VX Social History Type Status Start Date End Date Code Code Syst em Smoking History Current every day smoker [id number] SNOMED CT Sex Female Medications Medication Start Date End Date Route Frequency Dose Code Code System Medication Instructions Home Meds DULoxetine HCl AvPak 30MG Oral Capsule, Delayed Release 01/05/2024 10/22/2024 ORAL ONCE A DAY 30 MILLIGRAMS 891713 RxNorm TAKE 30 MILLIGRAMS ORAL ONCE A DAY DULoxetine HCl AvPak 60MG Oral Capsule, Delayed Release 01/05/2024 Unknown ORAL ONCE A DAY 60 MILLIGRAMS 338787 RxNorm TAKE 60 MILLIGRAMS ORAL ONCE A DAY MiraLAX 17GM/1Dose Oral Powder for Solution 01/05/2024 Unknown ORAL NEEDED DAILY 1 unit(s) 039898 RxNorm TAKE 1 EACH ORAL NEEDED DAILY Omeprazole 20 MG Oral Tablet, Delayed Release 01/05/2024 Unknown ORAL NEEDED 20 MG RxNorm TAKE 20 MG ORAL NEEDED PARoxetine HCl 20MG Oral Tablet 01/05/2024 10/22/2024 ORAL ONCE A DAY 20 MILLIGRAMS 1436172 RxNorm TAKE 20 MILLIGRAMS ORAL ONCE A DAY risperiDONE 0.5MG Oral Tablet 01/05/2024 Unknown ORAL ONCE A DAY 0.5 MILLIGRAMS 084608 RxNorm TAKE 0.5 MILLIGRAMS ORAL ONCE A DAY traZODone hydrochloride 100MG Oral Tablet 01/05/2024 10/22/2024 ORAL ONCE A DAY 100 MILLIGRAMS 116790 RxNorm TAKE 100 MILLIGRAMS ORAL ONCE A DAY Meloxicam 7.5MG Oral Tablet 08/09/2024 10/04/2024 BY MOUTH ONCE A DAY 1 TABLET 168937 RxNorm TAKE 1 TABLET BY MOUTH ONCE A DAY Xanax 0.5MG Oral Tablet 08/10/2024 Unknown ORAL NEEDED DAILY 0.5 MILLIGRAMS 176394 RxNorm TAKE 0.5 MILLIGRAMS ORAL NEEDED DAILY metFORMIN HCl 500MG Oral Tablet 08/10/2024 Unknown ORAL AT BEDTIME 500 MILLIGRAMS 677830 RxNorm TAKE 500 MILLIGRAMS ORAL AT BEDTIME DULoxetine HCl 30MG Oral Capsule, Delayed Release 10/29/2024 Unknown ORAL ONCE A DAY 30 MILLIGRAMS 866309 RxNorm TAKE 30 MILLIGRAMS ORAL ONCE A DAY PARoxetine HCl 40MG Oral Tablet 10/29/2024 Unknown ORAL ONCE A DAY 40 MILLIGRAMS 9077120 RxNorm TAKE 40 MILLIGRAMS ORAL ONCE A DAY traZODone hydrochloride 100MG Oral Tablet 10/29/2024 Unknown ORAL AT BEDTIME 200 MILLIGRAMS 355967 RxNorm TAKE 200 MILLIGRAMS ORAL AT BEDTIME [...] Status Code Code System HIDRADENITIS SUPPURATIVA active 63926648 SNOMED-CT PAIN IN RIGHT SHOULDER active 6739864 1284914562 SNOMED-CT CARPAL TUNNEL SYNDROME, RIGHT UPPER LIMB active 182881905464942 SNOMED-C T FATTY (CHANGE OF) LIVER, NOT ELSEWHERE CLASSIFIED active 596458017 SNOMED-CT DORSALGIA, UNSPECIFIED active 7194880 05 SNOMED-CT HEADACHE, UNSPECIFIED active 52862563 SNOMED-CT PAIN IN UNSPECIFIED JOINT active 86035153 SNOMED-CT RADICULOPATHY, CERVICAL REGION active 27592227 SNOMED-CT SPINAL STENOSIS, SITE UNSPECIFIED active 65688062 SNOMED-CT OTHER CHRONIC PAIN active 39806791 S NOMED-CT RADICULOPATHY, LUMBAR REGION active 723429294 SNOMED-CT CERVICALGIA active 04022414 SNOMED-C T PAIN IN LEFT KNEE active 111217428389 107 SNOMED-CT Allergies and Adverse Reactions Allergy Substance Reaction Severity Start Date Concern Status Code Code System SULFA (sulfonamide) Rash (SNOMED-CT: 350959235) Active 09591415 SNOMED-CT CEPHALOSPORIN Rash (SNOMED-CT: 295618391) Active 951734324 SNOMED-CT CEPHALEXIN Active 2231 RxNorm AMOXICILLIN Rash (SNOMED-CT: 696652356) Active 723 RxNorm KEFLEX Active 426237 RxNorm ACETAMINOPHEN/CODEI NE #3 Confusion (SNOMED-CT: 635773691) Active 052571 RxNorm Plan of Treatment Follow Up 11/12/2024 [...]
--- OUTSIDE RECORDS SUMMARY | 2024-11-16 08:26 | XMS_ITS ---
Author Organization Unknown Address [address] [place] [address] [phone] Phone Care Team Providers Care Gas Distribution And Emergency Clerk Name Role Phone JEFFRY WEBER Attending Unavailable JOON Balderrama Primary Unavailable Immunization Immunization Date Status Additional Notes Code Code System Tdap 09/08/2024 Completed 115 CVX Influenza, split virus, quadrivalent, preservative 08/04/2022 Completed 158 C VX Social History Type Status Start Date End Date Code Code Syst em Smoking History Current every day smoker 775068178 SNOMED CT Sex Female Vital Signs Vital Sign Value Unit [place] Value [place] Date/Time Recent/Initial? Code Code System Body Mass Index 30.12 kg/m2 08/09/2024 10:05 Initial 07696 -5 [facility] Systolic Blood Pressure 97 mm[Hg] 08/09/2024 10:05 Initial 8480- 6 [facility] Diastolic Blood Pressure 68 mm[Hg] 08/09/2024 10:05 Initial 8462- 4 [facility] Body Surface Area 1.94 m2 08/09/2024 10:05 Initial 3140- 1 LOINC Height 165.100 0 cm 65.00 in 08/09/2024 10:05 Initial 8302- 2 LOINC O2 Saturation 98 % 2024 10:05 Initial 38826 -5 [facility] Pulse 105.0 /min 08/09/2024 10:05 Initial 8867- 4 LOINC Temperature 36.3 May 97.3 F 08/09/19 10:05 Initial 8310- 5 LOINC Weight 82.10 kg 181.00 lbs 08/09/2024 10:05 Initial 26569 -7 [facility] Medications Medication Start Date End Date Route Frequency Dose Code Code System Medication Instructions Home Meds DULoxetine HCl AvPak 30MG Oral Capsule, Delayed Release 01/05/2024 10/22/2024 ORAL ONCE A DAY 30 MILLIGRAMS 094572 RxNorm TAKE 30 MILLIGRAMS ORAL ONCE A DAY DULoxetine HCl AvPak 60MG Oral Capsule, Delayed Release 01/05/2024 Unknown ORAL ONCE A DAY 60 MILLIGRAMS 801126 RxNorm TAKE 60 MILLIGRAMS ORAL ONCE A DAY Meloxicam 15MG Oral Tablet 01/05/2024 08/09/2024 ORAL ONCE A DAY 15 MILLIGRAMS 645445 RxNorm TAKE 15 MILLIGRAMS ORAL ONCE A DAY MiraLAX 17GM/1Dose Oral Powder for Solution 01/05/2024 Unknown ORAL NEEDED DAILY 1 unit(s) 616220 RxNorm TAKE 1 EACH ORAL NEEDED DAILY Omeprazole 20 MG Oral Tablet, Delayed Release 01/05/2024 Unknown ORAL NEEDED 20 MG RxNorm TAKE 20 MG ORAL NEEDED PARoxetine HCl 20MG Oral Tablet 01/05/2024 10/22/2024 ORAL ONCE A DAY 20 MILLIGRAMS 7552089 RxNorm TAKE 20 MILLIGRAMS ORAL ONCE A DAY risperiDONE 0.5MG Oral Tablet 01/05/2024 Unknown ORAL ONCE A DAY 0.5 MILLIGRAMS 628301 RxNorm TAKE 0.5 MILLIGRAMS ORAL ONCE A DAY traZODone hydrochloride 100MG Oral Tablet 01/05/2024 10/22/2024 ORAL ONCE A DAY 100 MILLIGRAMS 672191 RxNorm TAKE 100 MILLIGRAMS ORAL ONCE A DAY Meloxicam 7.5MG Oral Tablet 08/09/2024 10/04/2024 BY MOUTH ONCE A DAY 1 TABLET 916817 RxNorm TAKE 1 TABLET BY MOUTH ONCE A DAY Xanax 0.5MG Oral Tablet 08/10/2024 Unknown ORAL NEEDED DAILY 0.5 MILLIGRAMS 644900 RxNorm TAKE 0.5 MILLIGRAMS ORAL NEEDED DAILY metFORMIN HCl 500MG Oral Tablet 08/10/2024 Unknown ORAL AT BEDTIME 500 MILLIGRAMS 492922 RxNorm TAKE 500 MILLIGRAMS ORAL AT BEDTIME DULoxetine HCl 30MG Oral Capsule, Delayed Release 10/29/2024 Unknown ORAL ONCE A DAY 30 MILLIGRAMS 750066 RxNorm TAKE 30 MILLIGRAMS ORAL ONCE A DAY PARoxetine HCl 40MG Oral Tablet 10/29/2024 Unknown ORAL ONCE A DAY 40 MILLIGRAMS 6605026 RxNorm TAKE 40 MILLIGRAMS ORAL ONCE A DAY traZODone hydrochloride 100MG Oral Tablet 10/29/2024 Unknown ORAL AT BEDTIME 200 MILLIGRAMS 982598 RxNorm TAKE 200 MILLIGRAMS ORAL AT BEDTIME [...] Status Code Code System HIDRADENITIS SUPPURATIVA active 13389496 SNOMED-CT PAIN IN RIGHT SHOULDER active 4349266 0248587753 SNOMED-CT CARPAL TUNNEL SYNDROME, RIGHT UPPER LIMB active 969096059574656 SNOMED-C T FATTY (CHANGE OF) LIVER, NOT ELSEWHERE CLASSIFIED active 370675293 SNOMED-CT DORSALGIA, UNSPECIFIED active 8195393 05 SNOMED-CT HEADACHE, UNSPECIFIED active 02198585 SNOMED-CT PAIN IN UNSPECIFIED JOINT active 02364712 SNOMED-CT RADICULOPATHY, CERVICAL REGION active 44024147 SNOMED-CT SPINAL STENOSIS, SITE UNSPECIFIED active 18410156 SNOMED-CT OTHER CHRONIC PAIN active 86717585 S NOMED-CT RADICULOPATHY, LUMBAR REGION active 759270021 SNOMED-CT CERVICALGIA active 68133079 SNOMED-C T PAIN IN LEFT KNEE active 357456242097 107 SNOMED-CT Allergies and Adverse Reactions Allergy Substance Reaction Severity Start Date Concern Status Code Code System SULFA (sulfonamide) Rash (SNOMED-CT: 302751791) Active 73511252 SNOMED-CT CEPHALOSPORIN Rash (SNOMED-CT: 965861495) Active 398087307 SNOMED-CT CEPHALEXIN Active 2231 RxNorm AMOXICILLIN Rash (SNOMED-CT: 315226766) Active 723 RxNorm KEFLEX Active 316633 RxNorm ACETAMINOPHEN/CODEI NE #3 Confusion (SNOMED-CT: 951538909) Active 390580 RxNorm Plan of Treatment Follow Up 11/12/2024 SI Joint Injection Bilateral 10/29/2024 OR SI Joint Injection 10/29/2024 SI Joint Injection Bilateral 10/29/2024 OR SI Joint Injection 10/29/2024 Plan Meloxicam 7.5mg Q Day for 30 [...] - Primary care physician 2024-03-14 Progress Notes [facility] 08/09/2024 10:45 All Demographics Patient Name Age Sex Visit Number Admission Date/Time Attending Physician Date of Service Room and Bed Emergency Contact RA STORM 1985 38 years Female [id number] 08/09/2024 09:57 Davidson Varela 08/09/2024 01-OP KAREN STORM - [id number] PAIN MANAGEMENT HISTORY & PHYSICAL Vital Signs: [...]
== END 2024-11-16 08:16 | disposition home or self-care (01) ==
PROVIDERS: PCP Registered Nurse; Visit Provider Registered Nurse
DX: Z12.31 Encounter for screening mammogram for malignant neoplasm of breast (principal)
CPT/HCPCS: 77063; 77067

== ENCOUNTER 2024-12-21 10:40 | Emergency (ER) | payer OTHER, SELFPAY ==
--- NOTE | ~2024-12-21 | XR_ITS ---
Left Knee Technique: AP, lateral, and oblique views were obtained. Clinical History: Pain Findings: No fracture or dislocation is seen. Osseous alignment is anatomic. Joint spaces are preserv ed without degenerative or erosive change. Soft tissues are unremarkable. No joint effusion is seen. Impression: Unremarkable left knee radiographs. Reviewed, dictated and finalized at location . Impression: Unremarkable left knee radiographs.
[2024-12-21 10:40] VITALS: BP 138/67; PULSE 107; RESP 16; TEMP 36.7; O2SAT 96
--- OUTSIDE RECORDS SUMMARY | 2024-12-21 10:44 | XMS_ITS | Clinical Summary ---
Author Organization [facility] Address [address] [place] [address] Care Team Providers Care Link Trainer Maintenance Worker Name Role Phone Maxi Valentin MD Primary Care Provider [phone] Source Comments [facility],non-owned Affiliates and Associated Physician Practices is amultiple site organization consisting of ambulatory clinics and hospital sitesin [place], [place], [place] and [place]. This disclosure is being madepursuant to the Care Everywhere program and may not contain all information available regarding this patient. 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
--- OUTSIDE RECORDS SUMMARY | 2024-12-21 10:44 | XMS_ITS ---
Author Organization Unknown Address [address] [place] [address] [phone] Phone Care Team Providers Care Mri Supervisor Name Role Phone CODY Ramirez Attending Unavailable KIKO BEAN VACCINE KEY CUSTOMER LEADER Unavailable JOON Balderrama Primary Unavailable Immunization Immunization Date Status Additional Notes Code Code System Tdap 09/08/2024 Completed 115 CVX Influenza, split virus, quadrivalent, preservative 08/04/2022 Completed 158 C VX Social History Type Status Start Date End Date Code Code Syst em Smoking History Current every day smoker 565229994 SNOMED CT Sex Female Vital Signs Vital Sign Value Unit [place] Value [place] Unit Date/Time Recent/Initial? Code Code System Body Mass Index 29.50 kg/m2 12/20/2023 10:32 Initial 64952 -5 [facility] Systolic Blood Pressure 115 mm[Hg] 01/05/2024 08:57 Initial 8480- 6 [facility] Diastolic Blood Pressure 61 mm[Hg] 01/05/2024 08:57 Initial 8462- 4 [facility] Body Surface Area 1.94 m2 12/20/2023 10:32 Initial 3140- 1 [facility] Height 166.370 0 cm 65.50 in 12/20/2023 10:32 Initial 8302- 2 [facility] O2 Saturation 97 % 2023 08:57 Initial 03128 -5 [facility] Pulse 92.0 /min 01/05/2024 08:57 Initial 8867- 4 [facility] Respiration 16 /min 01/05/20 08:57 Initial 9279- 1 [facility] Temperature 36.2 May 97.1 F 01/05/20 24 08:57 Initial 8310- 5 [facility] Weight 81.65 kg 180.00 lbs 12/20/2023 10:32 Initial 85817 -7 [facility] Medications Medication Start Date End Date Route Frequency Dose Code Code System Medication Instructions Home Meds Dicyclomine HCl 10MG Oral Capsule 12/15/2018 01/05/2024 ORAL NEEDED EVERY 12 HOURS 10 MILLIGRAMS 069911 RxNorm TAKE 10 MILLIGRAMS ORAL NEEDED EVERY 12 HOURS DULoxetine HCl AvPak 30MG Oral Capsule, Delayed Release 01/05/2024 10/22/2024 ORAL ONCE A DAY 30 MILLIGRAMS 337864 RxNorm TAKE 30 MILLIGRAMS ORAL ONCE A DAY DULoxetine HCl AvPak 60MG Oral Capsule, Delayed Release 01/05/2024 Unknown ORAL ONCE A DAY 60 MILLIGRAMS 395539 RxNorm TAKE 60 MILLIGRAMS ORAL ONCE A DAY Meloxicam 15MG Oral Tablet 01/05/2024 08/09/2024 ORAL ONCE A DAY 15 MILLIGRAMS 827088 RxNorm TAKE 15 MILLIGRAMS ORAL ONCE A DAY MiraLAX 17GM/1Dose Oral Powder for Solution 01/05/2024 Unknown ORAL NEEDED DAILY 1 unit(s) 730355 RxNorm TAKE 1 EACH ORAL NEEDED DAILY Omeprazole 20 MG Oral Tablet, Delayed Release 01/05/2024 Unknown ORAL NEEDED 20 MG RxNorm TAKE 20 MG ORAL NEEDED PARoxetine HCl 20MG Oral Tablet 01/05/2024 10/22/2024 ORAL ONCE A DAY 20 MILLIGRAMS 5913360 RxNorm TAKE 20 MILLIGRAMS ORAL ONCE A DAY risperiDONE 0.5MG Oral Tablet 01/05/2024 Unknown ORAL ONCE A DAY 0.5 MILLIGRAMS 600502 RxNorm TAKE 0.5 MILLIGRAMS ORAL ONCE A DAY traZODone hydrochloride 100MG Oral Tablet 01/05/2024 10/22/2024 ORAL ONCE A DAY 100 MILLIGRAMS 853618 RxNorm TAKE 100 MILLIGRAMS ORAL ONCE A DAY Meloxicam 7.5MG Oral Tablet 08/09/2024 10/04/2024 BY MOUTH ONCE A DAY 1 TABLET 700054 RxNorm TAKE 1 TABLET BY MOUTH ONCE A DAY Xanax 0.5MG Oral Tablet 08/10/2024 Unknown ORAL NEEDED DAILY 0.5 MILLIGRAMS 152129 RxNorm TAKE 0.5 MILLIGRAMS ORAL NEEDED DAILY metFORMIN HCl 500MG Oral Tablet 08/10/2024 Unknown ORAL AT BEDTIME 500 MILLIGRAMS 078433 RxNorm TAKE 500 MILLIGRAMS ORAL AT BEDTIME DULoxetine HCl 30MG Oral Capsule, Delayed Release 10/29/2024 Unknown ORAL ONCE A DAY 30 MILLIGRAMS 280352 RxNorm TAKE 30 MILLIGRAMS ORAL ONCE A DAY PARoxetine HCl 40MG Oral Tablet 10/29/2024 Unknown ORAL ONCE A DAY 40 MILLIGRAMS 6082045 RxNorm TAKE 40 MILLIGRAMS ORAL ONCE A DAY traZODone hydrochloride 100MG Oral Tablet 10/29/2024 Unknown ORAL AT BEDTIME 200 MILLIGRAMS 552380 RxNorm TAKE 200 MILLIGRAMS ORAL AT BEDTIME [...] with biopsy, single or multiple 01/05/2024 completed 76444 CPT Anesthesia for combined uppe r and lower gastrointestinal endoscopic proced 01/05/2024 completed 43825 CPT Esophagogastroduodenoscopy, flexible, transoral; diagnostic, including col 01/05/2024 completed 10564 CPT Problems Problem Start Date Resolved Date Status Code Code System HIDRADENITIS SUPPURATIVA active 72285124 SNOMED-CT PAIN IN RIGHT SHOULDER active 8731380 2249816804 SNOMED-CT CARPAL TUNNEL SYNDROME, RIGHT UPPER LIMB active 100975774084147 SNOMED-C T FATTY (CHANGE OF) LIVER, NOT ELSEWHERE CLASSIFIED active 040668132 SNOMED-CT DORSALGIA, UNSPECIFIED active 6097048 05 SNOMED-CT HEADACHE, UNSPECIFIED active 59731097 SNOMED-CT PAIN IN UNSPECIFIED JOINT active 12370352 SNOMED-CT RADICULOPATHY, CERVICAL REGION active 33682932 SNOMED-CT SPINAL STENOSIS, SITE UNSPECIFIED active 81611223 SNOMED-CT OTHER CHRONIC PAIN active 51733232 S NOMED-CT RADICULOPATHY, LUMBAR REGION active 628144563 SNOMED-CT CERVICALGIA active 16919369 SNOMED-C T PAIN IN LEFT KNEE active 552357356535 107 SNOMED-CT Allergies and Adverse Reactions Allergy Substance Reaction Severity Start Date Concern Status Code Code System SULFA (sulfonamide) Rash (SNOMED-CT: 972221273) Active 70324312 SNOMED-CT CEPHALOSPORIN Rash (SNOMED-CT: 165103049) Active 297236661 SNOMED-CT CEPHALEXIN Active 2231 RxNorm AMOXICILLIN Rash (SNOMED-CT: 412397092) Active 723 RxNorm KEFLEX Active 790910 RxNorm ACETAMINOPHEN/CODEI NE #3 Confusion (SNOMED-CT: 311621839) Active 166694 RxNorm Plan of Treatment Follow Up 11/12/2024 [...]
--- OUTSIDE RECORDS SUMMARY | 2024-12-21 10:44 | XMS_ITS ---
Author Organization Unknown Address [address] [place] [address] [phone] Phone Care Team Providers Care Line Lead Name Role Phone JEFFRY WEBER Attending Unavailable JOON Balderrama Primary Unavailable Immunization Immunization Date Status Additional Notes Code Code System Tdap 09/08/2024 Completed 115 CVX Influenza, split virus, quadrivalent, preservative 08/04/2022 Completed 158 C VX Social History Type Status Start Date End Date Code Code Syst em Smoking History Current every day smoker 207992980 SNOMED CT Sex Female Vital Signs Vital Sign Value Unit [place] Value [place] Unit Date/Time Recent/Initial? Code Code System Body Mass Index 30.12 kg/m2 10/04/2024 11:06 Initial 26055 -5 [facility] Systolic Blood Pressure 110 mm[Hg] 10/04/2024 11:06 Initial 8480- 6 [facility] Diastolic Blood Pressure 67 mm[Hg] 10/04/2024 11:06 Initial 8462- 4 [facility] Body Surface Area 1.94 m2 10/04/2024 11:06 Initial 3140- 1 LOINC Height 165.100 0 cm 65.00 in 10/04/2024 11:06 Initial 8302- 2 [facility] O2 Saturation 99 % 2024 11:06 Initial 68221 -5 [facility] Pulse 100.0 /min 10/04/2024 11:06 Initial 8867- 4 [facility] Temperature 36.8 May 98.2 F 10/04/19 11:06 Initial 8310- 5 LOINC Weight 82.10 kg 181.00 lbs 10/04/2024 11:06 Initial 90796 -7 [facility] Medications Medication Start Date End Date Route Frequency Dose Code Code System Medication Instructions Home Meds DULoxetine HCl AvPak 30MG Oral Capsule, Delayed Release 01/05/2024 10/22/2024 ORAL ONCE A DAY 30 MILLIGRAMS 777846 RxNorm TAKE 30 MILLIGRAMS ORAL ONCE A DAY DULoxetine HCl AvPak 60MG Oral Capsule, Delayed Release 01/05/2024 Unknown ORAL ONCE A DAY 60 MILLIGRAMS 017178 RxNorm TAKE 60 MILLIGRAMS ORAL ONCE A DAY MiraLAX 17GM/1Dose Oral Powder for Solution 01/05/2024 Unknown ORAL NEEDED DAILY 1 unit(s) 209816 RxNorm TAKE 1 EACH ORAL NEEDED DAILY Omeprazole 20 MG Oral Tablet, Delayed Release 01/05/2024 Unknown ORAL NEEDED 20 MG RxNorm TAKE 20 MG ORAL NEEDED PARoxetine HCl 20MG Oral Tablet 01/05/2024 10/22/2024 ORAL ONCE A DAY 20 MILLIGRAMS 3211055 RxNorm TAKE 20 MILLIGRAMS ORAL ONCE A DAY risperiDONE 0.5MG Oral Tablet 01/05/2024 Unknown ORAL ONCE A DAY 0.5 MILLIGRAMS 817692 RxNorm TAKE 0.5 MILLIGRAMS ORAL ONCE A DAY traZODone hydrochloride 100MG Oral Tablet 01/05/2024 10/22/2024 ORAL ONCE A DAY 100 MILLIGRAMS 307826 RxNorm TAKE 100 MILLIGRAMS ORAL ONCE A DAY Meloxicam 7.5MG Oral Tablet 08/09/2024 10/04/2024 BY MOUTH ONCE A DAY 1 TABLET 859258 RxNorm TAKE 1 TABLET BY MOUTH ONCE A DAY Xanax 0.5MG Oral Tablet 08/10/2024 Unknown ORAL NEEDED DAILY 0.5 MILLIGRAMS 965113 RxNorm TAKE 0.5 MILLIGRAMS ORAL NEEDED DAILY metFORMIN HCl 500MG Oral Tablet 08/10/2024 Unknown ORAL AT BEDTIME 500 MILLIGRAMS 440679 RxNorm TAKE 500 MILLIGRAMS ORAL AT BEDTIME DULoxetine HCl 30MG Oral Capsule, Delayed Release 10/29/2024 Unknown ORAL ONCE A DAY 30 MILLIGRAMS 377619 RxNorm TAKE 30 MILLIGRAMS ORAL ONCE A DAY PARoxetine HCl 40MG Oral Tablet 10/29/2024 Unknown ORAL ONCE A DAY 40 MILLIGRAMS 1348051 RxNorm TAKE 40 MILLIGRAMS ORAL ONCE A DAY traZODone hydrochloride 100MG Oral Tablet 10/29/2024 Unknown ORAL AT BEDTIME 200 MILLIGRAMS 637180 RxNorm TAKE 200 MILLIGRAMS ORAL AT BEDTIME [...] Status Code Code System HIDRADENITIS SUPPURATIVA active 51450123 SNOMED-CT PAIN IN RIGHT SHOULDER active 3323187 5694995790 SNOMED-CT CARPAL TUNNEL SYNDROME, RIGHT UPPER LIMB active 052285954382620 SNOMED-C T FATTY (CHANGE OF) LIVER, NOT ELSEWHERE CLASSIFIED active 434009678 SNOMED-CT DORSALGIA, UNSPECIFIED active 1225926 05 SNOMED-CT HEADACHE, UNSPECIFIED active 88924757 SNOMED-CT PAIN IN UNSPECIFIED JOINT active 83613911 SNOMED-CT RADICULOPATHY, CERVICAL REGION active 26047396 SNOMED-CT SPINAL STENOSIS, SITE UNSPECIFIED active 85952007 SNOMED-CT OTHER CHRONIC PAIN active 43603999 S NOMED-CT RADICULOPATHY, LUMBAR REGION active 284856412 SNOMED-CT CERVICALGIA active 19429465 SNOMED-C T PAIN IN LEFT KNEE active 192036839706 107 SNOMED-CT Allergies and Adverse Reactions Allergy Substance Reaction Severity Start Date Concern Status Code Code System SULFA (sulfonamide) Rash (SNOMED-CT: 742025936) Active 83370408 SNOMED-CT CEPHALOSPORIN Rash (SNOMED-CT: 260772635) Active 817433022 SNOMED-CT CEPHALEXIN Active 2231 RxNorm AMOXICILLIN Rash (SNOMED-CT: 650066166) Active 723 RxNorm KEFLEX Active 234883 RxNorm ACETAMINOPHEN/CODEI NE #3 Confusion (SNOMED-CT: 629407798) Active 646940 RxNorm Plan of Treatment Follow Up 11/12/2024 [...] Primary care physician 2024-03-14 Progress Notes [facility] 10/04/2024 12:12 All Demographics Patient Name Age Sex Visit Number Admission Date/Time Attending Physician Date of Service Room and Bed Emergency Contact RA STORM 1985 38 years Female [id number] 10/04/2024 11:00 Davidson Varela 10/04/2024 08-OP KAREN STORM - [id number] Pain Management Follow Up Vital Signs: Today [...] had a trial of nexwave unit by [employer] today in office. Patient stated this helped with her pain. We will order one of these for her. Patient is very tender over SI joints. We discussed risks and benefits of SI joint injections. Patient wishes to proceed with moderated sedation as she is anxious about needles. We discussed obtaining a copy of her MRI done at [facility] and reviewing this at her follow up [...] guidelines, including Official Disability Guidelines (ODG) and [employer] [employer] guidelines (ACOEM). Radiology imaging reviewed at appointment: no Radiology: Imaging reviewed with patient Pain Treatment History: Conservative Measures Tried and Failed: Heat, Cold, PT Medications Trialed: NSAIDS, opioids, gabapentin Previous Interventional Pain Procedures: multiple - not helpful Plan Bilateral SI joint injections with sedation Zynex Machine Obtain MRI from [place] Review MRI at follow up Problem List [...]
--- OUTSIDE RECORDS SUMMARY | 2024-12-21 10:44 | XMS_ITS | Clinical Summary ---
Author Organization [facility] Address [facility] [place] [address] Care Team Providers Care Security Systems Specialist Name Role Phone Oleg Lemus MD Primary [...] on file Legal Sex Female 11:02 PM ESE TEACHER Gender Identity Not on file Sexual [...] Date Last Done Comments Annual Physical 10/25/1987 Hepatitis C 2002 DTaP, Tdap and Td Vaccines ( 1 - Tdap) 10/25/2003 Hepatitis B Vaccines (1 of 3 - 19+ 3-dose series) 10/25/2003 Pneumococcal Vaccine: Pediat rics (0 to 5 Years) and At-Risk Patients (6 to 49 Years) (1 of 2 - PCV) 10/25/2003 COVID-19 Vaccine (2023-2 5 season) 2024 Mammogram Screening 07/13/2025 07/13/2023 HPV Vaccines Aged Out No longer eligi ble based on patient's age to complete this topic Meningococcal B Vaccine Aged Out No l onger eligible based on patient's age to complete this topic Meningococcal Vaccine Aged Out No radha nadai eligible based on patient's age to complete this topic RSV Immunizations Under 20 Months Aged Out No longer eligible based on patient's age to complete this topic Procedures Procedure Name Priority Date/Time Associated Diagnosis Comments MG DIAG W BOLA BILAT DIGI Routine 07/13/2023 10:54 AM ESE TEACHER Nipple discharge in female from Last 3 Months or Most Recently Relevant to Health Maintenance Results * MG DIAG W BOLA BILAT DIGI (07/13/2023 10:54 AM ESE TEACHER) Anatomical Region Laterality Modality Breast Bilateral Mammography, Rad iographic Imaging 07/13/2023 11:3 4 AM ESE TEACHER Narrative 07/13/2023 12:02 PM ESE TEACHER Examination: Bilateral diagnostic mammogram with 3-D tomosynthesis and ultrasound. [id number] Exam Date/Time: 07/13/2023 10:29 AM Reason For [...] Fontana MD, 07/13/2023 11:34 AM Rohan Brewer ME MAMMO Final Result from Last 3 Months or Most Recently Relevant to Health Maintenance Insurance [facility] C/O PROVIDER SERVICES [place] [id number] Care Teams Security Systems Specialist Relationship Specialty Start Date End Date Oleg Lemus MD [address] [place] [phone] PCP - General FAMILY PRACTICE 07/30/23
--- OUTSIDE RECORDS SUMMARY | 2024-12-21 10:44 | XMS_ITS ---
Author Organization Unknown Address [address] [place] [address] [phone] Phone Care Team Providers Care Ice Maker Name Role Phone JEFFRY WEBER Attending Unavailable JOON Balderrama Primary Unavailable Immunization Immunization Date Status Additional Notes Code Code System Tdap 09/08/2024 Completed 115 CVX Influenza, split virus, quadrivalent, preservative 08/04/2022 Completed 158 C VX Social History Type Status Start Date End Date Code Code Syst em Smoking History Current every day smoker 698356572 SNOMED CT Sex Female Vital Signs Vital Sign Value Unit Essex Value Essex Unit Date/Time Recent/Initial? Code Code System Body Mass Index 30.45 kg/m2 10/29/2024 13:36 Most Recent 88446 -5 LOINC Body Mass Index 30.45 kg/m2 10/22/2024 10:59 Initial 77445 -5 LOINC Systolic Blood Pressure 110 mm[Hg] [...] O2 Saturation 97 % 2024 13:36 Initial 25235 -5 LOINC Pulse 92.0 /min 10/29/2024 13:36 Initial 8867- 4 LOINC Respiration 16 /min 10/30/19 13:36 Initial 9279- 1 LOINC Temperature 36.2 May 97.1 F 10/30/19 13:36 Initial 8310- 5 LOINC Weight 83.01 kg 183.00 lbs 10/29/2024 13:36 Most Recent 58562 -7 LOINC Weight 83.01 kg 183.00 lbs 10/22/2024 10:59 Initial 48111 -7 [facility] Medications Medication Start Date End Date Route Frequency Dose Code Code System Medication Instructions Home Meds DULoxetine HCl AvPak 60MG Oral Capsule, Delayed Release 01/05/2024 Unknown ORAL ONCE A DAY 60 MILLIGRAMS 549578 RxNorm TAKE 60 MILLIGRAMS ORAL ONCE A DAY MiraLAX 17GM/1Dose Oral Powder for Solution 01/05/2024 Unknown ORAL NEEDED DAILY 1 unit(s) 827731 RxNorm TAKE 1 EACH ORAL NEEDED DAILY Omeprazole 20 MG Oral Tablet, Delayed Release 01/05/2024 Unknown ORAL NEEDED 20 MG RxNorm DORIE E 20 MG ORAL NEEDED risperiDONE 0.5MG Oral Tablet 01/05/2024 Unknown ORAL ONCE A DAY 0.5 MILLIGRAMS 607038 RxNorm TAKE 0.5 MILLIGRAMS ORAL ONCE A DAY Xanax 0.5MG Oral Tablet 08/10/2024 Unknown ORAL NEEDED DAILY 0.5 MILLIGRAMS 628044 RxNorm TAKE 0.5 MILLIGRAMS ORAL NEEDED DAILY metFORMIN HCl 500MG Oral Tablet 08/10/2024 Unknown ORAL AT BEDTIME 500 MILLIGRAMS 639002 RxNorm TAKE 500 MILLIGRAMS ORAL AT BEDTIME DULoxetine HCl 30MG Oral Capsule, Delayed Release 10/29/2024 Unknown ORAL ONCE A DAY 30 MILLIGRAMS 419796 RxNorm TAKE 30 MILLIGRAMS ORAL ONCE A DAY PARoxetine HCl 40MG Oral Tablet 10/29/2024 Unknown ORAL ONCE A DAY 40 MILLIGRAMS 0698198 RxNorm TAKE 40 MILLIGRAMS ORAL ONCE A DAY traZODone hydrochloride 100MG Oral Tablet 10/29/2024 Unknown ORAL AT BEDTIME 200 MILLIGRAMS 228428 RxNorm TAKE 200 MILLIGRAMS ORAL AT BEDTIME [...] (-LT Left side of body) 10/29/2024 completed 32941 C PT INJECT SI JOINT ARTHRGRPHY&/ ANES/STEROID W/ANKITA; (-RT Right side of body) 10/29/2024 completed 15983 CPT Problems Problem Start Date Resolved Date Status Code Code System HIDRADENITIS SUPPURATIVA active 86279626 SNOMED-CT PAIN IN RIGHT SHOULDER active 4485339 0749769462 SNOMED-CT CARPAL TUNNEL SYNDROME, RIGHT UPPER LIMB active 585362708590122 SNOMED-C T FATTY (CHANGE OF) LIVER, NOT ELSEWHERE CLASSIFIED active 854693279 SNOMED-CT DORSALGIA, UNSPECIFIED active 7043350 05 SNOMED-CT HEADACHE, UNSPECIFIED active 33130677 SNOMED-CT PAIN IN UNSPECIFIED JOINT active 46869370 SNOMED-CT RADICULOPATHY, CERVICAL REGION active 17169503 SNOMED-CT SPINAL STENOSIS, SITE UNSPECIFIED active 58760762 SNOMED-CT OTHER CHRONIC PAIN active 83165839 S NOMED-CT RADICULOPATHY, LUMBAR REGION active 874178100 SNOMED-CT CERVICALGIA active 93009852 SNOMED-C T PAIN IN LEFT KNEE active 815890445409 107 SNOMED-CT Allergies and Adverse Reactions Allergy Substance Reaction Severity Start Date Concern Status Code Code System SULFA (sulfonamide) Rash (SNOMED-CT: 651455396) Active 97398382 SNOMED-CT CEPHALOSPORIN Rash (SNOMED-CT: 952230368) Active 651787772 SNOMED-CT CEPHALEXIN Active 2231 RxNorm AMOXICILLIN Rash (SNOMED-CT: 121236397) Active 723 RxNorm KEFLEX Active 581945 RxNorm ACETAMINOPHEN/CODEI NE #3 Confusion (SNOMED-CT: 405243060) Active 678837 RxNorm Plan of Treatment Follow Up 11/12/2024 SI Joint Injection Bilateral 10/29/2024 OR SI Joint Injection 10/29/2024 SI Joint Injection Bilateral 10/29/2024 OR SI Joint Injection 10/29/2024 Encounters Encounter Diagnosis Start Date Code Code Sys tem Sacroiliitis, not elsewhere classified 10/29/2024 SNOMED-CT Personal Care Team Section Performer Name Performer Role Active Date Inactive DOREEN Villagomez PCP - Primary care physician 2024-03-14 Procedures Notes [facility] 10/29/2024 14:25 All Demographics Patient Name Age Sex Visit Number Admission Date/Time Attending Physician Date of Service Room and Bed Emergency Contact RA STORM 1985 39 years Female [id number] 10/29/2024 13:21 Davidson Varela 10/29/2024 SDS-7 EMETERIOKAREN ARACELIS - [id number] Pain Management Procedural Note I had an [...] Diagnosis: M46.1-Inflammation of Sacroiliac Joint Sacroiliac Joint Injection-90041 Post-Operative Diagnosis: Same Location of Procedure: [ [...]
--- OUTSIDE RECORDS SUMMARY | 2024-12-21 10:44 | XMS_ITS | Encounter Summary ---
Author Organization [facility] Address [facility] [place] [address] Care Team Providers Care Laborer Concrete Plant Name Role Phone None, Provider Primary Care Provider Rohan Hart Primary Care Provider [phone] Oleg Lemus MD Primary Care Provider [phone] Encounter Details Date Type Department Care Team (Late st Contact Info) Description 01/13/2019 Abstract SFL CONVERSION [address] [place] [address] , Generic Conversion, Social History Tobacco Use Types Packs/Day Years Used Date Smoking Tobacco: Never Assessed Comments Unknown Sex and Gender Information Value Date Recorded Sex Assigned at Not on file Legal Sex Female 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 Gender Identity Not on file Sexual Orientation Not on file documented as of this encounter Plan of Treatment Not on file documented as of this encounter Visit Diagnoses Not on filedocumented in this encounter Additional Health Concerns Infection Onset Date Last Indicated Resolved Time COVID-19 Rule Out 05/18/2020 05/18/2020 05/20/2020 3:11 AM CDT COVID-19 Rule Out 07/30/2023 07/30/2023 07/30/2023 6:22 PM DOCK GRADER Influenza - Seasonal 07/30/2023 07/30/2023 024 12:32 AM DOCK GRADER documented as of this encounter Care Teams Laborer Concrete Plant Relationship Specialty Start Date End Date None, Provider, PCP - General 03/26/20 05/17/20 Rohan So PA [address] [place] [phone] PCP - General PHYSICIAN SOCIAL SERVICE WORKER 05/18/20 07/29/23 Oleg Lemus MD [address] [place] [address] PCP - General FAMILY PRACTICE 07/30/23 documented as of this encounter
--- OUTSIDE RECORDS SUMMARY | 2024-12-21 10:44 | XMS_ITS ---
Author Organization Unknown Address [address] [place] [phone] Phone Care Team Providers Care Plant Attendant Or Assistant Operator Name Role Phone JEFFRY WEBER Attending Unavailable JOON Balderrama Primary Unavailable Immunization Immunization Date Status Additional Notes Code Code System Tdap 09/08/2024 Completed 115 CVX Influenza, split virus, quadrivalent, preservative 08/04/2022 Completed 158 C VX Results HIPS LISSETTE 3-4 VIEWS - Complet ed: 08/24/2024 10:17 LOINC: \TM00\12PI\DRAo\BM09\ \MRLo\ [address] [address] ---------NAME--------- NUMBER SEX AGE ADMIT DISC. XRAY# F/C TYPE EMETERIO GUZMÁN [id number] F 38 08/24/24 08/24/24 64371 XB7 O/P DATE OF : 1985 M/R# [id number] PH#: [phone] RM \MRHx\ LOCATION: TRANSCRIBED: 08/24/24 11:06 HIPS LISSETTE 3-4 VIEWS 20487 COMPLETED:08/24/24 10:17 [facility] [id number] {REASON-HIPS: SI JOINT INFLAMATION PHYSICIAN: JEFFRY NUNEZ R A D I O L O G Y R E P O R T EXAM: HIPS LISSETTE 3-4 VIEWS CLINICAL INDICATION: SI JOINT INFLAMATION TECHNIQUE: HIPS LISSETTE 3-4 VIEWS Comparison: None FINDINGS/IMPRESSION: There is no evidence of acute fracture or dislocation. Moderate bilateral hip osteoarthtirits. The alignment is anatomical. There is no radiopaque foreign body. SEWER \ITLo\ \UNDo\ \UNDx\ \ITLx\ Reviewed and Electronically Signed by: Rigo Beatty MD Signed Date: 08/24/24 11:06 08/24/[email or web address].to JOON GOODEN via fax Social History Type Status Start Date End Date Code Code Syst em Smoking History Current every day smoker 070348327 SNOMED CT Sex Female Medications Medication Start Date End Date Route Frequency Dose Code Code System Medication Instructions Home Meds DULoxetine HCl AvPak 30MG Oral Capsule, Delayed Release 01/05/2024 10/22/2024 ORAL ONCE A DAY 30 MILLIGRAMS 358410 RxNorm TAKE 30 MILLIGRAMS ORAL ONCE A DAY DULoxetine HCl AvPak 60MG Oral Capsule, Delayed Release 01/05/2024 Unknown ORAL ONCE A DAY 60 MILLIGRAMS 081065 RxNorm TAKE 60 MILLIGRAMS ORAL ONCE A DAY MiraLAX 17GM/1Dose Oral Powder for Solution 01/05/2024 Unknown ORAL NEEDED DAILY 1 unit(s) 398128 RxNorm TAKE 1 EACH ORAL NEEDED DAILY Omeprazole 20 MG Oral Tablet, Delayed Release 01/05/2024 Unknown ORAL NEEDED 20 MG RxNorm TAKE 20 MG ORAL NEEDED PARoxetine HCl 20MG Oral Tablet 01/05/2024 10/22/2024 ORAL ONCE A DAY 20 MILLIGRAMS 3878693 RxNorm TAKE 20 MILLIGRAMS ORAL ONCE A DAY risperiDONE 0.5MG Oral Tablet 01/05/2024 Unknown ORAL ONCE A DAY 0.5 MILLIGRAMS 438784 RxNorm TAKE 0.5 MILLIGRAMS ORAL ONCE A DAY traZODone hydrochloride 100MG Oral Tablet 01/05/2024 10/22/2024 ORAL ONCE A DAY 100 MILLIGRAMS 042546 RxNorm TAKE 100 MILLIGRAMS ORAL ONCE A DAY Meloxicam 7.5MG Oral Tablet 08/09/2024 10/04/2024 BY MOUTH ONCE A DAY 1 TABLET 688473 RxNorm TAKE 1 TABLET BY MOUTH ONCE A DAY Xanax 0.5MG Oral Tablet 08/10/2024 Unknown ORAL NEEDED DAILY 0.5 MILLIGRAMS 619408 RxNorm TAKE 0.5 MILLIGRAMS ORAL NEEDED DAILY metFORMIN HCl 500MG Oral Tablet 08/10/2024 Unknown ORAL AT BEDTIME 500 MILLIGRAMS 119750 RxNorm TAKE 500 MILLIGRAMS ORAL AT BEDTIME DULoxetine HCl 30MG Oral Capsule, Delayed Release 10/29/2024 Unknown ORAL ONCE A DAY 30 MILLIGRAMS 909522 RxNorm TAKE 30 MILLIGRAMS ORAL ONCE A DAY PARoxetine HCl 40MG Oral Tablet 10/29/2024 Unknown ORAL ONCE A DAY 40 MILLIGRAMS 3248098 RxNorm TAKE 40 MILLIGRAMS ORAL ONCE A DAY traZODone hydrochloride 100MG Oral Tablet 10/29/2024 Unknown ORAL AT BEDTIME 200 MILLIGRAMS 395315 RxNorm TAKE 200 MILLIGRAMS ORAL AT BEDTIME [...] Status Code Code System HIDRADENITIS SUPPURATIVA active 24564771 SNOMED-CT PAIN IN RIGHT SHOULDER active 3173267 0737134718 SNOMED-CT CARPAL TUNNEL SYNDROME, RIGHT UPPER LIMB active 431686464708885 SNOMED-C T FATTY (CHANGE OF) LIVER, NOT ELSEWHERE CLASSIFIED active 746845364 SNOMED-CT DORSALGIA, UNSPECIFIED active 4586296 05 SNOMED-CT HEADACHE, UNSPECIFIED active 91813645 SNOMED-CT PAIN IN UNSPECIFIED JOINT active 05351554 SNOMED-CT RADICULOPATHY, CERVICAL REGION active 37353374 SNOMED-CT SPINAL STENOSIS, SITE UNSPECIFIED active 24856554 SNOMED-CT OTHER CHRONIC PAIN active 22389413 S NOMED-CT RADICULOPATHY, LUMBAR REGION active 667148441 SNOMED-CT CERVICALGIA active 10622248 SNOMED-C T PAIN IN LEFT KNEE active 202694663784 107 SNOMED-CT Allergies and Adverse Reactions Allergy Substance Reaction Severity Start Date Concern Status Code Code System SULFA (sulfonamide) Rash (SNOMED-CT: 101169786) Active 44981408 SNOMED-CT CEPHALOSPORIN Rash (SNOMED-CT: 289535831) Active 482979095 SNOMED-CT CEPHALEXIN Active 2231 RxNorm AMOXICILLIN Rash (SNOMED-CT: 211268767) Active 723 RxNorm KEFLEX Active 955183 RxNorm ACETAMINOPHEN/CODEI NE #3 Confusion (SNOMED-CT: 931456425) Active 535995 RxNorm Plan of Treatment Follow Up 11/12/2024 [...] Primary care physician 2024-03-14 Imaging Narrative Notes [facility] [address] 08/24/2024 11:[address] [address] ---------NAME--------- NUMBER SEX AGE ADMIT DISC. XRAY# F/C TYPE EMETERIO GUZMÁN [id number] F 38 08/24/24 08/24/24 44098 XB7 O/P DATE OF : 1985 M/R# [id number] #: [phone] RM LOCATION: TRANSCRIBED: 08/24/24 11:06 HIPS LISSETTE 3-4 VIEWS 40346 COMPLETED:08/24/24 10:17 JDF 34408 {REASON-HIPS: SI JOINT INFLAMATION PHYSICIAN: JEFFRY LOG RADIOLOGY REPORT EXAM: HIPS LISSETTE 3-4 VIEWS CLINICAL INDICATION: SI JOINT INFLAMATION TECHNIQUE: HIPS LISSETTE 3-4 VIEWS Comparison: None FINDINGS/IMPRESSION: There is no evidence of acute fracture or dislocation. Moderate bilateral hip osteoarthtirits. The alignment is anatomical. There is no radiopaque foreign body. SEWER Reviewed and Electronically Signed by: Rigo Beatty MD Signed Date: 08/24/24 11:06 08/24/24.1109.JDF.to [facility] via fax
--- OUTSIDE RECORDS SUMMARY | 2024-12-21 10:45 | XMS_ITS ---
Author Organization Unknown Address [address] [place] [phone] Phone Care Team Providers Care Embossing Machine Operator Name Role Phone VICKYRAMYA CHESTER MAGDALENO Attending Unavailable JOON Balderrama Primary Unavailable Immunization Immunization Date Status Additional Notes Code Code System Tdap 09/08/2024 Completed 115 CVX Influenza, split virus, quadrivalent, preservative 08/04/2022 Completed 158 C VX Results QUANTIFERON GOLD SINGLE TUBE - Collect Date/Time: 03/14/2024 12:54 [facility] ID: [id number] [place] [address], [phone] LOINC: 16415-9 Test Value Unit Reference Range Code Code System Flag SOURCE: BLOOD SEND TO [facility]? NO QuantiFERON Incubation Incubation performed. QuantiFERON-TB Gold Plus Negative Negative 89736-4 LOINC QuantiFERON Criteria COMMENT 8251-1 LOINC QuantiFERON TB1 Ag Value 0.00 94618-0 LOINC QuantiFERON TB2 Ag Value 0.00 10633-9 LOINC QuantiFERON Nil Value 0.00 66296-2 LOINC QuantiFERON Mitogen Value >10.00 40022-4 LOINC LIVER PROFILE - Collect Date /Time: 03/14/2024 12:54 [facility] ID: [id number] [place] [address], [id number] LOINC: 17705-7 Test Value Unit Reference Range Code Code [...] PANEL - Uziel ect Date/Time: 03/14/2024 12:54 [facility] ID: [id number] [address] [place], [place], [phone] LOINC: 12025-2 Test Value Unit Reference Range Code Code System Flag FASTING NO BUN 11 mg/dL L=7 H=20 3094-0 LOINC CREATININE 0.90 mg/dL L=0.52 H=1.04 2160-0 LOINC GLUCOSE 157 mg/dL L=74 H=106 2345-7 LOINC H CALCIUM 9.6 mg/dL L=8.3 H=10.5 52517-0 LOINC SODIUM 139 mmol/L L=132 H=144 2951-2 LOINC POTASSIUM 3.8 mmol/L L=3.5 H=5.1 2823-3 LOINC CHLORIDE 104 mmol/L L=98 H=107 2075-0 LOINC CO2 23.0 mmol/L L=22.0 H=30.0 2028-9 LOINC ANION GAP 16 L=10 H=20 65051-8 LOINC BUN/CREAT 12.2 3097-3 LOINC AGE 38 24866-5 LOINC eGFR NON-AFR 74 ml/min eGFR AFR AMER 90 ml/min CBC W/ DIFF - Collect Date/T amos: 03/14/2024 12:54 [facility] ID: [id number] [address] [place], [place], [phone] LOINC: 45165-8 Test Value Unit Reference Range Code Code System Flag WBC 11.3 10^3uL L=4.8 H=10.8 H RBC 4.58 10^6uL L=4.20 H=5.40 HEMOGLOBIN 13.6 g/dL L=12.0 H=16.0 718-7 LOINC HEMATOCRIT 41.6 VOL% L=37.0 H=47.0 4544-3 LOINC MCV 90.8 fL L=81.0 H=99.0 MCH 29.7 pg L=27.0 H=32.0 MCHC 32.7 g/dL L=32.0 H=36.0 PLATELETS 329 10^3uL L=100 H=400 78046-6 LOINC RDW 13.6 % L=11.7 H=15.5 %GRAN 64.1 % L=40.0 H=70.0 96465-7 LOINC %LYMPH 27.4 % L=20.0 H=45.0 736-9 LOINC %MONO 6.1 % L=2.0 H=10.0 77200-6 LOINC %EOS 1.0 % L=0.0 H=6.0 713-8 LOINC %BASO 0.5 % L=0.0 H=3.0 706-2 LOINC #NEUT 7.3 10^3uL L=1.9 H=7.6 26491-1 LOINC #LYMPH 3.1 10^3uL L=0.9 H=4.9 72979-3 LOINC #MONO 0.7 10^3uL L=0.1 H=0.9 24686-9 LOINC #EOS 0.1 10^3uL L=0.0 H=0.6 712-0 LOINC #BASO 0.06 10^3uL L=0.00 H=0.10 93352-8 LOINC #IM GRANS 0.1 10^3uL L=0.0 H=7.0 62155-9 LOINC %IM GRANS 0.9 % L=0.0 H=5.0 22734-7 LOINC %NRB 0.0 L=0.0 H=0.2 81258-8 LOINC #NRB 0.000 L=0.000 H=0.012 57264-4 LOINC MANUAL DIFF NOT INDICATED RBC MORPH NOT INDICATED Social History Type Status Start Date End Date Code Code Syst em Smoking History Current every day smoker 585579770 SNOMED CT Sex Female Medications Medication Start Date End Date Route Frequency Dose Code Code System Medication Instructions Home Meds DULoxetine HCl AvPak 30MG Oral Capsule, Delayed Release 01/05/2024 10/22/2024 ORAL ONCE A DAY 30 MILLIGRAMS 616569 RxNorm TAKE 30 MILLIGRAMS ORAL ONCE A DAY DULoxetine HCl AvPak 60MG Oral Capsule, Delayed Release 01/05/2024 Unknown ORAL ONCE A DAY 60 MILLIGRAMS 607370 RxNorm TAKE 60 MILLIGRAMS ORAL ONCE A DAY Meloxicam 15MG Oral Tablet 01/05/2024 08/09/2024 ORAL ONCE A DAY 15 MILLIGRAMS 881002 RxNorm TAKE 15 MILLIGRAMS ORAL ONCE A DAY MiraLAX 17GM/1Dose Oral Powder for Solution 01/05/2024 Unknown ORAL NEEDED DAILY 1 unit(s) 267239 RxNorm TAKE 1 EACH ORAL NEEDED DAILY Omeprazole 20 MG Oral Tablet, Delayed Release 01/05/2024 Unknown ORAL NEEDED 20 MG RxNorm TAKE 20 MG ORAL NEEDED PARoxetine HCl 20MG Oral Tablet 01/05/2024 10/22/2024 ORAL ONCE A DAY 20 MILLIGRAMS 0788632 RxNorm TAKE 20 MILLIGRAMS ORAL ONCE A DAY risperiDONE 0.5MG Oral Tablet 01/05/2024 Unknown ORAL ONCE A DAY 0.5 MILLIGRAMS 067277 RxNorm TAKE 0.5 MILLIGRAMS ORAL ONCE A DAY traZODone hydrochloride 100MG Oral Tablet 01/05/2024 10/22/2024 ORAL ONCE A DAY 100 MILLIGRAMS 107728 RxNorm TAKE 100 MILLIGRAMS ORAL ONCE A DAY Meloxicam 7.5MG Oral Tablet 08/09/2024 10/04/2024 BY MOUTH ONCE A DAY 1 TABLET 236324 RxNorm TAKE 1 TABLET BY MOUTH ONCE A DAY Xanax 0.5MG Oral Tablet 08/10/2024 Unknown ORAL NEEDED DAILY 0.5 MILLIGRAMS 532148 RxNorm TAKE 0.5 MILLIGRAMS ORAL NEEDED DAILY metFORMIN HCl 500MG Oral Tablet 08/10/2024 Unknown ORAL AT BEDTIME 500 MILLIGRAMS 959332 RxNorm TAKE 500 MILLIGRAMS ORAL AT BEDTIME DULoxetine HCl 30MG Oral Capsule, Delayed Release 10/29/2024 Unknown ORAL ONCE A DAY 30 MILLIGRAMS 136437 RxNorm TAKE 30 MILLIGRAMS ORAL ONCE A DAY PARoxetine HCl 40MG Oral Tablet 10/29/2024 Unknown ORAL ONCE A DAY 40 MILLIGRAMS 9508797 RxNorm TAKE 40 MILLIGRAMS ORAL ONCE A DAY traZODone hydrochloride 100MG Oral Tablet 10/29/2024 Unknown ORAL AT BEDTIME 200 MILLIGRAMS 382153 RxNorm TAKE 200 MILLIGRAMS ORAL AT BEDTIME [...] Status Code Code System HIDRADENITIS SUPPURATIVA active 20088545 SNOMED-CT PAIN IN RIGHT SHOULDER active 5012358 9687833385 SNOMED-CT CARPAL TUNNEL SYNDROME, RIGHT UPPER LIMB active 737026719962278 SNOMED-C T FATTY (CHANGE OF) LIVER, NOT ELSEWHERE CLASSIFIED active 115670243 SNOMED-CT DORSALGIA, UNSPECIFIED active 9712799 05 SNOMED-CT HEADACHE, UNSPECIFIED active 95021279 SNOMED-CT PAIN IN UNSPECIFIED JOINT active 19951487 SNOMED-CT RADICULOPATHY, CERVICAL REGION active 95678311 SNOMED-CT SPINAL STENOSIS, SITE UNSPECIFIED active 60897682 SNOMED-CT OTHER CHRONIC PAIN active 03334437 S NOMED-CT RADICULOPATHY, LUMBAR REGION active 272917755 SNOMED-CT CERVICALGIA active 39454810 SNOMED-C T PAIN IN LEFT KNEE active 494212036773 107 SNOMED-CT Allergies and Adverse Reactions Allergy Substance Reaction Severity Start Date Concern Status Code Code System SULFA (sulfonamide) Rash (SNOMED-CT: 657359323) Active 59797698 SNOMED-CT CEPHALOSPORIN Rash (SNOMED-CT: 597183648) Active 283185635 SNOMED-CT CEPHALEXIN Active 2231 RxNorm AMOXICILLIN Rash (SNOMED-CT: 674043221) Active 723 RxNorm KEFLEX Active 780149 RxNorm ACETAMINOPHEN/CODEI NE #3 Confusion (SNOMED-CT: 808567389) Active 404201 RxNorm Plan of Treatment Follow Up 11/12/2024 [...]
--- OUTSIDE RECORDS SUMMARY | 2024-12-21 10:45 | XMS_ITS ---
Author Organization Unknown Address [address] [place] [address] [phone] Phone Care Team Providers Care Research Geologist Name Role Phone JEFFRY WEBER Attending Unavailable JOON Balderrama Primary Unavailable Immunization Immunization Date Status Additional Notes Code Code System Tdap 09/08/2024 Completed 115 CVX Influenza, split virus, quadrivalent, preservative 08/04/2022 Completed 158 C VX Social History Type Status Start Date End Date Code Code Syst em Smoking History Current every day smoker 303276767 SNOMED CT Sex Female Vital Signs Vital Sign Value Unit [place] [facility] [place] Unit Date/Time Recent/Initial? Code Code System Body Mass Index 39.99 kg/m2 11/12/2024 10:22 Initial 89183 -5 [facility] Systolic Blood Pressure 122 mm[Hg] 11/12/2024 10:22 Initial 8480- 6 LOINC Diastolic Blood Pressure 79 mm[Hg] 11/12/2024 10:22 Initial 8462- 4 [facility] Body Surface Area 2.18 m2 11/12/2024 10:22 Initial 3140- 1 LOINC Height 162.560 0 cm 64.00 in 11/12/2024 10:22 Initial 8302- 2 LOINC O2 Saturation 98 % 2024 10:22 Initial 32804 -5 [facility] Pulse 96.0 /min 11/12/2024 10:22 Initial 8867- 4 LOINC Temperature 36.8 May 98.2 F 11/13/19 10:22 Initial 8310- 5 LOINC Weight 105.69 kg 233.00 lbs 11/12/2024 10:22 Initial 06376 -7 [facility] Medications Medication Start Date End Date Route Frequency Dose Code Code System Medication Instructions Home Meds DULoxetine HCl AvPak 60MG Oral Capsule, Delayed Release 01/05/2024 Unknown ORAL ONCE A DAY 60 MILLIGRAMS 322433 RxNorm TAKE 60 MILLIGRAMS ORAL ONCE A DAY MiraLAX 17GM/1Dose Oral Powder for Solution 01/05/2024 Unknown ORAL NEEDED DAILY 1 unit(s) 748375 RxNorm TAKE 1 EACH ORAL NEEDED DAILY Omeprazole 20 MG Oral Tablet, Delayed Release 01/05/2024 Unknown ORAL NEEDED 20 MG RxNorm DORIE E 20 MG ORAL NEEDED risperiDONE 0.5MG Oral Tablet 01/05/2024 Unknown ORAL ONCE A DAY 0.5 MILLIGRAMS 184073 RxNorm TAKE 0.5 MILLIGRAMS ORAL ONCE A DAY Xanax 0.5MG Oral Tablet 08/10/2024 Unknown ORAL NEEDED DAILY 0.5 MILLIGRAMS 063958 RxNorm TAKE 0.5 MILLIGRAMS ORAL NEEDED DAILY metFORMIN HCl 500MG Oral Tablet 08/10/2024 Unknown ORAL AT BEDTIME 500 MILLIGRAMS 440764 RxNorm TAKE 500 MILLIGRAMS ORAL AT BEDTIME DULoxetine HCl 30MG Oral Capsule, Delayed Release 10/29/2024 Unknown ORAL ONCE A DAY 30 MILLIGRAMS 830304 RxNorm TAKE 30 MILLIGRAMS ORAL ONCE A DAY PARoxetine HCl 40MG Oral Tablet 10/29/2024 Unknown ORAL ONCE A DAY 40 MILLIGRAMS 6884866 RxNorm TAKE 40 MILLIGRAMS ORAL ONCE A DAY traZODone hydrochloride 100MG Oral Tablet 10/29/2024 Unknown ORAL AT BEDTIME 200 MILLIGRAMS 705373 RxNorm TAKE 200 MILLIGRAMS ORAL AT BEDTIME [...] Status Code Code System HIDRADENITIS SUPPURATIVA active 71409766 SNOMED-CT PAIN IN RIGHT SHOULDER active 2222331 4096997474 SNOMED-CT CARPAL TUNNEL SYNDROME, RIGHT UPPER LIMB active 567205161252640 SNOMED-C T FATTY (CHANGE OF) LIVER, NOT ELSEWHERE CLASSIFIED active 739161354 SNOMED-CT DORSALGIA, UNSPECIFIED active 9588433 05 SNOMED-CT HEADACHE, UNSPECIFIED active 87837101 SNOMED-CT PAIN IN UNSPECIFIED JOINT active 71272807 SNOMED-CT RADICULOPATHY, CERVICAL REGION active 85393275 SNOMED-CT SPINAL STENOSIS, SITE UNSPECIFIED active 34946989 SNOMED-CT OTHER CHRONIC PAIN active 06428482 S NOMED-CT RADICULOPATHY, LUMBAR REGION active 392355766 SNOMED-CT CERVICALGIA active 96381204 SNOMED-C T PAIN IN LEFT KNEE active 692177159574 107 SNOMED-CT Allergies and Adverse Reactions Allergy Substance Reaction Severity Start Date Concern Status Code Code System SULFA (sulfonamide) Rash (SNOMED-CT: 021381810) Active 69986784 SNOMED-CT CEPHALOSPORIN Rash (SNOMED-CT: 340885035) Active 351996936 SNOMED-CT CEPHALEXIN Active 2231 RxNorm AMOXICILLIN Rash (SNOMED-CT: 701593458) Active 723 RxNorm KEFLEX Active 004119 RxNorm ACETAMINOPHEN/CODEI NE #3 Confusion (SNOMED-CT: 722668762) Active 782689 RxNorm Plan of Treatment Follow Up 11/12/2024 SI Joint Injection Bilateral 10/29/2024 OR SI Joint Injection 10/29/2024 SI Joint Injection Bilateral 10/29/2024 OR SI Joint Injection 10/29/2024 Encounters Encounter Diagnosis Start Date Code Code Sys tem Sacrococcygeal disorders, not elsewhere classified 02/2025 SNOMED-CT Personal Care Team Section Performer Name Performer Role Active Date Inactive DOREEN Villagomez PCP - Primary care physician 2024-03-14 Progress Notes [facility] 11/12/2024 10:46 All Demographics Patient Name Age Sex Visit Number Admission Date/Time Attending Physician Date of Service Room and Bed Emergency Contact RA STORM 1985 39 years Female [id number] 11/12/2024 10:14 Davidson Varela 11/12/2024 05-OP KAREN STORM - [id number] Pain Management Follow Up Vital Signs: Today [...]
--- OUTSIDE RECORDS SUMMARY | 2024-12-21 10:45 | XMS_ITS ---
Author Organization Unknown Address [address] [place] [address] [phone] Phone Care Team Providers Care Management Architect Name Role Phone JEFFRY WEBER Attending Unavailable JOON Balderrama Primary Unavailable Immunization Immunization Date Status Additional Notes Code Code System Tdap 09/08/2024 Completed 115 CVX Influenza, split virus, quadrivalent, preservative 08/04/2022 Completed 158 C VX Social History Type Status Start Date End Date Code Code Syst em Smoking History Current every day smoker [id number] SNOMED CT Sex Female Medications Medication Start Date End Date Route Frequency Dose Code Code System Medication Instructions Home Meds DULoxetine HCl AvPak 30MG Oral Capsule, Delayed Release 01/05/2024 10/22/2024 ORAL ONCE A DAY 30 MILLIGRAMS 697725 RxNorm TAKE 30 MILLIGRAMS ORAL ONCE A DAY DULoxetine HCl AvPak 60MG Oral Capsule, Delayed Release 01/05/2024 Unknown ORAL ONCE A DAY 60 MILLIGRAMS 604811 RxNorm TAKE 60 MILLIGRAMS ORAL ONCE A DAY MiraLAX 17GM/1Dose Oral Powder for Solution 01/05/2024 Unknown ORAL NEEDED DAILY 1 unit(s) 306848 RxNorm TAKE 1 EACH ORAL NEEDED DAILY Omeprazole 20 MG Oral Tablet, Delayed Release 01/05/2024 Unknown ORAL NEEDED 20 MG RxNorm TAKE 20 MG ORAL NEEDED PARoxetine HCl 20MG Oral Tablet 01/05/2024 10/22/2024 ORAL ONCE A DAY 20 MILLIGRAMS 5297472 RxNorm TAKE 20 MILLIGRAMS ORAL ONCE A DAY risperiDONE 0.5MG Oral Tablet 01/05/2024 Unknown ORAL ONCE A DAY 0.5 MILLIGRAMS 967471 RxNorm TAKE 0.5 MILLIGRAMS ORAL ONCE A DAY traZODone hydrochloride 100MG Oral Tablet 01/05/2024 10/22/2024 ORAL ONCE A DAY 100 MILLIGRAMS 818346 RxNorm TAKE 100 MILLIGRAMS ORAL ONCE A DAY Meloxicam 7.5MG Oral Tablet 08/09/2024 10/04/2024 BY MOUTH ONCE A DAY 1 TABLET 889115 RxNorm TAKE 1 TABLET BY MOUTH ONCE A DAY Xanax 0.5MG Oral Tablet 08/10/2024 Unknown ORAL NEEDED DAILY 0.5 MILLIGRAMS 394199 RxNorm TAKE 0.5 MILLIGRAMS ORAL NEEDED DAILY metFORMIN HCl 500MG Oral Tablet 08/10/2024 Unknown ORAL AT BEDTIME 500 MILLIGRAMS 695296 RxNorm TAKE 500 MILLIGRAMS ORAL AT BEDTIME DULoxetine HCl 30MG Oral Capsule, Delayed Release 10/29/2024 Unknown ORAL ONCE A DAY 30 MILLIGRAMS 773643 RxNorm TAKE 30 MILLIGRAMS ORAL ONCE A DAY PARoxetine HCl 40MG Oral Tablet 10/29/2024 Unknown ORAL ONCE A DAY 40 MILLIGRAMS 3090285 RxNorm TAKE 40 MILLIGRAMS ORAL ONCE A DAY traZODone hydrochloride 100MG Oral Tablet 10/29/2024 Unknown ORAL AT BEDTIME 200 MILLIGRAMS 753678 RxNorm TAKE 200 MILLIGRAMS ORAL AT BEDTIME [...] Status Code Code System HIDRADENITIS SUPPURATIVA active 78399944 SNOMED-CT PAIN IN RIGHT SHOULDER active 3680323 0833626464 SNOMED-CT CARPAL TUNNEL SYNDROME, RIGHT UPPER LIMB active 860481169795124 SNOMED-C T FATTY (CHANGE OF) LIVER, NOT ELSEWHERE CLASSIFIED active 237720774 SNOMED-CT DORSALGIA, UNSPECIFIED active 8994746 05 SNOMED-CT HEADACHE, UNSPECIFIED active 67237942 SNOMED-CT PAIN IN UNSPECIFIED JOINT active 41626282 SNOMED-CT RADICULOPATHY, CERVICAL REGION active 04459482 SNOMED-CT SPINAL STENOSIS, SITE UNSPECIFIED active 86012449 SNOMED-CT OTHER CHRONIC PAIN active 09236173 S NOMED-CT RADICULOPATHY, LUMBAR REGION active 312528936 SNOMED-CT CERVICALGIA active 23156219 SNOMED-C T PAIN IN LEFT KNEE active 758426883908 107 SNOMED-CT Allergies and Adverse Reactions Allergy Substance Reaction Severity Start Date Concern Status Code Code System SULFA (sulfonamide) Rash (SNOMED-CT: 528250792) Active 76896628 SNOMED-CT CEPHALOSPORIN Rash (SNOMED-CT: 953273573) Active 514248741 SNOMED-CT CEPHALEXIN Active 2231 RxNorm AMOXICILLIN Rash (SNOMED-CT: 188753086) Active 723 RxNorm KEFLEX Active 795017 RxNorm ACETAMINOPHEN/CODEI NE #3 Confusion (SNOMED-CT: 186123755) Active 915897 RxNorm Plan of Treatment Follow Up 11/12/2024 [...]
--- OUTSIDE RECORDS SUMMARY | 2024-12-21 10:45 | XMS_ITS ---
Author Organization Unknown Address [address] [place] [address] [phone] Phone Care Team Providers Care Battery Container Tester Name Role Phone JEFFRY WEBER Attending Unavailable JOON Balderrama Primary Unavailable Immunization Immunization Date Status Additional Notes Code Code System Tdap 09/08/2024 Completed 115 CVX Influenza, split virus, quadrivalent, preservative 08/04/2022 Completed 158 C VX Social History Type Status Start Date End Date Code Code Syst em Smoking History Current every day smoker 623496572 SNOMED CT Sex Female Vital Signs Vital Sign Value Unit [place] Date/Time Recent/Initial? Code Code System Body Mass Index 30.12 kg/m2 08/09/2024 10:05 Initial 64214 -5 [facility] Systolic Blood Pressure 97 mm[Hg] 08/09/2024 10:05 Initial 8480- 6 LOINC Diastolic Blood Pressure 68 mm[Hg] 08/09/2024 10:05 Initial 8462- 4 [facility] Body Surface Area 1.94 m2 08/09/2024 10:05 Initial 3140- 1 LOINC Height 165.100 0 cm 65.00 in 08/09/2024 10:05 Initial 8302- 2 LOINC O2 Saturation 98 % 2024 10:05 Initial 29685 -5 [facility] Pulse 105.0 /min 08/09/2024 10:05 Initial 8867- 4 LOINC Temperature 36.3 May 97.3 F 08/09/19 10:05 Initial 8310- 5 LOINC Weight 82.10 kg 181.00 lbs 08/09/2024 10:05 Initial 61770 -7 [facility] Medications Medication Start Date End Date Route Frequency Dose Code Code System Medication Instructions Home Meds DULoxetine HCl AvPak 30MG Oral Capsule, Delayed Release 01/05/2024 10/22/2024 ORAL ONCE A DAY 30 MILLIGRAMS 727566 RxNorm TAKE 30 MILLIGRAMS ORAL ONCE A DAY DULoxetine HCl AvPak 60MG Oral Capsule, Delayed Release 01/05/2024 Unknown ORAL ONCE A DAY 60 MILLIGRAMS 714310 RxNorm TAKE 60 MILLIGRAMS ORAL ONCE A DAY Meloxicam 15MG Oral Tablet 01/05/2024 08/09/2024 ORAL ONCE A DAY 15 MILLIGRAMS 900921 RxNorm TAKE 15 MILLIGRAMS ORAL ONCE A DAY MiraLAX 17GM/1Dose Oral Powder for Solution 01/05/2024 Unknown ORAL NEEDED DAILY 1 unit(s) 474717 RxNorm TAKE 1 EACH ORAL NEEDED DAILY Omeprazole 20 MG Oral Tablet, Delayed Release 01/05/2024 Unknown ORAL NEEDED 20 MG RxNorm TAKE 20 MG ORAL NEEDED PARoxetine HCl 20MG Oral Tablet 01/05/2024 10/22/2024 ORAL ONCE A DAY 20 MILLIGRAMS 5578731 RxNorm TAKE 20 MILLIGRAMS ORAL ONCE A DAY risperiDONE 0.5MG Oral Tablet 01/05/2024 Unknown ORAL ONCE A DAY 0.5 MILLIGRAMS 200179 RxNorm TAKE 0.5 MILLIGRAMS ORAL ONCE A DAY traZODone hydrochloride 100MG Oral Tablet 01/05/2024 10/22/2024 ORAL ONCE A DAY 100 MILLIGRAMS 504189 RxNorm TAKE 100 MILLIGRAMS ORAL ONCE A DAY Meloxicam 7.5MG Oral Tablet 08/09/2024 10/04/2024 BY MOUTH ONCE A DAY 1 TABLET 242782 RxNorm TAKE 1 TABLET BY MOUTH ONCE A DAY Xanax 0.5MG Oral Tablet 08/10/2024 Unknown ORAL NEEDED DAILY 0.5 MILLIGRAMS 793508 RxNorm TAKE 0.5 MILLIGRAMS ORAL NEEDED DAILY metFORMIN HCl 500MG Oral Tablet 08/10/2024 Unknown ORAL AT BEDTIME 500 MILLIGRAMS 265613 RxNorm TAKE 500 MILLIGRAMS ORAL AT BEDTIME DULoxetine HCl 30MG Oral Capsule, Delayed Release 10/29/2024 Unknown ORAL ONCE A DAY 30 MILLIGRAMS 461648 RxNorm TAKE 30 MILLIGRAMS ORAL ONCE A DAY PARoxetine HCl 40MG Oral Tablet 10/29/2024 Unknown ORAL ONCE A DAY 40 MILLIGRAMS 4388231 RxNorm TAKE 40 MILLIGRAMS ORAL ONCE A DAY traZODone hydrochloride 100MG Oral Tablet 10/29/2024 Unknown ORAL AT BEDTIME 200 MILLIGRAMS 078214 RxNorm TAKE 200 MILLIGRAMS ORAL AT BEDTIME [...] Status Code Code System HIDRADENITIS SUPPURATIVA active 93184427 SNOMED-CT PAIN IN RIGHT SHOULDER active 0319025 9883954299 SNOMED-CT CARPAL TUNNEL SYNDROME, RIGHT UPPER LIMB active 596392355225898 SNOMED-C T FATTY (CHANGE OF) LIVER, NOT ELSEWHERE CLASSIFIED active 699951721 SNOMED-CT DORSALGIA, UNSPECIFIED active 7393583 05 SNOMED-CT HEADACHE, UNSPECIFIED active 02854000 SNOMED-CT PAIN IN UNSPECIFIED JOINT active 59980072 SNOMED-CT RADICULOPATHY, CERVICAL REGION active 23865001 SNOMED-CT SPINAL STENOSIS, SITE UNSPECIFIED active 77144323 SNOMED-CT OTHER CHRONIC PAIN active 74452249 S NOMED-CT RADICULOPATHY, LUMBAR REGION active 499648036 SNOMED-CT CERVICALGIA active 92226356 SNOMED-C T PAIN IN LEFT KNEE active 244691537061 107 SNOMED-CT Allergies and Adverse Reactions Allergy Substance Reaction Severity Start Date Concern Status Code Code System SULFA (sulfonamide) Rash (SNOMED-CT: 217035996) Active 98507019 SNOMED-CT CEPHALOSPORIN Rash (SNOMED-CT: 353720149) Active 473808704 SNOMED-CT CEPHALEXIN Active 2231 RxNorm AMOXICILLIN Rash (SNOMED-CT: 056938397) Active 723 RxNorm KEFLEX Active 747333 RxNorm ACETAMINOPHEN/CODEI NE #3 Confusion (SNOMED-CT: 002419423) Active 320100 RxNorm Plan of Treatment Follow Up 11/12/2024 [...] - Primary care physician 2024-03-14 Progress Notes [facility] 08/09/2024 10:45 All Demographics Patient Name Age Sex Visit Number Admission Date/Time Attending Physician Date of Service Room and Bed Emergency Contact RA STORM 1985 38 years Female [id number] 08/09/2024 09:57 Davidson Varela 08/09/2024 01-OP KAREN STORM - [id number] PAIN MANAGEMENT HISTORY & PHYSICAL Vital Signs: [...]
--- OUTSIDE RECORDS SUMMARY | 2024-12-21 10:45 | XMS_ITS ---
Author Organization Unknown Address [address] [place] [address] [phone] Phone Care Team Providers Care Hardboard Grinder Name Role Phone NIHARIKA MAGDALENO Attending Unavailable JOON Balderrama Primary Unavailable Immunization Immunization Date Status Additional Notes Code Code System Tdap 09/08/2024 Completed 115 CVX Influenza, split virus, quadrivalent, preservative 08/04/2022 Completed 158 C VX Social History Type Status Start Date End Date Code Code Syst em Smoking History Current every day smoker 236046785 SNOMED CT Sex Female Medications Medication Start Date End Date Route Frequency Dose Code Code System Medication Instructions Home Meds DULoxetine HCl AvPak 30MG Oral Capsule, Delayed Release 01/05/2024 10/22/2024 ORAL ONCE A DAY 30 MILLIGRAMS 445555 RxNorm TAKE 30 MILLIGRAMS ORAL ONCE A DAY DULoxetine HCl AvPak 60MG Oral Capsule, Delayed Release 01/05/2024 Unknown ORAL ONCE A DAY 60 MILLIGRAMS 587672 RxNorm TAKE 60 MILLIGRAMS ORAL ONCE A DAY Meloxicam 15MG Oral Tablet 01/05/2024 08/09/2024 ORAL ONCE A DAY 15 MILLIGRAMS 003186 RxNorm TAKE 15 MILLIGRAMS ORAL ONCE A DAY MiraLAX 17GM/1Dose Oral Powder for Solution 01/05/2024 Unknown ORAL NEEDED DAILY 1 unit(s) 006640 RxNorm TAKE 1 EACH ORAL NEEDED DAILY Omeprazole 20 MG Oral Tablet, Delayed Release 01/05/2024 Unknown ORAL NEEDED 20 MG RxNorm TAKE 20 MG ORAL NEEDED PARoxetine HCl 20MG Oral Tablet 01/05/2024 10/22/2024 ORAL ONCE A DAY 20 MILLIGRAMS 4025025 RxNorm TAKE 20 MILLIGRAMS ORAL ONCE A DAY risperiDONE 0.5MG Oral Tablet 01/05/2024 Unknown ORAL ONCE A DAY 0.5 MILLIGRAMS 759307 RxNorm TAKE 0.5 MILLIGRAMS ORAL ONCE A DAY traZODone hydrochloride 100MG Oral Tablet 01/05/2024 10/22/2024 ORAL ONCE A DAY 100 MILLIGRAMS 072323 RxNorm TAKE 100 MILLIGRAMS ORAL ONCE A DAY Meloxicam 7.5MG Oral Tablet 08/09/2024 10/04/2024 BY MOUTH ONCE A DAY 1 TABLET 463421 RxNorm TAKE 1 TABLET BY MOUTH ONCE A DAY Xanax 0.5MG Oral Tablet 08/10/2024 Unknown ORAL NEEDED DAILY 0.5 MILLIGRAMS 452451 RxNorm TAKE 0.5 MILLIGRAMS ORAL NEEDED DAILY metFORMIN HCl 500MG Oral Tablet 08/10/2024 Unknown ORAL AT BEDTIME 500 MILLIGRAMS 984085 RxNorm TAKE 500 MILLIGRAMS ORAL AT BEDTIME DULoxetine HCl 30MG Oral Capsule, Delayed Release 10/29/2024 Unknown ORAL ONCE A DAY 30 MILLIGRAMS 357374 RxNorm TAKE 30 MILLIGRAMS ORAL ONCE A DAY PARoxetine HCl 40MG Oral Tablet 10/29/2024 Unknown ORAL ONCE A DAY 40 MILLIGRAMS 7772021 RxNorm TAKE 40 MILLIGRAMS ORAL ONCE A DAY traZODone hydrochloride 100MG Oral Tablet 10/29/2024 Unknown ORAL AT BEDTIME 200 MILLIGRAMS 808459 RxNorm TAKE 200 MILLIGRAMS ORAL AT BEDTIME [...] Status Code Code System HIDRADENITIS SUPPURATIVA active 78731636 SNOMED-CT PAIN IN RIGHT SHOULDER active 1170489 1094637337 SNOMED-CT CARPAL TUNNEL SYNDROME, RIGHT UPPER LIMB active 539996739893760 SNOMED-C T FATTY (CHANGE OF) LIVER, NOT ELSEWHERE CLASSIFIED active 995299303 SNOMED-CT DORSALGIA, UNSPECIFIED active 4275904 05 SNOMED-CT HEADACHE, UNSPECIFIED active 41499740 SNOMED-CT PAIN IN UNSPECIFIED JOINT active 43840744 SNOMED-CT RADICULOPATHY, CERVICAL REGION active 72521974 SNOMED-CT SPINAL STENOSIS, SITE UNSPECIFIED active 50688004 SNOMED-CT OTHER CHRONIC PAIN active 19952802 S NOMED-CT RADICULOPATHY, LUMBAR REGION active 192487246 SNOMED-CT CERVICALGIA active 11552212 SNOMED-C T PAIN IN LEFT KNEE active 126954241042 107 SNOMED-CT Allergies and Adverse Reactions Allergy Substance Reaction Severity Start Date Concern Status Code Code System SULFA (sulfonamide) Rash (SNOMED-CT: 790997706) Active 21556420 SNOMED-CT CEPHALOSPORIN Rash (SNOMED-CT: 460721688) Active 309684048 SNOMED-CT CEPHALEXIN Active 2231 RxNorm AMOXICILLIN Rash (SNOMED-CT: 081558306) Active 723 RxNorm KEFLEX Active 364530 RxNorm ACETAMINOPHEN/CODEI NE #3 Confusion (SNOMED-CT: 870943760) Active 650446 RxNorm Plan of Treatment Follow Up 11/12/2024 SI Joint Injection Bilateral 10/29/2024 OR SI Joint Injection 10/29/2024 SI Joint Injection Bilateral 10/29/2024 OR SI Joint Injection 10/29/2024 Encounters Encounter Diagnosis Start Date Code Code Sys tem Snoring 01/25/2024 83841843 SNOMED-CT Personal Care Team Section Performer Name Performer Role Active Date Inactive DOREEN Villagomez PCP - Primary care physician 2024-03-14 Procedures Notes [facility] 01/29/2024 09:52 STUDY TYPE: HOME SLEEP [...] type III, 7 channel portable monitoring device (DATAllegro) with simultaneous recording of nasal flow, respiratory [...] with your physician. Vaughn Blanco MD DIPLOMATE, [employer] OF SLEEP MEDICINE
--- NOTE | 2024-12-21 10:47 | ED_ITS ---
HPI - Extremity Problem General Chief complaint: Extremity Problem,Nontraumatic Stated complaint: left leg pain Time Seen by Provider: 12/21/24 10:47 Source: patient Mode of arrival: ambulatory Limitations: no limitations History of Present Illness HPI Narrative: 39-year-old white female woke up last night with left medial knee pain has continued today she has no trauma no previous history of left knee pain. she says it hurts to walk on it feels tight throughout her whole entire knee she had a bruise on her distal left thigh medially this nontender. She takes duloxetine for her fibromyalgia but did not take anything else for pain today. Otherwise she is eating and drinking voiding and stooling breathing fine no chest pain no cough or difficulty breathing she has chronic back pain no changes in this. She has fibromyalgia and diffuse muscle soreness. But no changes. Denies any rash or itching swelling lumps or bumps bleeding or bruising or any other complaints. Related Data Home Medications Medication Instructions Recorded Confirmed Last Taken Type trazodone 100 mg tablet 200 mg PO HS 03/13/21 02/02/24 Unknown History venlafaxine 75 mg capsule,extended 75 mg PO DAILY 03/13/21 02/02/24 Unknown History release 24 hr naproxen 500 mg tablet 500 mg PO PRN PRN Pain 07/12/22 02/02/24 Unknown History paroxetine HCl 40 mg tablet 40 mg PO DAILY 07/12/22 02/02/24 Unknown History tramadol 50 mg tablet 50 mg PO Q4H PRN Pain 07/12/22 02/02/24 Unknown History Allergies Allergy/AdvReac Type Severity Reaction Status Date / Time amoxicillin Allergy Rash Verified 09/08/24 18:40 Cephalosporins Allergy Rash Verified 09/08/24 18:40 Review of Systems 2 Review of Systems: All systems reviewed & are unremarkable except as noted in HPI and below PMFSH Past Medical History Medical History Chronic low back pain Asthma Upper respiratory infection Sinusitis Headache disorder Social History Social History Gender identity (if verbalized by the patient): Female Exam 2 Const: General: healthy appearing and no acute distress Nutritional Appearance: well nourished Orientation/consciousness: patient oriented x3 Limitations: no limitations HENMT: Head: normal to inspection Eyes: Conjunctivae: conjunctivae normal Chest: Chest palpation & inspection: normal inspection of the chest Resp: Effort & Inspection: normal respiratory effort Auscultation: clear to auscultation bilaterally Cardio: Rate: regular rate Rhythm: regular rhythm Heart sounds: no murmurs Skin: General skin exam: normal color Rashes: no rashes Wounds: no wounds Neuro: General: patient oriented x3, moves all extremities and no meningeal signs Speech: normal speech Gait exam (Neuro): gait abnormal ( Antalgic gait) Other: antalgic gait Extrem: Other: hips normal range of motion. Left knee full range of motion stable to varus and valgus stress negative You's test negative anterior posterior drawer test mild medial knee tenderness no joint line tenderness no effusions no increased warmth no color changes. She has a small bruise very faint distal left medial thigh no masses palpated. Left lower extremity neurovascular intact. Left knee exam was compared to the right knee exam which was the same. With exception of mild medial knee tenderness Psych: Mental Status: mental status grossly normal Affect: Anxious affect present Attitude: cooperative Course Vital Signs Vital signs: Vital Signs Temperature 36.7 C 12/21/24 10:40 Pulse Rate 107 H 12/21/24 10:40 Respiratory Rate 16 12/21/24 10:40 Blood Pressure 138/67 12/21/24 10:40 Pulse Oximetry 96 12/21/24 10:40 Oxygen Delivery Room Air 12/21/24 10:40 Temperature 36.7 C 12/21/24 10:40 Pulse Rate 107 H 12/21/24 10:40 Respiratory Rate 16 12/21/24 10:40 Blood Pressure 138/67 12/21/24 10:40 Pulse Oximetry 96 12/21/24 10:40 Oxygen Delivery Room Air 12/21/24 10:40 MDM - Extremity (Nontraumatic) MDM Narrative Medical decision making narrative: patient was placed in room 2 history and physical were done labs were ordered. X-ray of the left knee was done she was given Toradol 30 mg IM CBC coags D-dimer all were normal or unremarkable. X-ray left knee was unremarkable per radiologist. patient felt better with the Toradol evaluation was discussed all questions were asked and answered patient agreed with the plan she will use Tylenol and or ibuprofen as needed for pain low heating pad and or ice packs for 20 minutes as needed history follow-up with her primary care provider next week. Differential Diagnosis Differential diagnosis: Likely deep vein thrombosis of lower extremity and other ( arthritis knee strain contusion) Lab Data 12/21/24 11:10 Labs: Lab Results 12/21/24 Range/Units 11:10 WBC 11.7 H (4.8-10.8) K/mm3 RBC 4.58 (4.20-5.40) M/mm3 Hgb 13.4 (12.0-15.0) g/dL Hct 41.5 (35.0-49.0) % MCV 90.6 (78.0-102.0) fL MCH 29.3 (27.0-31.0) pg MCHC 32.3 (32-36) g/dL RDW 13.3 (11.6-14.4) % Plt Count 356 (150-420) K/mm3 MPV 9.5 (9.2-11.8) fl Immature Gran % (Auto) 0.9 H (0.0-0.0) % Neut % (Auto) 60.0 (50.0-70.0) % Lymph % (Auto) 29.9 (18.0-42.0) % [place] % (Auto) 7.5 (2.0-11.0) % Eos % (Auto) 1.1 (1.0-6.0) % Baso % (Auto) 0.6 (0.0-1.0) % Lymph # (Auto) 3.50 (1.10-4.50) K/mm3 [place] # (Auto) 0.88 (0.10-0.90) K/mm3 Eos # (Auto) 0.13 (0.02-0.50) K/mm3 Baso # (Auto) 0.07 (0.00-0.10) K/mm3 Abs Immat Gran (auto) 0.11 H (0.00-0.00) K/mm3 Absolute Neuts (auto) 7.03 (1.70-7.20) K/mm3 Absolute Nucleated RBC 0.00 (0.00-0.00) K/mm3 Nucleated RBC % 0.0 (0-0.0) % PT 10.2 (9.50-12.1) Seconds INR 0.9 APTT 28.7 (23.9-30.70) Sec D-Dimer 0.38 (0.19-0.50) mg/L Discharge Plan Discharge Clinical Impression: Acute pain of left knee Patient Disposition: Home Condition: Stable Instructions: Knee Pain (ED) Additional Instructions: Tylenol 1000 mg 4 times a day as needed for pain and/or ibuprofen 200 mg 2 or 3 tablets 3 times a day as needed for pain. Ice packs and or low heating pad for 20 minutes as needed for pain. Follow-up with your primary care provider next week. Return if you get worse or develops any new symptoms. Patient Language: Persian Prescriptions: No Action venlafaxine 75 mg capsule,extended release 24hr 75 mg PO DAILY trazodone 100 mg tablet 200 mg PO HS tramadol 50 mg Tablet 50 mg PO Q4H PRN (Reason: Pain) paroxetine HCl 40 mg tablet 40 mg PO DAILY naproxen 500 mg tablet 500 mg PO PRN PRN (Reason: Pain) azithromycin [Zithromax] 250 mg tablet 250 mg PO DAILY 4 Days Qty: 4 0RF Rx Instructions: start on day 2 of therapy albuterol sulfate 90 mcg/actuation HFA aerosol inhaler 2 puff inhalation QID PRN (Reason: shortness of breath or wheezing) Qty: 6.7 0RF clindamycin HCl 300 mg capsule 300 mg PO Q6H 10 Days Qty: 40 0RF ondansetron 4 mg tablet,disintegrating 4 mg PO Q6H PRN (Reason: nausea and vomiting) Qty: 14 0RF naproxen 500 mg tablet 500 mg PO BID PRN (Reason: pain) Qty: 14 0RF Follow-up/Referrals: Allie,LEE Mackey [Primary Care Provider] - Time of Disposition: 12:29
[2024-12-21 11:15] LABS: Basophils Absolute Auto 0.07 K/mm3 (0.00-0.10); Basophils Percent Auto 0.6 % (0.0-1.0); Eosinophils Absolute Auto 0.13 K/mm3 (0.02-0.50); Eosinophils Percent Auto 1.1 % (1.0-6.0); Hematocrit 41.5 % (35.0-49.0); Hemoglobin 13.4 g/dL (12.0-15.0); Immature Granulocyte Absolute 0.11 K/mm3 (0.00-0.00); Immature Granulocyte Percent A 0.9 % (0.0-0.0); Lymphocytes Percent Auto 29.9 % (18.0-42.0); Mean Corpuscular HGB Conc 32.3 g/dL (32-36); Mean Corpuscular Hemoglobin 29.3 pg (27.0-31.0); Mean Corpuscular Volume 90.6 fL (78.0-102.0); Mean Platelet Volume 9.5 fl (9.2-11.8); Monocytes Absolute Auto 0.88 K/mm3 (0.10-0.90); Monocytes Percent Auto 7.5 % (2.0-11.0); Neutrophils Absolute Auto 7.03 K/mm3 (1.70-7.20); Platelet Count Result 356 K/mm3 (150-420); Red Blood Count 4.58 M/mm3 (4.20-5.40); Red Cell Distribution Width 13.3 % (11.6-14.4); White Blood Count 11.7 K/mm3 (4.8-10.8)
--- OUTSIDE RECORDS SUMMARY | 2024-12-21 11:16 | XMS_ITS ---
Author Organization Unknown Address [address] [place] [phone] Phone Care Team Providers Care Electric Meter Repairer Name Role Phone JEFFRY WEBER Attending Unavailable JOON Balderrama Primary Unavailable Immunization Immunization Date Status Additional Notes Code Code System Tdap 09/08/2024 Completed 115 CVX Influenza, split virus, quadrivalent, preservative 08/04/2022 Completed 158 C VX Results HIPS LISSETTE 3-4 VIEWS - Complet ed: 08/24/2024 10:17 LOINC: \TM00\12PI\DRAo\BM09\ \MRLo\ [address] [address] ---------NAME--------- NUMBER SEX AGE ADMIT DISC. XRAY# F/C TYPE EMETERIO GUZMÁN [id number] F 38 08/24/24 08/24/24 25793 XB7 O/P DATE OF : 1985 M/R# [id number] PH#: [phone] RM \MRHx\ LOCATION: TRANSCRIBED: 08/24/24 11:06 HIPS LISSETTE 3-4 VIEWS 69510 COMPLETED:08/24/24 10:17 [facility] [id number] {REASON-HIPS: SI JOINT INFLAMATION PHYSICIAN: JEFFRY NUNEZ R A D I O L O G Y R E P O R T EXAM: HIPS LISSETTE 3-4 VIEWS CLINICAL INDICATION: SI JOINT INFLAMATION TECHNIQUE: HIPS LISSETTE 3-4 VIEWS Comparison: None FINDINGS/IMPRESSION: There is no evidence of acute fracture or dislocation. Moderate bilateral hip osteoarthtirits. The alignment is anatomical. There is no radiopaque foreign body. EXAMINER \ITLo\ \UNDo\ \UNDx\ \ITLx\ Reviewed and Electronically Signed by: Rigo Beatty MD Signed Date: 08/24/24 11:06 08/24/[email or web address].to JOON GOODEN via fax Social History Type Status Start Date End Date Code Code Syst em Smoking History Current every day smoker 641971443 SNOMED CT Sex Female Medications Medication Start Date End Date Route Frequency Dose Code Code System Medication Instructions Home Meds DULoxetine HCl AvPak 30MG Oral Capsule, Delayed Release 01/05/2024 10/22/2024 ORAL ONCE A DAY 30 MILLIGRAMS 320586 RxNorm TAKE 30 MILLIGRAMS ORAL ONCE A DAY DULoxetine HCl AvPak 60MG Oral Capsule, Delayed Release 01/05/2024 Unknown ORAL ONCE A DAY 60 MILLIGRAMS 056324 RxNorm TAKE 60 MILLIGRAMS ORAL ONCE A DAY MiraLAX 17GM/1Dose Oral Powder for Solution 01/05/2024 Unknown ORAL NEEDED DAILY 1 unit(s) 136348 RxNorm TAKE 1 EACH ORAL NEEDED DAILY Omeprazole 20 MG Oral Tablet, Delayed Release 01/05/2024 Unknown ORAL NEEDED 20 MG RxNorm TAKE 20 MG ORAL NEEDED PARoxetine HCl 20MG Oral Tablet 01/05/2024 10/22/2024 ORAL ONCE A DAY 20 MILLIGRAMS 6612903 RxNorm TAKE 20 MILLIGRAMS ORAL ONCE A DAY risperiDONE 0.5MG Oral Tablet 01/05/2024 Unknown ORAL ONCE A DAY 0.5 MILLIGRAMS 541422 RxNorm TAKE 0.5 MILLIGRAMS ORAL ONCE A DAY traZODone hydrochloride 100MG Oral Tablet 01/05/2024 10/22/2024 ORAL ONCE A DAY 100 MILLIGRAMS 994773 RxNorm TAKE 100 MILLIGRAMS ORAL ONCE A DAY Meloxicam 7.5MG Oral Tablet 08/09/2024 10/04/2024 BY MOUTH ONCE A DAY 1 TABLET 154292 RxNorm TAKE 1 TABLET BY MOUTH ONCE A DAY Xanax 0.5MG Oral Tablet 08/10/2024 Unknown ORAL NEEDED DAILY 0.5 MILLIGRAMS 471836 RxNorm TAKE 0.5 MILLIGRAMS ORAL NEEDED DAILY metFORMIN HCl 500MG Oral Tablet 08/10/2024 Unknown ORAL AT BEDTIME 500 MILLIGRAMS 160940 RxNorm TAKE 500 MILLIGRAMS ORAL AT BEDTIME DULoxetine HCl 30MG Oral Capsule, Delayed Release 10/29/2024 Unknown ORAL ONCE A DAY 30 MILLIGRAMS 162417 RxNorm TAKE 30 MILLIGRAMS ORAL ONCE A DAY PARoxetine HCl 40MG Oral Tablet 10/29/2024 Unknown ORAL ONCE A DAY 40 MILLIGRAMS 9174618 RxNorm TAKE 40 MILLIGRAMS ORAL ONCE A DAY traZODone hydrochloride 100MG Oral Tablet 10/29/2024 Unknown ORAL AT BEDTIME 200 MILLIGRAMS 920107 RxNorm TAKE 200 MILLIGRAMS ORAL AT BEDTIME [...] Status Code Code System HIDRADENITIS SUPPURATIVA active 19484206 SNOMED-CT PAIN IN RIGHT SHOULDER active 6301323 [id number] SNOMED-CT CARPAL TUNNEL SYNDROME, RIGHT UPPER LIMB active 467845292693582 SNOMED-C T FATTY (CHANGE OF) LIVER, NOT ELSEWHERE CLASSIFIED active 959703409 SNOMED-CT DORSALGIA, UNSPECIFIED active 3038394 05 SNOMED-CT HEADACHE, UNSPECIFIED active 05499614 SNOMED-CT PAIN IN UNSPECIFIED JOINT active 42191306 SNOMED-CT RADICULOPATHY, CERVICAL REGION active 04159700 SNOMED-CT SPINAL STENOSIS, SITE UNSPECIFIED active 18922008 SNOMED-CT OTHER CHRONIC PAIN active 58676598 S NOMED-CT RADICULOPATHY, LUMBAR REGION active 084509498 SNOMED-CT CERVICALGIA active 55428806 SNOMED-C T PAIN IN LEFT KNEE active 772700113582 107 SNOMED-CT Allergies and Adverse Reactions Allergy Substance Reaction Severity Start Date Concern Status Code Code System SULFA (sulfonamide) Rash (SNOMED-CT: 382002785) Active 29128086 SNOMED-CT CEPHALOSPORIN Rash (SNOMED-CT: 463760274) Active 089342497 SNOMED-CT CEPHALEXIN Active 2231 RxNorm AMOXICILLIN Rash (SNOMED-CT: 005416226) Active 723 RxNorm KEFLEX Active 094798 RxNorm ACETAMINOPHEN/CODEI NE #3 Confusion (SNOMED-CT: 059298777) Active 346787 RxNorm Plan of Treatment Follow Up 11/12/2024 [...] Primary care physician 2024-03-14 Imaging Narrative Notes [facility] 08/24/2024 11:[address] [address] ---------NAME--------- NUMBER SEX AGE ADMIT DISC. XRAY# F/C TYPE EMETERIO GUZMÁN [id number] F 38 08/24/24 08/24/24 19043 XB7 O/P DATE OF : 1985 M/R# [id number] #: [id number] RM LOCATION: TRANSCRIBED: 08/24/24 11:06 HIPS LISSETTE 3-4 VIEWS 96573 COMPLETED:08/24/24 10:17 JDF [id number] {REASON-HIPS: SI JOINT INFLAMATION PHYSICIAN: JEFFRY LOG RADIOLOGY REPORT EXAM: HIPS LISSETTE 3-4 VIEWS CLINICAL INDICATION: SI JOINT INFLAMATION TECHNIQUE: HIPS LISSETTE 3-4 VIEWS Comparison: None FINDINGS/IMPRESSION: There is no evidence of acute fracture or dislocation. Moderate bilateral hip osteoarthtirits. The alignment is anatomical. There is no radiopaque foreign body. EXAMINER Reviewed and Electronically Signed by: Rigo Beatty MD Signed Date: 08/24/24 11:06 08/24/24.1109.JDF.to [facility] via fax
--- OUTSIDE RECORDS SUMMARY | 2024-12-21 11:17 | XMS_ITS ---
Author Organization Unknown Address [address] [place] [phone] Phone Care Team Providers Care Float Remover Name Role Phone CODY Ramirez Attending Unavailable KIKO BEAN DRAPERY ESTIMATOR Unavailable JOON Balderrama Primary Unavailable Immunization Immunization Date Status Additional Notes Code Code System Tdap 09/08/2024 Completed 115 CVX Influenza, split virus, quadrivalent, preservative 08/04/2022 Completed 158 C VX Social History Type Status Start Date End Date Code Code Syst em Smoking History Current every day smoker 770407920 SNOMED CT Sex Female Vital Signs Vital Sign Value Unit [place] Value [place] Unit Date/Time Recent/Initial? Code Code System Body Mass Index 29.50 kg/m2 12/20/2023 10:32 Initial 01707 -5 LOINC Systolic Blood Pressure 115 mm[Hg] 01/05/2024 08:57 Initial 8480- 6 LOINC Diastolic Blood Pressure 61 mm[Hg] 01/05/2024 08:57 Initial 8462- 4 LOINC Body Surface Area 1.94 m2 12/20/2023 10:32 Initial 3140- 1 LOINC Height 166.370 0 cm 65.50 in 12/20/2023 10:32 Initial 8302- 2 LOINC O2 Saturation 97 % 2023 08:57 Initial 00959 -5 LOINC Pulse 92.0 /min 01/05/2024 08:57 Initial 8867- 4 LOINC Respiration 16 /min 01/05/20 08:57 Initial 9279- 1 LOINC Temperature 36.2 May 97.1 F 01/05/20 24 08:57 Initial 8310- 5 LOINC Weight 81.65 kg 180.00 lbs 12/20/2023 10:32 Initial 03530 -7 LOINC Medications Medication Start Date End Date Route Frequency Dose Code Code System Medication Instructions Home Meds Dicyclomine HCl 10MG Oral Capsule 12/15/2018 01/05/2024 ORAL NEEDED EVERY 12 HOURS 10 MILLIGRAMS 792345 RxNorm TAKE 10 MILLIGRAMS ORAL NEEDED EVERY 12 HOURS DULoxetine HCl AvPak 30MG Oral Capsule, Delayed Release 01/05/2024 10/22/2024 ORAL ONCE A DAY 30 MILLIGRAMS 629563 RxNorm TAKE 30 MILLIGRAMS ORAL ONCE A DAY DULoxetine HCl AvPak 60MG Oral Capsule, Delayed Release 01/05/2024 Unknown ORAL ONCE A DAY 60 MILLIGRAMS 974463 RxNorm TAKE 60 MILLIGRAMS ORAL ONCE A DAY Meloxicam 15MG Oral Tablet 01/05/2024 08/09/2024 ORAL ONCE A DAY 15 MILLIGRAMS 827267 RxNorm TAKE 15 MILLIGRAMS ORAL ONCE A DAY MiraLAX 17GM/1Dose Oral Powder for Solution 01/05/2024 Unknown ORAL NEEDED DAILY 1 unit(s) 400669 RxNorm TAKE 1 EACH ORAL NEEDED DAILY Omeprazole 20 MG Oral Tablet, Delayed Release 01/05/2024 Unknown ORAL NEEDED 20 MG RxNorm TAKE 20 MG ORAL NEEDED PARoxetine HCl 20MG Oral Tablet 01/05/2024 10/22/2024 ORAL ONCE A DAY 20 MILLIGRAMS 6979225 RxNorm TAKE 20 MILLIGRAMS ORAL ONCE A DAY risperiDONE 0.5MG Oral Tablet 01/05/2024 Unknown ORAL ONCE A DAY 0.5 MILLIGRAMS 695271 RxNorm TAKE 0.5 MILLIGRAMS ORAL ONCE A DAY traZODone hydrochloride 100MG Oral Tablet 01/05/2024 10/22/2024 ORAL ONCE A DAY 100 MILLIGRAMS 404590 RxNorm TAKE 100 MILLIGRAMS ORAL ONCE A DAY Meloxicam 7.5MG Oral Tablet 08/09/2024 10/04/2024 BY MOUTH ONCE A DAY 1 TABLET 689357 RxNorm TAKE 1 TABLET BY MOUTH ONCE A DAY Xanax 0.5MG Oral Tablet 08/10/2024 Unknown ORAL NEEDED DAILY 0.5 MILLIGRAMS 903544 RxNorm TAKE 0.5 MILLIGRAMS ORAL NEEDED DAILY metFORMIN HCl 500MG Oral Tablet 08/10/2024 Unknown ORAL AT BEDTIME 500 MILLIGRAMS 371476 RxNorm TAKE 500 MILLIGRAMS ORAL AT BEDTIME DULoxetine HCl 30MG Oral Capsule, Delayed Release 10/29/2024 Unknown ORAL ONCE A DAY 30 MILLIGRAMS 278443 RxNorm TAKE 30 MILLIGRAMS ORAL ONCE A DAY PARoxetine HCl 40MG Oral Tablet 10/29/2024 Unknown ORAL ONCE A DAY 40 MILLIGRAMS 6548536 RxNorm TAKE 40 MILLIGRAMS ORAL ONCE A DAY traZODone hydrochloride 100MG Oral Tablet 10/29/2024 Unknown ORAL AT BEDTIME 200 MILLIGRAMS 297620 RxNorm TAKE 200 MILLIGRAMS ORAL AT BEDTIME [...] with biopsy, single or multiple 01/05/2024 completed 64432 CPT Anesthesia for combined uppe r and lower gastrointestinal endoscopic proced 01/05/2024 completed 00400 CPT Esophagogastroduodenoscopy, flexible, transoral; diagnostic, including col 01/05/2024 completed 77082 CPT Problems Problem Start Date Resolved Date Status Code Code System HIDRADENITIS SUPPURATIVA active 61738535 SNOMED-CT PAIN IN RIGHT SHOULDER active 6490428 2013828857 SNOMED-CT CARPAL TUNNEL SYNDROME, RIGHT UPPER LIMB active 540065200966561 SNOMED-C T FATTY (CHANGE OF) LIVER, NOT ELSEWHERE CLASSIFIED active 378696822 SNOMED-CT DORSALGIA, UNSPECIFIED active 0773206 05 SNOMED-CT HEADACHE, UNSPECIFIED active 21958615 SNOMED-CT PAIN IN UNSPECIFIED JOINT active 12264457 SNOMED-CT RADICULOPATHY, CERVICAL REGION active 64758768 SNOMED-CT SPINAL STENOSIS, SITE UNSPECIFIED active 88429382 SNOMED-CT OTHER CHRONIC PAIN active 75673517 S NOMED-CT RADICULOPATHY, LUMBAR REGION active 439499203 SNOMED-CT CERVICALGIA active 94047877 SNOMED-C T PAIN IN LEFT KNEE active 658211578494 107 SNOMED-CT Allergies and Adverse Reactions Allergy Substance Reaction Severity Start Date Concern Status Code Code System SULFA (sulfonamide) Rash (SNOMED-CT: 158996492) Active 14729304 SNOMED-CT CEPHALOSPORIN Rash (SNOMED-CT: 454136602) Active 479809487 SNOMED-CT CEPHALEXIN Active 2231 RxNorm AMOXICILLIN Rash (SNOMED-CT: 181125868) Active 723 RxNorm KEFLEX Active 856863 RxNorm ACETAMINOPHEN/CODEI NE #3 Confusion (SNOMED-CT: 078260235) Active 330426 RxNorm Plan of Treatment Follow Up 11/12/2024 [...]
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
--- OUTSIDE RECORDS SUMMARY | 2024-12-21 11:17 | XMS_ITS ---
Author Organization Unknown Address [address] [place] [address] [phone] Phone Care Team Providers Care Child Psychology Teacher Name Role Phone JEFFRY WEBER Attending Unavailable JOON Balderrama Primary Unavailable Immunization Immunization Date Status Additional Notes Code Code System Tdap 09/08/2024 Completed 115 CVX Influenza, split virus, quadrivalent, preservative 08/04/2022 Completed 158 C VX Social History Type Status Start Date End Date Code Code Syst em Smoking History Current every day smoker 714224316 SNOMED CT Sex Female Vital Signs Vital Sign Value Unit Greenlee Value Greenlee Unit Date/Time Recent/Initial? Code Code System Body Mass Index 30.12 kg/m2 10/04/2024 11:06 Initial 90542 -5 [facility] Systolic Blood Pressure 110 mm[Hg] 10/04/2024 11:06 Initial 8480- 6 LOINC Diastolic Blood Pressure 67 mm[Hg] 10/04/2024 11:06 Initial 8462- 4 INC Body Surface Area 1.94 m2 10/04/2024 11:06 Initial 3140- 1 LOINC Height 165.100 0 cm 65.00 in 10/04/2024 11:06 Initial 8302- 2 LOINC O2 Saturation 99 % 2024 11:06 Initial 23490 -5 [facility] Pulse 100.0 /min 10/04/2024 11:06 Initial 8867- 4 LOINC Temperature 36.8 May 98.2 F 10/04/19 11:06 Initial 8310- 5 LOINC Weight 82.10 kg 181.00 lbs 10/04/2024 11:06 Initial 62372 -7 [facility] Medications Medication Start Date End Date Route Frequency Dose Code Code System Medication Instructions Home Meds DULoxetine HCl AvPak 30MG Oral Capsule, Delayed Release 01/05/2024 10/22/2024 ORAL ONCE A DAY 30 MILLIGRAMS 978120 RxNorm TAKE 30 MILLIGRAMS ORAL ONCE A DAY DULoxetine HCl AvPak 60MG Oral Capsule, Delayed Release 01/05/2024 Unknown ORAL ONCE A DAY 60 MILLIGRAMS 019270 RxNorm TAKE 60 MILLIGRAMS ORAL ONCE A DAY MiraLAX 17GM/1Dose Oral Powder for Solution 01/05/2024 Unknown ORAL NEEDED DAILY 1 unit(s) 806894 RxNorm TAKE 1 EACH ORAL NEEDED DAILY Omeprazole 20 MG Oral Tablet, Delayed Release 01/05/2024 Unknown ORAL NEEDED 20 MG RxNorm TAKE 20 MG ORAL NEEDED PARoxetine HCl 20MG Oral Tablet 01/05/2024 10/22/2024 ORAL ONCE A DAY 20 MILLIGRAMS 0284163 RxNorm TAKE 20 MILLIGRAMS ORAL ONCE A DAY risperiDONE 0.5MG Oral Tablet 01/05/2024 Unknown ORAL ONCE A DAY 0.5 MILLIGRAMS 540874 RxNorm TAKE 0.5 MILLIGRAMS ORAL ONCE A DAY traZODone hydrochloride 100MG Oral Tablet 01/05/2024 10/22/2024 ORAL ONCE A DAY 100 MILLIGRAMS 015462 RxNorm TAKE 100 MILLIGRAMS ORAL ONCE A DAY Meloxicam 7.5MG Oral Tablet 08/09/2024 10/04/2024 BY MOUTH ONCE A DAY 1 TABLET 659324 RxNorm TAKE 1 TABLET BY MOUTH ONCE A DAY Xanax 0.5MG Oral Tablet 08/10/2024 Unknown ORAL NEEDED DAILY 0.5 MILLIGRAMS 674772 RxNorm TAKE 0.5 MILLIGRAMS ORAL NEEDED DAILY metFORMIN HCl 500MG Oral Tablet 08/10/2024 Unknown ORAL AT BEDTIME 500 MILLIGRAMS 137908 RxNorm TAKE 500 MILLIGRAMS ORAL AT BEDTIME DULoxetine HCl 30MG Oral Capsule, Delayed Release 10/29/2024 Unknown ORAL ONCE A DAY 30 MILLIGRAMS 871264 RxNorm TAKE 30 MILLIGRAMS ORAL ONCE A DAY PARoxetine HCl 40MG Oral Tablet 10/29/2024 Unknown ORAL ONCE A DAY 40 MILLIGRAMS 4336271 RxNorm TAKE 40 MILLIGRAMS ORAL ONCE A DAY traZODone hydrochloride 100MG Oral Tablet 10/29/2024 Unknown ORAL AT BEDTIME 200 MILLIGRAMS 211767 RxNorm TAKE 200 MILLIGRAMS ORAL AT BEDTIME [...] Status Code Code System HIDRADENITIS SUPPURATIVA active 71149858 SNOMED-CT PAIN IN RIGHT SHOULDER active 2977578 5763219238 SNOMED-CT CARPAL TUNNEL SYNDROME, RIGHT UPPER LIMB active 825295918750674 SNOMED-C T FATTY (CHANGE OF) LIVER, NOT ELSEWHERE CLASSIFIED active 701017295 SNOMED-CT DORSALGIA, UNSPECIFIED active 6427697 05 SNOMED-CT HEADACHE, UNSPECIFIED active 26027219 SNOMED-CT PAIN IN UNSPECIFIED JOINT active 75751838 SNOMED-CT RADICULOPATHY, CERVICAL REGION active 91031150 SNOMED-CT SPINAL STENOSIS, SITE UNSPECIFIED active 61519191 SNOMED-CT OTHER CHRONIC PAIN active 19776002 S NOMED-CT RADICULOPATHY, LUMBAR REGION active 174784596 SNOMED-CT CERVICALGIA active 80957950 SNOMED-C T PAIN IN LEFT KNEE active 197921284764 107 SNOMED-CT Allergies and Adverse Reactions Allergy Substance Reaction Severity Start Date Concern Status Code Code System SULFA (sulfonamide) Rash (SNOMED-CT: 255188099) Active 65799833 SNOMED-CT CEPHALOSPORIN Rash (SNOMED-CT: 556005800) Active 466814796 SNOMED-CT CEPHALEXIN Active 2231 RxNorm AMOXICILLIN Rash (SNOMED-CT: 600225469) Active 723 RxNorm KEFLEX Active 069625 RxNorm ACETAMINOPHEN/CODEI NE #3 Confusion (SNOMED-CT: 117572924) Active 742678 RxNorm Plan of Treatment Follow Up 11/12/2024 [...] - Primary care physician 2024-03-14 Progress Notes [facility] 10/04/2024 12:12 All Demographics Patient Name Age Sex Visit Number Admission Date/Time Attending Physician Date of Service Room and Bed Emergency Contact RA STORM 1985 38 years Female [id number] 10/04/2024 11:00 Davidson Varela 10/04/2024 08-OP KAREN STORM - [id number] Pain Management Follow Up Vital Signs: Today [...] had a trial of nexwave unit by [employer] today in office. Patient stated this helped with her pain. We will order one of these for her. Patient is very tender over SI joints. We discussed risks and benefits of SI joint injections. Patient wishes to proceed with moderated sedation as she is anxious about needles. We discussed obtaining a copy of her MRI done at [facility] and reviewing this at her [...] guidelines, including Official Disability Guidelines (ODG) and [employer] guidelines (ACOEM). Radiology imaging reviewed at appointment: no Radiology: Imaging reviewed with patient Pain Treatment History: Conservative Measures Tried and Failed: Heat, Cold, PT Medications Trialed: NSAIDS, opioids, gabapentin Previous Interventional Pain Procedures: multiple - not helpful Plan Bilateral SI joint injections with sedation Zynex Machine Obtain MRI from [place] Review MRI at follow up Problem List [...]
--- OUTSIDE RECORDS SUMMARY | 2024-12-21 11:17 | XMS_ITS | Clinical Summary ---
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 [id number] Exam Date/Time: 07/13/2023 10:29 AM Reason For [...] Fontana MD, 07/13/2023 11:34 AM Rohan Brewer [place] MAMMO Final Result from Last 3 Months or Most Recently Relevant to Health Maintenance Insurance [facility] C/O PROVIDER SERVICES [place] [id number] Care Teams Relationship Consultant Relationship Specialty Start Date End Date Oleg Lemus MD [address] [place] [phone] PCP - General FAMILY PRACTICE 07/30/23
--- OUTSIDE RECORDS SUMMARY | 2024-12-21 11:17 | XMS_ITS | Encounter Summary ---
Author Organization [facility] Address [facility] [place] [address] Care Team Providers Care Custom Miller Name Role Phone None, Provider Primary Care Provider Rohan Hatr Primary Care Provider [phone] Oleg Lemus MD Primary Care Provider [phone] Encounter Details Date Type Department Care Team (Late st Contact Info) Description 01/13/2019 Abstract SFL CONVERSION [address] [place] [address] , Generic Conversion, Social History Tobacco Use Types Packs/Day Years Used Date Smoking Tobacco: Never Assessed Comments Unknown Sex and Gender Information Value Date Recorded Sex Assigned at Not on file Legal 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 Gender Identity Not on file Sexual Orientation Not on file documented as of this encounter Plan of Treatment Not on file documented as of this encounter Visit Diagnoses Not on filedocumented in this encounter Additional Health Concerns Infection Onset Date Last Indicated Resolved Time COVID-19 Rule Out 05/18/2020 05/18/2020 05/20/2020 3:11 AM CDT COVID-19 Rule Out 07/30/2023 07/30/2023 07/30/2023 6:22 PM 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 Influenza - Seasonal 07/30/2023 07/30/2023 024 12:32 AM 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 documented as of this encounter Care Teams Custom Miller Relationship Specialty Start Date End Date None, Provider, PCP - General 03/26/20 05/17/20 Rohan So PA [address] [place] [phone] PCP - General PHYSICIAN AIRLINE RADIO OPERATOR 05/18/20 07/29/23 Oleg Lemus MD [address] [place] [phone] PCP - General FAMILY PRACTICE 07/30/23 documented as of this encounter
--- OUTSIDE RECORDS SUMMARY | 2024-12-21 11:17 | XMS_ITS | Clinical Summary ---
Author Organization [facility] Address [address] [place] [address] Care Team Providers Care Legal Process Specialist Name Role Phone Maxi Valentin MD Primary Care Provider [phone] [facility],non-owned Affiliates and Associated Physician Practices is amultiple site organization consisting of ambulatory clinics and hospital sitesin [place], [place], [place] and [place]. This disclosure is being madepursuant to the Care Everywhere program and may not contain all information available regarding this patient. Last updated 18.[facility] [employer] Social History Tobacco Use Types Packs/Day Years Used Date Smoking Tobacco: Never Assessed Comments Unknown Sex and Gender Information Value Date Recorded Sex Assigned at Not on file Legal Sex Female 10:48 AM ZIPPER TRIMMER HAND Gender Identity Not on file Sexual Orientation [...] patient's age to complete this topic Insurance [facility] Care Teams Legal Process Specialist Relationship Specialty Start Date End Date Maxi Valentin MD [address] [place] [phone] PCP - General 07/06/18
--- OUTSIDE RECORDS SUMMARY | 2024-12-21 11:18 | XMS_ITS ---
Author Organization Unknown Address [address] [place] [address] [phone] Phone Care Team Providers Care Box Order Person Name Role Phone JEFFRY WEBER Attending Unavailable JOON Balderrama Primary Unavailable Immunization Immunization Date Status Additional Notes Code Code System Tdap 09/08/2024 Completed 115 CVX Influenza, split virus, quadrivalent, preservative 08/04/2022 Completed 158 C VX Social History Type Status Start Date End Date Code Code Syst em Smoking History Current every day smoker 241890418 SNOMED CT Sex Female Medications Medication Start Date End Date Route Frequency Dose Code Code System Medication Instructions Home Meds DULoxetine HCl AvPak 30MG Oral Capsule, Delayed Release 01/05/2024 10/22/2024 ORAL ONCE A DAY 30 MILLIGRAMS 658714 RxNorm TAKE 30 MILLIGRAMS ORAL ONCE A DAY DULoxetine HCl AvPak 60MG Oral Capsule, Delayed Release 01/05/2024 Unknown ORAL ONCE A DAY 60 MILLIGRAMS 851301 RxNorm TAKE 60 MILLIGRAMS ORAL ONCE A DAY MiraLAX 17GM/1Dose Oral Powder for Solution 01/05/2024 Unknown ORAL NEEDED DAILY 1 unit(s) 813990 RxNorm TAKE 1 EACH ORAL NEEDED DAILY Omeprazole 20 MG Oral Tablet, Delayed Release 01/05/2024 Unknown ORAL NEEDED 20 MG RxNorm TAKE 20 MG ORAL NEEDED PARoxetine HCl 20MG Oral Tablet 01/05/2024 10/22/2024 ORAL ONCE A DAY 20 MILLIGRAMS 6672459 RxNorm TAKE 20 MILLIGRAMS ORAL ONCE A DAY risperiDONE 0.5MG Oral Tablet 01/05/2024 Unknown ORAL ONCE A DAY 0.5 MILLIGRAMS 528570 RxNorm TAKE 0.5 MILLIGRAMS ORAL ONCE A DAY traZODone hydrochloride 100MG Oral Tablet 01/05/2024 10/22/2024 ORAL ONCE A DAY 100 MILLIGRAMS 622421 RxNorm TAKE 100 MILLIGRAMS ORAL ONCE A DAY Meloxicam 7.5MG Oral Tablet 08/09/2024 10/04/2024 BY MOUTH ONCE A DAY 1 TABLET 980159 RxNorm TAKE 1 TABLET BY MOUTH ONCE A DAY Xanax 0.5MG Oral Tablet 08/10/2024 Unknown ORAL NEEDED DAILY 0.5 MILLIGRAMS 523951 RxNorm TAKE 0.5 MILLIGRAMS ORAL NEEDED DAILY metFORMIN HCl 500MG Oral Tablet 08/10/2024 Unknown ORAL AT BEDTIME 500 MILLIGRAMS 467934 RxNorm TAKE 500 MILLIGRAMS ORAL AT BEDTIME DULoxetine HCl 30MG Oral Capsule, Delayed Release 10/29/2024 Unknown ORAL ONCE A DAY 30 MILLIGRAMS 672494 RxNorm TAKE 30 MILLIGRAMS ORAL ONCE A DAY PARoxetine HCl 40MG Oral Tablet 10/29/2024 Unknown ORAL ONCE A DAY 40 MILLIGRAMS 3700209 RxNorm TAKE 40 MILLIGRAMS ORAL ONCE A DAY traZODone hydrochloride 100MG Oral Tablet 10/29/2024 Unknown ORAL AT BEDTIME 200 MILLIGRAMS 552863 RxNorm TAKE 200 MILLIGRAMS ORAL AT BEDTIME [...] Status Code Code System HIDRADENITIS SUPPURATIVA active 85067798 SNOMED-CT PAIN IN RIGHT SHOULDER active 8259234 1839380590 SNOMED-CT CARPAL TUNNEL SYNDROME, RIGHT UPPER LIMB active 557127510752333 SNOMED-C T FATTY (CHANGE OF) LIVER, NOT ELSEWHERE CLASSIFIED active 099277654 SNOMED-CT DORSALGIA, UNSPECIFIED active 1143303 05 SNOMED-CT HEADACHE, UNSPECIFIED active 34189077 SNOMED-CT PAIN IN UNSPECIFIED JOINT active 99819808 SNOMED-CT RADICULOPATHY, CERVICAL REGION active 57893618 SNOMED-CT SPINAL STENOSIS, SITE UNSPECIFIED active 60596838 SNOMED-CT OTHER CHRONIC PAIN active 81999534 S NOMED-CT RADICULOPATHY, LUMBAR REGION active 696279279 SNOMED-CT CERVICALGIA active 86431781 SNOMED-C T PAIN IN LEFT KNEE active 461701325359 107 SNOMED-CT Allergies and Adverse Reactions Allergy Substance Reaction Severity Start Date Concern Status Code Code System SULFA (sulfonamide) Rash (SNOMED-CT: 763142226) Active 30062791 SNOMED-CT CEPHALOSPORIN Rash (SNOMED-CT: 788699442) Active 249333356 SNOMED-CT CEPHALEXIN Active 2231 RxNorm AMOXICILLIN Rash (SNOMED-CT: 601209458) Active 723 RxNorm KEFLEX Active 140851 RxNorm ACETAMINOPHEN/CODEI NE #3 Confusion (SNOMED-CT: 358278758) Active 843148 RxNorm Plan of Treatment Follow Up 11/12/2024 [...]
--- OUTSIDE RECORDS SUMMARY | 2024-12-21 11:18 | XMS_ITS ---
Author Organization Unknown Address [address] [place] [address] [phone] Phone Care Team Providers Care Rail Assembler Name Role Phone VICKYRAMYA CHESETR MAGDALENO Attending Unavailable JOON Balderrama Primary Unavailable Immunization Immunization Date Status Additional Notes Code Code System Tdap 09/08/2024 Completed 115 CVX Influenza, split virus, quadrivalent, preservative 08/04/2022 Completed 158 C VX Results QUANTIFERON GOLD SINGLE TUBE - Collect Date/Time: 03/14/2024 12:54 [facility] ID: [id number] [address] [place] [address], [phone] LOINC: 60018-4 Test Value Unit Reference Range Code Code System Flag SOURCE: BLOOD SEND TO [facility]? NO QuantiFERON Incubation Incubation performed. QuantiFERON-TB Gold Plus Negative Negative 10091-7 LOINC QuantiFERON Criteria COMMENT 8251-1 LOINC QuantiFERON TB1 Ag Value 0.00 27704-0 LOINC QuantiFERON TB2 Ag Value 0.00 43377-4 LOINC QuantiFERON Nil Value 0.00 49654-4 LOINC QuantiFERON Mitogen Value >10.00 96542-9 LOINC LIVER PROFILE - Collect Date /Time: 03/14/2024 12:54 [facility] ID: [id number] [address] [place] [address], [phone] LOINC: 39132-0 Test Value Unit Reference Range Code Code [...] PANEL - Uziel ect Date/Time: 03/14/2024 12:54 [facility] ID: [id number] [address] [place] [address], [phone] LOINC: 97439-8 Test Value Unit Reference Range Code Code System Flag FASTING NO BUN 11 mg/dL L=7 H=20 3094-0 LOINC CREATININE 0.90 mg/dL L=0.52 H=1.04 2160-0 LOINC GLUCOSE 157 mg/dL L=74 H=106 2345-7 LOINC H CALCIUM 9.6 mg/dL L=8.3 H=10.5 97232-7 LOINC SODIUM 139 mmol/L L=132 H=144 2951-2 LOINC POTASSIUM 3.8 mmol/L L=3.5 H=5.1 2823-3 LOINC CHLORIDE 104 mmol/L L=98 H=107 2075-0 LOINC CO2 23.0 mmol/L L=22.0 H=30.0 2028-9 LOINC ANION GAP 16 L=10 H=20 96370-3 LOINC BUN/CREAT 12.2 3097-3 LOINC AGE 38 28909-0 LOINC eGFR NON-AFR 74 ml/min eGFR AFR AMER 90 ml/min CBC W/ DIFF - Collect Date/T amos: 03/14/2024 12:54 [facility] ID: [id number] [address] [place], [place], [phone] LOINC: 84650-8 Test Value Unit Reference Range Code Code System Flag WBC 11.3 10^3uL L=4.8 H=10.8 H RBC 4.58 10^6uL L=4.20 H=5.40 HEMOGLOBIN 13.6 g/dL L=12.0 H=16.0 718-7 LOINC HEMATOCRIT 41.6 VOL% L=37.0 H=47.0 4544-3 LOINC MCV 90.8 fL L=81.0 H=99.0 MCH 29.7 pg L=27.0 H=32.0 MCHC 32.7 g/dL L=32.0 H=36.0 PLATELETS 329 10^3uL L=100 H=400 07054-0 LOINC RDW 13.6 % L=11.7 H=15.5 %GRAN 64.1 % L=40.0 H=70.0 80355-7 LOINC %LYMPH 27.4 % L=20.0 H=45.0 736-9 LOINC %MONO 6.1 % L=2.0 H=10.0 16304-2 LOINC %EOS 1.0 % L=0.0 H=6.0 713-8 LOINC %BASO 0.5 % L=0.0 H=3.0 706-2 LOINC #NEUT 7.3 10^3uL L=1.9 H=7.6 26654-4 LOINC #LYMPH 3.1 10^3uL L=0.9 H=4.9 21951-9 LOINC #MONO 0.7 10^3uL L=0.1 H=0.9 99050-3 LOINC #EOS 0.1 10^3uL L=0.0 H=0.6 712-0 LOINC #BASO 0.06 10^3uL L=0.00 H=0.10 43840-2 LOINC #IM GRANS 0.1 10^3uL L=0.0 H=7.0 77547-3 LOINC %IM GRANS 0.9 % L=0.0 H=5.0 34349-8 LOINC %NRB 0.0 L=0.0 H=0.2 00143-4 LOINC #NRB 0.000 L=0.000 H=0.012 21235-1 LOINC MANUAL DIFF NOT INDICATED RBC MORPH NOT INDICATED Social History Type Status Start Date End Date Code Code Syst em Smoking History Current every day smoker 667614320 SNOMED CT Sex Female Medications Medication Start Date End Date Route Frequency Dose Code Code System Medication Instructions Home Meds DULoxetine HCl AvPak 30MG Oral Capsule, Delayed Release 01/05/2024 10/22/2024 ORAL ONCE A DAY 30 MILLIGRAMS 616267 RxNorm TAKE 30 MILLIGRAMS ORAL ONCE A DAY DULoxetine HCl AvPak 60MG Oral Capsule, Delayed Release 01/05/2024 Unknown ORAL ONCE A DAY 60 MILLIGRAMS 279147 RxNorm TAKE 60 MILLIGRAMS ORAL ONCE A DAY Meloxicam 15MG Oral Tablet 01/05/2024 08/09/2024 ORAL ONCE A DAY 15 MILLIGRAMS 150555 RxNorm TAKE 15 MILLIGRAMS ORAL ONCE A DAY MiraLAX 17GM/1Dose Oral Powder for Solution 01/05/2024 Unknown ORAL NEEDED DAILY 1 unit(s) 547382 RxNorm TAKE 1 EACH ORAL NEEDED DAILY Omeprazole 20 MG Oral Tablet, Delayed Release 01/05/2024 Unknown ORAL NEEDED 20 MG RxNorm TAKE 20 MG ORAL NEEDED PARoxetine HCl 20MG Oral Tablet 01/05/2024 10/22/2024 ORAL ONCE A DAY 20 MILLIGRAMS 8196573 RxNorm TAKE 20 MILLIGRAMS ORAL ONCE A DAY risperiDONE 0.5MG Oral Tablet 01/05/2024 Unknown ORAL ONCE A DAY 0.5 MILLIGRAMS 399538 RxNorm TAKE 0.5 MILLIGRAMS ORAL ONCE A DAY traZODone hydrochloride 100MG Oral Tablet 01/05/2024 10/22/2024 ORAL ONCE A DAY 100 MILLIGRAMS 785362 RxNorm TAKE 100 MILLIGRAMS ORAL ONCE A DAY Meloxicam 7.5MG Oral Tablet 08/09/2024 10/04/2024 BY MOUTH ONCE A DAY 1 TABLET 660802 RxNorm TAKE 1 TABLET BY MOUTH ONCE A DAY Xanax 0.5MG Oral Tablet 08/10/2024 Unknown ORAL NEEDED DAILY 0.5 MILLIGRAMS 578276 RxNorm TAKE 0.5 MILLIGRAMS ORAL NEEDED DAILY metFORMIN HCl 500MG Oral Tablet 08/10/2024 Unknown ORAL AT BEDTIME 500 MILLIGRAMS 101819 RxNorm TAKE 500 MILLIGRAMS ORAL AT BEDTIME DULoxetine HCl 30MG Oral Capsule, Delayed Release 10/29/2024 Unknown ORAL ONCE A DAY 30 MILLIGRAMS 484483 RxNorm TAKE 30 MILLIGRAMS ORAL ONCE A DAY PARoxetine HCl 40MG Oral Tablet 10/29/2024 Unknown ORAL ONCE A DAY 40 MILLIGRAMS 1117383 RxNorm TAKE 40 MILLIGRAMS ORAL ONCE A DAY traZODone hydrochloride 100MG Oral Tablet 10/29/2024 Unknown ORAL AT BEDTIME 200 MILLIGRAMS 829795 RxNorm TAKE 200 MILLIGRAMS ORAL AT BEDTIME [...] Status Code Code System HIDRADENITIS SUPPURATIVA active 80254142 SNOMED-CT PAIN IN RIGHT SHOULDER active 2776458 5716214803 SNOMED-CT CARPAL TUNNEL SYNDROME, RIGHT UPPER LIMB active 246616918006127 SNOMED-C T FATTY (CHANGE OF) LIVER, NOT ELSEWHERE CLASSIFIED active 549238709 SNOMED-CT DORSALGIA, UNSPECIFIED active 9790555 05 SNOMED-CT HEADACHE, UNSPECIFIED active 16283242 SNOMED-CT PAIN IN UNSPECIFIED JOINT active 09878295 SNOMED-CT RADICULOPATHY, CERVICAL REGION active 47589290 SNOMED-CT SPINAL STENOSIS, SITE UNSPECIFIED active 41077174 SNOMED-CT OTHER CHRONIC PAIN active 32086385 S NOMED-CT RADICULOPATHY, LUMBAR REGION active 067576055 SNOMED-CT CERVICALGIA active 60538452 SNOMED-C T PAIN IN LEFT KNEE active 093942594731 107 SNOMED-CT Allergies and Adverse Reactions Allergy Substance Reaction Severity Start Date Concern Status Code Code System SULFA (sulfonamide) Rash (SNOMED-CT: 801792811) Active 81242892 SNOMED-CT CEPHALOSPORIN Rash (SNOMED-CT: 429588899) Active 369297109 SNOMED-CT CEPHALEXIN Active 2231 RxNorm AMOXICILLIN Rash (SNOMED-CT: 748715741) Active 723 RxNorm KEFLEX Active 496041 RxNorm ACETAMINOPHEN/CODEI NE #3 Confusion (SNOMED-CT: 302175418) Active 161390 RxNorm Plan of Treatment Follow Up 11/12/2024 [...]
--- OUTSIDE RECORDS SUMMARY | 2024-12-21 11:18 | XMS_ITS ---
Author Organization Unknown Address [address] [place] [address] [phone] Phone Care Team Providers Care Lubricating Engineer Name Role Phone NIHARIKA MAGDALENO Attending Unavailable JOON Balderrama Primary Unavailable Immunization Immunization Date Status Additional Notes Code Code System Tdap 09/08/2024 Completed 115 CVX Influenza, split virus, quadrivalent, preservative 08/04/2022 Completed 158 C VX Social History Type Status Start Date End Date Code Code Syst em Smoking History Current every day smoker 157608228 SNOMED CT Sex Female Medications Medication Start Date End Date Route Frequency Dose Code Code System Medication Instructions Home Meds DULoxetine HCl AvPak 30MG Oral Capsule, Delayed Release 01/05/2024 10/22/2024 ORAL ONCE A DAY 30 MILLIGRAMS 265297 RxNorm TAKE 30 MILLIGRAMS ORAL ONCE A DAY DULoxetine HCl AvPak 60MG Oral Capsule, Delayed Release 01/05/2024 Unknown ORAL ONCE A DAY 60 MILLIGRAMS 971376 RxNorm TAKE 60 MILLIGRAMS ORAL ONCE A DAY Meloxicam 15MG Oral Tablet 01/05/2024 08/09/2024 ORAL ONCE A DAY 15 MILLIGRAMS 798745 RxNorm TAKE 15 MILLIGRAMS ORAL ONCE A DAY MiraLAX 17GM/1Dose Oral Powder for Solution 01/05/2024 Unknown ORAL NEEDED DAILY 1 unit(s) 416153 RxNorm TAKE 1 EACH ORAL NEEDED DAILY Omeprazole 20 MG Oral Tablet, Delayed Release 01/05/2024 Unknown ORAL NEEDED 20 MG RxNorm TAKE 20 MG ORAL NEEDED PARoxetine HCl 20MG Oral Tablet 01/05/2024 10/22/2024 ORAL ONCE A DAY 20 MILLIGRAMS 6088597 RxNorm TAKE 20 MILLIGRAMS ORAL ONCE A DAY risperiDONE 0.5MG Oral Tablet 01/05/2024 Unknown ORAL ONCE A DAY 0.5 MILLIGRAMS 059929 RxNorm TAKE 0.5 MILLIGRAMS ORAL ONCE A DAY traZODone hydrochloride 100MG Oral Tablet 01/05/2024 10/22/2024 ORAL ONCE A DAY 100 MILLIGRAMS 813171 RxNorm TAKE 100 MILLIGRAMS ORAL ONCE A DAY Meloxicam 7.5MG Oral Tablet 08/09/2024 10/04/2024 BY MOUTH ONCE A DAY 1 TABLET 895376 RxNorm TAKE 1 TABLET BY MOUTH ONCE A DAY Xanax 0.5MG Oral Tablet 08/10/2024 Unknown ORAL NEEDED DAILY 0.5 MILLIGRAMS 076779 RxNorm TAKE 0.5 MILLIGRAMS ORAL NEEDED DAILY metFORMIN HCl 500MG Oral Tablet 08/10/2024 Unknown ORAL AT BEDTIME 500 MILLIGRAMS 728720 RxNorm TAKE 500 MILLIGRAMS ORAL AT BEDTIME DULoxetine HCl 30MG Oral Capsule, Delayed Release 10/29/2024 Unknown ORAL ONCE A DAY 30 MILLIGRAMS 606682 RxNorm TAKE 30 MILLIGRAMS ORAL ONCE A DAY PARoxetine HCl 40MG Oral Tablet 10/29/2024 Unknown ORAL ONCE A DAY 40 MILLIGRAMS 1734131 RxNorm TAKE 40 MILLIGRAMS ORAL ONCE A DAY traZODone hydrochloride 100MG Oral Tablet 10/29/2024 Unknown ORAL AT BEDTIME 200 MILLIGRAMS 986867 RxNorm TAKE 200 MILLIGRAMS ORAL AT BEDTIME [...] Status Code Code System HIDRADENITIS SUPPURATIVA active 45277285 SNOMED-CT PAIN IN RIGHT SHOULDER active 5915990 8949237547 SNOMED-CT CARPAL TUNNEL SYNDROME, RIGHT UPPER LIMB active 147292937967500 SNOMED-C T FATTY (CHANGE OF) LIVER, NOT ELSEWHERE CLASSIFIED active 319263792 SNOMED-CT DORSALGIA, UNSPECIFIED active 4593866 05 SNOMED-CT HEADACHE, UNSPECIFIED active 97961407 SNOMED-CT PAIN IN UNSPECIFIED JOINT active 44800643 SNOMED-CT RADICULOPATHY, CERVICAL REGION active 60336200 SNOMED-CT SPINAL STENOSIS, SITE UNSPECIFIED active 49729349 SNOMED-CT OTHER CHRONIC PAIN active 48669363 S NOMED-CT RADICULOPATHY, LUMBAR REGION active 076032734 SNOMED-CT CERVICALGIA active 55197926 SNOMED-C T PAIN IN LEFT KNEE active 386095506558 107 SNOMED-CT Allergies and Adverse Reactions Allergy Substance Reaction Severity Start Date Concern Status Code Code System SULFA (sulfonamide) Rash (SNOMED-CT: 016703480) Active 84511139 SNOMED-CT CEPHALOSPORIN Rash (SNOMED-CT: 893470319) Active 384208128 SNOMED-CT CEPHALEXIN Active 2231 RxNorm AMOXICILLIN Rash (SNOMED-CT: 929585724) Active 723 RxNorm KEFLEX Active 416068 RxNorm ACETAMINOPHEN/CODEI NE #3 Confusion (SNOMED-CT: 562614916) Active 134825 RxNorm Plan of Treatment Follow Up 11/12/2024 SI Joint Injection Bilateral 10/29/2024 OR SI Joint Injection 10/29/2024 SI Joint Injection Bilateral 10/29/2024 OR SI Joint Injection 10/29/2024 Encounters Encounter Diagnosis Start Date Code Code Sys tem Snoring 01/25/2024 74441989 SNOMED-CT Personal Care Team Section Performer Name Performer Role Active Date Inactive DOREEN Villagomez PCP - Primary care physician 2024-03-14 Procedures Notes [facility] 01/29/2024 09:52 STUDY TYPE: HOME SLEEP [...] type III, 7 channel portable monitoring device ([employer]) with simultaneous recording of nasal flow, respiratory [...] with your physician. Vaughn Blanco MD DIPLOMATE, MARSHALLESE BOARD OF SLEEP MEDICINE
--- OUTSIDE RECORDS SUMMARY | 2024-12-21 11:18 | XMS_ITS ---
Author Organization Unknown Address [address] [place] [address] [phone] Phone Care Team Providers Care Lining Strap Closer Name Role Phone JEFFRY WEBER Attending Unavailable JOON Balderrama Primary Unavailable Immunization Immunization Date Status Additional Notes Code Code System Tdap 09/08/2024 Completed 115 CVX Influenza, split virus, quadrivalent, preservative 08/04/2022 Completed 158 C VX Social History Type Status Start Date End Date Code Code Syst em Smoking History Current every day smoker 739342741 SNOMED CT Sex Female Vital Signs Vital Sign Value Unit Buchanan Value Buchanan Unit Date/Time Recent/Initial? Code Code System Body Mass Index 30.12 kg/m2 08/09/2024 10:05 Initial 48832 -5 [facility] Systolic Blood Pressure 97 mm[Hg] 08/09/2024 10:05 Initial 8480- 6 LOINC Diastolic Blood Pressure 68 mm[Hg] 08/09/2024 10:05 Initial 8462- 4 [facility] Body Surface Area 1.94 m2 08/09/2024 10:05 Initial 3140- 1 LOINC Height 165.100 0 cm 65.00 in 08/09/2024 10:05 Initial 8302- 2 LOINC O2 Saturation 98 % 2024 10:05 Initial 94332 -5 [facility] Pulse 105.0 /min 08/09/2024 10:05 Initial 8867- 4 LOINC Temperature 36.3 May 97.3 F 08/09/19 10:05 Initial 8310- 5 LOINC Weight 82.10 kg 181.00 lbs 08/09/2024 10:05 Initial 60666 -7 [facility] Medications Medication Start Date End Date Route Frequency Dose Code Code System Medication Instructions Home Meds DULoxetine HCl AvPak 30MG Oral Capsule, Delayed Release 01/05/2024 10/22/2024 ORAL ONCE A DAY 30 MILLIGRAMS 309337 RxNorm TAKE 30 MILLIGRAMS ORAL ONCE A DAY DULoxetine HCl AvPak 60MG Oral Capsule, Delayed Release 01/05/2024 Unknown ORAL ONCE A DAY 60 MILLIGRAMS 992718 RxNorm TAKE 60 MILLIGRAMS ORAL ONCE A DAY Meloxicam 15MG Oral Tablet 01/05/2024 08/09/2024 ORAL ONCE A DAY 15 MILLIGRAMS 360316 RxNorm TAKE 15 MILLIGRAMS ORAL ONCE A DAY MiraLAX 17GM/1Dose Oral Powder for Solution 01/05/2024 Unknown ORAL NEEDED DAILY 1 unit(s) 214278 RxNorm TAKE 1 EACH ORAL NEEDED DAILY Omeprazole 20 MG Oral Tablet, Delayed Release 01/05/2024 Unknown ORAL NEEDED 20 MG RxNorm TAKE 20 MG ORAL NEEDED PARoxetine HCl 20MG Oral Tablet 01/05/2024 10/22/2024 ORAL ONCE A DAY 20 MILLIGRAMS 7156775 RxNorm TAKE 20 MILLIGRAMS ORAL ONCE A DAY risperiDONE 0.5MG Oral Tablet 01/05/2024 Unknown ORAL ONCE A DAY 0.5 MILLIGRAMS 433431 RxNorm TAKE 0.5 MILLIGRAMS ORAL ONCE A DAY traZODone hydrochloride 100MG Oral Tablet 01/05/2024 10/22/2024 ORAL ONCE A DAY 100 MILLIGRAMS 039074 RxNorm TAKE 100 MILLIGRAMS ORAL ONCE A DAY Meloxicam 7.5MG Oral Tablet 08/09/2024 10/04/2024 BY MOUTH ONCE A DAY 1 TABLET 442861 RxNorm TAKE 1 TABLET BY MOUTH ONCE A DAY Xanax 0.5MG Oral Tablet 08/10/2024 Unknown ORAL NEEDED DAILY 0.5 MILLIGRAMS 149553 RxNorm TAKE 0.5 MILLIGRAMS ORAL NEEDED DAILY metFORMIN HCl 500MG Oral Tablet 08/10/2024 Unknown ORAL AT BEDTIME 500 MILLIGRAMS 916045 RxNorm TAKE 500 MILLIGRAMS ORAL AT BEDTIME DULoxetine HCl 30MG Oral Capsule, Delayed Release 10/29/2024 Unknown ORAL ONCE A DAY 30 MILLIGRAMS 097428 RxNorm TAKE 30 MILLIGRAMS ORAL ONCE A DAY PARoxetine HCl 40MG Oral Tablet 10/29/2024 Unknown ORAL ONCE A DAY 40 MILLIGRAMS 3160085 RxNorm TAKE 40 MILLIGRAMS ORAL ONCE A DAY traZODone hydrochloride 100MG Oral Tablet 10/29/2024 Unknown ORAL AT BEDTIME 200 MILLIGRAMS 956807 RxNorm TAKE 200 MILLIGRAMS ORAL AT BEDTIME [...] Status Code Code System HIDRADENITIS SUPPURATIVA active 21440028 SNOMED-CT PAIN IN RIGHT SHOULDER active 8560862 1675870205 SNOMED-CT CARPAL TUNNEL SYNDROME, RIGHT UPPER LIMB active 975618973806411 SNOMED-C T FATTY (CHANGE OF) LIVER, NOT ELSEWHERE CLASSIFIED active 271199519 SNOMED-CT DORSALGIA, UNSPECIFIED active 5212848 05 SNOMED-CT HEADACHE, UNSPECIFIED active 01023789 SNOMED-CT PAIN IN UNSPECIFIED JOINT active 79458305 SNOMED-CT RADICULOPATHY, CERVICAL REGION active 20325317 SNOMED-CT SPINAL STENOSIS, SITE UNSPECIFIED active 46850691 SNOMED-CT OTHER CHRONIC PAIN active 90253589 S NOMED-CT RADICULOPATHY, LUMBAR REGION active 149229279 SNOMED-CT CERVICALGIA active 65531759 SNOMED-C T PAIN IN LEFT KNEE active 052012486081 107 SNOMED-CT Allergies and Adverse Reactions Allergy Substance Reaction Severity Start Date Concern Status Code Code System SULFA (sulfonamide) Rash (SNOMED-CT: 759168397) Active 77369498 SNOMED-CT CEPHALOSPORIN Rash (SNOMED-CT: 518402756) Active 131553700 SNOMED-CT CEPHALEXIN Active 2231 RxNorm AMOXICILLIN Rash (SNOMED-CT: 193065174) Active 723 RxNorm KEFLEX Active 335448 RxNorm ACETAMINOPHEN/CODEI NE #3 Confusion (SNOMED-CT: 449308412) Active 353931 RxNorm Plan of Treatment Follow Up 11/12/2024 [...] - Primary care physician 2024-03-14 Progress Notes [facility] 08/09/2024 10:45 All Demographics Patient Name Age Sex Visit Number Admission Date/Time Attending Physician Date of Service Room and Bed Emergency Contact RA STORM 1985 38 years Female [id number] 08/09/2024 09:57 Davidson Varela 08/09/2024 01-OP KAREN STORM - [id number] PAIN MANAGEMENT HISTORY & PHYSICAL Vital Signs: [...]
--- OUTSIDE RECORDS SUMMARY | 2024-12-21 11:18 | XMS_ITS ---
Author Organization Unknown Address [address] [place] [address] [phone] Phone Care Team Providers Care Diet Counselor Name Role Phone JEFFRY WEBER Attending Unavailable JOON Balderrama Primary Unavailable Immunization Immunization Date Status Additional Notes Code Code System Tdap 09/08/2024 Completed 115 CVX Influenza, split virus, quadrivalent, preservative 08/04/2022 Completed 158 C VX Social History Type Status Start Date End Date Code Code Syst em Smoking History Current every day smoker 824740826 SNOMED CT Sex Female Vital Signs Vital Sign Value Unit [place] Value [place] Unit Date/Time Recent/Initial? Code Code System Body Mass Index 39.99 kg/m2 11/12/2024 10:22 Initial 39502 -5 [facility] Systolic Blood Pressure 122 mm[Hg] 11/12/2024 10:22 Initial 8480- 6 LOINC Diastolic Blood Pressure 79 mm[Hg] 11/12/2024 10:22 Initial 8462- 4 [facility] Body Surface Area 2.18 m2 11/12/2024 10:22 Initial 3140- 1 LOINC Height 162.560 0 cm 64.00 in 11/12/2024 10:22 Initial 8302- 2 LOINC O2 Saturation 98 % 2024 10:22 Initial 46540 -5 [facility] Pulse 96.0 /min 11/12/2024 10:22 Initial 8867- 4 LOINC Temperature 36.8 May 98.2 F 11/13/19 10:22 Initial 8310- 5 LOINC Weight 105.69 kg 233.00 lbs 11/12/2024 10:22 Initial 99414 -7 [facility] Medications Medication Start Date End Date Route Frequency Dose Code Code System Medication Instructions Home Meds DULoxetine HCl AvPak 60MG Oral Capsule, Delayed Release 01/05/2024 Unknown ORAL ONCE A DAY 60 MILLIGRAMS 006212 RxNorm TAKE 60 MILLIGRAMS ORAL ONCE A DAY MiraLAX 17GM/1Dose Oral Powder for Solution 01/05/2024 Unknown ORAL NEEDED DAILY 1 unit(s) 022871 RxNorm TAKE 1 EACH ORAL NEEDED DAILY Omeprazole 20 MG Oral Tablet, Delayed Release 01/05/2024 Unknown ORAL NEEDED 20 MG RxNorm DORIE E 20 MG ORAL NEEDED risperiDONE 0.5MG Oral Tablet 01/05/2024 Unknown ORAL ONCE A DAY 0.5 MILLIGRAMS 502132 RxNorm TAKE 0.5 MILLIGRAMS ORAL ONCE A DAY Xanax 0.5MG Oral Tablet 08/10/2024 Unknown ORAL NEEDED DAILY 0.5 MILLIGRAMS 435710 RxNorm TAKE 0.5 MILLIGRAMS ORAL NEEDED DAILY metFORMIN HCl 500MG Oral Tablet 08/10/2024 Unknown ORAL AT BEDTIME 500 MILLIGRAMS 678497 RxNorm TAKE 500 MILLIGRAMS ORAL AT BEDTIME DULoxetine HCl 30MG Oral Capsule, Delayed Release 10/29/2024 Unknown ORAL ONCE A DAY 30 MILLIGRAMS 485019 RxNorm TAKE 30 MILLIGRAMS ORAL ONCE A DAY PARoxetine HCl 40MG Oral Tablet 10/29/2024 Unknown ORAL ONCE A DAY 40 MILLIGRAMS 9774948 RxNorm TAKE 40 MILLIGRAMS ORAL ONCE A DAY traZODone hydrochloride 100MG Oral Tablet 10/29/2024 Unknown ORAL AT BEDTIME 200 MILLIGRAMS 660587 RxNorm TAKE 200 MILLIGRAMS ORAL AT BEDTIME [...] Status Code Code System HIDRADENITIS SUPPURATIVA active 59211511 SNOMED-CT PAIN IN RIGHT SHOULDER active 4192849 6553634701 SNOMED-CT CARPAL TUNNEL SYNDROME, RIGHT UPPER LIMB active 648519341009464 SNOMED-C T FATTY (CHANGE OF) LIVER, NOT ELSEWHERE CLASSIFIED active 977318631 SNOMED-CT DORSALGIA, UNSPECIFIED active 3716052 05 SNOMED-CT HEADACHE, UNSPECIFIED active 57241697 SNOMED-CT PAIN IN UNSPECIFIED JOINT active 86880236 SNOMED-CT RADICULOPATHY, CERVICAL REGION active 14239269 SNOMED-CT SPINAL STENOSIS, SITE UNSPECIFIED active 45606043 SNOMED-CT OTHER CHRONIC PAIN active 59225058 S NOMED-CT RADICULOPATHY, LUMBAR REGION active 208237993 SNOMED-CT CERVICALGIA active 24118305 SNOMED-C T PAIN IN LEFT KNEE active 568640619606 107 SNOMED-CT Allergies and Adverse Reactions Allergy Substance Reaction Severity Start Date Concern Status Code Code System SULFA (sulfonamide) Rash (SNOMED-CT: 333454275) Active 37414200 SNOMED-CT CEPHALOSPORIN Rash (SNOMED-CT: 087694131) Active 899223944 SNOMED-CT CEPHALEXIN Active 2231 RxNorm AMOXICILLIN Rash (SNOMED-CT: 049379018) Active 723 RxNorm KEFLEX Active 382063 RxNorm ACETAMINOPHEN/CODEI NE #3 Confusion (SNOMED-CT: 129505462) Active 190370 RxNorm Plan of Treatment Follow Up 11/12/2024 [...] - Primary care physician 2024-03-14 Progress Notes [facility] 11/12/2024 10:46 All Demographics Patient Name Age Sex Visit Number Admission Date/Time Attending Physician Date of Service Room and Bed Emergency Contact RA STORM 1985 39 years Female [id number] 11/12/2024 10:14 Davidson Varela 11/12/2024 05-OP KAREN STORM - [id number] Pain Management Follow Up Vital Signs: Today [...]
[2024-12-21 11:30] LABS: D Dimer 0.38 mg/L (0.19-0.50); INR 0.9; Partial Thromboplastin Time 28.7 Sec (23.9-30.70); Prothrombin Time 10.2 Seconds (9.50-12.1)
[2024-12-21] MEDS: KETOROLAC 30 MG/ML VIAL (*BKC) IM (11:34)
[2024-12-21 12:33] VITALS: BP 111/73; PULSE 80; RESP 16; TEMP 36.8; O2SAT 97
== END 2024-12-21 12:33 | disposition home or self-care (01) ==
PROVIDERS: Emergency Provider Emergency Medicine; PCP Registered Nurse
DX: M25.562 Pain in left knee (principal); M79.7 Fibromyalgia; Z79.899 Other long term (current) drug therapy
CPT/HCPCS: 36415; 73562; 85025; 85380; 85610; 85730; 90471; 99283; J1885

== ENCOUNTER 2025-03-28 10:42 | Outpatient (CLI) | payer OTHER, SELFPAY ==
--- NOTE | ~2025-03-28 | US_ITS ---
US thyroid INDICATION: Neck fullness TECHNIQUE: Real-time sonographic images of the thyroid gland were obtained. COMPARISON: Ultrasound dated 02/02/2024 FINDINGS: The right thyroid lobe measures 4.7 x 1.9 x 1.8 cm. The left thyroid lobe measures 5.4 x 1.9 x 1.4 cm. There is normal echotexture and echogenicity throughout the thyroid gland. There is a solid hypoechoic wider than tall smoothly marginated mass without echogenic foci measuring 12 x 10 x 9 mm, TR 4. Normal vascular flow is present. IMPRESSION: 1. No significant change to left thyroid nodule measuring 1.2 cm. 12 month interval thyroid ultrasound recommended. Reviewed, dictated and finalized at location O. IMPRESSION: 1. No significant change to left thyroid nodule measuring 1.2 cm. 12 month int erval thyroid ultrasound recommended.
== END 2025-03-28 10:43 | disposition home or self-care (01) ==
LOC: CHSIMG 10:44
PROVIDERS: PCP Registered Nurse; Visit Provider Registered Nurse
DX: R22.1 Localized swelling, mass and lump, neck (principal); R06.02 Shortness of breath
CPT/HCPCS: 76536

== ENCOUNTER 2025-04-24 10:30 | Outpatient (CLI) | payer OTHER, SELFPAY ==
--- NOTE | 2025-05-10 09:44 | WPDPFTINT ---
PFT Procedure Performed PFT Procedure Performed Spirometry with Pre/Post Bronchodilator Plethysmography (Lung Vol) Diffusing Cap (DLCO) Flow Vol Loop PFT Interpretation DOS: 04/24/2025 REQUESTING: Narendra Kelley REASON FOR TESTING: shortness of breath PULMONARY FUNCTION TESTS Results are reliable and reproducible. Repeatability of spirometry FEV1 maneuver pre and post bronchodilator is Grade A. [place]: Erin Cotton Dust reference equations were used. Spirometry: The pre-bronchodilator FEV1 is 2.34 L, 82%. The pre-bronchodilator FVC is 3.10 L, 90%. The FEV1/FVC ratio is 76%. After bronchodilator, the FEV1 is 2.49 L, 87%, +7. After bronchodilator, the FVC is 3.06, 88%, -1. The FEV1/FVC ratio is 82%. Lung volumes: The total lung capacity is 3.81 L, 73%. The residual volume is 0.66 L, 38%. The RV/TLC is 17%. Airway resistance is increased. Diffusion: DLCO is 16.3, 63%. The DLCO/VA is 4.00, 93%. Flow volume loop: The flow volume loop is normal. IMPRESSION: Normal spirometry without change after bronchodilator, mild restrictive pattern, and mild diffusion impairment which corrects for alveolar volume. Lack of response to bronchodilator should not preclude use if clinically indicated. There are no prior studies for comparison. Jayda Victoria MD
== END 2025-04-24 10:31 | disposition home or self-care (01) ==
PROVIDERS: PCP Registered Nurse; Visit Provider Registered Nurse
DX: R06.02 Shortness of breath (principal); R22.1 Localized swelling, mass and lump, neck
CPT/HCPCS: 94060; 94726; 94729

== ENCOUNTER 2025-05-09 14:39 | Outpatient (CLI) | payer OTHER, SELFPAY ==
--- NOTE | ~2025-05-09 | MR_ITS ---
EXAMINATION: MR brain/brain stem wo con DATE: 05/09/2025 15:26 INDICATION: Episodic migraines. TECHNIQUE: Magnetic resonance imaging (MRI) of the brain and brainstem was performed without intravenous contrast. COMPARISON: None. FINDINGS: There are approximately 4 scattered foci of nonspecific increased T2- weighted signal intensity in the cerebral white matter, which is within normal limits for the patient's age. 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 There is no intracranial hemorrhage, acute infarction, or abnormal intracranial mass lesion. The ventricles are normal in size. The orbits are normal. The paranasal sinuses are clear. The mastoid air cells are normal. IMPRESSION: 1. Normal aging brain. Reviewed, dictated and finalized at location E. IMPRESSION: 1. Normal aging brain.
--- OUTSIDE RECORDS SUMMARY | 2025-05-09 14:44 | XMS_ITS | Clinical Summary ---
Author Organization [facility] Address [address] [place] [address] Care Team Providers Care Silverware Cleaner Name Role Phone Maxi Valentin MD Primary Care Provider [phone] Source Comments [facility],non-owned Affiliates and Associated Physician Practices is amultiple site organization consisting of ambulatory clinics and hospital sitesin [place], [place], [place] and [place]. This disclosure is being madepursuant to the Care Everywhere program and may not contain all information available regarding this patient. 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 Gender Identity Not on file Sexual Orientation Not on file Plan of Treatment Health Maintenance Due Date Last Done Comments LIPID TESTING 1985 MAMMOGRAM 1985 HIV SCREENING 10/25/1999 HEPATITIS C SCREENING 10/20/2002 DTAP/TDAP/TD VACCINES (1 - Tdap) 10/25/2003 HEPATITIS B VACCINE (1 of 3 - 19+ 3-dose series) 10/25/2003 HPV VACCINE (1 - 3-dose SCDM series) 10/25/2011 DEPRESSION SCREENING 08/08/2024 COVID-19 VACCINE (1 - 2023-2 5 season) 2025 INFLUENZA VACCINE (#1) 2025 ZOSTER VACCINE (1 of 2) 2034 [...] patient's age to complete this topic Insurance [facility] Care Teams Silverware Cleaner Relationship Specialty Start Date End Date Maxi Valentin MD [address] [place] [phone] PCP - General 07/06/18
--- OUTSIDE RECORDS SUMMARY | 2025-05-09 14:44 | XMS_ITS | Encounter Summary ---
Author Organization [facility] Address [facility] [place] [address] Care Team Providers Care Apartment Locator Name Role Phone None, Provider Primary Care Provider Rohan Hart Primary Care Provider [phone] Oleg Lemus MD Primary Care Provider [phone] Encounter Details Date Type Department Care Team (Late st Contact Info) Description 01/13/2019 Abstract SFL CONVERSION [address] [place] [address] , Generic Conversion, Social History Tobacco Use Types Packs/Day Years Used Date Smoking Tobacco: Never Assessed Comments Unknown Sex and Gender Information Value Date Recorded Sex Assigned at Not on file Legal Sex Female 11:02 PM VAMP LINER Gender Identity Not on file Sexual Orientation Not on file documented as of this encounter Plan of Treatment Not on file documented as of this encounter Visit Diagnoses Not on filedocumented in this encounter Additional Health Concerns Infection Onset Date Last Indicated Resolved Time COVID-19 Rule Out 05/18/2020 05/18/2020 05/20/2020 3:11 AM CDT COVID-19 Rule Out 07/30/2023 07/30/2023 07/30/2023 6:22 PM VAMP LINER Influenza - Seasonal 07/30/2023 07/30/2023 024 12:32 AM VAMP LINER documented as of this encounter Care Teams Apartment Locator Relationship Specialty Start Date End Date None, Provider, PCP - General 03/26/20 05/17/20 Rohan So PA [address] [place] [phone] PCP - General PHYSICIAN RN MDS COORDINATOR 05/18/20 07/29/23 Oleg Lemus MD [address] [place] [phone] PCP - General FAMILY PRACTICE 07/30/23 documented as of this encounter
--- OUTSIDE RECORDS SUMMARY | 2025-05-09 14:44 | XMS_ITS | Clinical Summary ---
Author Organization [facility] Address [facility] [place] [address] Care Team Providers Care Welding Machine Operator Arc Name Role Phone Oleg Lemus MD Primary [...] on file Legal Sex Female 11:02 PM WIND TUNNEL MECHANIC Gender Identity Not on file Sexual Orientation [...] 1:06 PM CDT Height 166.4 cm (5' 5.5) 12/01/2023 1:06 PM CDT Body Mass Index [...] Years) (1 of 2 - PCV) 10/25/2003 HPV Vaccines (1 - 3-dose SCD M series) 10/25/2011 COVID-19 Vaccine (2023-2 5 season) 2025 Mammogram Screening 07/13/2025 07/13/2023 Meningococcal B Vaccine Aged Out No l [...] BOLA BILAT DIGI Routine 07/13/2023 10:54 AM WIND TUNNEL MECHANIC Nipple discharge in female from Last 3 Months or Most Recently Relevant to Health Maintenance Results * MG DIAG W BOLA BILAT DIGI (07/13/2023 10:54 AM WIND TUNNEL MECHANIC) Anatomical Region Laterality Modality Breast Bilateral Mammography, Rad iographic Imaging 07/13/2023 11:3 4 AM WIND TUNNEL MECHANIC Narrative 07/13/2023 12:02 PM WIND TUNNEL MECHANIC Examination: Bilateral diagnostic mammogram with 3-D tomosynthesis and ultrasound. [id number] Exam Date/Time: 07/13/2023 10:29 AM Reason For [...] Fontana MD, 07/13/2023 11:34 AM Rohan Brew[place] MAMMO Final Result from Last 3 Months or Most Recently Relevant to Health Maintenance Insurance [facility] MEDICAID C/O PROVIDER SERVICES [place] [id number] Care Teams Welding Machine Operator Arc Relationship Specialty Start Date End Date Oleg Lemus MD [address] [place] [phone] PCP - General FAMILY PRACTICE 07/30/23
== END 2025-05-09 14:40 | disposition home or self-care (01) ==
LOC: CHSIMG 14:41
PROVIDERS: PCP Registered Nurse; Visit Provider Registered Nurse
DX: G43.909 Migraine, unspecified, not intractable, without status migrainosus (principal)
CPT/HCPCS: 70551

== ENCOUNTER 2025-07-09 12:21 | Emergency (ER) | payer OTHER, SELFPAY ==
--- NOTE | 2025-07-09 12:38 | ED.GENADULT ---
HPI - General Adult General Chief complaint: Upper Respiratory Infection Stated complaint: COLD SYMPTOMS Time Seen by Provider: 07/09/25 12:23 Source: patient Mode of arrival: ambulatory Limitations: no limitations History of Present Illness HPI narrative: 39-year-old otherwise healthy here with the complaints of week and a half history of for cough, congestion. No fever or chills. Cough mostly nonproductive. She has sinus congestion. She also states her daughter is sick with the same complaint Related Data Home Medications ?Medication ?Instructions ?Recorded ?Confirmed ?Last Taken ?Type trazodone 100 mg tablet 200 mg PO HS 03/13/21 02/02/24 Unknown History venlafaxine 75 mg capsule,extended 75 mg PO DAILY 03/13/21 02/02/24 Unknown History release 24 hr tramadol 50 mg tablet 50 mg PO Q4H PRN Pain 07/12/22 02/02/24 Unknown History albuterol 90 mcg-budesonide 80 inh inhalation 07/09/25 Unknown History mcg/actuation HFA aerosol inhaler (Airsupra) alprazolam 0.5 mg tablet mg 07/09/25 Unknown History duloxetine 60 mg capsule,delayed mg PO 07/09/25 Unknown History release meloxicam 15 mg tablet mg 07/09/25 Unknown History metformin 500 mg tablet mg 07/09/25 Unknown History paroxetine HCl 30 mg tablet mg PO 07/09/25 Unknown History risperidone 0.5 mg tablet mg 07/09/25 Unknown History topiramate 25 mg sprinkle capsule mg PO 07/09/25 Unknown History trazodone 150 mg tablet 150 mg PO TID 07/09/25 Unknown History Allergies Allergy/AdvReac Type Severity Reaction Status Date / Time amoxicillin Allergy Rash Verified 07/09/25 12:40 Cephalosporins Allergy Rash Verified 07/09/25 12:40 Review of Systems Review of Systems: All systems reviewed & are unremarkable except as noted in HPI and below Constitutional: Constitutional: Reports no additional constitutional complaints Eyes: Eyes: Reports no additional eye complaints ENT: Reports as per HPI Cardiovascular: Cardiovascular: Reports no additional cardiovascular complaints Respiratory: Respiratory: Reports no additional respiratory complaints Gastrointestinal: Gastrointestinal: Reports no additional gastrointestinal complaints Musculoskeletal: Musculoskeletal: Reports no additional musculoskeletal complaints PMFSH Past Medical History Medical History Chronic low back pain Asthma Upper respiratory infection Sinusitis Headache disorder Social History Social History Gender identity (if verbalized by the patient): Female Exam Narrative: GENERAL: Well-appearing, well-nourished, and in no acute distress. HEAD: Normocephalic, atraumatic. EYES: PERRLA and EOMI. ENT: Nares clear, no rhinorrhea or epistaxis. Mucous membranes moist. NECK: Supple. CHEST: Clear to auscultation. No respiratory distress. HEART: Regular rate and rhythm. No murmur heard. Normal peripheral pulses EXTREMITIES: Normal range of motion. No edema. SKIN: Warm, dry, no rash. NEURO: No focal deficits. Alert and oriented x3. PSYCH: Normal mood and affect. Course Course Emergency Course: Notified patient about her lab work. Advised to take medication as prescribed. MDM Differential Diagnosis Differential Diagnosis: URI, bronchitis, viral syndrome Lab Data Labs: Lab Results 07/09/25 Range/Units 12:30 Influenza A (RT-PCR) Pending Influenza B (RT-PCR) Pending RSV (RT-PCR) Pending SARS-CoV-2 RNA (RT-PCR) Pending Discharge Plan Discharge Clinical Impression: Viral infection Patient Disposition: Home Condition: Stable Instructions: Viral Syndrome (ED) Additional Instructions: Continue home medication, follow-up with your primary doctor Patient Language: Slovenian Prescriptions: New benzonatate 200 mg capsule 200 mg PO TID PRN (Reason: cough) Qty: 20 0RF No Action venlafaxine 75 mg capsule,extended release 24hr 75 mg PO DAILY trazodone 100 mg tablet 200 mg PO HS tramadol 50 mg Tablet 50 mg PO Q4H PRN (Reason: Pain) albuterol sulfate 90 mcg/actuation HFA aerosol inhaler 2 puff inhalation QID PRN (Reason: shortness of breath or wheezing) Qty: 6.7 0RF alprazolam 0.5 mg tablet Airsupra 90-80 mcg/actuation HFA aerosol inhaler INHALATION metformin 500 mg tablet meloxicam 15 mg tablet topiramate 25 mg capsule, sprinkle PO paroxetine HCl 30 mg tablet PO risperidone 0.5 mg tablet duloxetine 60 mg capsule,delayed release(DR/EC) PO trazodone 150 mg tablet 150 mg PO TID Follow-up/Referrals: Allie,LEE Mackey [Primary Care Provider, Unknown] Time of Disposition: 13:27
[2025-07-09 12:44] VITALS: BP 119/78; PULSE 104; RESP 16; TEMP 35.9; O2SAT 96
--- OUTSIDE RECORDS SUMMARY | 2025-07-09 13:01 | XMS_ITS | Clinical Summary ---
Author Organization [facility] Address [facility] [place] [address] Care Team Providers Care Piano Case And Bench Assembler Name Role Phone Oleg Lemus MD Primary [...] on file Legal Sex Female 11:02 PM PRICING INTERN Gender Identity Not on file Sexual [...] 3-dose SCD M series) 10/25/2011 COVID-19 Vaccine ( - 2024-2 6 season) 2025 Influenza Adult (#1) 2025 08/04/2022 Mammogram Screening 07/13/2025 07/13/2023 Hepatitis A Vaccines Aged Out No long er eligible based [...] BOLA BILAT DIGI Routine 07/13/2023 10:54 AM PRICING INTERN Nipple discharge in female from Last 3 Months or Most Recently Relevant to Health Maintenance Results * MG DIAG W BOLA BILAT DIGI (07/13/2023 10:54 AM PRICING INTERN) Anatomical Region Laterality Modality Breast Bilateral Mammography, Rad iographic Imaging 07/13/2023 11:3 4 AM PRICING INTERN Narrative 07/13/2023 12:02 PM PRICING INTERN Examination: Bilateral diagnostic mammogram with 3-D tomosynthesis and ultrasound. [id number] Exam Date/Time: 07/13/2023 10:29 AM Reason For [...] Fontana MD, 07/13/2023 11:34 AM Rohan Brewer [place] MAMMO Final Result from Last 3 Months or Most Recently Relevant to Health Maintenance Insurance [facility] MEDICAID C/O PROVIDER SERVICES ZOE HEND[place]X [id number] Care Teams Piano Case And Bench Assembler Relationship Specialty Start Date End Date Oleg Lemus MD [address] [place] [phone] PCP - General FAMILY PRACTICE 07/30/23
--- OUTSIDE RECORDS SUMMARY | 2025-07-09 13:01 | XMS_ITS | Encounter Summary ---
Author Organization [facility] Address [facility] [place] [address] Care Team Providers Care Tongue Stitcher Name Role Phone None, Provider Primary Care Provider Rohan Hart Primary Care Provider [phone] Oleg Lemus MD Primary Care Provider [phone] Encounter Details Date Type Department Care Team (Late st Contact Info) Description 01/13/2019 Abstract SFL CONVERSION [address] [place] [address] , Generic Conversion, Social History Tobacco Use Types Packs/Day Years Used Date Smoking Tobacco: Never Assessed Comments Unknown Sex and Gender Information Value Date Recorded Sex Assigned at Not on file Legal Sex Female 11:02 PM ELIGIBILITY AND OCCUPANCY INTERVIEWER Gender Identity Not on file Sexual Orientation Not on file documented as of this encounter Plan of Treatment Not on file documented as of this encounter Visit Diagnoses Not on filedocumented in this encounter Additional Health Concerns Infection Onset Date Last Indicated Resolved Time COVID-19 Rule Out 05/18/2020 05/18/2020 05/20/2020 3:11 AM CDT COVID-19 Rule Out 07/30/2023 07/30/2023 07/30/2023 6:22 PM ELIGIBILITY AND OCCUPANCY INTERVIEWER Influenza - Seasonal 07/30/2023 07/30/2023 024 12:32 AM ELIGIBILITY AND OCCUPANCY INTERVIEWER documented as of this encounter Care Teams Tongue Stitcher Relationship Specialty Start Date End Date None, Provider, PCP - General 03/26/20 05/17/20 Rohan So PA [address] [place] [phone] PCP - General PHYSICIAN AIR POLLUTION AUDITOR 05/18/20 07/29/23 Oleg Lemus MD [address] [place] [phone] PCP - General FAMILY PRACTICE 07/30/23 documented as of this encounter
--- OUTSIDE RECORDS SUMMARY | 2025-07-09 13:01 | XMS_ITS | Clinical Summary ---
Author Organization [facility] Address [address] [place] [address] Care Team Providers Care Clinical Operations Leader Name Role Phone Maxi Valentin MD Primary Care Provider [phone] Source Comments [facility],non-owned Affiliates and Associated Physician Practices is amultiple site organization consisting of ambulatory clinics and hospital sitesin [place], [place], [place] and [place]. This disclosure is being madepursuant to the Care Everywhere program and may not contain all information available regarding this patient. Last updated 18.[facility] [employer] Social History Tobacco Use Types Packs/Day Years Used Date Smoking Tobacco: Never Assessed Comments Unknown Sex and Gender Information Value Date Recorded Sex Assigned at Not on file Legal Sex Female 10:48 AM FINANCIAL PLANNER Gender Identity Not on file Sexual Orientation Not on file Plan of Treatment Health Maintenance Due Date Last Done Comments LIPID TESTING 1984 MAMMOGRAM 1984 HIV SCREENING 10/25/1999 HEPATITIS C SCREENING 10/20/2002 DTAP/TDAP/TD VACCINES (1 - Tdap) 10/25/2003 HEPATITIS B VACCINE (1 of 3 - 19+ 3-dose series) 10/25/2003 PAP SMEAR 2005 HPV VACCINE (1 - 3-dose SCDM series) 10/25/2011 Cervical Cancer Screening 2014 PAP with HPV 2014 DEPRESSION SCREENING 08/08/2024 COVID-19 VACCINE ( - 2024-2 6 season) 2025 INFLUENZA VACCINE (#1) 2025 ZOSTER [...] patient's age to complete this topic Insurance [facility] Care Teams Clinical Operations Leader Relationship Specialty Start Date End Date Maxi Valentin MD [address] [place] [phone] PCP - General 07/06/18
[2025-07-09 13:15] LABS: Influenza A QL RT-PCR Negative (Negative); Influenza B QL RT-PCR Negative (Negative); RSV RNA, RT-PCR Negative (Negative); SARS-CoV-2 RNA PCR Negative (Negative)
--- OUTSIDE RECORDS SUMMARY | 2025-07-09 14:16 | XMS_ITS | Encounter Summary ---
Author Organization [facility] Address [facility] [place] [address] Care Team Providers Care Band Cutter Name Role Phone None, Provider Primary Care Provider Rohan Hart Primary Care Provider [phone] Oleg Lemus MD Primary Care Provider [phone] Encounter Details Date Type Department Care Team (Late st Contact Info) Description 01/13/2019 Abstract SFL CONVERSION [address] [place] [address] , Generic Conversion, Social History Tobacco Use Types Packs/Day Years Used Date Smoking Tobacco: Never Assessed Comments Unknown Sex and Gender Information Value Date Recorded Sex Assigned at Not on file Legal Sex Female 11:02 PM STABLE HAND Gender Identity Not on file Sexual Orientation Not on file documented as of this encounter Plan of Treatment Not on file documented as of this encounter Visit Diagnoses Not on filedocumented in this encounter Additional Health Concerns Infection Onset Date Last Indicated Resolved Time COVID-19 Rule Out 05/18/2020 05/18/2020 05/20/2020 3:11 AM CDT COVID-19 Rule Out 07/30/2023 07/30/2023 07/30/2023 6:22 PM STABLE HAND Influenza - Seasonal 07/30/2023 07/30/2023 024 12:32 AM STABLE HAND documented as of this encounter Care Teams Band Cutter Relationship Specialty Start Date End Date None, Provider, PCP - General 03/26/20 05/17/20 Rohan So PA [address] [place] [phone] PCP - General PHYSICIAN REINFORCER 05/18/20 07/29/23 Oleg Lemus MD [address] [place] [address] PCP - General FAMILY PRACTICE 07/30/23 documented as of this encounter
--- OUTSIDE RECORDS SUMMARY | 2025-07-09 14:16 | XMS_ITS | Clinical Summary ---
Author Organization [facility] Address [facility] [place] [address] Care Team Providers Care Regulatory Leader Name Role Phone Oleg Lemus MD Primary [...] on file Legal Sex Female 11:02 PM SCORING MACHINE OPERATOR Gender Identity Not on file Sexual [...] BOLA BILAT DIGI Routine 07/13/2023 10:54 AM SCORING MACHINE OPERATOR Nipple discharge in female from Last 3 Months or Most Recently Relevant to Health Maintenance Results * MG DIAG W BOLA BILAT DIGI (07/13/2023 10:54 AM SCORING MACHINE OPERATOR) Anatomical Region Laterality Modality Breast Bilateral Mammography, Rad iographic Imaging 07/13/2023 11:3 4 AM SCORING MACHINE OPERATOR Narrative 07/13/2023 12:02 PM SCORING MACHINE OPERATOR Examination: Bilateral diagnostic mammogram with 3-D tomosynthesis and ultrasound. [id number] Exam Date/Time: 07/13/2023 10:29 AM Reason For [...] Fontana MD, 07/13/2023 11:34 AM Rohan Brewer [place] MAMMO Final Result from Last 3 Months or Most Recently Relevant to Health Maintenance Insurance [facility] MEDICAID C/O PROVIDER SERVICES Z[place] [id number] Care Teams Regulatory Leader Relationship Specialty Start Date End Date Oleg Lemus MD [address] [place] [phone] PCP - General FAMILY PRACTICE 07/30/23
--- OUTSIDE RECORDS SUMMARY | 2025-07-09 14:16 | XMS_ITS | Clinical Summary ---
Author Organization [facility] Address [address] [place] [address] Care Team Providers Care Fur Blowing Machine Operator Name Role Phone Maxi Valentin MD Primary Care Provider [phone] Source Comments [facility],non-owned Affiliates and Associated Physician Practices is amultiple site organization consisting of ambulatory clinics and hospital sitesin [place], [place], [place] and [place]. This disclosure is being madepursuant to the Care Everywhere program and may not contain all information available regarding this patient. Last updated 18.[facility] [employer] Social History Tobacco Use Types Packs/Day Years Used Date Smoking Tobacco: Never Assessed Comments Unknown Sex and Gender Information Value Date Recorded Sex Assigned at Not on file Legal Sex Female 10:48 AM PERIPHERAL VASCULAR TECH Gender Identity Not on file Sexual Orientation [...] patient's age to complete this topic Insurance [facility] Care Teams Fur Blowing Machine Operator Relationship Specialty Start Date End Date Maxi Valentin MD [address] [place] [phone] PCP - General 07/06/18
== END 2025-07-09 13:44 | disposition home or self-care (01) ==
PROVIDERS: Emergency Provider Family Medicine; PCP Registered Nurse
DX: B34.9 Viral infection, unspecified (principal); Z79.899 Other long term (current) drug therapy; Z79.1 Long term (current) use of non-steroidal anti-inflammatories (NSAID); Z79.84 Long term (current) use of oral hypoglycemic drugs; Z20.822 Contact with and (suspected) exposure to COVID-19
CPT/HCPCS: 87637; 99283

== ENCOUNTER 2025-07-18 13:48 | Outpatient (CLI) | payer OTHER, SELFPAY ==
--- NOTE | ~2025-07-18 | XR_ITS ---
EXAMINATION: XR chest 2V DATE: 07/18/2025 14:13 INDICATION: Acute bronchitis. TECHNIQUE: Frontal and lateral views of the chest were obtained. COMPARISON: Chest x-ray 04/16/2024 FINDINGS: The heart size is normal. Lungs do not show significant acute findings. Minimal platelike atelectasis of right lung base. IMPRESSION: 1. No significant acute pulmonary findings. Reviewed, dictated and finalized at location T. RAL GAS ENGINEER
== END 2025-07-18 13:49 | disposition home or self-care (01) ==
PROVIDERS: PCP Registered Nurse; Visit Provider Registered Nurse
DX: J01.90 Acute sinusitis, unspecified (principal)
CPT/HCPCS: 0202U; 71046

== ENCOUNTER 2025-07-31 20:27 | Emergency (ER) | payer OTHER, SELFPAY ==
--- NOTE | ~2025-07-31 | CT_ITS ---
EXAMINATION: CT abdomen pelvis w con DATE: 07/31/2025 21:39 INDICATION: Upper abdomen pain for 4 days. Constipation. TECHNIQUE: Computed tomography (CT) of the abdomen and pelvis was performed with intravenous contrast. The dose-length product was 679.63 mGy-cm. COMPARISON: None. FINDINGS: Lung bases unremarkable. Fatty infiltration of the liver. There is abnormal mural thickening of the ascending and transverse colon, consistent with colitis, most likely infectious or inflammatory. There is 2.6 cm right adnexal cyst, likely ovarian. Gallbladder is present. The spleen, pancreas, adrenal glands and kidneys are unremarkable. Gallbladder is present. No significant vascular abnormality. No lymphadenopathy. No free air or free fluid. There is a ventral wall hernia without bowel intrusion. Mild lumbar spondylosis. IMPRESSION: 1. Mucosal thickening of the ascending and transverse colon, consistent with colitis, most likely infectious or inflammatory. 2: Right adnexal cyst measuring 2.6 cm, likely ovarian. Reviewed, dictated and finalized at location [facility] E [facility]STER IMPRESSION: 1. Mucosal thickening of the ascending and transverse colon, consistent with co litis, most likely infectious or inflammatory. 2: Right adnexal cyst measuring 2.6 cm, likely ovarian.
[2025-07-31 20:35] VITALS: BP 125/74; PULSE 118; RESP 16; TEMP 36.8; O2SAT 99
--- NOTE | 2025-07-31 20:40 | ED_ITS ---
HPI - Abdominal Pain General Chief Complaint: Abdominal Pain Stated Complaint: abd pain Time Seen by Provider: 07/31/25 20:40 Source: patient Mode of arrival: ambulatory Limitations: no limitations History of Present Illness HPI narrative: Patient is a 39-year-old female with abdominal pain that extends from the right across the abdomen to the left for the past 4 days. Pain is sharp. Slight nausea but no vomiting. No diarrhea. Some constipation but she has baseline constipation issues. MD elicited complaint: abdominal pain Pertinent past history: constipation and other (Diabetes 2) Onset (ago): day(s) (4) Pain Consistency: constant Location: epigastric, LUQ and RUQ Severity: moderate Pain scale (0-10): 5 Quality: sharp Radiation: none Migration to: no migration Exacerbating factors: nothing Relieving factors: nothing Context: confirms other (Patient having upper abdominal pain for the past 4 days) Associated symptoms: nausea Treatments prior to arrival: antacids Related Data Patient : No Home Medications ?Medication ?Instructions ?Recorded ?Confirmed ?Last Taken ?Type trazodone 100 mg tablet 200 mg PO HS 03/13/21 Unknown History venlafaxine 75 mg capsule,extended 75 mg PO DAILY 0801/2602/02/24 Unknown History release 24 hr tramadol 50 mg tablet 50 mg PO Q4H PRN Pain 02/02/24 Unknown History albuterol 90 mcg-budesonide 80 inh inhalation 07/09/25 Unknown History mcg/actuation HFA aerosol inhaler (Airsupra) alprazolam 0.5 mg tablet mg 07/09/25 Unknown History duloxetine 60 mg capsule,delayed mg PO 07/09/25 Unkno wn History release meloxicam 15 mg tablet mg 07/09/25 Unknown History metformin 500 mg tablet mg 07/09/25 Unknown History paroxetine HCl 30 mg tablet mg PO 07/09/25 Unknown Hi story risperidone 0.5 mg tablet mg 07/09/25 Unknown History topiramate 25 mg sprinkle capsule mg PO 07/09/25 Unkn own History trazodone 150 mg tablet 150 mg PO TID 07/09/25 Unkn own History Allergies Allergy/AdvReac Type Severity Reaction Status Date / Time amoxicillin Allergy Rash Verified 07/31/25 20:35 Cephalosporins Allergy Rash Verified 07/31/25 20:35 Review of Systems 2 Review of Systems: All systems reviewed & are unremarkable except as noted in HPI and below Constitutional: Constitutional: Reports no additional constitutional complaints Eyes: Eyes: Reports no additional eye complaints ENT: Reports system reviewed and no additional complaints, except as documented Cardiovascular: Cardiovascular: Reports no additional cardiovascular complaints Respiratory: Respiratory: Reports no additional respiratory complaints Gastrointestinal: Gastrointestinal: Reports no additional gastrointestinal complaints Genitourinary: Genitourinary: Reports no additional female genitourinary complaints Musculoskeletal: Musculoskeletal: Reports no additional musculoskeletal complaints Integumentary/Breasts: Skin/Breast: Reports system reviewed and no additional complaints, except as docu Neurologic: Reports system reviewed and no additional complaints, except as documented Psychiatric: Psychiatric: Reports no additional psychiatric complaints Endocrine: Endocrine: Reports no additional endocrine complaints Hematologic/Lymphatic: Hematologic/Lymphatic: Reports no additional hematologic/lymphatic complaints Allergic/Immunologic: Allergic/Immunologic: Reports no additional allergic/immunologic complaints PMFSH Past Medical History Medical History Chronic low back pain Asthma Upper respiratory infection Sinusitis Headache disorder Social History Social History Gender identity (if verbalized by the patient): Female Exam 2 Const: General: ill appearing Nutritional Appearance: well nourished O rientation/consciousness: patient oriented x3 Limitations: no limitations Other: Acute pain HENMT: Head: normal to inspection Ears: external ears normal F candelario/Nose/Sinus: Normal external nose present Eyes: Conjunctivae: conjunctivae normal Pupils: Equal, round and reactive pupils present EOM: EOMs intact bilaterally Neck: Neck: normal visual inspection Chest: Chest palpation & inspection: normal inspection of the chest Resp: Effort & Inspection: normal respiratory effort and not labored A uscultation: clear to auscultation bilaterally and no crackles Cardio: Rate: regular rate Rhythm: regular rhythm Heart sounds: no murmurs GI: Inspection: non-distended GI Palp: Yes Soft to palpation, Yes Tenderness to palpation present (GI) (Across upper abdomen and right middle abdomen), No Guarding due to palpation present (GI), No Rigid due to palpation, No Hernia present, No Palpable mass present and Yes Rebound tenderness present Auscultation: bowels sounds not normal and Hypoactive bowel sounds present : General: Yes bladder normal to palpation Back/Spine/Pelvis: Back: no CVA tenderness Skin: General skin exam: normal color Rashes: no rashes Wounds: no wounds Neuro: General: patient oriented x3, moves all extremities and no meningeal signs Extrem: General: normal to inspection, no clubbing, cyanosis or edema and no pedal edema Psych: Mental Status: mental status grossly normal Affect: normal affect Attitude: cooperative Course Vital Signs Vital signs: Vital Signs Temperature 36.8 C 07/31/25 20:35 Pulse Rate 118 H 07/31/25 20:35 Respiratory Rate 16 07/31/25 20:35 Blood Pressure 125/74 07/31/25 20:35 Pulse Oximetry 99 07/31/25 20:35 Oxygen Delivery Room Air 07/31/25 20:35 Temperature 36.3 C L 07/31/25 22:36 Pulse Rate 105 H 07/31/25 22:36 Respiratory Rate 16 07/31/25 22:36 Blood Pressure 128/78 07/31/25 22:36 Pulse Oximetry 97 07/31/25 22:36 Oxygen Delivery Room Air 07/31/25 22:36 [facility] Narrative Medical decision making narrative: Patient is a 39-year-old female with upper abdominal pain for the past 4 days. Abdominal pain workup at this time. Pain control. Patient was suggested to get admitted to the hospital with 18,000 white count and colitis but she has declined at this time and would like to go home. We will give her Cipro and Flagyl IV before discharge. She will present to the emergency room for further worsening symptoms. Otherwise follow-up with primary doctor in the next week. Differential Diagnosis Differential Diagnosis: Diverticulitis, cholecystitis, appendicitis Lab Data [facility] Lab Attestation statement: I personally reviewed the patient's lab results. 07/31/25 21:04 07/31/25 21:04 Labs: Lab Results 07/31/25 07/31/25 Range/Units 20:52 21:04 WBC 18.0 H (4.8-10.8) K/mm3 RBC 4.82 (4.20-5.40) M/mm3 Hgb 14.4 (12.0-15.0) g/dL Hct 43.8 (35.0-49.0) % MCV 90.9 (78.0-102.0) fL MCH 29.9 (27.0-31.0) pg MCHC 32.9 (32-36) g/dL RDW 13.9 (11.6-14.4) % Plt Count 415 (150-420) K/mm3 MPV 9.6 (9.2-11.8) fl Immature Gran % (Auto) 0.7 H (0.0-0.0) % Neut % (Auto) 65.4 (50.0-70.0) % Lymph % (Auto) 23.0 (18.0-42.0) % [place] % (Auto) 8.9 (2.0-11.0) % Eos % (Auto) 1.5 (1.0-6.0) % Baso % (Auto) 0.5 (0.0-1.0) % Lymph # (Auto) 4.14 (1.10-4.50) K/mm3 [place] # (Auto) 1.60 H (0.10-0.90) K/mm3 Eos # (Auto) 0.27 (0.02-0.50) K/mm3 Baso # (Auto) 0.09 (0.00-0.10) K/mm3 Abs Immat Gran (auto) 0.12 H (0.00-0.00) K/mm3 Absolute Neuts (auto) 11.80 H (1.70-7.20) K/mm3 Absolute Nucleated RBC 0.00 (0.00-0.00) K/mm3 Nucleated RBC % 0.0 (0-0.0) % PT 9.9 (9.50-12.1) Seconds INR 0.9 APTT 28.4 (23.9-30.70) Sec Sodium 140 (137-145) mmol/L Potassium 3.6 (3.4-5.0) mmol/L Chloride 104 (98-107) mmol/L Carbon Dioxide 24 (22-30) mmol/L Anion Gap 12 (4-12) mmol/L BUN 8 (7-17) mg/dL Creatinine 0.73 (0.7-1.0) mg/dL Estim Creat Clear Calc 96 ml/min Estimated GFR > 60 (59 - ) Glucose 101 (65-110) mg/dL Calculated Osmolality 288 (285-295) mOsm/kg Calcium 9.9 (8.4-10.2) mg/dL Total Bilirubin 0.3 (0.2-1.3) mg/dL AST 25 (14-36) U/L ALT 29 (6-35) U/L Alkaline Phosphatase 87 (38-126) U/L Total Protein 7.8 (6.3-8.2) g/dL Albumin 4.7 (3.5-5.1) g/dL Lipase 94 (23-300) U/L Urine Color Yellow (Yellow) Urine Appearance Clear (Clear) Urine pH 5.5 (5.0-8.0) Ur Specific Moore >= 1.030 H (1.010-1.020) Urine Protein Negative (Negative) Urine Glucose (UA) Negative (Negative) Urine Ketones Trace H (Negative) Ur Blood (Man) Negative (Negative) Urine Nitrate Negative (Negative) Urine Bilirubin Negative (Negative) Urine Urobilinogen 0.2 (0.2-1.0) mg/dL Leukocyte Esterase Rfl Negative (Negative) TUAN/UL Urine Test Negative Imaging Data Attestation: I personally reviewed and interpreted this imaging study as follows: Radiologist's impression: ITS Impressions Abdomen/Pelvis CT 07/31/25 21:50 IMPRESSION: 1. Mucosal thickening of the ascending and transverse colon, consistent with colitis, most likely infectious or inflammatory. 2: Right adnexal cyst measuring 2.6 cm, likely ovarian. Discharge Plan Discharge Clinical Impression: Colitis Patient Disposition: Home Condition: Stable Instructions: Antibiotic Form, Colitis (ED) Patient Language: Maltese Prescriptions: New ciprofloxacin HCl [Cipro] 500 mg tablet 500 mg PO BID 10 Days Qty: 20 0RF metronidazole 500 mg tablet 500 mg PO TID 10 Days Qty: 30 0RF hydrocodone-acetaminophen 5-325 mg tablet 1 tablet PO Q8H PRN (Reason: pain) Qty: 20 0RF Rx Instructions: 1-2 tabs per dose No Action venlafaxine 75 mg capsule,extended release 24hr 75 mg PO DAILY trazodone 100 mg tablet 200 mg PO HS tramadol 50 mg Tablet 50 mg PO Q4H PRN (Reason: Pain) albuterol sulfate 90 mcg/actuation HFA aerosol inhaler 2 puff inhalation QID PRN (Reason: shortness of breath or wheezing) Qty: 6.7 0RF alprazolam 0.5 mg tablet Airsupra 90-80 mcg/actuation HFA aerosol inhaler INHALATION metformin 500 mg tablet meloxicam 15 mg tablet topiramate 25 mg capsule, sprinkle PO paroxetine HCl 30 mg tablet PO risperidone 0.5 mg tablet duloxetine 60 mg capsule,delayed release(DR/EC) PO trazodone 150 mg tablet 150 mg PO TID benzonatate 200 mg capsule 200 mg PO TID PRN (Reason: cough) Qty: 20 0RF Follow-up/Referrals: Allie,LEE Mackey [Primary Care Provider, Unknown] Time of Disposition: 23:00
--- NOTE | 2025-07-31 20:49 | PC.NURSE ---
pt ambulated to bathroom for urine specimen
[2025-07-31 20:57] LABS: Add Urine Microscopic? NO; Appearance Urine Clear (Clear); Glucose Urine UA Negative (Negative); Leukocyte Esterase Ur Negative LEU/UL (Negative); Nitrate Urine Negative (Negative); Specific Grav Ur >= 1.030 (1.010-1.020)
--- NOTE | 2025-07-31 21:08 | PC.NURSE ---
PATIENT AMBULATED TO THE BATHROOM AND BACK TO ROOM. UNABLE TO HAVE BM AT THIS TIME.
[2025-07-31 21:11] LABS: Hematocrit 43.8 % (35.0-49.0); Hemoglobin 14.4 g/dL (12.0-15.0); Immature Granulocyte Percent A 0.7 % (0.0-0.0); Lymphocytes Absolute Auto 4.14 K/mm3 (1.10-4.50); Mean Corpuscular HGB Conc 32.9 g/dL (32-36); Mean Corpuscular Hemoglobin 29.9 pg (27.0-31.0); Mean Corpuscular Volume 90.9 fL (78.0-102.0); Nucleated Red Blood Cells Absolute Auto 0.00 K/mm3 (0.00-0.00); Nucleated Red Blood Cells Perc 0.0 % (0-0.0); Platelet Count Result 415 K/mm3 (150-420); Red Blood Count 4.82 M/mm3 (4.20-5.40); White Blood Count 18.0 K/mm3 (4.8-10.8)
[2025-07-31 21:14] LABS: Pregnancy On Board Control Positive
[2025-07-31] MEDS: ONDANSETRON INJ 4 MG/2 ML VIAL IV PUSH (21:23)
[2025-07-31] MEDS: SODIUM CHLORIDE 0.9% IV 1,000 ML 999 ML IV CONT (21:23)
[2025-07-31] MEDS: MORPHINE SULFATE (*CRX) 4 MG/ML INJ IV PUSH (21:23)
[2025-07-31 21:25] LABS: Alanine Aminotransferase 29 U/L (6-35); Albumin Level 4.7 g/dL (3.5-5.1); Alkaline Phosphatase 87 U/L (38-126); Anion Gap 12 mmol/L (4-12); Aspartate Amino Transferase 25 U/L (14-36); Bilirubin,Total 0.3 mg/dL (0.2-1.3); Blood Urea Nitrogen 8 mg/dL (7-17); Calcium 9.9 mg/dL (8.4-10.2); Carbon Dioxide 24 mmol/L (22-30); Chloride 104 mmol/L (98-107); Estimated CRCL calculation 96 ml/min; Estimated Glomerular Filt Rate > 60; Glucose 101 mg/dL (65-110); INR 0.9; Lipase 94 U/L (23-300); Osmolality Calculated 288 mOsm/kg (285-295); Partial Thromboplastin Time 28.4 Sec (23.9-30.70); Potassium 3.6 mmol/L (3.4-5.0); Prothrombin Time 9.9 Seconds (9.50-12.1); Sodium 140 mmol/L (137-145); Total Protein 7.8 g/dL (6.3-8.2)
--- NOTE | 2025-07-31 21:29 | PC.NURSE ---
PATIENT TRANSPORTED TO CT VIA WHEEL CHAIR.
--- NOTE | 2025-07-31 21:59 | PC.NURSE ---
DR RENDON NOTIFIED OF CT RESULTS
--- NOTE | 2025-07-31 22:27 | PC.NURSE ---
DR RENDON AT THE BEDSIDE
[2025-07-31 22:36] VITALS: BP 128/78; PULSE 105; RESP 16; TEMP 36.3; O2SAT 97
--- NOTE | 2025-07-31 22:45 | PC.NURSE ---
PAPER PRESCRIPTIONS GIVEN TO BY DR RENDON.
[2025-07-31] MEDS: CIPROFLOXACIN 400 MG/D5W 200ML 200 ML 200 MG IVPB (22:51)
--- NOTE | 2025-07-31 23:15 | PC.NURSE ---
PATIENT IS CURRENTLY LAYING ON HER RIGHT SIDE. REPORTS ACID REFULX. ENCOURAGED PATIENT TO LAY ON HER LEFT SIDE. DR RENDON WAS NOTIFIED.
--- NOTE | 2025-07-31 23:16 | PC.NURSE ---
ANTIBIOTIC INFUSING TO LEFT FOREARM. DENIES REACTIONS TO ANTIBIOTICS. PATIENT HAS CALL LIGHT IN REACH.
--- NOTE | 2025-07-31 23:51 | PC.NURSE ---
PATIENT IS CURRENTLY RESTING ON STRETCHER. CALM AND COOPERATIVE. CALL LIGHT IN REACH
[2025-07-31 23:55] VITALS: BP 129/72; PULSE 95; RESP 16; TEMP 36.6; O2SAT 99
[2025-07-31] MEDS: metroNIDAZOLE 500 MG/ISO 100ML 500 MG/100 ML BAG 100 MG IVPB (23:58)
--- NOTE | 2025-08-01 00:02 | PC.NURSE ---
DR RENDON NOTIFIED THAT PATIENT CONTINUES TO HAVE HEARTBURN
[2025-08-01] MEDS: MAG HYDROX/AL HYDROX/SIMETH 30 ML UDC PO (00:05)
--- NOTE | 2025-08-01 00:22 | PC.NURSE ---
PATIENT IS RESTING ON STRETCHER. CURRENTLY DENIES ANY NEEDS. CALL LIGHT IN REACH. MOTHER AT THE BEDSIDE.
--- NOTE | 2025-08-01 00:46 | PC.NURSE ---
ANTIBIOTICS INFUSING TO LEFT FOREARM. SITE WITHOUT REDNESS OR IRRITATION. CALL LIGHT IN REACH. NO NEEDS VOICED.
[2025-08-01 00:58] VITALS: BP 122/74; PULSE 86; RESP 18; O2SAT 97
--- NOTE | 2025-08-05 13:38 | PC.NURSE ---
blood preliminary no growth
== END 2025-08-01 00:58 | disposition home or self-care (01) ==
PROVIDERS: Emergency Provider Emergency Medicine; PCP Registered Nurse
DX: K52.9 Noninfective gastroenteritis and colitis, unspecified (principal); E11.9 Type 2 diabetes mellitus without complications
CPT/HCPCS: 36415; 74177; 80053; 81003; 81025; 83690; 85025; 85610; 85730; 96361; 96365; 96367; 96375; 99284; A9270; J0744; J1836; J2270; J2405; J7030; Q9967